=== PATIENT | male | born 1970 | race Caucasian/White ===

== ENCOUNTER 2018-06-18 00:49 | Outpatient (CLI) | payer BC, SELFPAY ==
--- NOTE | 2018-06-18 14:00 | DI.RAD_ITS ---
SYMPTOM/DIAGNOSIS: FOOT JOINT PAIN, M79.672 LEFT FOOT: Three views. No bone or joint abnormality is identified. The soft tissues are unremarkable. IMPRESSION: Negative left foot.
== END 2018-06-18 01:09 ==
PROVIDERS: PCP Physician Assistant Medical; Visit Provider Physician Assistant Medical
DX: M79.672 Pain in left foot (principal)
CPT/HCPCS: 73630

== ENCOUNTER 2018-07-21 22:31 | Emergency (ER) | payer BC, SELFPAY ==
[2018-07-21] VITALS (12 sets, daily range): BP systolic 133–152; BP diastolic 71–83; PULSE 68–85; RESP 13–32; TEMP 36.4; O2SAT 94–99
--- NOTE | 2018-07-21 22:58 | DI.RAD_ITS ---
SYMPTOMS/DIAGNOSIS: CENTRAL CHEST DISCOMFORT PA AND LATERAL CHEST: Comparison 07/26/17. The heart is normal in size. The lungs are clear. The mediastinal structures and pleura appear intact. CONCLUSION: Normal chest.
--- NOTE | 2018-07-21 22:58 | W.ED.GENAD ---
Discharge Plan Disposition Patient Disposition: HOME Condition: Stable Discharge Details Chief Complaint: Palpitatns Clinical Impression: Atypical chest pain Primary Care Provider: Guerline Franco ED Provider: Junior Trevino Home Meds and New Rx's Prescriptions: New ranitidine HCl 150 mg capsule 150 mg PO DAILY Qty: 14 RF: 0 Continue albuterol sulfate [ProAir HFA] 8.5 GM HFA aerosol inhaler 1 - 2 puff Inhalation Q4H PRN RF: 0 beclomethasone dipropionate [Qvar] 8.7 GM aerosol 1 puff Inhalation BID RF: 0 Discharge Instructions Instructions: Chest Pain (ED) Additional Instructions: Your chest x-ray and laboratory tests were reassuring and without evidence of abnormality today. Please trial Zantac daily for 2 weeks time. Avoid fatty, fried, spicy, tomato sauce-based foods. Return to the emergency department if you have recurrent discomfort, develop a fever, shortness of breath, or any other acute concerns. Please call regular doctors office for a follow-up appointment in approximately next 7-10 days time Medical Decision Making 47-year-old male presents from home with abrupt onset of substernal discomfort while eating. It was associated with sensation of skipped beats. He has not had any recent illness and he arrives improved with out significant persistent complaints of than mild substernal burning discomfort. Differential diagnosis includes gastritis, esophagitis, acute coronary syndrome. Patient placed on a cardiac exercise specialist, given a GI cocktail, referred for laboratory testing, EKG, chest x-ray. Diagnostics reveal unremarkable CXR, normal chemistries including troponin and LFT's. CBC WNL. The patient was observed on cardiac exercise specialist over approximately 2 hrs time and repeat troponin obtained. It is negative as well. He is improved and better. Discussed with patient that we will trial a course of Zantac for gastritis. He does understand return precautions including recurrence of chest pain. He will follow up with PMD for recheck. Lab Data Lab results reviewed: Yes I reviewed the patient's lab results. Laboratory Results - last 24 hr 07/21/18 07/21/18 22:45 22:45 WBC 6.44 RBC 4.73 Hgb 14.5 Hct 42.2 MCV 89.2 MCH 30.7 MCHC 34.4 RDW 12.6 Plt Count 201 MPV 10.3 Immature Gran % 0.3 Neutrophils % 45.2 Lymphocytes % 34.8 Monocytes % 15.5 Eosinophils % 3.7 Basophils % 0.5 Absolute Neutrophils 2.91 Absolute Lymphocytes 2.24 Absolute Monocytes 1.00 H Absolute Eosinophils 0.24 Absolute Basophils 0.03 Sodium 142 Potassium 3.6 Chloride 105 Carbon Dioxide 27.7 Anion Gap 9.3 BUN 17 Creatinine 0.98 Estimated GFR/1.73 m2 >= 60.00 Glucose 111 H Calcium 8.8 Magnesium 2.2 Total Bilirubin 0.3 AST 15 ALT 38 Alkaline Phosphatase 86 Troponin I < 0.02 Total Protein 6.6 Albumin 3.6 ECG Data Attestation: I personally reviewed and interpreted this ECG (s) as follows: Interpretation: Normal sinus rhythm, the rate is 86, the QRS is narrow, no ST segment elevation HPI General Mode of arrival: ambulatory. Date/Time Provider Initiated Documentation: 07/21/18 22:50. Limitations to Documentation: no limitations. Information obtained by: patient. History of Present Illness 47 year old M presents to the emergency department with the chief complaint of Epigastric discomfort, described as mild, Quality is described as burning, and is localized to the chest. Patient abdomen. Patient started experiencing this hour(s) and it has been constant. No relieving factors improve symptom(s), No exacerbating factors reported . Patient notes no other symptoms.; denies cough, diaphoresis, fever/chills, headaches and nausea/vomiting. HPI Narrative: 47-year-old male presents from home stating that while eating dinner at a local restaurant he developed substernal burning discomfort that radiated up and down his abdomen and chest. It is graded 4 out of 10, constant, without modifying factors. He denies associated shortness of breath. Has had no lower extremity pain or swelling. He states it is not any recent illness or fever Related Data Home Medications Medication Instructions Recorded Confirmed albuterol sulfate [ProAir HFA] 1 - 2 puff INHALATION Q4H PRN 07/20/17 07/21/18 inhaler beclomethasone dipropionate [Qvar] 1 puff INHALATION BID inhaler 07/20/17 08/31/17 ranitidine HCl 150 mg PO DAILY #14 cap 07/22/18 Previous Rx's Medication Instructions Recorded ranitidine HCl 150 mg PO DAILY #14 cap 07/22/18 Allergies Allergy/AdvReac Type Severity Reaction Status Date / Time No Known Allergies Allergy Unverified 07/21/18 22:43 General Stated Complaint: Palpitatns SHAYNA: 2 Review of Systems Review of Systems 8 systems reviewed and otherwise negative [facility] Medical History Abnormal chest xray Cough Lymphoma Pneumonia Rectal bleeding Sinusitis Testicular disorder Social History Smoking/Tobacco Use Status: Never Exam Narrative Exam Narrative: GEN: awake, alert, oriented 3. Pleasant, well groomed, interactive. HEAD: Normocephalic, atraumatic ENT: Mucous membranes moist, oropharynx unremarkable, External ear exam unremarkable EYES: PERRL, EOMI NECK: Full ROM, no ANA LAURA, no menigismus CHEST/RESP: Nontender, clear to auscultation bilateral, no wheeze/rhonchi/rales CARDIOVASCULAR: RRR, no murmur, rub caitlin. 2+ Rad pulse bilateral ABDOMEN: Soft, nontender, no mass. +Bowel sounds EXT: Full ROM, no edema, no rash Neuro: Grossly normal neurologic exam, conversant, interactive. Psych: Speech fluent, thoughts congruent, affect normal Course Vital Signs Temperature 36.4 C L 07/21/18 22:37 Pulse 77 07/21/18 22:37 Respiratory Rate 26 H 07/21/18 22:37 Blood Pressure 143/83 H 07/21/18 22:37 Pulse Oximetry 98 07/21/18 22:37 Temperature 36.4 C L 07/21/18 22:37 Temperature Source Tympanic 07/21/18 22:37 Pulse 77 07/21/18 22:37 Respiratory Rate 26 H 07/21/18 22:37 Respiratory Effort Non-Labored 07/21/18 22:40 Blood Pressure 143/83 H 07/21/18 22:37 Blood Pressure Position Sitting 07/21/18 22:37 Pulse Oximetry 98 07/21/18 22:37 Oxygen Delivery Method Room Air 07/21/18 22:37 Oxygen Flow Rate 0 07/21/18 22:37 Pain Level 0 07/21/18 22:37
--- NOTE | 2018-07-21 23:02 | ED.GENADUL_ITS ---
Discharge Plan Disposition Patient Disposition: HOME Condition: Stable Discharge Details Chief Complaint: Palpitatns Clinical Impression: Atypical chest pain Primary Care Provider: Guerline Franco ED Provider: Junior Trevino Home Meds and New Rx's Prescriptions: New ranitidine HCl 150 mg capsule 150 mg PO DAILY Qty: 14 RF: 0 Continue albuterol sulfate [ProAir HFA] 8.5 GM HFA aerosol inhaler 1 - 2 puff Inhalation Q4H PRN RF: 0 beclomethasone dipropionate [Qvar] 8.7 GM aerosol 1 puff Inhalation BID RF: 0 Discharge Instructions Instructions: Chest Pain (ED) Additional Instructions: Your chest x-ray and laboratory tests were reassuring and without evidence of abnormality today. Please trial Zantac daily for 2 weeks time. Avoid fatty, fried, spicy, tomato sauce-based foods. Return to the emergency department if you have recurrent discomfort, develop a fever, shortness of breath, or any other acute concerns. Please call regular doctors office for a follow-up appointment in approximately next 7-10 days time Medical Decision Making 47-year-old male presents from home with abrupt onset of substernal discomfort while eating. It was associated with sensation of skipped beats. He has not had any recent illness and he arrives improved with out significant persistent complaints of than mild substernal burning discomfort. Differential diagnosis includes gastritis, esophagitis, acute coronary syndrome. Patient placed on a cellar worker, given a GI cocktail, referred for laboratory testing, EKG, chest x-ray. Diagnostics reveal unremarkable CXR, normal chemistries including troponin and LFT's. CBC WNL. The patient was observed on cellar worker over approximately 2 hrs time and repeat troponin obtained. It is negative as well. He is improved and better . Discussed with patient that we will trial a course of Zantac for gastritis. He does understand return precautions including recurrence of chest pain. He will follow up with PMD for recheck. Lab Data Lab results reviewed: Yes I reviewed the patient's lab results. Laboratory Results - last 24 hr 07/21/18 07/21/18 22:45 22:45 WBC 6.44 RBC 4.73 Hgb 14.5 Hct 42.2 MCV 89.2 MCH 30.7 MCHC 34.4 RDW 12.6 Plt Count 201 MPV 10.3 Immature Gran % 0.3 Neutrophils % 45.2 Lymphocytes % 34.8 Monocytes % 15.5 Eosinophils % 3.7 Basophils % 0.5 Absolute Neutrophils 2.91 Absolute Lymphocytes 2.24 Absolute Monocytes 1.00 H Absolute Eosinophils 0.24 Absolute Basophils 0.03 Sodium 142 Potassium 3.6 Chloride 105 Carbon Dioxide 27.7 Anion Gap 9.3 BUN 17 Creatinine 0.98 Estimated GFR/1.73 m2 >= 60.00 Glucose 111 H Calcium 8.8 Magnesium 2.2 Total Bilirubin 0.3 AST 15 ALT 38 Alkaline Phosphatase 86 Troponin I < 0.02 Total Protein 6.6 Albumin 3.6 ECG Data Attestation: I personally reviewed and interpreted this ECG (s) as follows: Interpretation: Normal sinus rhythm, the rate is 86, the QRS is narrow, no ST segment elevation HPI General Mode of arrival: ambulatory . Date/Time Provider Initiated Documentation: 07/21/18 22:50 . Limitations to Documentation: no limitations . Information obtained by: patient . History of Present Illness 47 year old M presents to the emergency department with the chief complaint of Epigastric discomfort, described as mild, Quality is described as burning, and is localized to the chest. Patient abdomen. Patient started experiencing this hour(s) and it has been constant. No relieving factors improve symptom(s), No exacerbating factors reported . Patient notes no other symptoms.; denies cough, diaphoresis, fever/chills, headaches and nausea/ vomiting. HPI Narrative: 47-year-old male presents from home stating that while eating dinner at a local restaurant he developed substernal burning discomfort that radiated up and down his abdomen and chest. It is graded 4 out of 10, constant , without modifying factors. He denies associated shortness of breath. Has had no lower extremity pain or swelling. He states it is not any recent illness or fever Related Data Home Medications Medication Instructions Recorded Confirmed albuterol sulfate [ProAir HFA] 1 - 2 puff INHALATION Q4H PRN 07/20/17 07/21/18 inhaler beclomethasone dipropionate [Qvar] 1 puff INHALATION BID inhaler 07/20/1708/31 ranitidine HCl 150 mg PO DAILY #14 cap 07/22/18 Previous Rx's Medication Instructions Recorded ranitidine HCl 150 mg PO DAILY #14 cap 07/22/18 Allergies Allergy/AdvReac Type Severity Reaction Status Date / Time No Known Allergies Allergy Unverified 07/21/18 22:43 General Stated Complaint: Palpitatns SHAYNA: 2 Review of Systems Review of Systems 8 systems reviewed and otherwise negative [facility] Medical History Abnormal chest xray Cough Lymphoma Pneumonia Rectal bleeding Sinusitis Testicular disorder Social History Smoking/Tobacco Use Status: Never Exam Narrative Exam Narrative: GEN: awake, alert, oriented 3. Pleasant, well groomed, interactive. HEAD: Normocephalic, atraumatic ENT: Mucous membranes moist, oropharynx unremarkable, External ear exam unremarkable EYES: PERRL, EOMI NECK: Full ROM, no ANA LAURA, no menigismus CHEST/RESP: Nontender, clear to auscultation bilateral, no wheeze/rhonchi/rales CARDIOVASCULAR: RRR, no murmur, rub caitlin. 2+ Rad pulse bilateral ABDOMEN: Soft, nontender, no mass. +Bowel sounds EXT: Full ROM, no edema, no rash Neuro: Grossly normal neurologic exam, conversant, interactive. Psych: Speech fluent, thoughts congruent, affect normal Course Vital Signs Temperature 36.4 C L 07/21/18 22:37 Pulse 77 07/21/18 22:37 Respiratory Rate 26 H 07/21/18 22:37 Blood Pressure 143/83 H 07/21/18 22:37 Pulse Oximetry 98 07/21/18 22:37 Temperature 36.4 C L 07/21/18 22:37 Temperature Source Tympanic 07/21/18 22:37 Pulse 77 07/21/18 22:37 Respiratory Rate 26 H 07/21/18 22:37 Respiratory Effort Non-Labored 07/21/18 22:40 Blood Pressure 143/83 H 07/21/18 22:37 Blood Pressure Position Sitting 07/21/18 22:37 Pulse Oximetry 98 07/21/18 22:37 Oxygen Delivery Method Room Air 07/21/18 22:37 Oxygen Flow Rate 0 07/21/18 22:37 Pain Level 0 07/21/18 22:37
[2018-07-21 23:04] LABS: Abs Immature Grans 0.02 k/cumm (0.0-0.09); Absolute Basophil Count 0.03 k/cumm (0.0-0.2); Absolute Eosinophil Count 0.24 k/cumm (0.0-0.7); Absolute Lymphocyte Count 2.24 k/cumm (1.2-3.4); Absolute Neutrophil Count 2.91 k/cumm (1.2-6.7); Basophils % 0.5; Eosinophils % 3.7; HCT 42.2 % (40.0-50.0); HGB 14.5 g/dL (13.5-17.5); Immature Grans % 0.3; Lymphocytes % 34.8; Mean Corp. HGB Concentration 34.4 g/dL (32.0-36.0); Mean Corpuscular Hemoglobin 30.7 pg (27.0-33.0); Mean Corpuscular Volume 89.2 fL (80-95); Mean Platelet Volume 10.3 fL (8.0-11.0); Monocytes % 15.5; Neutrophils % 45.2; Platelet Count 201 x1000/uL (130-400); RBC 4.73 m/cumm (4.50-6.00); RBC Distribution Width 12.6 % (11.8-14.1); White Blood Cell Count 6.44 k/cumm (4.4-10.8)
[2018-07-21 23:19] LABS: ALT 38 U/L (12-78); AST 15 U/L (15-37); Albumin 3.6 g/dL (3.4-5.0); Alkaline Phosphatase 86 U/L (46-116); Anion Gap 9.3 mmol/L (3-11); BUN 17 mg/dL (7-18); Bilirubin, Total 0.3 mg/dL (0.2-1.0); CO2 27.7 mmol/L (21.0-32.0); CREATININE 0.98 mg/dL (0.70-1.30); Calcium 8.8 mg/dL (8.5-10.1); Chloride 105 mmol/L (98-107); Glucose 111 mg/dL (70-100); Magnesium 2.2 mg/dL (1.8-2.4); Potassium 3.6 mmol/L (3.5-5.1); Sodium 142 mmol/L (136-145); Total Protein 6.6 g/dL (6.4-8.2); Troponin I < 0.02 ng/mL (0.00-0.06)
--- NOTE | 2018-07-21 23:41 | DI.VRAD_ITS ---
EXAM: XR Chest, 2 Views EXAM DATE/TIME: 07/21/2018 10:59 PM CLINICAL HISTORY: 47 years old, male; Pain; Other: Central chest discomfort TECHNIQUE: XR of the chest, 2 views. COMPARISON: CR CHEST 2 VIEWS PA,LAT 07/26/2017 7:50 AM FINDINGS: Lungs: Unremarkable. No consolidation. Pleural space: Unremarkable. No pleural effusion. No pneumothorax. Heart/Mediastinum: Unremarkable. No cardiomegaly. Bones/joints: Chronic osseous changes. IMPRESSION: No acute cardiopulmonary findings. Dictated and Authenticated by: Minesh Briseno MD. Ordering:ROSS LOCO MD
[2018-07-22] VITALS: PULSE 72; RESP 34; O2SAT 95
[2018-07-22 00:01] VITALS: BP 133/84; PULSE 74; PULSE 80; O2SAT 95
[2018-07-22 00:02] VITALS: PULSE 73; RESP 15; O2SAT 96
[2018-07-22 00:10] VITALS: PULSE 63; O2SAT 96
[2018-07-22 00:20] LABS: Troponin I < 0.02 ng/mL (0.00-0.06)
[2018-07-22 00:28] VITALS: BP 132/80; PULSE 74; RESP 15; TEMP 36.4; O2SAT 96
== END 2018-07-22 00:37 | disposition home or self-care (01) ==
LOC: ER 07-22 00:41
PROVIDERS: Emergency Provider Emergency Medicine; PCP Physician Assistant Medical
DX: R07.89 Other chest pain (principal)
CPT/HCPCS: 36415; 80053; 93005; 99285; 71046; 83735; 84484; 85025; 93010; 99284

== ENCOUNTER 2018-10-10 07:23 | Outpatient (CLI) | payer BC, SELFPAY ==
[2018-10-10 07:54] LABS: Abs Immature Grans 0.02 k/cumm (0.0-0.09); Absolute Basophil Count 0.03 k/cumm (0.0-0.2); Absolute Eosinophil Count 0.23 k/cumm (0.0-0.7); Absolute Lymphocyte Count 1.77 k/cumm (1.2-3.4); Absolute Monocyte Count 0.56 k/cumm (0.11-0.7); Absolute Neutrophil Count 3.74 k/cumm (1.2-6.7); Basophils % 0.5; Eosinophils % 3.6; HCT 45.1 % (40.0-50.0); HGB 15.5 g/dL (13.5-17.5); Immature Grans % 0.3; Lymphocytes % 27.9; Mean Corp. HGB Concentration 34.4 g/dL (32.0-36.0); Mean Corpuscular Hemoglobin 30.3 pg (27.0-33.0); Mean Corpuscular Volume 88.1 fL (80-95); Mean Platelet Volume 10.5 fL (8.0-11.0); Monocytes % 8.8; Neutrophils % 58.9; Platelet Count 225 x1000/uL (130-400); RBC 5.12 m/cumm (4.50-6.00); RBC Distribution Width 12.4 % (11.8-14.1); White Blood Cell Count 6.35 k/cumm (4.4-10.8)
[2018-10-10 08:06] LABS: ALT 34 U/L (12-78); AST 13 U/L (15-37); Albumin 3.9 g/dL (3.4-5.0); Alkaline Phosphatase 82 U/L (46-116); Anion Gap 10.3 mmol/L (3-11); BUN 16 mg/dL (7-18); Bilirubin, Total 0.4 mg/dL (0.2-1.0); CO2 25.7 mmol/L (21.0-32.0); CREATININE 0.94 mg/dL (0.70-1.30); Chloride 105 mmol/L (98-107); Glucose 92 mg/dL (70-100); LDH 145 U/L (85-227); Potassium 4.3 mmol/L (3.5-5.1); Sodium 141 mmol/L (136-145); Total Protein 7.1 g/dL (6.4-8.2)
== END 2018-10-10 07:43 ==
PROVIDERS: PCP Physician Assistant Medical; Referring Provider Nurse Practitioner Family; Visit Provider Internal Medicine Hematology & Oncology
DX: C82.90 Follicular lymphoma, unspecified, unspecified site (principal)
CPT/HCPCS: 36415; 80053; 83615; 85025

== ENCOUNTER 2018-12-30 09:07 | Emergency (ER) | payer BC, SELFPAY ==
[2018-12-30 09:28] VITALS: BP 128/82; PULSE 71; RESP 16; TEMP 36.5; O2SAT 97
--- NOTE | 2018-12-30 11:17 | W.ED.GENAD ---
Discharge Plan Disposition Patient Disposition: HOME Condition: Improving Discharge Details Chief Complaint: EyeProblem Clinical Impression: Acute conjunctivitis of left eye Primary Care Provider: Rafal Art ED Provider: Junior Trevino Home Meds and New Rx's Prescriptions: Continued albuterol sulfate [ProAir HFA] 8.5 GM HFA aerosol inhaler 1 - 2 puff Inhalation Q4H PRN RF: 0 Qvar 8.7 GM aerosol 1 puff Inhalation BID RF: 0 ranitidine HCl 150 mg capsule 150 mg PO DAILY Qty: 14 RF: 0 Discharge Instructions Instructions: Conjunctivitis (ED) Additional Instructions: Our care management team will work to get you an appointment at [facility] for follow-up and recheck. Use antibiotic ointment as instructed for 5 days time. Return if you develop a severe headache, fever or any other acute concerns Medical Decision Making 48-year-old male presents with 1 day of left eye conjunctival irritation and watering. His visual acuity is 20/70 on the affected eye, 20/50 contralateral. Exam including fluorescein exam is unremarkable for corneal defect. Consistent with conjunctivitis, cannot exclude iritis. Will place on erythromycin ointment and have the patient follow-up with [facility] for recheck. HPI General Mode of arrival: ambulatory. Date/Time Provider Initiated Documentation: 12/30/18 10:58. Limitations to Documentation: no limitations. Information obtained by: patient. History of Present Illness 48 year old M presents to the emergency department with the chief complaint of Left eye injection and tearing, no pain, described as mild, Quality is described as dull, and is localized to the eyes and left. Patient reports no radiation. Patient started experiencing this day(s) and it has been constant. No relieving factors improve symptom(s), No exacerbating factors reported . Patient notes no other symptoms.; denies fever/chills, headaches and rash. Patient did receive the following treatments prior to arrival, none Related Data Home Medications Medication Instructions Recorded Confirmed Qvar 1 puff INHALATION BID inhaler 07/20/17 12/30/18 albuterol sulfate [ProAir HFA] 1 - 2 puff INHALATION Q4H PRN 07/20/17 12/30/18 inhaler ranitidine HCl 150 mg PO DAILY #14 cap 07/22/18 12/30/18 Previous Rx's Medication Instructions Recorded ranitidine HCl 150 mg PO DAILY #14 cap 07/22/18 Allergies Allergy/AdvReac Type Severity Reaction Status Date / Time No Known Allergies Allergy Unverified 12/30/18 09:30 General Stated Complaint: EyeProblem SHAYNA: 4 Review of Systems Review of Systems No change to vision. No pain. No fall or foreign object. 6 systems reviewed and otherwise - REPLACED BY [facility] Social History Smoking/Tobacco Use Status: Never Drug use: Never Do you feel safe in your relationship?: Yes Exam Narrative Exam Narrative: GEN: awake, alert, oriented 3. Pleasant, well groomed, interactive. HEAD: Normocephalic, atraumatic ENT: Mucous membranes moist, oropharynx unremarkable, External ear exam unremarkable EYES: PERRL, EOMI. left eye is injected. Fluorescein exam is unremarkable and negative Nandini sign. no foreign body seen NECK: Full ROM, no ANA LAURA, no menigismus CHEST/RESP: Nontender, clear to auscultation bilateral, no wheeze/rhonchi/rales CARDIOVASCULAR: RRR, no murmur, rub caitlin. 2+ Rad pulse bilateral Neuro: Grossly normal neurologic exam, conversant, interactive. Psych: Speech fluent, thoughts congruent, affect normal Course Vital Signs Temperature 36.5 C 12/30/18 09:28 Pulse 71 12/30/18 09:28 Respiratory Rate 16 12/30/18 09:28 Blood Pressure 128/82 12/30/18 09:28 Pulse Oximetry 97 12/30/18 09:28 Temperature 36.5 C 12/30/18 09:28 Temperature Source Skin 12/30/18 09:28 Pulse 71 12/30/18 09:28 Respiratory Rate 16 12/30/18 09:28 Respiratory Effort Non-Labored 12/30/18 09:28 Blood Pressure 128/82 12/30/18 09:28 Blood Pressure Position Sitting 12/30/18 09:28 Pulse Oximetry 97 12/30/18 09:28 Oxygen Delivery Method Room Air 12/30/18 09:28 Oxygen Flow Rate 0 12/30/18 09:28 Pain Level 1 12/30/18 09:28
--- NOTE | 2018-12-30 11:20 | ED.GENADUL_ITS ---
Discharge Plan Disposition Patient Disposition: HOME Condition: Improving Discharge Details Chief Complaint: EyeProblem Clinical Impression: Acute conjunctivitis of left eye Primary Care Provider: Rafal Art ED Provider: Junior Trevino Home Meds and New Rx's Prescriptions: Continued albuterol sulfate [ProAir HFA] 8.5 GM HFA aerosol inhaler 1 - 2 puff Inhalation Q4H PRN RF: 0 Qvar 8.7 GM aerosol 1 puff Inhalation BID RF: 0 ranitidine HCl 150 mg capsule 150 mg PO DAILY Qty: 14 RF: 0 Discharge Instructions Instructions: Conjunctivitis (ED) Additional Instructions: Our care management team will work to get you an appointment at [facility] for follow-up and recheck. Use antibiotic ointment as instructed for 5 days time. Return if you develop a severe headache, fever or any other acute concerns Medical Decision Making 48-year-old male presents with 1 day of left eye conjunctival irritation and watering. His visual acuity is 20/70 on the affected eye, 20/50 contralateral. Exam including fluorescein exam is unremarkable for corneal defect. Consistent with conjunctivitis, cannot exclude iritis. Will place on erythromycin ointment and have the patient follow-up with [facility] for recheck. HPI General Mode of arrival: ambulatory . Date/Time Provider Initiated Documentation: 12/30/18 10:58 . Limitations to Documentation: no limitations . Information obtained by: patient . History of Present Illness 48 year old M presents to the emergency department with the chief complaint of Left eye injection and tearing, no pain, described as mild, Quality is described as dull, and is localized to the eyes and left. Patient reports no radiation. Patient started experiencing this day(s) and it has been constant. No relieving factors improve symptom(s), No exacerbating factors reported . Patient notes no other symptoms.; denies fever/chills, headaches and rash. Patient did receive the following treatments prior to arrival, none Related Data Home Medications Medication Instructions Recorded Confirmed Qvar 1 puff INHALATION BID inhaler 07/20/17 12/30/18 albuterol sulfate [ProAir HFA] 1 - 2 puff INHALATION Q4H PRN 07/20/17 12/30/18 inhaler ranitidine HCl 150 mg PO DAILY #14 cap 07/22/18 12/30/18 Previous Rx's Medication Instructions Recorded ranitidine HCl 150 mg PO DAILY #14 cap 07/22/18 Allergies Allergy/AdvReac Type Severity Reaction Status Date / Time No Known Allergies Allergy Unverified 12/30/18 09:30 General Stated Complaint: EyeProblem SHAYNA: 4 Review of Systems Review of Systems No change to vision. No pain. No fall or foreign object. 6 systems reviewed and otherwise - [facility] Social History Smoking/Tobacco Use Status: Never Drug use: Never Do you feel safe in your relationship?: Yes Exam Narrative Exam Narrative: GEN: awake, alert, oriented 3. Pleasant, well groomed, interactive. HEAD: Normocephalic, atraumatic ENT: Mucous membranes moist, oropharynx unremarkable, External ear exam unremarkable EYES: PERRL, EOMI. left eye is injected. Fluorescein exam is unremarkable and negative Nandini sign. no foreign body seen NECK: Full ROM, no ANA LAURA, no menigismus CHEST/RESP: Nontender, clear to auscultation bilateral, no wheeze/rhonchi/rales CARDIOVASCULAR: RRR, no murmur, rub caitlin. 2+ Rad pulse bilateral Neuro: Grossly normal neurologic exam, conversant, interactive. Psych: Speech fluent, thoughts congruent, affect normal Course Vital Signs Temperature 36.5 C 12/30/18 09:28 Pulse 71 12/30/18 09:28 Respiratory Rate 16 12/30/18 09:28 Blood Pressure 128/82 12/30/18 09:28 Pulse Oximetry 97 12/30/18 09:28 Temperature 36.5 C 12/30/18 09:28 Temperature Source Skin 12/30/18 09:28 Pulse 71 12/30/18 09:28 Respiratory Rate 16 12/30/18 09:28 Respiratory Effort Non-Labored 12/30/18 09:28 Blood Pressure 128/82 12/30/18 09:28 Blood Pressure Position Sitting 12/30/18 09:28 Pulse Oximetry 97 12/30/18 09:28 Oxygen Delivery Method Room Air 12/30/18 09:28 Oxygen Flow Rate 0 12/30/18 09:28 Pain Level 1 12/30/18 09:28
[2018-12-30] MEDS: Erythromycin Ophth Oint 3.5 GM TUBE OP (11:22)
[2018-12-30] MEDS: Balanced Salt Solution 15 ML BTL OP (11:23)
[2018-12-30] MEDS: Fluorescein STRIPS 100/BOX 1 MG (11:24)
--- NOTE | 2018-12-31 10:08 | PDOC.ERCMPRO ---
Care Management Progress Note 12/31-Dr. Trevino requested assistance with a [facility] f/u Mon// for conjunctivitis or iritis. Referral, face sheet, and provider note faxed to [facility] this am.
--- NOTE | 2018-12-31 10:18 | CMPROGNOTE_ITS ---
Care Management Progress Note 12/31-Dr. Trevino requested assistance with a [facility] f/u Mon// for conjunctivitis or iritis. Referral, face sheet, and provider note faxed to [facility]riet[facility] this am.
== END 2018-12-30 11:26 | disposition home or self-care (01) ==
PROVIDERS: Emergency Provider Emergency Medicine; PCP Specialist/Technologist Athletic Trainer
DX: H10.32 Unspecified acute conjunctivitis, left eye (principal)
CPT/HCPCS: 99283

== ENCOUNTER 2019-04-24 07:12 | Outpatient (CLI) | payer BC, SELFPAY ==
[2019-04-24 07:48] LABS: Abs Immature Grans 0.02 k/cumm (0.0-0.09); Absolute Basophil Count 0.03 k/cumm (0.0-0.2); Absolute Eosinophil Count 0.19 k/cumm (0.0-0.7); Absolute Lymphocyte Count 1.86 k/cumm (1.2-3.4); Absolute Monocyte Count 0.49 k/cumm (0.11-0.7); Absolute Neutrophil Count 3.44 k/cumm (1.2-6.7); Basophils % 0.5; Eosinophils % 3.2; HCT 41.9 % (40.0-50.0); HGB 14.6 g/dL (13.5-17.5); Immature Grans % 0.3; Lymphocytes % 30.8; Mean Corp. HGB Concentration 34.8 g/dL (32.0-36.0); Mean Corpuscular Hemoglobin 30.7 pg (27.0-33.0); Mean Corpuscular Volume 88.2 fL (80-95); Mean Platelet Volume 10.5 fL (8.0-11.0); Monocytes % 8.1; Neutrophils % 57.1; Platelet Count 201 x1000/uL (130-400); RBC 4.75 m/cumm (4.50-6.00); RBC Distribution Width 12.3 % (11.8-14.1); White Blood Cell Count 6.03 k/cumm (4.4-10.8)
[2019-04-24 08:13] LABS: ALT 38 U/L (12-78); AST 10 U/L (15-37); Albumin 3.8 g/dL (3.4-5.0); Alkaline Phosphatase 73 U/L (46-116); BUN 13 mg/dL (7-18); Bilirubin, Total 0.3 mg/dL (0.2-1.0); Calcium 8.6 mg/dL (8.5-10.1); Chloride 109 mmol/L (98-107); Glucose 100 mg/dL (70-100); LDH 160 U/L (85-227); Potassium 4.1 mmol/L (3.5-5.1); Sodium 142 mmol/L (136-145); Total Protein 6.7 g/dL (6.4-8.2)
== END 2019-04-24 07:32 ==
PROVIDERS: PCP Specialist/Technologist Athletic Trainer; Visit Provider Internal Medicine Hematology & Oncology
DX: C85.90 Non-Hodgkin lymphoma, unspecified, unspecified site (principal)
CPT/HCPCS: 36415; 80053; 83615; 85025

== ENCOUNTER 2019-11-15 08:15 | Day surgery (SDC) | payer OTHER, SELFPAY ==
[2019-11-15 08:27] VITALS: BP 120/81; PULSE 81; RESP 18; TEMP 36.6; O2SAT 97
[2019-11-15] MEDS: Lactated Ringers 1,000 ML 80 ML IV ×2 (09:01→10:52)
--- NOTE | 2019-11-15 09:29 | W.PM.DSUDISC ---
Discharge Plan Disposition Patient Disposition: HOME Condition: Good Discharge Details Reason For Visit: Colonoscopy Attending Provider: Concepcion Hernandez Primary Care Provider: Rafal Art Discharge Instructions Additional Instructions: Findings: Your colonoscopy was normal. Biopsies were done to evaluate for a possible cause of loose stool. My office will contact you with results. Follow up: Plan for routine colon screening in 10 years or sooner if symptoms arise. Please call if you develop: fevers >101.5 Nausea or Vomiting Abdominal pain that is not transient DAY SURGERY UNIT POST COLONOSCOPY INSTRUCTIONS 1. Because there will be medication in your system for the next 24 hours, you may feel a little sleepy. Your coordination will be affected. Therefore: a. Do not drive or operate dangerous equipment for 24 hours. b. Do not drink alcohol beverages for 24 hours (not even beer). c. Plan to go home and rest for the day. 2. Generally there are no restrictions on your activity after a day or so has gone by, but you may feel a bit fatigued for a few days. 3 After you arrive home you may have a light meal and return to a normal diet as you can tolerate it without feeling sick to your stomach. 4. After surgery, you may feel pain or discomfort. This should be only transient, but if it persists please contact your doctor. 5. If there are any questions regarding the findings of your procedure, please feel free to contact your doctor. 6. If you are unable to contact your doctor with a problem, contact the hospital at [phone]. 7. Continue all your regular medications unless directed otherwise. I understand the above instructions and have no questions. Signature of Patient or Responsible Adult Escort Date/Time Name of Responsible Adult Escort Signature of Nurse Date/Time Activity:: Activity as Tolerated Diet:: As Tolerated Discharge Orders Discharge Orders: Discharge Order (Routine); Ordered 11/15/19 Ordered By: Concepcion Hernandez DS: Diagnosis Discharge Diagnosis (1) Normal colonoscopy: Status: Acute
--- NOTE | 2019-11-15 10:48 | BOWEL_PTH ---
PATIENT: Agapito Ramirez JR LOC: [facility] U#:[id number] AGE/SX: 49/M ROOM: RE11/15/[address]: Concepcion Hernandez MD : [id number] BED: DIS: 11/15/2019 SPEC #: [id number] RECD: 11/15/19 12:59 STATUS: LEE REQ #: [id number] LENARD: 11/15/19 10:[address]: Concepcion Hernandez DEPT: Surgical Specimen RECD BY: Tran Quesada ENTERED: 11/15/19 13:00 SP TYPE: Bowel OTHR DR: Rafal Art Tissues: 1 - BIOPSY BOWEL Procedures: GROSS AND MICRO LEVEL 4 Comments: [id number]
--- NOTE | 2019-11-15 11:31 | COLE_ITS ---
DATE OF PROCEDURE November 15, 2019 PREOPERATIVE DIAGNOSIS Colon screening. POSTOPERATIVE DIAGNOSIS Normal colon. PROCEDURE Colonoscopy with random biopsies. SURGEON Concepcion Hernandez M.D. ANESTHESIA General. INDICATIONS This is a 49-year-old man, who presents for his first screening colonoscopy. He does note that his st ools have become somewhat looser. Often after he eats, he reports that the food goes right through hi m. He has about two stools per day. No family history of colon cancer. PROCEDURE He was placed in the left Alas position. Propofol was titrated to sedation. Digital rectal examinatio n revealed no abnormalities. The scope was advanced to the cecum without difficulty. The ileocecal va lve and appendiceal orifice were clearly identified. His prep was excellent. Random biopsies were per formed throughout the colon to evaluate for microscopic colitis as the cause of his loose stool. No a bnormalities were visualized throughout the ascending, transverse, descending, sigmoid colon or rectu m, including on retroflexed view. He tolerated the procedure well and was stable to Recovery. He will need a screening colonoscopy again in 10 years or sooner as symptoms indicate.
[2019-11-15 11:49] VITALS: BP 124/81; PULSE 71; RESP 17; TEMP 36.1; O2SAT 97
== END 2019-11-15 12:12 | disposition home or self-care (01) ==
PROVIDERS: PCP Specialist/Technologist Athletic Trainer; Visit Provider Surgery
PROC: 0DJD8ZZ Inspection of Lower Intestinal Tract, Via Natural or Artificial Opening Endoscopic (ICD-10-PCS; CPT 45378; principal; 2019-11-15 09:45)
DX: Z12.11 Encounter for screening for malignant neoplasm of colon (principal); R19.4 Change in bowel habit; Z85.72 Personal history of non-Hodgkin lymphomas; D12.6 Benign neoplasm of colon, unspecified
CPT/HCPCS: 45380; 88305; J2001; J2704

== ENCOUNTER 2020-06-16 13:22 | Outpatient (CLI) | payer OTHER, SELFPAY ==
[2020-06-16 14:38] LABS: Abs Immature Grans 0.02 10^3/uL (0.0-0.06); Absolute Basophil Count 0.05 10^3/uL (0.0-0.2); Absolute Eosinophil Count 0.22 10^3/uL (0.0-0.7); Absolute Lymphocyte Count 2.23 10^3/uL (1.2-3.4); Absolute Monocyte Count 0.64 10^3/uL (0.1-0.8); Absolute Neutrophil Count 4.11 10^3/uL (1.2-6.7); Basophils % 0.7; HCT 42.5 % (40.0-50.0); HGB 14.1 g/dL (13.5-17.5); Immature Grans % 0.3; Lymphocytes % 30.7; MCH 29.9 pg (27.0-33.0); MCHC 33.2 % (32.0-36.0); MCV 90.2 fL (80-95); MPV 10.2 fL (8.0-11.0); Monocytes % 8.8; Neutrophils % 56.5; Nucleated RBC 0 %; Platelet Count 207 10^3/uL (130-400); RBC 4.71 10^6/uL (4.36-5.78); RDW-SD 39.7 fL; WBC 7.27 10^3/uL (4.4-10.8)
[2020-06-16 14:53] LABS: ALT 44 U/L (16-63); AST 17 U/L (15-37); Albumin 3.7 g/dL (3.4-5.0); Alkaline Phosphatase 76 U/L (46-116); Anion Gap 6.8 mmol/L (3-11); BUN 17 mg/dL (7-18); Bilirubin, Total 0.3 mg/dL (0.2-1.0); CO2 25.2 mmol/L (21.0-32.0); CREATININE 0.93 mg/dL (0.70-1.30); Calcium 8.5 mg/dL (8.5-10.1); Chloride 108 mmol/L (98-107); Glucose 78 mg/dL (74-106); LDH 153 U/L (85-227); Potassium 4.2 mmol/L (3.5-5.1); Sodium 140 mmol/L (136-145); Total Protein 6.6 g/dL (6.4-8.2)
== END 2020-06-16 13:42 ==
PROVIDERS: PCP Specialist/Technologist Athletic Trainer; Visit Provider Internal Medicine Hematology & Oncology
DX: C82.90 Follicular lymphoma, unspecified, unspecified site (principal); C83.31 Diffuse large B-cell lymphoma, lymph nodes of head, face, and neck; C85.90 Non-Hodgkin lymphoma, unspecified, unspecified site
CPT/HCPCS: 36415; 80053; 83615; 85025

== ENCOUNTER 2020-06-29 18:06 | Outpatient (REF) | payer OTHER, SELFPAY ==
[2020-06-29 10:16] LABS: Calculated LDL 135 mg/dL (<100); Cholesterol 192 mg/dL (<200); HDL Cholesterol 35 mg/dL (40-60); TSH (W/Ref FT4) 0.66 uIU/mL (0.36-3.74); Triglyceride 112 mg/dL (<150)
[2020-06-29 18:02] LABS: PSA, Screening 0.2 ng/mL (0.0-3.5)
[2020-07-01 17:30] LABS: Testosterone, Total 352 ng/dL (240-950)
== END 2020-06-29 18:26 ==
LOC: LBN 18:06
PROVIDERS: PCP Specialist/Technologist Athletic Trainer; Visit Provider Nurse Practitioner Gerontology
DX: N52.9 Male erectile dysfunction, unspecified (principal); Z12.5 Encounter for screening for malignant neoplasm of prostate; E78.5 Hyperlipidemia, unspecified; I10 Essential (primary) hypertension
CPT/HCPCS: 80061; 84153; 84403; 84443

== ENCOUNTER 2020-07-09 01:42 | Outpatient (CLI) | payer OTHER, SELFPAY ==
--- NOTE | 2020-07-09 07:32 | DI.US_ITS ---
APPROVED REPORT EXAM: Comprehensive 2D, Doppler, and color-flow Echocardiogram Patient Location: Out-Patient Crowning Inspector: Eden Berrios RDCS (AE) Indications: Lymphoma Other Information Study Quality: Good Conclusion Left Ventricle : The left ventricle is normal size. The left ventricular systolic function is normal. The left ventricular ejection fraction is within the normal range. There is normal left ventricular wall thickness. There is normal LV segmental wall motion. The left ventricular diastolic function is normal. LVEF is 58%. Right Ventricle : The right ventricle is normal size. The right ventricular systolic function is norm al. The RVSP is 28.9 mmHg. Atria : The left atrium size is normal. The right atrium size is normal. Aortic Valve : The aortic valve is normal in structure. Aortic valve is trileaflet. There is no aorti c valvular stenosis. Trivial aortic regurgitation. Mitral Valve : The mitral valve is normal in structure. Trace to mild mitral regurgitation. No eviden ce of mitral valve stenosis. Great Vessels : The aortic root is normal in size. The ascending aorta is normal in size. Aortic arch is not well visualized. IVC is normal in size and collapses >50% with inspiration. Please see remainder of study for further details. Wall motion Left Ventricle The left ventricle is normal size. The left ventricular systolic function is normal. The left ventric ular ejection fraction is within the normal range. There is normal left ventricular wall thickness. T here is normal LV segmental wall motion. The left ventricular diastolic function is normal. There is no ventricular septal defect visualized. LVEF is 58%. Right Ventricle The right ventricle is normal size. The right ventricular systolic function is normal. The RVSP is 28 .9 mmHg. Atria The left atrium size is normal. The right atrium size is normal. The interatrial septum is intact wit h no evidence for an atrial septal defect. Aortic Valve The aortic valve is normal in structure. Aortic valve is trileaflet. There is no aortic valvular sten osis. Trivial aortic regurgitation. Mitral Valve The mitral valve is normal in structure. No evidence of mitral valve stenosis. Trace to mild mitral r egurgitation. Tricuspid Valve The tricuspid valve is normal in structure. There is no tricuspid valve stenosis. Trace to mild tricu spid regurgitation. Pulmonic Valve The pulmonary valve is normal in structure. There is no pulmonic valvular stenosis. There is no pulmo eliud valvular regurgitation. Great Vessels The aortic root is normal in size. The ascending aorta is normal in size. Aortic arch is not well vis ualized. IVC is normal in size and collapses >50% with inspiration. Pericardium There is no pericardial effusion. 2D Dimensions IVSD d PLAX 1.01 cm M: 0.6-1.2 LV Vol A2C d MOD 136.3 mL LVPW d PLAX 1.05 cm M: 0.6 - 1.2 LV Vol A4C d MOD 109.5 mL LVID d PLAX 4.99 cm M: 4.2 - 5.8 LA vol/ BSA A2C s A-L 26.6 mL/m2 LVDs 3.35 cm M: 2.5 - 4.0 LA vol/ BSA A4C s A-L 16.1 mL/m2 Ao Root d 2.64 cm M: 3.1 - 3.7 LA Vol/ BSA Biplane s A-L 21.0 mL/m2 RA Area A4C 15.08 cm2 LA Area A4C s MOD 15.33 cm2 RA Vol/ BSA A4C s A-L 18.9 mL/m2 LA Area A2C s MOD 20.04 cm2 Ao Asc Diam d 3.20 cm M: 2.6 - 3.4 LV EF A4C MOD 58.9 % LV EF Teichholz 60.8 % LV EF A2C MOD 57.6 % LVEF ([place]ig[place]'s) 57.43 % M: 52 - 72 LV EF Biplane MOD 57.4 % LV Volume 90.12 mL M: 62 - 150 SV 72.55 mL LV Volume Index 38.51 mL/m2 M: 34 - 74 SV Index 30.97 mL/m2 LV Vol Biplane MOD 126.3 mL FS 32.60 % M-Mode TAPSE 1.98 cm (M/F) >1.7 LV Diastology MV E' medial 0.060 (>0.07 m/s) E/A Ratio 1.5 LV E/e MED 9.55 (<14) MV E Vmax 0.58 (0.4-1.3 m/s) MV E' lateral 0.098 (>0.1 m/s) MV A Vmax 0.40 (0.4-1.3 m/s) LV E/e LAT 5.90 (<14) MV E/A Ratio 1.31 MV E/E' medial 9.57 MV E/E' lateral 5.90 Aortic Valve LVOT Vmax 1.04 m/s LVOT Mean Karl. 0.65 m/s LVOT Peak Grad 4.4 mmHg LVOT Mean Grad 2.0 mmHg LVOT VTI 0.241 m AoV Vmax 1.46 m/s Velocity Ratio 0.71 AoV Mean Karl. 1.01 m/s AoV Peak Grad 8.5 mmHg AoV Mean Grad 4.5 mmHg AoV VTI 0.298 m Mitral Valve MV DT 221 (160-240 msec) MV PHT 64 msec MV Area PHT 3.43 cm2 Pulmonary Valve PV Vmax 1.15 (0.5-1.5 m/s) RVOT Peak Gr. 1.82 mmHg PV Peak Grad 5.3 mmHg RVOT Mean Gr. 0.95 mmHg PV Mean Grad 2.3 mmHg RVOT VTI 0.162 m PV VTI 0.241 m RVOT Vmax 0.68 m/s Tricuspid Valve TR Peak Grad 25.8 mmHg TR Vmax 2.54 m/s RA Pressure 3.00 mmHg RVSP (TR) 28.9 mmHg
== END 2020-07-09 02:02 ==
PROVIDERS: PCP Specialist/Technologist Athletic Trainer; Visit Provider Nurse Practitioner Family
DX: I34.0 Nonrheumatic mitral (valve) insufficiency (principal)
CPT/HCPCS: 93306

== ENCOUNTER 2021-12-02 17:48 | Outpatient (REF) | payer BC, SELFPAY ==
[2021-12-03 11:23] LABS: HSV 1 DNA Result Positive (Negative); HSV 2 DNA Result Negative (Negative)
== END 2021-12-02 17:49 | disposition home or self-care (01) ==
LOC: LBN 17:48
PROVIDERS: PCP Specialist/Technologist Athletic Trainer; Visit Provider Nurse Practitioner Family
DX: B00.1 Herpesviral vesicular dermatitis (principal)
CPT/HCPCS: 87529

== ENCOUNTER 2021-12-29 08:40 | Outpatient (REF) | payer BC, SELFPAY ==
[2021-12-29 14:04] LABS: HCT 42.7 % (40.0-50.0); HGB 14.2 g/dL (13.5-17.5); MCH 29.5 pg (27.0-33.0); MCHC 33.3 % (32.0-36.0); MCV 88.6 fL (80-95); MPV 10.9 fL (8.0-11.0); Platelet Count 198 10^3/uL (130-400); RBC 4.82 10^6/uL (4.36-5.78); RDW 12.1 % (11.8-14.1); RDW-SD 39.6 fL; WBC 5.76 10^3/uL (4.4-10.8)
[2021-12-29 14:23] LABS: Anion Gap 10.6 mmol/L (3-11); BUN 17 mg/dL (7-18); CO2 23.4 mmol/L (21.0-32.0); CREATININE 0.8 mg/dL (0.70-1.30); Calcium 8.5 mg/dL (8.5-10.1); Calculated LDL 140 mg/dL (<100); Chloride 108 mmol/L (98-107); Cholesterol 198 mg/dL (<200); Glucose 95 mg/dL (74-106); HDL Cholesterol 35 mg/dL (40-60); Potassium 4.4 mmol/L (3.5-5.1); Sodium 142 mmol/L (136-145); TSH 0.84 uIU/mL (0.36-3.74); Triglyceride 117 mg/dL (<150)
== END 2021-12-29 08:41 | disposition home or self-care (01) ==
LOC: NCHCN 08:40
PROVIDERS: PCP Specialist/Technologist Athletic Trainer; Visit Provider Nurse Practitioner Family
DX: Z00.00 Encounter for general adult medical examination without abnormal findings (principal); C85.90 Non-Hodgkin lymphoma, unspecified, unspecified site; Z13.220 Encounter for screening for lipoid disorders; Z13.29 Encounter for screening for other suspected endocrine disorder
CPT/HCPCS: 80048; 80061; 85027; 84443

== ENCOUNTER → 2021-12-31 00:59 | Outpatient (CLI) | payer BC, SELFPAY ==
--- NOTE | 2021-12-31 14:15 | DI.RAD_ITS ---
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 TECHNIQUE: 2D digital imaging was performed. COMPARISON: CR XR CHEST 2V PA LATERAL from 07/21/2018 FINDINGS: 2 views: Heart size is normal. The mediastinum is not widened. Right lung is clear. There is platelike atelectasis in left lung base. No pleural effusions. No pneumothorax. IMPRESSION: There is platelike atelectasis versus early infiltrate in the lingular segment of the left lung base. This was not evident on prior chest x-ray performed June 2018. DATA REPOSITORY: RADIATION DOSE DELIVERED:
== END ==
PROVIDERS: PCP Specialist/Technologist Athletic Trainer; Visit Provider Nurse Practitioner Family
DX: R22.2 Localized swelling, mass and lump, trunk (principal); C83.30 Diffuse large B-cell lymphoma, unspecified site; J98.11 Atelectasis
CPT/HCPCS: 71046

== ENCOUNTER 2022-01-25 01:09 | Outpatient (CLI) | payer BC, SELFPAY ==
[2022-01-25] MEDS: Gastrografin 120 ML BTL 13 ML PO (14:05)
[2022-01-25] MEDS: Breeza Beverage 473 ML BTL PO (14:06)
--- NOTE | 2022-01-25 14:30 | DI.CT_ITS ---
Exam(s) CT CHEST/ABD W EXAM: CT CHEST/ABD W CLINICAL HISTORY: H/O LYMPHOMA, Z85.79; ABNL CXR, R91.8; CHEST LUMP, R22.2, 1 CM FIRM NONTEND TECHNIQUE: 100 mL Omnipaque 350 IV contrast Oral contrast was administered for bowel opacification. COMPARISON: CT NECK AND CHEST WITH CONTRAST from 04/14/2016 CT CHEST FOR PULMONARY EMBOLUS from 05/06/2017 CR XR CHEST 2V PA LATERAL from 12/31/2021 FINDINGS: CT CHEST WITH IV CONTRAST: Lungs: There are no confluent pulmonary infiltrates nor pleural effusions nor ominous pulmonary nodul es. Mild platelike atelectasis noted on the right side. Mediastinum: There is no hilar nor mediastinal adenopathy. Visualized thyroid unremarkable. There i s no supraclavicular adenopathy nor axillary adenopathy. Cardiac: Heart size is normal. There is no pericardial effusion. Caliber thoracic aorta is within n ormal limits. No evidence of dissection. Osseous: There are no lytic nor blastic osseous lesions evident. No compression fractures. CT ABDOMEN WITH IV CONTRAST: Pelvis was not scanned. There is no ascites and there are no mesenteric masses in the abdomen. Liver: Normal size. No lesions. No dilatation of intrahepatic ducts. Gallbladder: No acute gallbladder pathology. CBD is not dilated. Pancreas: Unremarkable. No evidence of pancreatic mass nor dilatation pancreatic duct. Spleen: Normal size. Homogeneous enhancement with no splenic lesions evident. The splenic and rosi l veins are patent. Adrenal glands: No masses:. Kidneys: Unremarkable. Both kidneys exhibit normal size. No cysts nor masses evident in either kidn ey. No calculi. No hydronephrosis. No hydroureter. Abdominal aorta: Not enlarged. No [id number] adenopathy. Also no adenopathy around the aortic bifurcation which is seen in the lower most aspect of the field of view. Mesentery: No mesenteric masses nor abnormal mesenteric streaking. GI: There is small hiatal hernia noted. No evidence of bowel obstruction. The appendix is included in the field of view and appears unremarkable. There is a metallic density in the region of the cecu m, consistent with a swallowed foreign body. This is in the dependent aspect of the cecum. This is metallic density. Similar findings are not seen elsewhere in the ascending colon, visualize transver se colon, splenic flexure of the colon and included descending-left colon. This study does not exten d below the iliac crests. Anterior abdominal wall. Possible prior hernia repair. No active hernia is at this time. No abnorm al fluid collections. Osseous: No lytic nor blastic osseous lesions evident. No fractures. IMPRESSION: 1. There is a metallic foreign body in the cecum. No other metallic foreign body seen in the field o f view of this study, realizing that the pelvis was not scanned on this study and therefore the sigmo id and lower small bowel loops are not included in the field of view. Recommend further imaging of t he pelvis to determine if there are additional intraluminal metallic foreign bodies. There is no roverto dence of bowel obstruction. 2. No evidence of ascites, splenomegaly, nor lymphadenopathy, given the history here. 3. No significant intrathoracic findings. 4. No significant osseous lesions.
[2022-01-25] MEDS: Normal Saline Flush 10 ML SYR IVP (15:27)
[2022-01-25] MEDS: Omnipaque 350 MG/ML 100 ML BTL IJ (15:28)
== END 2022-01-25 01:29 ==
PROVIDERS: PCP Nurse Practitioner Family; Visit Provider Nurse Practitioner Family
DX: R91.8 Other nonspecific abnormal finding of lung field (principal); R22.2 Localized swelling, mass and lump, trunk; Z85.79 Personal history of other malignant neoplasms of lymphoid, hematopoietic and related tissues; J98.11 Atelectasis; K44.9 Diaphragmatic hernia without obstruction or gangrene; T18.4XXA Foreign body in colon, initial encounter
CPT/HCPCS: 71260; 74160; J3490

== ENCOUNTER → 2022-02-09 01:32 | Outpatient (CLI) | payer BC, SELFPAY ==
--- NOTE | 2022-02-09 14:06 | DI.RAD_ITS ---
Exam(s) XR PELVIS AP EXAM: XR PELVIS AP CLINICAL HISTORY: ABNL ABDOMINAL IMAGING, R93.5, METALLIC FB IN CECUM ON CT, ? ADDITIONAL FB. TECHNIQUE: 2D digital imaging was performed. COMPARISON: No exams were available for comparison FINDINGS: Single view There is no evidence of pelvic nor hip fracture. No hip joint space narrowing. Sacroiliac joints ap pear unremarkable. Bone density is normal. There are no osseous lesions. IMPRESSION: No significant radiographic findings. DATA REPOSITORY: RADIATION DOSE DELIVERED:
== END ==
PROVIDERS: PCP Nurse Practitioner Family; Visit Provider Nurse Practitioner Family
DX: R93.5 Abnormal findings on diagnostic imaging of other abdominal regions, including retroperitoneum (principal); T18.4XXD Foreign body in colon, subsequent encounter
CPT/HCPCS: 72170

== ENCOUNTER 2022-06-21 08:21 | Outpatient (REF) | payer BC, SELFPAY ==
[2022-06-21 16:47] LABS: Calculated LDL 126 mg/dL (<100); Cholesterol 185 mg/dL (<200); HDL Cholesterol 38 mg/dL (40-60); Triglyceride 106 mg/dL (<150)
== END 2022-06-21 08:22 | disposition home or self-care (01) ==
LOC: NCHCN 08:21
PROVIDERS: PCP Nurse Practitioner Family; Visit Provider Nurse Practitioner Family
DX: E78.89 Other lipoprotein metabolism disorders (principal)
CPT/HCPCS: 80061

== ENCOUNTER 2023-06-19 12:24 | Outpatient (REF) | payer BC, SELFPAY ==
[2023-06-19 17:45] LABS: Calculated LDL 120 mg/dL (<100); Cholesterol 182 mg/dL (<200); Glucose 103 mg/dL (74-106); HDL Cholesterol 38 mg/dL (40-60); Triglyceride 122 mg/dL (<150)
== END 2023-06-19 12:25 | disposition home or self-care (01) ==
LOC: NCHCN 12:24
PROVIDERS: PCP Nurse Practitioner Family; Visit Provider Nurse Practitioner Family
DX: Z00.00 Encounter for general adult medical examination without abnormal findings (principal); Z13.220 Encounter for screening for lipoid disorders; Z13.1 Encounter for screening for diabetes mellitus
CPT/HCPCS: 80061; 82947

== ENCOUNTER 2024-09-30 11:15 | Outpatient (CLI) | payer BC, SELFPAY ==
[2024-09-30 11:18] LABS: Abs Immature Grans 0.05 10^3/uL (0.0-0.06); Absolute Basophil Count 0.08 10^3/uL (0.0-0.2); Absolute Eosinophil Count 0.36 10^3/uL (0.0-0.7); Absolute Lymphocyte Count 1.75 10^3/uL (1.2-3.4); Absolute Monocyte Count 0.64 10^3/uL (0.1-0.8); Absolute Neutrophil Count 3.77 10^3/uL (1.2-6.7); Basophils % 1.2 %; Eosinophils % 5.4 %; HCT 49.1 % (40.0-50.0); HGB 16.1 g/dL (13.5-17.5); Immature Grans % 0.8 %; Lymphocytes % 26.3 %; MCH 29.4 pg (27.0-33.0); MCHC 32.8 % (32.0-36.0); MCV 90 fL (80-95); Monocytes % 9.6 %; Neutrophils % 56.7 %; Platelet Count 213 10^3/uL (130-400); RBC 5.47 10^6/uL (4.36-5.78); RDW-SD 39.5 fL; WBC 6.65 10^3/uL (4.4-10.8)
[2024-09-30 11:36] LABS: Anion Gap 6.8 mmol/L (3-11); BUN 16 mg/dL (7-18); CO2 30.2 mmol/L (21.0-32.0); CREATININE 1.1 mg/dL (0.70-1.30); Calcium 9.4 mg/dL (8.5-10.1); Chloride 106 mmol/L (98-107); Estimated GFR 79.28 (mL/min/1.73m2); Glucose 98 mg/dL (74-106); Potassium 3.9 mmol/L (3.5-5.1); Sodium 143 mmol/L (136-145)
[2024-09-30 11:47] LABS: D-Dimer 223 ng/mlFEU (<500)
== END 2024-09-30 11:16 | disposition home or self-care (01) ==
LOC: LBO 11:16
PROVIDERS: PCP Nurse Practitioner Family; Visit Provider Nurse Practitioner Family
DX: R06.00 Dyspnea, unspecified (principal)
CPT/HCPCS: 36415; 80048; 85025; 85379

== ENCOUNTER 2024-09-30 19:25 | Observation (INO) | payer BC, SELFPAY ==
[2024-09-30] VITALS (99 sets, daily range): BP systolic 120–173; BP diastolic 60–92; PULSE 91–107; RESP 5–27; TEMP 36.6–36.7; O2SAT 87–99
--- NOTE | 2024-09-30 19:15 | RT.EKG_ITS ---
APPROVED REPORT Exam: Resting ECG Reason for Exam: sob Patient Location: E HR:100 bpm ECG Measurements Heart Rate 100 AXIS RI 144 P 50 QRSd 104 QRS -73 QT 371 T 73 QTc 479 Conclusion Sinus tachycardia, rate 100 No interval abnormalities No STEMI No priors available for comparison
--- NOTE | 2024-09-30 19:30 | ED.GENADUL_ITS ---
Discharge Plan Discharge Details Chief Complaint: RespSymp Primary Care Provider: Unknown,Unknown ED Provider: Krissy Payne Home Meds and New Rx's Prescriptions: No Action azithromycin 250 mg tablet 250 mg PO DAILY amoxicillin-pot clavulanate 875-125 mg tablet 1 tab PO BID omeprazole 20 mg capsule,delayed release(DR/EC) 20 mg PO DAILY HPI General Date/Time Provider Initiated Documentation: 09/30/24 19:28 . HPI Narrative: Agapito is a 54 year old male who presents to the emergency department today for evaluation of shortness of breath with wheeze and cough. He reports he has been sick for the last 3 weeks with viral symptoms, has been evaluated by his PCP on 09/23/2024 and today. He has been treated with prednisone 40 mg daily x 5 days as well as benzonatate p.o. initially the prednisone, has continued to have shortness of breath, using inhaler up to 12 times a day. He was seen by his PCP and had blood work done, including D-dimer. He felt like his inhalers were not helping tonight, so he came to the emergency department tonight, was concerned he was not going to be able to make it because his breathing was so bad. Denies recent fever/chills, congestion, sore throat, chest pain, nausea/vomiting, abdominal pain, change in bowel or bladder function, calf redness/swelling/tenderness, pedal edema. He denies history of hormone use, recent malignancy, recent immobility/surgery, history of blood clots. Past medical history is significant for asthma, B-cell lymphoma in remission since 2014, HLD. Physical exam remarkable for anxious patient who appears pale and dyspneic. Increased work of breathing, to 3 word dyspnea. Inspiratory and expiratory wheezes in all andrews. Tachycardia noted, heart rate around 100. Abdomen is soft, nondistended, nontender palpation. No calf tenderness/swelling or pedal edema. No obvious JVD. D/dx includes but is not limited to: Asthma exacerbation, pneumonia, CHF, ACS. Low suspicion for PE as patient has a negative D-dimer performed earlier today.. I independently interpreted the following tests: EKG significant for sinus tachycardia, rate 100. No changes consistent with acute ischemia. No significant changes from previous. RSV positive. CBC, CMP, serial troponins. Reassuring. VBG reassuring, mild hypocarbia c/w hyperventilation. COVID/flu negative. Chest x-ray unremarkable, no obvious infiltrate noted. While in the emergency department, Agapito received a DuoNeb, mag sulfate IV, and methylprednisolone IV for treatment of severe asthma exacerbation with hyperventilation. He did experience significant nausea during nebulizer treatments which was alleviated with Zofran. After receiving neb treatment do he reported he felt significantly better, does have some end expiratory wheezes with forced exhalation. However, after a few minutes post neb due to began to feel unwell again, O2 sat dropped into the high 80s on room air and he began to feel like he was wheezing again. Lorazepam given for tachycardia/antiemetic effect; 2 additional DuoNebs given in ED. As patient continues to desaturate on room air and has required multiple nebs, feeling weak and wheezy with chest tightness after neb has worn off, he has not stable to discharge home. Discussed case with Dr. Pinon, overnight hospitalist. Patient to be admitted for obs and mgmt of asthma exacerbation due to RSV overnight. Related Data Home Medications ?Medication ?Instructions ?Recorded ?Confirmed amoxicillin 875 mg-potassium 1 tab PO BID 09/30/24 09/30/24 clavulanate 125 mg tablet azithromycin 250 mg tablet 250 mg PO DAILY 09/30/24 09/30/24 omeprazole 20 mg capsule,delayed 20 mg PO DAILY 09/30/24 09/30/24 release Allergies Allergy/AdvReac Type Severity Reaction Status Date / Time No Known Allergies Allergy Unverified 09/30/24 19:31 General SHAYNA: 4 Review of Systems Narrative: see HPI Exam Const General: cooperative and well developed Orientation: alert and oriented x3 Resp Effort & Inspection: labored and tachypneic Auscultation: wheezes expiratory wheezes, inspiratory wheezes and scattered wheezes Cardio Jugular venous pressure: no JVD Rate: tachycardic GI Inspection: normal to inspection Palpation: soft, not firm, not rigid and nontender Neuro General: patient alert, patient oriented x3, tone normal and moves all extremities Cognition: normal cognition Speech: speech normal Medical Decision Making Quality:SDOH Health Related Social Needs: No Data to Display PFSH All Active Problems (Updated 09/30/24 @ 21:32 by Robb Pinon) GERD (gastroesophageal reflux disease) (Chronic) Asthma exacerbation (Acute) RSV (acute bronchiolitis due to respiratory syncytial virus) (Acute) Impacted cerumen, right ear (Acute) Mixed hearing loss of right ear (Acute) Mixed hearing loss, bilateral (Acute) Erectile dysfunction (Acute) 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 Social History Smoking/Tobacco Use Status: Never Smoking risk assessment performed?: Yes Alcohol Intake: never Drug use: Never Substance use type: does not use Do you feel safe at home: Yes Do you feel safe in your relationship?: Yes
[2024-09-30] MEDS: methylPREDNISolone SUCC 125 MG VIAL IVP (19:53)
[2024-09-30] MEDS: MAGNESIUM SULFATE 2 GM/50 ML BAG IV_INF (19:54)
[2024-09-30] MEDS: Albuterol/Ipratropium 3 ML UPD VIAL UPD ×3 (19:54→21:20)
[2024-09-30 19:57] LABS: Abs Immature Grans 0.04 10^3/uL (0.0-0.06); Absolute Basophil Count 0.09 10^3/uL (0.0-0.2); Absolute Eosinophil Count 0.54 10^3/uL (0.0-0.7); Absolute Lymphocyte Count 2.13 10^3/uL (1.2-3.4); Absolute Monocyte Count 0.85 10^3/uL (0.1-0.8); Absolute Neutrophil Count 4.96 10^3/uL (1.2-6.7); Eosinophils % 6.3 %; HCT 44.8 % (40.0-50.0); HGB 15.5 g/dL (13.5-17.5); Immature Grans % 0.5 %; Lymphocytes % 24.7 %; MCH 30.6 pg (27.0-33.0); MCHC 34.6 % (32.0-36.0); MCV 89 fL (80-95); MPV 10.1 fL (8.0-11.0); Monocytes % 9.9 %; Neutrophils % 57.6 %; Platelet Count 221 10^3/uL (130-400); RBC 5.06 10^6/uL (4.36-5.78); RDW 12.2 % (11.8-14.1); RDW-SD 39.5 fL; WBC 8.61 10^3/uL (4.4-10.8)
--- NOTE | 2024-09-30 20:00 | DI.RAD_ITS ---
Exam(s) XR CHEST 2V PA LATERAL EXAM: XR CHEST 2V PA LATERAL CLINICAL HISTORY: wheeze, cough TECHNIQUE: 2D digital imaging was performed of the chest. Two images were obtained. PA and lateral views were obtained. COMPARISON: CR XR CHEST 2V PA LATERAL from 12/31/2021 FINDINGS: MEDIASTINUM: Normal. HEART: Normal. PULMONARY VASCULATURE: Normal. LUNGS: Clear. PLEURAL SPACE: No pleural effusion or pneumothorax. BONE:Within normal limits for the patient's age. OTHER FINDINGS:Normal. IMPRESSION: No acute pulmonary findings. DATA REPOSITORY: RADIATION DOSE DELIVERED:
[2024-09-30] MEDS: Ondansetron 4 MG/2 ML VIAL IVP (20:03)
[2024-09-30 20:13] LABS: BE (Venous) -1 mmol/L (-2-3); HCO3 (Venous) 23 mmol/L (23-28); O2 Sat (Venous) 93 %; TCO2 (Venous) 20 mmol/L (24-29); pCO2 (Venous) 36 mmHg (41-51); pH (Venous) 7.42 (7.31-7.41); pO2 (Venous) 69 mmHg
[2024-09-30 20:20] LABS: ALT 39 U/L (16-63); AST 14 U/L (15-37); Albumin 3.8 g/dL (3.4-5.0); Alkaline Phosphatase 94 U/L (46-116); Anion Gap 7.8 mmol/L (3-11); BUN 16 mg/dL (7-18); Bilirubin, Total 0.31 mg/dL (0.2-1.0); CO2 26.2 mmol/L (21.0-32.0); CREATININE 1.2 mg/dL (0.70-1.30); Calcium 9.1 mg/dL (8.5-10.1); Chloride 106 mmol/L (98-107); Estimated GFR 71.42 (mL/min/1.73m2); Glucose 109 mg/dL (74-106); NT-proBNP 35 pg/mL (<300); Potassium 3.5 mmol/L (3.5-5.1); Sodium 140 mmol/L (136-145); Total Protein 6.8 g/dL (6.4-8.2); Troponin I 8 ng/L (<or=76)
[2024-09-30] MEDS: LORazepam 2 MG/ML VIAL 0.5 MG IVP (20:27)
[2024-09-30] MEDS: Normal Saline 1,000 ML 1000 ML IV (20:49)
[2024-09-30 20:51] LABS: COVID-19 PCR Negative (Negative); Influenza A PCR Negative (Negative); Influenza B PCR Negative (Negative)
[2024-09-30 20:53] LABS: RSV PCR Positive (Negative)
[2024-09-30 20:54] LABS: Source NASOPHARYNX
--- OUTSIDE RECORDS SUMMARY | 2024-09-30 21:00 | XMS_ITS ---
Author Organization [facility] [place] [address] Care Team Providers Care [employer] Car Loader Name Role Phone Janice Christine MD Primary Care Provider Active Problems Problem Noted Date Diagnosed Date H/O stapedectomy 10/29/2021 Plantar fasciitis of left foot 10/28/2021 Mixed conductive and sensorineural hearing loss, bilateral 12/04/2020 Overview (12/04/2020): Added automatically from request for surgery [id number] Tinnitus of both ears 12/04/2020 Overview (12/04/2020): Added automatically from request for surgery [id number] Otosclerosis involving oval window, nonobliterative, bilateral 12/04/2020 Overview (09/14/2021): Added automatically from request for surgery [id number] STAPEDECTOMY Patient's Name: Agapito Ramirez Surgery Date: 10/29/2021 Interval Follow Up: Year 1 Post-Op 4 Weeks 11/28/21 STEPHY - X STEPHY-AP AUD 45 AFTER appt X Lymphoma 03/26/2015 Overview (09/20/2017): DLBCL. L tonsil and L cervical LN. Stage IIA. Normal LDH. IPI = 0. Myc negative. Extra copies of bcl-2. EF = 72%. BMBx deferred. Plans for RCHOP X 3, repeat PET and then XRT C#1 RCHOP 03/06/15 C#2 RCHOP 03/26/15 C#3 RCHOP 04/15/15 PET scan negative RT information: Dose and targets:?? 36 Gy in 1.8Gy fractions to the involved site of the left upper neck, through the bottom of level III Field orientation:?? VMAT Date of Radiotherapy Completion / Interval since Completed: 06/12/15 (3 weeks) Date Last Seen / Interval since last seen: 06/16/15 (2 weeks) 10/12/15 Negative PET scan 12/2015 CT Chest negative 03/2017 CT neck and chest negative. Current Oncology Plans No current plan information found. Past Plans ADULT TREATMENT Plan Name Start Date Discontinue Date Treatment Medications Discontinue Reason Plan Provider Cycles DH BCN AMB HEM LYMPHOMA (NHL) - R-CHOP (21 DAY) 03/06/20 15 06/18/2015 cycloPHOSphamide (Cytoxan) in sodium chloride 0.9% 250 mL infusionDOXOrubicin (ADRIAMYCIN)riTUXimab (Rituxan) (2 mg/mL) in sodium chloride 0.9% infusionvinCRIStine (ONCOVIN) Therapy Complete Jacquie Plascencia MD 3 of 4 cycles started Radiation Treatments * No radiation treatments are documented for this patient in [facility]. Treatments may have been administered in another system. Lifetime Dose Tracking * Chemical Lifetime Dose Automatic Entry Manual Entr y doxorubicin 150.222 mg/m2 (337 mg) 150.222 mg/m2 (337 mg) 0 mg/m2 (0 mg) Treatment Summaries Lymphoma* Cancer Treatment Summary Provided by Britney Swanson on 06/17/20 General Information Patient name Agapito Ramirez Jr. 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 3 cycles from 03/06/15-04/15/15 Consolidation with 36 Gy in 1.8 fractions to the involved site of left upper neck -completed 06/16/15 PET scan negative at completion of treatment Lifetime Dose Tracking doxorubicin: 150.222 mg/m2 (337 mg) = 37.56 % of the maximum lifetime dose of 400 mg/m2 Advance Directive: Designated DPOA Not done - choice is - jacque persons Living will done: Not Done - encouraged and paperwork provided Possible late or senior care effects of treatment: Cardiac ECHO to be repeated 05/2020 As part of your cancer treatments you were given medication or radiationtherapy that potentially can have effects on your heart. It is recommended that you have a thoroughclinical screening for your heart after completion of anthracycline therapy. This workup could include an ECHO. If abnormal or symptomatic a referral to cardiology should be made. Cognitive changes Growing evidence supports the validity that there may be memory changes with cancer treatment. Cancer associated cognitive change (chemo- brain) is not a progressive neurological disorder like progressive dementia. There are resources for testing. Use of memory aides like notebooks, and planners, keeping items in the same place, using reminder notes can be helpful. Avoid multi-tasking and minimize distractions especially at work. Limit the use of alcohol and other substances that can affect cognition. Exercise, adequate sleep and relaxation and stress management can be helpful. Please discuss your concerns with your cancer team. Fatigue Cancer related fatigue is a distressing persistent, subjective sense of physical, emotional, and/or cognitive tiredness or exhaustion related to cancer or cancer treatment that is not proportional to recent activity and interferes with usual functioning. This is a common issue for individuals undergoing cancer treatment and for cancer survivors sometimes for months and years following diag nosis and treatment. The time course of fatigue is unique to each person. In most cases mild to moderate fatigue will resolve within a year. If it persists longer than this time or if fatigue worsensdiscuss this issue with your cancer team for further evaluation. For most cancer survivors, there are no specific oral health considerations or expected late complications. However, cancer survivors prescribed bone-modifying agents, survivors of head and neck cancer, childhood cancer survivors, andpatients treated on protocols involving high-dose chemotherapy and stem cell transplantation (HCT-SCT) constitute high-risk groups for oral health complications. Alteration in Sexual Funtioning Referal to Urology Cancer diagnosis and treatment are common and you are encouraged to discuss thiswith your cancer care team. There are no restrictions in being sexually active. Some men experience erectile dysfunction as a result of cancer treatment. Discuss your concerns with your cancer team to look at treatment options. Lifestyle modifications that include smoking cessation, maintaining an ideal body weight, engaging in regular exercise, and avoiding excess in alcohol c onsumption can limit the risk of ED. Ongoing discussion of sexual issues with your partner is e encouraged. Skin If you notice skin changes (including changing moles, sores that do not heal or that bleed, skin changes that are changing in size or color-please discuss this with your physician for evaluationby a gravity manager Sleep To follow with new PCP If you are having difficulty with sleep please speak to a member of your cancer care team or your primary care provider for further evaluation and treatment. Pain/Post Radiation Pain Discuss any problems with persistent pain with your cancer team. Post radiation pain may appear months after radiation treatments because of scarring, adhesions, orfibrosis. Let your cancer team know so that this can be assessed fully and a plan put in place to help you Symptoms of possible recurrence: Any symptom lasting more than 2 weeks and not improving, including cough, lumps or bumps, drenchingsweats, uncontrolled weight loss, itching, fatigue, unresolved infections. Please call if you experience any of these. Lifestyle and wellness recommendations: Nutrition Limit consumption of processed meat and red meat; eat at least 2.5 cups of vegetables andfruits daily; choose whole grains instead of refined grain products. Exercise Engage in at least 20-30 minutes of moderate intensity activity on most days of the week. Include strength training exercises at least two days a week. Smoking Smoking increases your risk for many types of cancer. There are counselors who can help youwith smoking cessation. You must quit smoking. Alcohol Minimize alcohol intake to one drink per day for women and two drinks per day for men. (1.5oz. hard alcohol, 5 oz. wine, 12 oz. beer). Sun exposure Use sunscreen with SPF/UVA and UVB whenever you are out in the sun for more than 15 minutes. Use protective clothing such as hats, and long sleeves. Dental Oral complications include an increased risk for microdontia, dental caries, and premature loss of teeth. Ensure 2-4 times a year dental visits for check ups and cleaning Vision/eyes You are at increased risk of cataracts as a result of your cancer treatment. Yearly eyeexams are recommended Psychosocial resources/referrals Survivors of cancer treatment are at high risk for anxiety and depression due to multiple stressors, feeling vulnerable and the many challenges that you have faced and continue to face. Fear of recurrence is normal. Let your providers know if you have any of these symptoms--frequent feelings of being nervous, restless or worried or fearful, trouble sleeping, difficulty concentrating, less interest or enjoyment of usual activities, feeling sad or depressed, difficulty performing your usual activities Hematology support group - second Monday of the month Primary Care Provider Recommendations: Age appropriate screening As a cancer survivor you need to continue to see your primary care provider for the following: Screening for new/other cancers, immunizations, age appropriate health maintenance screening annual blood pressure annual serum glucose annual lipid screening Annual TSH (radiation to the neck) Vaccines Flu vaccine: Immunization of inactivated vaccines is recommended for cancer survivors. This includes flu vaccines yearly except those receiving anti-B-cell antibodies such as rituximab or alemtuzumab. CDC guidelines for pneumococcal vaccines Adults aged 19 through 64 years with immunocompromising conditions or anatomical or functional asplenia who Have not received PCV13 or PPSV23: Administer PCV13 followed by PPSV23 at least 8 weeks after PCV13; administer a second dose of PPSV23 at least 5 years after the first dose of PPSV23. Have not received PCV13 but have received 1 dose of PPSV23: Administer PCV13 at least 1 year after the PPSV23; administer a second dose of PPSV23 at least 8 weeks after PCV13 and at least 5 years after the first dose of PPSV23. Have not received PCV13 but have received 2 doses of PPSV23: Administer PCV13 at least 1 year afterthe most recent dose of PPSV23. Have received PCV13 but not PPSV23: Administer PPSV23 at least 8 weeks after PCV13; administer a second dose of PPSV23 at least 5 years after the first dose of PPSV23. Have received PCV13 and 1 dose of PPSV23: Administer a second dose of PPSV23 at least 5 years afterthe first dose of PPSV23. . Hepatitis B--A cancer survivor needs to wait at least 6 months after chemotherapy before being given Hepatitis B. Measles/mumps/rubella vaccine--Although measles, mumps, and rubella vaccine has been given safely three months after completion of chemotherapy, data on the safety, immunogenicity, and efficacy of varicella or zoster vaccine after completion of chemotherapy are not available. Resources : Helpful websites www.cancer.gov National Cancer Flora www.nccn.org National Comprehensive Cancer Network www.canceradvocacy.org National Coalition for Cancer Survivorship www.livestrong.org Livestrong Survivorship Care www.acscsn.org Cancer Survivors Network The recommendations in this document can help prevent and identify problems after therapy. Your primary care provider may have other recommendations that fit your specific health care needs. Resolved Problems Problem Noted Date Diagnosed Date Resolved Date Lymphoma 02/26/2015 03/23/2015 Overview (03/23/2015): DLBCL. L tonsil and L cervical LN. Stage IIA. Normal LDH. IPI = 0. EF = 72%. BMBx deferred. Plans for RCHOP X 3, repeat PET and then XRT. Cycle #1 03/06/15 Lymphoma 02/26/2015 02/26/2015
--- OUTSIDE RECORDS SUMMARY | 2024-09-30 21:00 | XMS_ITS | Encounter Summary ---
Author Organization [facility] Address [facility] [place] [address] Care Team Providers Care Grades 1 Thru 5 Teacher Name Role Phone Janice Christine MD Primary Care Provider [phone] Reason for Visit * Physical Therapy (Routine) - Closed Specialty Diagnoses / Procedures Referred By Sean burgos Referred To Contact Physical Therapy Diagnoses Plantar fasciitis of left foot Garry Lester DPM [facility] [place] [address] Payal Szymanski, PT [facility] [place] [address] Referral ID Status Reason Start Date Expiration Date V isits Requested Visits Authorized [id number] Closed Evaluate and Treat 10/12/2021 10/12/2022 30 30 Encounter Details Date Type Department Care Team (Late st Contact Info) Description 12/30/2021 1:15 PM EDT Office Visit Physical Therapy at [facility] [address] [place] [address] Payal Szymanski, PT [facility]YS[facility] [place] [facility] [place] [address] Plantar fasciitis of left foot Social History Tobacco Use Types Packs/Day Years Used Date Smoking Tobacco: Never Smokeless Tobacco: Never Alcohol Use Standard Drinks/Week Comments No 0 (1 standard drink = 0.6 oz pur e alcohol) Sex and Gender Information Value Date Recorded Sex Assigned at Not on file Gender Identity Not on file Sexual Orientation Not on file documented as of this encounter Miscellaneous Notes * Treatment - Therapy - Payal Szymanski PT - 12/30/2021 1:15 PM EDT ORTHOSES FITTING AND TRAINING Total treatment time: 15 minutes Total timed code treatment: 15 minutes Date of Exam/First Treatment: 10/28/2021 Date of onset: 2014 Referring Provider: Garry Lester DPM Primary Insurance: Payor: [employer] [place] / Plan[place] / Product Type: *No Producttype* / Diagnosis and Pertinent Co-morbidities affecting Plan of Care: ICD-10-CM 1. Plantar fasciitis of left foot M72.2 Subjective: Patient reports good tolerance to initial fit. Objective: Patient fitted with custom pair of orthoses, type golf, with correction of: 0 degrees varus R rearfoot, 0 degrees varus R forefoot 0 degrees varus L rearfoot, 0 degrees varus L forefoot 2-5 bar post Heel cushion b/l spenco b/l Met pads b/l Suede bottom cover b/l Observed patient standing on the orthoses on flat surface and made no necessary adjustments to the length of orthoses. Patient walked for ~5 minutes using the orthoses to determine fit. Further instructions: Patient educated on appropriate wearing schedule and issued written instructions outlining the wearing schedule and what response to expect from the orthoses. Assessment: Consistent with evaluation diagnosis from the biomechanical examination. Expect with the corrected alignment from use of the orthotic device that the patient will find improvement in terms of symptom relief and functional gain. Plan: Patient will follow-up in 4 weeks for LTG assessment and to address any further questions or concerns regarding the orthoses or diagnosis. documented in this encounter Plan of Treatment Not on file documented as of this encounter Visit Diagnoses Diagnosis Plantar fasciitis of left foot Plantar fascial fibromatosis documented in this encounter Care Teams Grades 1 Thru 5 Teacher Relationship Specialty Start Date End Date Janice Christine MD [address] [place] [address] PCP - General 02/23/18 documented as of this encounter
--- OUTSIDE RECORDS SUMMARY | 2024-09-30 21:00 | XMS_ITS | Clinical Summary ---
Author Organization [facility] [place] [address] Care Team Providers Care Chief Load Dispatcher Name Role Phone Janice Christien MD Primary Care Provider [phone] Allergies No known active allergies Medications Medication Sig Dispensed Refills Start Date End Date Status sildenafiL (VIAGRA) 25 mg Tablet Take by mouth. 07/02/2020 Active diclofenac EC (Voltaren) 75 mg Tablet, Delayed Release (E.C.) Take 1 tablet by mouth 2 times daily. 28 tablet 1 07/20/2021 Active Additional Information Patient not taking.Reported on 04/04/2022 ofloxacin (Floxin) 0.3 % Drops Place 4 drops into the left ear 2 times daily. 5 mL 3 10/29/2021 Active Additional Information Patient not taking.Reported on 04/04/2022 ondansetron ODT (Zofran-ODT) 4 mg Tablet, Rapid Dissolve Take 1 tablet by mouth every 8 hours as needed for Nausea for up to 14 doses. 14 tablet 11/01/2021 Active Additional Information Patient not taking.Reported on 04/04/2022 predniSONE (Deltasone) 20 mg Tablet Take 3 tabs by mouth daily for 7 days 21 tablet 11/12/2021 Active Additional Information Patient not taking.Reported on 04/04/2022 esomeprazole (NexIUM) 20 mg Capsule, Delayed Release(E.C.) Take 20 mg by mouth every morning. 02/03/2022 Active Active Problems Problem Noted Date Diagnosed Date H/O stapedectomy 10/29/2021 Plantar fasciitis of left foot 10/28/2021 Mixed conductive and sensorineural hearing loss, bilateral 12/04/2020 Overview (12/04/2020): Added automatically from request for surgery [id number] Tinnitus of both ears 12/04/2020 Overview (12/04/2020): Added automatically from request for surgery [id number] Otosclerosis involving oval window, nonobliterative, bilateral 12/04/2020 Overview (09/14/2021): Added automatically from request for surgery [id number] STAPEDECTOMY Patient's Name: Agapito Ramirez Surgery Date: 10/29/2021 Interval Follow Up: Year 1 Post-Op 4 Weeks 11/28/21 STEPHY - MD X STEPHY-AP AUD 45 AFTER appt X [...] negative 03/2017 CT neck and chest negative. Resolved Problems Problem Noted Date Diagnosed Date Resolved Date Lymphoma 02/26/2015 03/23/2015 Overview (03/23/2015): DLBCL. L tonsil and L cervical LN. Stage IIA. Normal LDH. IPI = 0. EF = 72%. BMBx deferred. Plans for RCHOP X 3, repeat PET and then XRT. Cycle #1 03/06/15 Lymphoma 02/26/2015 02/26/2015 Family History Medical History Relation Comments Thyroid Cancer Sister Relation Status Comments Sister Social History Tobacco Use Types Packs/Day Years Used Date Smoking Tobacco: Never Smokeless Tobacco: Never Alcohol Use Standard Drinks/Week Comments No 0 (1 standard drink = 0.6 oz pur e alcohol) Sex and Gender Information Value Date Recorded Sex Assigned at Not on file Gender Identity Not on file Sexual Orientation Not on file Last Filed Vital Signs Vital Sign Reading Time Taken Comments Blood Pressure 125/80 11/01/2021 2:54 PM EST Pulse 57 10/31/2021 7:29 PM EST Temperature 36.8 ??C (98.2 ??F) 11/01/2021 7:50 AM ES T Respiratory Rate 16 11/01/2021 2:54 PM EST Oxygen Saturation 92% 11/01/2021 2:54 PM EST Inhaled Oxygen Concentration - - Weight 115.7 kg (255 lb) 04/04/2022 3:01 PM EDT Height 182.9 cm (6') 04/04/2022 3:01 PM EDT Body Mass Index 34.58 04/04/2022 3:01 PM EDT Plan of Treatment Health Maintenance Due Date Last Done Comments CT Colonography 1970 Colonoscopy 1970 Colorectal Cancer Screening 1970 FIT DNA 1970 FIT 1970 Sigmoidoscopy (10 year) with FIT yearly 1970 Sigmoidoscopy 1970 Lipid Screening 1987 Hepatitis B vaccine (0-59 yrs) (1) 1988 Tetanus/Diphtheria/Pertussis Vaccines (1 - Tdap) 1988 Zoster vaccine (1 of 2) 2019 Covid-19 Vaccine (1 - 2023-2 5 season) 2024 Influenza (Flu) vaccine (1 o f 1 - Influenza standard series) 05/26/2024 Advance Directive 2024 Diabetes Screening (HgbA1C o r Glucose) 11/01/2024 11/01/2021, 10/12/2015, 04/27/2015, Additional history exists HIV screen Completed 02/26/2015 Hepatitis C Screening Completed 02/26/2015 Medical Devices Implanted Type Area Instructor Of Spanish Device Identifier Shelf Expiration Date Model / Serial / Lot Prosthesis Ossicular Piston 0.5x4.5mm Stapes Encircling Nit ([id number]) ([employer]) - [id number] Implanted:Qty: 1 on 10/29/2021 by Alvarado Cuellar MD at [facility] IMPLANTS Left: Ear [employer] 06/18/2030 [id number] / [id number] / Procedures Procedure Name Priority Date/Time Associated Diagnosis Comments BASIC METABOLIC PANEL Routine 11/01/2021 8:13 AM EST HIV SCREEN, 4TH GENERATION ([facility]/CGP/APD/NLH) STAT 02/26/2015 11:42 AM EDT Lymphoma HEPATITIS C ANTIBODY STAT 02/26/2015 11:42 AM EDT Lymphoma from Last 3 Months or Most Recently Relevant to Health Maintenance Results * (ABNORMAL) Basic Metabolic Panel (non-fasting) (11/01/2021 8:13 AM EST) Glucose 90 65 - 199 mg/dL [facility] Comment:Diabetes: >=200 mg/d L plus symptoms Blood Urea Nitrogen 22(H) 10 - 20 mg/dL [facility] Creatinine 0.92 0.80 - 1.50 mg/dL [facility] Sodium 140 135 - 145 mmol/L [facility] Potassium 4.1 3.5 - 5.0 mmol/L [facility] Comment: Please note: ??Patients with WBC >100,000 may have falsely elevated Potassium levels. ??For accurate Potassium quantification in these patients send serum separator tube (gold top) for subsequent determinations. ??Contact the Clinical Chemistry Laboratory if there are any questions. Chloride 108(H) 98 - 107 mmol/L [facility] Carbon Dioxide 22 22 - 31 mmol/L [facility] Anion Gap 10 5 - 15 mmol/L [facility] Calcium 8.6 8.5 - 10.5 mg/dL [facility] Est Glomerular Filtration Rate 95 >=60 mL/min/1. 73 m?? [facility] Comment: This patient? s estimated glomerular filtration rate (eGFR) is between 95 mL/min/1.73 m2 (patients with less muscle mass per kg body weight) and 110 mL/min/1.73 m2 (patients with more muscle mass per kg body weight) as determined by the CKD-EPI equation. Assessment of eGFR is not appropriate when creatinine concentrations are rapidly changing. For clinical decisions where creatinine clearance will affect therapy, a 24-hour urine creatinine clearance may be advised. Assignment of CKD stage 1 - 5 for patients with an eGFR near the transition point between stages may be based on clinical assessment of muscle mass and symptoms in addition to eGFR. Blood 11/01/2021 8:13 AM EST 11/01/2021 8:28 AM EST Narrative Resulting Agency Comment Spec In Lab Alvarado Cuellar MD CHEMISTRY ORDERABLES Performing Organization Address City/[facility]/ZIP Co de Phone Number [facility] [place] [address] * Hepatitis C Antibody (02/26/2015 11:42 AM EDT) Hepatitis C Antibody Negative Negative [facility] Blood specimen (specimen) 02/26/2015 11:42 AM EDT 02/26/2015 11:42 AM EDT Narrative Resulting Agency Comment Spec In Lab Jacquie Plascencia MD CHEMISTRY ORDERA BLES Performing Organization Address [facility]/ZIP Co de Phone Number [facility] * HIV Screen, 4th Generation (02/26/2015 11:42 AM EDT) HIV Ab/Ag Screen Negative Negative [facility] Comment: This 4th Generation HIV test screens for the presence of the HIV-1 p24 antigen as well as antibodies reactive against HIV-1 and HIV-2. A negative screen does not rule out an acute HIV infection. If acute HIV infection is suspected, testing should be repeated in 2 - 3 weeks or HIV nucleic acid testing performed. Blood specimen (specimen) 02/26/2015 11:42 AM EDT 02/26/2015 11:42 AM EDT Narrative Resulting Agency Comment Spec In Lab Jacquie Plascencia MD CHEMISTRY [facility] from Last 3 Months or Most Recently Relevant to Health Maintenance Advance Directives * Attempt Cardiopulmonary Resuscitation - Inpatient (Latest Code Status on File) Date Activated Date Inactivated Comments 10/30/2021 12:06 AM 11/01/2021 6:44 PM Question Answer Comments Code Status decision made by: Patient Care Teams Chief Load Dispatcher Relationship Specialty Start Date End Date Janice Christine MD [address] [place], [place] [address] PCP - General 02/23/18
--- OUTSIDE RECORDS SUMMARY | 2024-09-30 21:00 | XMS_ITS | Encounter Summary ---
[place] [address] Care Team Providers Care Car Sealer Name Role Phone Janice Christine MD Primary Care Provider [phone] Encounter Details Date Type Department Care Team (Late st Contact Info) Description 03/31/2022 Telephone Audiology at [address] [phone] Yasmin Chicas Social History Tobacco Use Types Packs/Day Years Used Date Smoking Tobacco: Never Smokeless Tobacco: Never Alcohol Use Standard Drinks/Week Comments No 0 (1 standard drink = 0.6 oz pur e alcohol) Sex and Gender Information Value Date Recorded Sex Assigned at Not on file Gender Identity Not on file Sexual Orientation Not on file documented as of this encounter Miscellaneous Notes * Telephone Encounter - Yasmin Chicas - 03/31/2022 2:41 PM EDT I called today to let him know due to a change in scheduling we have moved changed the time of his hearing test to 1 pm I left a vm to call back and confirm the new time. Future Appointments Date Time Provider Department Center 04/04/2022 1:00 PM Madina Bustos AUD [facility] [place] [facility] 04/04/2022 3:00 PM Alvarado Cuellar MD [facility] [place] [facility] thank you Yasmin Chicas Senior Clinical [facility] [place] [address] fax: [phone] [facility] documented in this encounter Plan of Treatment Not on file documented as of this encounter Visit Diagnoses Not on filedocumented in this encounter Care Teams Car Sealer Relationship Specialty Start Date End Date Janice Christine MD [address] [place] [address] PCP - General 02/23/18 documented as of this encounter
--- OUTSIDE RECORDS SUMMARY | 2024-09-30 21:00 | XMS_ITS | Encounter Summary ---
Author Organization [facility] [place] [address] Care Team Providers Care Tank Farm Operator Name Role Phone Janice Christine MD Primary Care Provider [phone] Reason for Visit * Reason Comments Follow-up No changes. Encounter Details Date Type Department Care Team (Latest Contact Info) Description 04/04/2022 3:00 PM EDT Office [place] [address] Alvarado Cuellar MD [facility] [place] [address] Otosclerosis involving oval window, nonobliterative, bilateral; Mixed conductive and sensorineural hearing loss of both ears; History of stapedectomy Social History Tobacco Use Types Packs/Day Years Used Date Smoking Tobacco: Never Smokeless Tobacco: Never Alcohol Use Standard Drinks/Week Comments No 0 (1 standard drink = 0.6 oz pur e alcohol) Sex and Gender Information Value Date Recorded Sex Assigned at Not on file Gender Identity Not on file Sexual Orientation Not on file documented as of this encounter Last Filed Vital Signs Vital Sign Reading Time Taken Comments Blood Pressure - - Pulse - - Temperature - - Respiratory Rate - - Oxygen Saturation - - Inhaled Oxygen Concentration - - Weight 115.7 kg (255 lb) 04/04/2022 3:01 PM EDT Height 182.9 cm (6') 04/04/2022 3:01 PM EDT Body Mass Index 34.58 04/04/2022 3:01 PM EDT documented in this encounter Progress Notes * Alvarado Cuellar MD - 04/04/2022 3:00 PM EDT 04/06/22 1:41 AM [place], [place] [address] Office Patient Name: Agapito Ramirez Jr. Date of : 1970 PCP: Janice Christine MD Interval History: 04/04/2022: H/o bilateral otosclerosis s/p left stapes surgery 10/29/2021 c/b sterile labyrinthitis. Since last f/u, hearing has improved better than improvements initially seen. No fluctuating hearing. Stable HL right. He reports that he is very pleased with the postop hearing results. Tinnitus left ear largelyresolved, but non-pulsatile subjective tinnitus on right persists. Denies any residual dizziness orimbalance concerns. No limiting dysgeusia. No facial symptoms. No new concerns. Repeat audiogram 04/04/2022 reviewed. Normal sloping to moderate severe mixed hearing loss left ear, predominantly sensorineural. Near complete closure of the air-bone gap. Moderate to severe mixed hearing loss right ear, with maximal conductive hearing loss component. SRTs DNT. Excellent bilateral discrimination. Tymps DNT. Hearing improved on the left as compared to previous. 11/29/2021: F/u left stapes surgery 10/29/2021. Doing much better. Dizziness appears resolved. No significant dizziness since approximately 11/13, with only one brief dysequilibrium event in the week prior to that.Did not restart steroids following that event. No longer concerned about balance function. Hearing r emains subjectively improved on left. Stable right. Denies otalgia, otorrhea. No dysgeusia. No new complaints. Saw PT earlier today. Results of Sensory Organization Test (SOT) portion of Computerized Dynamic Posturography do suggest a slight vestibular hypofunction. Anticipate that this will resolve after patient returns to full activities in his daily life which will promote further recovery to baseline level of function. It was felt that patient did not require continued PT. Audiogram 11/29/2021: Mild sloping to profound mixed HL left. Moderate severe sloping to profound mixed hearing loss right. SRTs DNT. Excellent bilateral discrimination. As compared to prior audiogram 11/08/2021, findings stable, although hearing significantly improved left as compared to outside audiogram 10/15/2021. Bone conduction thresholds appear symmetric. 11/08/2021: F/u s/p left laser stapedotomy 10/29/2021. SMART 4.5x05 mm. Surgery 10/29/2021. Following unremarkablepiston prosthesis placement, stapedotomy site sealed with blood patch and small minced fat/fascia pieces. No obvious intraoperative complications. Patient dizzy and vertiginous when waking, primarilywith movement. No nystagmus evident, and hearing immediately subjectively improved. Was admitted with IV steroids and continued observation. During hospital course, he had no dizziness/vertigo at rest. Had dysequilibrium vs vertigo lasting seconds to minutes with sitting up and attempted ambulation. Hearing remained subjectively much improved post-op. No fluctuating hearing or tinnitus. Pain wellcontrolled. Exam continued to reveal to evident no spontaneous or gaze evoked nystagmus. DH positioning testing unremarkable bilaterally. No obvious dizziness / vertigo with cough or strain. Dizziness improved to the point that patient felt safe for discharge after a couple of days. Repeat audiogram with preserved bone conduction thresholds, and improvement in AC thresholds on left. Repeat CT considered but was deferred as it was felt it would not likely currency exchange specialist. Suspected probable sterile labyrinthitis with associated pneumolabyrinth, or hemolabyrinth. Anticipated gradual improvements in dizziness with time, and patient was discharged home with plans for short-interval follow-up. Today he reports that immediately following discharge on Monday, he remained very unsteady with ambulation and was dependent on a walker. Very rough. Not needing walker by Monday. By Monday, henoted gradual improvements in overall sense of balance when upright and with ambulation. Continues to slowly improve. Now driving again, and has returned to work. Continues to adhere to strict precautions against lifting or straining. Was up and about all day yesterday. I'm now way better, and continue to get better every day. Reports some residual dysequilibrium. No falls. No vertigo. Hearing subjectively much improved, though noting some hyperacusis. Subjective tinnitus at baseline. Reports today was increased in immediate post-op period. Hearing on right stable. Patient is very pleasedwith hearing outcome following surgery to date. Continues with gtts and dep's. Repeat audiogram 11/08/2021 personally reviewed. Right ear overall stable from previous with moderate severe sloping to severe profound mixed hearing loss. On the left, he exhibits a slight sloping to severe mixed loss, with 0-10dB ABG. Thresholds improved from previous audiogram on left. BC thresholds overall preserved from previous, possible modest low decline on left as compared to initial audiogram. Well preserved bilateral discrimination. Tympanometry not tested. 07/14/2021: F/u mixed hearing loss and presumptive otosclerosis. Currently scheduled for middle ear explorationwith probable stapedectomy, left ear. Telephone FUV requested by patient due to additional questions surrounding the perioperative process, surgical risks, and needs and expectations following surgery. Hearing subjectively stable. No dizziness. No new otologic concerns. 11/26/2020: History of slowly progressive subjective hearing decline over at least the past 10 years. Wearing hearing aids successfully bilaterally for several years. Recently somewhat less effective for him, but also reports they are a nuisance for him and he would like to consider potential surgical options.No otalgia, otorrhea, h/o recurrent ear infections or prior ear surgery. Constant bilateral subjective tinnitus not particularly limiting. No dizziness or vertigo. No known FH early onset hearing loss. No significant head trauma history. H/o lymphoma with h/o XRT right H&N region. Talks on phone on the right. Hearing remains subjectively stable. No new interval complaints. Audiogram 10/15/2020 with severe mixed HL with max CHL component bilaterally. Bone conduction thresholds largely symmetric. Excellent bilateral discrimination. Acoustic reflexes not tested. Normal bilateral tympanometry. No recent relevant imaging. CT temporal bone 11/26/2020 personally reviewed. Findings congruent with bilateral fenestral otosclerosis. HPI: Agapito Ramirez Jr. is a 51 y.o. year old male with a history of bilateral progressive hearing lossfor at least a decade. His hearing aids are not working well for him at this point so he is lookingfor a surgical option. No significant head trauma, no ear infections or ear surgery. No FH of hearing loss. Hx of B cell lymphoma in 2014 that he has now recovered from. PROBLEM LIST Patient Active Problem List Diagnosis Date Noted ??? H/O stapedectomy 10/29/2021 ??? Plantar fasciitis of left foot 10/28/2021 ??? Mixed conductive and sensorineural hearing loss, bilateral 12/04/2020 ??? Tinnitus of both ears 12/04/2020 ??? Otosclerosis involving oval window, nonobliterative, bilateral 12/04/2020 ??? Lymphoma 03/26/2015 Resolved Hospital Problems No resolved problems to display. PAST HISTORY Past Medical History: Diagnosis Date ??? Lymphoma Past Surgical History: Procedure Laterality Date ??? PRG SOMATOSENSORY TEST, ANY/ALL PER. NERVES, TRUNK OR HEAD N/A 10/29/2021 FACIAL NERVE MONITORING, SETUP PERIPHERAL (WRVU 0.54) performed by Alvarado Cuellar MD at [facility] MAIN OR ??? PRO STAPEDECTOMY Left 10/29/2021 STAPEDECTOMY -OTOMY, ESTABLISH OSSICULAR CONTINUITY (WRVU 12.03) performed by Alvarado Cuellar MD at [facility] MAIN OR ??? THROAT SURGERY tonsil biopsy 02/2015 FAMILY HISTORY Family History Problem Relation Age of Onset ??? Thyroid Cancer Sister SOCIAL HISTORY Social History Tobacco Use ??? Smoking status: Never Smoker ??? Smokeless tobacco: Never Used Substance Use Topics ??? Alcohol use: No Alcohol/week: 0.0 standard drinks ALLERGIES No Known Allergies MEDICATIONS Current Outpatient Medications Medication Sig Dispense Refill ??? esomeprazole (NexIUM) 20 mg Capsule, Delayed Release(E.C.) Take 20 mg by mouth every morning. ??? predniSONE (Deltasone) 20 mg Tablet Take 3 tabs by mouth daily for 7 days (Patient not taking: No sig reported) 21 tablet 0 ??? ondansetron ODT (Zofran-ODT) 4 mg Tablet, Rapid Dissolve Take 1 tablet by mouth every 8 hours as needed for Nausea for up to 14 doses. (Patient not taking: No sig reported) 14 tablet 0 ??? ofloxacin (Floxin) 0.3 % Drops Place 4 drops into the left ear 2 times daily. (Patient not taking: No sig reported) 5 mL 3 ??? diclofenac EC (Voltaren) 75 mg Tablet, Delayed Release (E.C.) Take 1 tablet by mouth 2 times daily. (Patient not taking: No sig reported) 28 tablet 1 ??? sildenafiL (VIAGRA) 25 mg Tablet Take by mouth. No current facility-administered medications for this visit. ROS: Pertinent positive findings discussed above. No other findings on review of constitutional visual, cardiovascular, respiratory, gastrointestinal, genitourinary, musculoskeletal, dermatologic, neurological, psychiatric, endocrine, hematologic or immunologic systems. Physical Examination Vitals: Height 182.9 cm (6'), weight 115.7 kg (255 lb). General: Alert and oriented. No acute distress. Head and Face: Head is normocephalic, atraumatic. Facial resting tone symmetric. Eyes: Conjugate gaze, ocular motility intact bilaterally. No spontaneous or gaze evoked nystagmus. Neurologic: Cranial Nerves II-XII grossly intact and symmetric. Ears: External ears without deformity. See documentation of otomicroscopy below. Tuning forks: Newman lateralizes right; AC>BC left, and BC>AC right. Psych: Normal mood and affect. Procedure: Ears examined and cleaned with aid of binocular microscopy. Right Ear: Auricle normal. External auditory canal clear. Drum is intact with normal mobility via pneumatic otoscopy. Middle ear is well aerated. Negative fistula test. Left Ear: Auricle normal. External auditory canal clear. Drum is intact. Postsurgical myringosclerosis. No retraction. Prosthesis not well visualized. Middle ear appears well aerated. Normal TM mobility. Negative fistula test. REVIEW OF IMAGING STUDIES CT TEMPORAL BONE WO CONTRAST ?? CLINICAL HISTORY: otosclerosis, rule out other causes of bilateral conductive hearing loss ? TECHNIQUE: CT temporal bones performed without intravenous contrast administration. ?? COMPARISON: None ?? FINDINGS: Right: The external auditory canal is normal. The tympanic membrane is normal. The ossicles are normal in appearance. There are a few opacified mastoid air cells. Aeration of the middle ear and mastoid is otherwise normal. Internal auditory canals normal. The course of 7th nerve is normal. There is relative demineralization at the fissula antefenestrum consistent with otosclerosis. Cochlea, vestibule, and semicircular canals are normal. ?? Left: The external auditory canal is normal. The tympanic membrane is normal. The ossicles appear normal. Middle ear and mastoid air cells are normally aerated. There is demineralization in the fissula antefenestrum consistent with atherosclerosis. Internal auditory canals normal. Course of 7th nerve is normal. Cochlea, vestibule, semicircular canals normal. ?? IMPRESSION Bilateral fenestral otosclerosis. ?? ASSESSMENT / PLAN: 50yo who presented with bilateral fenestral otosclerosis confirmed by CT with severe mixed HL with max CHL component bilaterally. Patient s/p left stapedectomy 10/29/2021. Post-op course complicated by suspected sterile labyrinthitis requiring 2 day hospital admission with IV steroid treatment. No residual dizziness or imbalance.Very successful post-surgical hearing outcome and patient is very pleased. He is somewhat interested in proceeding with stapedectomy for the right ear, but understandably remains somewhat reluctant given the post-op dizziness issues he endured with the first surgery. He continues to consider his options, but will continue with hearing aid use for the right ear for now. Not currently using hearing aid for the left, as he feels he no longer needs it. No restrictions at this juncture. Recommended plan for f/u approximately 1 year with repeat AE, sooner as needed. Early return precautions were discussed. Patient verbally expressed understanding and was in agreement with the plan as outlined above. Total time spent counseling and coordinating patient care 30 minutes. 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
--- OUTSIDE RECORDS SUMMARY | 2024-09-30 21:00 | XMS_ITS | Encounter Summary ---
Author Organization [facility] [place] [address] Care Team Providers Care Janitor Cleaner Name Role Phone Janice Christine MD Primary Care Provider [phone] Encounter Details Date Type Department Care Team (Latest Contact Info) Description 04/04/2022 1:00 PM EDT Office Visit Audiology at [address] [phone] Madina Bustos AUD [facility] [place] [address] Mixed conductive and sensorineural hearing loss, bilateral Social History Tobacco Use Types Packs/Day Years Used Date Smoking Tobacco: Never Smokeless Tobacco: Never Alcohol Use Standard Drinks/Week Comments No 0 (1 standard drink = 0.6 oz pur e alcohol) Sex and Gender Information Value Date Recorded Sex Assigned at Not on file Gender Identity Not on file Sexual Orientation Not on file documented as of this encounter Progress Notes * Madina Bustos AUD - 04/04/2022 1:00 PM ED[place] [address] Waterfordshruthi Ramirez Jr. was seen on 04/04/2022 for an audiologic evaluation in conjunction with Alvarado Cuellar MD in Otolaryngology. Please refer to the scanned audiogram listed under Procedures for findings, impressions and recommendations. Varun Alba Clinical Behavioral [place] [address] documented in this encounter Plan of Treatment Not on file documented as of this encounter Procedures Procedure Name Priority Date/Time Associated Diagnosis Comments COMPREHENSIVE HEARING TEST Routine 04/04/2022 12:54 PM EDT documented in this encounter Results * Comprehensive hearing test (04/04/2022 12:54 PM EDT) 04/04/2022 12:5 4 PM EDT Narrative [facility] - 04/04/2022 12:54 PM EDT RECOMMENDATIONS: -Follow-up with Alvarado Cuellar MD in Otolaryngology -Audiologic re-evaluation as per Dr. Cuellar or alex if concerns arise -Follow-up with managing hearing care provider for management of the right hearing aid Procedure Note Unknown - 04/04/2022 RECOMMENDATIONS: -Follow-up with Alvarado Cuellar MD in Otolaryngology -Audiologic re-evaluation as per Dr. Cuellar or alex if concerns arise -Follow-up with managing hearing care provider for management of the righthearing aid Madina NAIR AUDIOLOGY [facility] documented in this encounter Visit Diagnoses Diagnosis Mixed conductive and sensorineural hearing loss, bilateral Mixed hearing loss, bilateral documented in this encounter Care Teams Janitor Cleaner Relationship Specialty Start Date End Date Janice Christine MD [address] [place] [address] PCP - General 02/23/18 documented as of this encounter
--- OUTSIDE RECORDS SUMMARY | 2024-09-30 21:01 | XMS_ITS | Encounter Summary ---
Author Organization Formerly [facility] Address [facility] [place] [address] Care Team Providers Care Foundry Molder Name Role Phone Janice Christine MD Primary Care Provider [phone] Encounter Details Date Type Department Care Team (Late st Contact Info) Description 10/10/2018 3:30 PM EST Office Visit Hematology/Oncology at [address] [phone] Jacquie Plascencia MD [facility] [place] [address] Lymphoma, unspecified body region, unspecified lymphoma type Social History Tobacco Use Types Packs/Day Years [...] Sign Reading Time Taken Comments Blood Pressure 133/82 10/10/2018 3:20 PM EST Pulse 78 10/10/2018 3:20 PM EST Temperature 36.5 ??C (97.7 ??F) 10/10/2018 3:20 PM ES T Respiratory Rate 16 10/10/2018 3:20 PM EST Oxygen Saturation 99% 10/10/2018 3:20 PM EST Inhaled Oxygen Concentration - - Weight 114.8 kg (253 lb) 10/10/2018 3:20 PM EST Height 182.9 cm (6' 0.01) 10/10/2018 3:20 PM ES T Body Mass Index 34.31 10/10/2018 3:20 PM EST documented in this encounter Progress Notes * Jacquie Plascencia MD - 10/10/2018 3:30 PM EST [facility] [place] [address] FOLLOW-UP PATIENT EVALUATION PROBLEM LIST: Patient Active Problem List Diagnosis ??? Lymphoma DLBCL. L tonsil and L cervical LN. [...] negative 03/2017 CT neck and chest negative. INTERIM HISTORY OF PRESENT ILLNESS: It was my pleasure to see Agapito Ramirez back in clinic today. Aagpito Ramirez is a 48 y.o. year old male being seen for follow-up evaluation of DLBCL He completed 3 cycles of R CHOP chemotherapy followed by radiation therapy for his early stage diffuse large B-cell lymphoma. He completed radiation therapy in May 2015. He's here for his regular check. 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 Feeling well. Full energy has returned. No dysphagia. No unusual pains adenopathy or B symptoms. He continues to do quite well. Feeling well, fighting plantar fasciitis. Cannot walk barefoot. No B symptoms. He has no complaints today. ROS Energy level: good Pain: None Appetite:fair Fevers/chills/sweats:No Bruising/bleeding/melena:No Recent infections:No HEENT: negative Nausea/vomiting/diarrhea/constipation: see above SOB/FISHMAN/chest pain:No Change in adenopathy or other masses:No Unexpected weight loss or gain: Skin rashes or petechiae:No Musculoskeletal complaints:No Extremities: Negative upper and lower bilaterally Neurologic symptoms:None Mood: Normal Sleep: no Difficulty sleeping MEDS: No outpatient medications have been marked as taking for the 10/10/18 encounter (Office Visit) with Jacquie Plascencia MD. Allergies: No Known Allergies INTERIM SOCIAL HISTORY Changes in job, home situation, tobacco or alcohol use: see HPI PHYSICAL EXAM BP 133/82 (Patient Position: Sitting) Pulse 78 Temp 36.5 ??C (97.7 ??F) (Oral) Resp 16 Ht 182.9 cm (6' 0.01) Wt 114.8 kg (253 lb) SpO2 99% BMI 34.31 kg/m?? Body surface area is 2.42 meters squared. GENERAL: Agapito Ramirez Jr. appears well and is in no acute distress. ENT: Oral pharynx clear. No evidence of lymphoma. EYES: MELVIN NECK: Supple without adenopathy. No palpable adenopathy AXILLARY: no adenopathy OTHER LYMPH: no adenopathy CARDIAC: Regular rate and rhythm without S3,S4 or murmurs. LUNGS: Clear to auscultation./percussion ABDOMEN: Soft and non-tender without hepatosplenomegaly or masses. EXTREMITIES: No cyanosis, clubbing, edema or calf tenderness. SKIN: No bruises or petechiae. NEUROLOGICAL: Alert and oriented to person, place and time. MUSCULOSKELETAL: No spinal or chest wall tenderness. LABORATORY STUDIES No results found for this or any previous visit (from the past 72 hour(s)). WBC 6.35 H/H 15.5/45 Plts 225 CMP within normal limits; Creat 0.94 LDH 145 RADIOLOGY STUDIES REVIEWED: Ct scan Of Neck and Chest done in March 2017 which was negative. ASSESSMENT/PLAN: DLBCL - Left Tonsil and cervical LN - he is s/p C#3 RCHOP with negative PET scan and then consolidative XRT. He completed his radiation therapy in May 2015. He was PET negative in September 2015.He returns today for his regular follow-up. He had a CT scan last week of neck and chest at [facility] which showed no adenopathy. Mr James is seen in f/u s/p completion of his chemotherapy, and his radiation therapy. He looks great. His IPI score was 0. He has a very low risk for recurrence. We can now advance his f/u to every 6 months with labs and appts up until his 5 year nik which is May 2020. We will order scans onlyif clinically indicated. Copy BRIANA Aldana documented in this encounter Plan of Treatment Not on file documented as of this encounter Visit Diagnoses Diagnosis Lymphoma, unspecified body region, unspecified lymphoma type documented in this encounter Care Teams Foundry Molder Relationship Specialty Start Date End Date Janice Christine MD [address] [place] [address] PCP - General 02/23/18 documented as of this encounter
--- OUTSIDE RECORDS SUMMARY | 2024-09-30 21:01 | XMS_ITS | Encounter Summary ---
Author Organization [facility] Address [facility] [place] [address] Care Team Providers Care Non Linear Editor Name Role Phone Janice Christine MD Primary Care Provider [phone] Reason for Visit * Reason Comments Plantar Fasciitis Encounter Details Date Type Department Care Team (Late st Contact Info) Description 02/02/2021 3:30 PM EDT [place] [phone] Garry Lester, [place] [address] Plantar fasciitis of left foot Social History [...] as of this encounter Progress Notes * Garry Lester DPM - 02/02/2021 3:30 PM EDT Podiatry Follow-Up Note Name: Agapito Ramirez Jr. Date of Service: 02/02/2021 SUBJECTIVE Chief complaint: Agapito Ramirez Jr. is a 50 y.o. male, who returns to podiatry for for follow-up on left heel pain. The patient reports no improvement, in fact the heel feels worse. It can hurt him even when he is off of it. There were no vitals taken for this visit. Objective Dorsalis Pedis pulses are palpable bilaterally. Posterior Tibial pulses are palpable bilaterally. The patient has continued tenderness with palpation around the medial tubercle of the left calcaneus. No erythema or edema. No pain with compression of the calcaneus. Radiographs taken today consisting of 2 views of the left calcaneus reveal a small plantar calcaneal spur.. Assessment Plantar fasciitis left foot. Plan Rx diclofenac 75 mg p.o. twice daily PC x2 weeks. Patient to purchase [employer] [place] prefabricated orthotics. Reviewed break-in instructions. Follow-up in 3 to 4 weeks. Garry Lester DPM Lead Military Analyst, [facility] documented in this encounter Plan of Treatment Not on file documented as of this encounter Results * XR OS Calcis Left (GENERIC) (02/02/2021 4:09 PM EDT) Anatomical Region Laterality Modality Foot Left Digital Radiogra phy Impressions 02/02/2021 4:33 PM EDT Small plantar calcaneal spur. Thank you for letting us participate in the care of this patient. ??If you are a health care provider and have any questions regarding this report, please contact the number below. ??For patients who have questions please contact the health long term care pharmacist that requested your imaging first. ? Electronically signed by: Shane Ly MD, [facility] ([phone]), at 02/02/2021 4:33 PM Narrative 02/02/2021 4:33 PM EDT EXAMINATION: XR OS CALCIS LEFT (GENERIC) CLINICAL HISTORY: Recalcitrant left heel pain TECHNIQUE: 2 views of the calcaneus COMPARISON: None FINDINGS: No fracture. Normal alignment. Normal joint spaces. Small plantar calcaneal spur. Procedure Note Shane Ly MD - 02/02/2021 EXAMINATION: XR OS CALCIS LEFT (GENERIC) CLINICAL HISTORY: Recalcitrant left heel pain TECHNIQUE: 2 views of the calcaneus COMPARISON: None FINDINGS: No fracture. Normal alignment. Normal joint spaces. Small plantarcalcaneal spur. IMPRESSION Small plantar calcaneal spur. Thank you for letting us participate in the care of this patient. If youare a health care provider and have any questions regarding this report,please contact the number below. For patients who have questions please contactthe health long term care pharmacist that requested your imaging first. Electronically signed by: Shane Ly MD, [facility]([phone]), at 02/02/2021 4:33 PM Garry Lester DPM IMG DX ORDERABLES documented in this encounter Visit Diagnoses Diagnosis Plantar fasciitis of left foot Plantar fascial fibromatosis Plantar fasciitis of left foot Plantar fascial fibromatosis documented in this encounter Care Teams Non Linear Editor Relationship Specialty Start Date End Date Janice Christine MD [address] [place] [id number] PCP - General 02/23/18 documented as of this encounter
--- OUTSIDE RECORDS SUMMARY | 2024-09-30 21:01 | XMS_ITS | Encounter Summary ---
Author Organization [facility] Address [facility] [place] [address] Care Team Providers Care Molecular Biologist Name Role Phone Janice Christine MD Primary Care Provider [phone] Reason for Visit * Consultation (Routine) - Specialty Diagnoses / Procedures Referred By Contgiuliana t Referred To Contact Hematology and Oncology Diagnoses Non-Hodgkin lymphoma, unspecified, unspecified site Janice Christine MD [address] [place] [address] [facility] [address] [place] [phone] Referral ID Status Reason Start Date Expiration Date V isits Requested Visits Authorized [id number] Consult, Test & Treat PCP Updated and/or Approved 04/24/2019 10/25/2019 6 6 Encounter Details Date Type Department Care Team (Late st Contact Info) Description 04/24/2019 3:30 PM EDT Office Visit Hematology/Oncology at [address] [phone] Jacquie Plascencia MD [facility] [place] [address] Lymphoma, unspecified body region, unspecified lymphoma type [...] Sign Reading Time Taken Comments Blood Pressure 138/89 04/24/2019 3:38 PM EDT Pulse 76 04/24/2019 3:38 PM EDT Temperature 36.9 ??C (98.4 ??F) 04/24/2019 3:38 PM ED T Respiratory Rate 16 04/24/2019 3:38 PM EDT Oxygen Saturation 98% 04/24/2019 3:38 PM EDT Inhaled Oxygen Concentration - - Weight 112 kg (247 lb) 04/24/2019 3:38 PM EDT Height 182.9 cm (6' 0.01) 04/24/2019 3:38 PM ED T Body Mass Index 33.49 04/24/2019 3:38 PM EDT documented in this encounter Progress Notes * Jacquie Plascencia MD - 04/24/2019 3:30 PM EDT Hematology Clinic [place] [phone] FOLLOW-UP PATIENT EVALUATION PROBLEM LIST: Patient Active [...] was my pleasure to see Agapito Ramirez Jr. back in clinic today. Agapito Ramirez Jr. is a 48 y.o. year old male being seen for follow-up evaluation of DLBCL He completed 3 cycles of R CHOP chemotherapy followed by radiation therapy for his early stage diffuse large B-cell lymphoma. He completed radiation therapy in May 2015. He's here for his regular check. 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 Feeling well. Full energy has returned. No dysphagia. No unusual pains adenopathy or B symptoms. He continues to do quite well. Feeling well, fighting plantar fasciitis. Cannot walk barefoot. Insurance will not pay for PT. Cortisone shot was not helpful. No B symptoms. No problems with orapharynx. He has no complaints today. ROS Energy level: good Pain: foot Appetite:fair Fevers/chills/sweats:No Bruising/bleeding/melena:No Recent infections:No HEENT: negative Nausea/vomiting/diarrhea/constipation: see above SOB/FISHMAN/chest pain:No Change in adenopathy or other masses:No Unexpected weight loss or gain: Skin rashes or petechiae:No Musculoskeletal complaints:No Extremities: Negative upper and lower bilaterally Neurologic symptoms:None Mood: Normal Sleep: no Difficulty sleeping MEDS: No outpatient medications have been marked as taking for the 04/24/19 encounter (Office Visit) with Jacquie Plascencia MD. Allergies: No Known Allergies INTERIM SOCIAL HISTORY Changes in job, home situation, tobacco or alcohol use: see HPI PHYSICAL EXAM BP 138/89 (Patient Position: Sitting) Pulse 76 Temp 36.9 ??C (98.4 ??F) (Oral) Resp 16 Ht 182.9 cm (6' 0.01) Wt 112 kg (247 lb) SpO2 98% BMI 33.49 kg/m?? Body surface area is 2.39 meters squared. GENERAL: Agapito Ramirez Jr. appears [...] visit (from the past 72 hour(s)). WBC 6.0 H/H 14.6/41.9 Plts 225 CMP within normal limits; Creat 0.9 LDH 160 RADIOLOGY STUDIES REVIEWED: Ct scan Of Neck and Chest done in March 2017 which was negative. ASSESSMENT/PLAN: DLBCL - Left Tonsil and cervical LN - he is s/p C#3 RCHOP with negative PET scan and then consolidative XRT. He completed his radiation therapy in May 2015. He was PET negative in September 2015.Last CT 2017 negative. He returns today for his regular follow-up. Mr Ramirez is seen in f/u s/p completion of his chemotherapy, and his radiation therapy. He looks great. His IPI score was 0. He has a very low risk for recurrence. We will see him in One year with labs and appts for his final 5 year appt which is May 2020. We will order scans only if clinically indicated. Given that Mr Ramirez had early stage disease and is 4 years out from therapy, I will plan his nextappt at a one year interval, which will be his final appointment. RTC in one year for survivorship appt with Britney Swanson. This will be his final appt. CBC, CMP, LDH. Copy BRIANA Aldana documented in this encounter Plan of Treatment Not on file documented as of this encounter Visit Diagnoses Diagnosis Lymphoma, unspecified body region, unspecified lymphoma type documented in this encounter Care Teams Molecular Biologist Relationship Specialty Start Date End Date Janice Christine MD [address] [place] [address] PCP - General 02/23/18 documented as of this encounter
--- OUTSIDE RECORDS SUMMARY | 2024-09-30 21:01 | XMS_ITS | Encounter Summary ---
Author Organization [facility] [place] [address] Care Team Providers Care Arcade Game Technician Name Role Phone Janice Christine MD Primary Care Provider [phone] Reason for Visit * Physical Therapy (Routine) - Closed Specialty Diagnoses / Procedures Referred By Sean burgos Referred To Contact Physical Therapy Diagnoses H/O stapedectomy Alvarado Cuellar MD [facility] [place] [address] [facility] [place] [address] Referral ID Status Reason Start Date Expiration Date V isits Requested Visits Authorized [id number] Closed Evaluate and Treat 11/01/2021 11/01/2022 30 30 Encounter Details Date Type Department Care Team (Latest Contact Info) Description 11/29/2021 8:00 AM EST Office [place] [address] Rebeca Galvez, PT Disequilibrium; Mixed conductive and sensorineural hearing loss, bilateral; H/O stapedectomy Social History Tobacco Use Types Packs/Day Years Used Date Smoking Tobacco: Never Smokeless Tobacco: Never Alcohol Use Standard Drinks/Week Comments No 0 (1 standard drink = 0.6 oz pur e alcohol) Sex and Gender Information Value Date Recorded Sex Assigned at Not on file Gender Identity Not on file Sexual Orientation Not on file documented as of this encounter Miscellaneous Notes * Initial Evaluation - Rebeca Galvez, PT - 11/29/2021 8:00 AM EST Images from the original note were not included. Physical Therapy Initial Evaluation Note: Outpatient Date of Exam/First treatment: 11/29/21 Date of Referral: 11/01/21 Referring Provider: Alvarado Cuellar MD Primary Insurance: Payor: [employer] [place] / Plan[place] / Product Type: *No Producttype* / Diagnosis and Pertinent Co-morbidities affecting Plan of Care: ICD-10-CM 1. Disequilibrium R42 2. Mixed conductive and sensorineural hearing loss, bilateral H90.6 3. H/O stapedectomy Z90.09 Medical/Surgical History: refer also to medical record; Medications: refer to medical record HISTORY Agapito Giuliana Ramirez is a 51 y.o. male referred to physical therapy for vestibular evaluation s/p stapedectomy and initial disequilibrium post-op. Patient reports his symptoms have straightened out. Initial symptoms very lightheaded, all the time Patient feels that he is at ~90-95% of his baseline functional mobility, currently limited only by post-op restrictions. Denies any specific activities that trigger symptoms At this point he is unconcerned about his balance History of vestibular sensitivity: no history of motion sickness Vision Prescription eyewear / last eye exam: Uses prescribed reading glasses only Use of medications for dizzy symptoms: none. Was taking meclizine 3 weeks ago but hasn't needed anyin the last 3 weeks Functional Limitations: Patient reports difficulty with the following: ?? No limitations but has lifting restrictions per Dr. 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 [facility] - has been very cautious at work so far but has been doing some tasks thus far and it's gone well Has a small herd of [employer] (around 15), large property to manage Transportation: driving - has been going fine CLINICAL FINDINGS: EXAMINATION Coordination: Toe Tapping, simultaneous: well-coordinated at slow and fast speeds Toe Tapping, alternating: well-coordinated at slow and fast speeds Pronation / supination: intact, no dysdiadochokinesia noted Cervical Evaluation WNL active range of motion in all planes, pain free, did not elicit dizziness Oculomotor Exam Tilt in resting head posture absent Ptosis absent Ocular alignment normal Cover/Uncover test of skew deviation normal Resting or gaze evoked nystagmus absent Smooth pursuit Eye movements are conjugate and full without nystagmus Saccades normal fast and not dysmetric Vestibulo-Ocular Reflex Exam Head impulse test Right Negative Head impulse test Left Negative Positional Testing for BPPV: Not indicated. Patient's subjective report does not suggest BPPV Computerized Dynamic Posturography see media tab in eD-H for detailed report Tested with subject standing in socks Functional Gait Assessment (higher score = better dynamic balance) score 0-3 Gait Level Surface (20') 3 WNL gait Change in Gait Speed 3 marked change in gait speed, no decline in balance Gait with Horizontal Head Turns 3 fast speed gait, no imbalance noted Gait with Vertical Head Turns 3 fast speed gait, no imbalance noted Gait and Pivot Turn 3 fast speed turns to the right and left, well balanced Step Over Obstacle 3 able to step over 2 boxes without imbalance or decreased gait speed Gait with Narrow Base of Support 3 able to complete 10 consecutive tandem steps with arms crossed Gait with Eyes Closed 3 straight path, good speed, baseline gait mechanics Ambulating Backwards 3 step through pattern, quick speed, no hesitation Steps 3 up and down stairs reciprocal gait pattern, no railing Functional Gait Assessment Total (0-30) 30 CLINICAL EVALUATION: Agapito Ramirez Jr. is a 51 y.o. male who presents to physical therapy for vestibular evaluation due to history of disequilibrium s/p stapedectomy on 10/29/21. Patient reports that his symptoms have since resolved and he only feels limited in his mobility dueto the post-op lifting restrictions. Patient has no concerns about his balance and mobility at thistime. Results of oculomotor testing were within normal limits. Negative bilateral head impulse test indicates appropriate vestibulo-ocular reflex function Patient's score on the Functional Gait Assessment was 30/30 indicating good dynamic balance. Results of Sensory Organization Test (SOT) portion of Computerized Dynamic Posturography do indicate a slight vestibular hypofunction. Anticipate that this will resolve after post-op mobility restrictions are lifted and patient returns to full activities in his daily life which will promote furtherrecovery to baseline level of function. Patient does not require skilled PT at this time. Clinical decision making of low complexity using standardized patient assessment instrument and measurable assessment of functional outcome. Interventions completed today: Initial evaluation PLAN: Patient to follow-up with ENT / audiology as already scheduled today. No PT follow-up needed at this time. Patient encouraged to contact ENT / physical therapy if he noticed a decline in his balance or return of symptoms of disequilibrium. Informed Consent: The patient consented to the physical therapy evaluation. The patient agrees to and understands thephysical therapy treatment plan and goals. Total Timed Coded Treatment: Evaluation LOW Complexity (85695) Total treatment time: 60 minutes Rebeca Galvez, DANILO, DPT [facility] documented in this encounter Plan of Treatment Scheduled Referrals Name Type Priority Associated Diagnoses Orde r Schedule Referral to Physical Therapy Outpatient Referral Routine H/O stapedectomy Ordered: 11/01/2021 documented as of this encounter Visit Diagnoses Diagnosis Disequilibrium Dizziness and giddiness Mixed conductive and sensorineural hearing loss, bilateral Mixed hearing loss, bilateral H/O stapedectomy documented in this encounter Care Teams Arcade Game Technician Relationship Specialty Start Date End Date Janice Christine MD [address] [place] [address] PCP - General 02/23/18 documented as of this encounter
--- OUTSIDE RECORDS SUMMARY | 2024-09-30 21:01 | XMS_ITS | Encounter Summary ---
Author Organization [facility] Address [facility] [place] [address] Care Team Providers Care Rn Case Management Name Role Phone Guerline Franco Primary Care Provider + Encounter Details Date Type Department Care Team (Late st Contact Info) Description 09/20/2017 3:30 PM EST Office Visit Hematology/Oncology at [address] [phone] Jacquie Plascencia MD [facility] DR HEMATOLOGY [place] [address] Lymphoma, unspecified body region, unspecified lymphoma type [...] Sign Reading Time Taken Comments Blood Pressure 135/70 09/20/2017 3:29 PM EST Pulse 78 09/20/2017 3:29 PM EST Temperature 36.4 ??C (97.5 ??F) 09/20/2017 3:29 PM ES T Respiratory Rate 16 09/20/2017 3:29 PM EST Oxygen Saturation 99% 09/20/2017 3:29 PM EST Inhaled Oxygen Concentration - - Weight 108.9 kg (240 lb) 09/20/2017 3:29 PM EST Height 182.9 cm (6' 0.01) 09/20/2017 3:29 PM ES T Body Mass Index 32.54 09/20/2017 3:29 PM EST documented in this encounter Progress Notes * Jacquie Plascencia MD - 09/20/2017 3:30 PM EST [facility] [address] FOLLOW-UP PATIENT EVALUATION PROBLEM LIST: Patient Active [...] clinic today. Agapito Ramirez Jr. is a 47 y.o. year old male being seen for follow-up evaluation of DLBCL He completed 3 cycles of R CHOP chemotherapy followed by radiation therapy for his early stage diffuse large B-cell lymphoma. He completed radiation therapy in May 2015. He's here for his regular check. 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 Feeling well. Full energy has returned. No dysphagia. No unusual pains adenopathy or B symptoms. He continues to do quite well. Recently saw Dr Rucker [facility] for spermatocele - s/p resection 08/31/17. No B symptoms. He does not like [place]. But had a good one. ROS Energy level: good Pain: None Appetite:fair Fevers/chills/sweats:No Bruising/bleeding/melena:No Recent infections:No HEENT: negative Nausea/vomiting/diarrhea/constipation: see above SOB/FISHMAN/chest pain:No Change in adenopathy or other masses:No Unexpected weight loss or gain: Skin rashes or petechiae:No Musculoskeletal complaints:No Extremities: Negative upper and lower bilaterally Neurologic symptoms:None Mood: Normal Sleep: no Difficulty sleeping MEDS: No outpatient prescriptions have been marked as taking for the 09/20/17 encounter (Office Visit) with Jacquie Plascencia MD. Allergies: No Known Allergies INTERIM SOCIAL HISTORY Changes in job, home situation, tobacco or alcohol use: see HPI PHYSICAL EXAM BP 135/70 (Patient Position: Sitting) Pulse 78 Temp 36.4 ??C (97.5 ??F) (Oral) Resp 16 Ht 182.9 cm (6' 0.01) Wt 108.9 kg (240 lb) SpO2 99% BMI 32.54 kg/m2 Body surface area is 2.35 meters squared. GENERAL: Agapito Ramirez Jr. appears [...] spinal or chest wall tenderness. LABORATORY STUDIES WBC 6.33 H/H 14.6/43.7 Plts 250 CMP within normal limits LDH 136 RADIOLOGY STUDIES REVIEWED: Ct scan Of Neck and Chest done in March 2017 which was negative. ASSESSMENT/PLAN: DLBCL - Left Tonsil and cervical LN - he is now s/p C#3 HOP with negative PET scan and then consolidative XRT. He completed his radiation therapy in May 2015. He was PET negative in September 2015. He returns today for his regular follow-up. He had a CT scan last week of neck and chest at [facility] which showed no adenopathy. Mr Ramirez is now over 2 years s/p completion of his chemotherapy, and his radiation therapy. He looks great. His IPI score was 0. He has a very low risk for recurrence. We can now advance his f/u toevery 6 months with labs and appts up until his 5 year nik which is May 2020. We will order scansonly if clinically indicated. Copy BRIANA Aldana documented in this encounter Plan of Treatment Not on file documented as of this encounter Visit Diagnoses Diagnosis Lymphoma, unspecified body region, unspecified lymphoma type documented in this encounter Care Teams Rn Case Management Relationship Specialty Start Date End Date Guerline Franco PA PCP - General Orthopaedic Surgery 09/20/17 02/22/18 documented as of this encounter
--- OUTSIDE RECORDS SUMMARY | 2024-09-30 21:01 | XMS_ITS | Encounter Summary ---
Author Organization [facility] [place] [address] Care Team Providers Care Freight Elevator Operator Name Role Phone Janice Christine MD Primary Care Provider [phone] Encounter Details Date Type Department Care Team (Latest Contact Info) Description 11/08/2021 9:30 AM EST Office Visit Audiology at [address] [address] Areli Moran [facility] [place] [address] Mixed conductive and sensorineural hearing loss, bilateral [...] as of this encounter Progress Notes * Areli Moran MEd - 11/08/2021 9:30 AM EST Patient was seen for an audiologic evaluation as medically indicated in conjunction with an appointment with Dr. Alvarado Cuellar in Otolaryngology. Please refer to the audiogram under Procedures for findings, impressions, and recommendations. documented in this encounter Plan of Treatment Not on file documented as of this encounter Procedures Procedure Name Priority Date/Time Associated Diagnosis Comments COMPREHENSIVE HEARING TEST Routine 11/08/2021 9:20 AM EST documented in this encounter Results * Comprehensive hearing test (11/08/2021 9:20 AM EST) 11/08/2021 9:20 AM EST Narrative AUDBASE COMP - 11/08/2021 9:20 AM EST 51 yo male seen in conjunction with Dr. Alvarado Cuellar in Otolaryngology. S/p left stapedectomy; known small amount of gel foam in left ear not felt a barrier to testing per Otolaryngology; see medical record for additional information. Improved hearing noticed left per patient. Continues with tinnitus. Binaural hearing aid user; amplification from an outside center; left aid medically contraindicated post operatively. Today with stable moderate to profound mixed hearing loss right, and mild to severe largely sensorineural appearing hearing loss left, improved from the last week's audiogram. Very good word recognition for each ear. Tympanometry not assessed today. Patient advised when medically cleared to resume hearing aid use left, he should return to his managing feedmobile driver for adjustment of the left hearing aid given the improvement in hearing thresholds. Procedure Note Unknown - 11/08/2021 51 yo male seen in conjunction with Dr. Alvarado Cuellar in Otolaryngology. S/pleft stapedectomy; known small amount of gel foam in left ear not felt a barrier to testingper Otolaryngology; see medical record for additional information. Improved hearing noticedleft per patient. Continues with tinnitus. [facility]inaural hearing aid user[facility]; left aid medically contraindicated post operatively. Today with stable moderate to profound mixed hearing loss right, and mildto severe largely sensorineural appearing hearing loss left, improved from the last week'saudiogram. Very good word recognition for each ear. Tympanometry not assessed today. Patientadvised when medically cleared to resume hearing aid use left, he should return to his managingaudiologist for adjustment of the left hearing aid given the improvement in hearingthresholds. Areli Maldonado [facility] AUDIOLOGY SERVICES ORDERABLES AUDBASE COMP documented in this encounter Visit Diagnoses Diagnosis Mixed conductive and sensorineural hearing loss, bilateral Mixed hearing loss, bilateral documented in this encounter Care Teams Freight Elevator Operator Relationship Specialty Start Date End Date Janice Christine MD [address] [place] [address] PCP - General 02/23/18 documented as of this encounter
--- OUTSIDE RECORDS SUMMARY | 2024-09-30 21:01 | XMS_ITS | Encounter Summary ---
Author Organization [facility] [place] [address] Care Team Providers Care Section Hand Name Role Phone Janice Christine MD Primary Care Provider Reason for Visit * Reason Comments Foot Pain * Consultation (Routine) - Closed Specialty Diagnoses / Procedures Referred By Sean burgos Referred To Contact Podiatry Diagnoses referral received from onbase - heel pain Ghulam Millan DC [address] [place] [address] [facility] [place] [address] Referral ID Status Reason Start Date Expiration Date Visits Re quested Visits Authorized [id number] Closed 10/26/2020 10/26/2021 1 1 Encounter Details Date Type Department Care Team (Late st Contact Info) Description 12/01/2020 2:00 PM EST Office [place] [address] [place] [address] Plantar fasciitis of left foot Social History [...] Progress Notes * Garry Lester DPM - 12/01/2020 2:00 PM EST Podiatry Consultation Note Garry Lester DPM Patient's Name: Agapito Ramirez Jr. Age: 50 y.o. PCP: Janice Christine MD SUBJECTIVE Chief complaint: Agapito Ramirez Jr. presents with a chief complaint of left heel pain. This has been a problem for about 3 years. Reports pain is most severe following periods of rest. Has been icing the heel. Saw logistics program manager in the past. Received 1 cortisone injection that helped for a short period of time. Discomfort interfering with day-to-day activities. 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 He is on his feet a lot. Past Medical History: Diagnosis Date ??? Lymphoma No current outpatient medications on file prior to visit. No current facility-administered medications on file prior to visit. No Known Allergies Social History Socioeconomic History ??? Marital status: Spouse name: Not on file ??? Number of children: Not on file ??? Years of education: Not on file ??? Highest education level: Not on file Occupational History ??? 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 Smoking status: Never Smoker ??? Smokeless tobacco: Never Used Substance and Sexual Activity ??? Alcohol use: No Alcohol/week: 0.0 standard drinks ??? Drug use: No ??? Sexual activity: Not on file Other Topics Concern ??? Not on file Social History Narrative ??? Not on file Social Determinants of Health Financial Resource Strain: ??? Difficulty of Paying Living Expenses: Not on file Food Insecurity: ??? Worried About Running Out of Food in the Last Year: Not on file ??? Ran Out of Food in the Last Year: Not on file Transportation Needs: ??? Lack of Transportation (Medical): Not on file ??? Lack of Transportation (Non-Medical): Not on file Physical Activity: ??? Days of Exercise per Week: Not on file ??? Minutes of Exercise per Session: Not on file Review of Systems: General - The patient reports feeling well today. Denies fever or chills. Neurologic- Denies numbness, tingling or burning in the feet. Musculoskeletal - Left heel pain. OBJECTIVE There were no vitals taken for this visit. The Patient is alert and oriented x 3. Affect is appropriate. Dorsalis Pedis pulses are palpable bilaterally. Posterior Tibial pulses are palpable bilaterally. Light touch is grossly intact bilaterally. Muscle strength is +5/5 in all 3 lower leg muscle groups bilaterally. The patient is tender with palpation around the medial tubercle of the left calcaneus. No erythema or edema. Mild pain with palpation of the central band of the plantar fascia left. No pain with compression of the calcaneus. Radiographs deferred. ASSESSMENT Chronic plantar fasciitis left foot. PLAN Reviewed etiology of this problem. Reviewed treatment options. Injected 1/2 cc of triamcinolone 40 [facility] #[id number] 1-0 1 and 2% lidocaine plain around the medial tubercle of the left calcaneus. Appliedremovable foot strap. Discussed appropriate shoes. Patient is in stocking feet at home. Instructed to wear shoes consistently throughout the day. Follow-up in 4 weeks. Garry Lester DPM Reinforcing Steel Erector, [facility] documented in this encounter Plan of Treatment Not on file documented as of this encounter Visit Diagnoses Diagnosis Plantar fasciitis of left foot Plantar fascial fibromatosis documented in this encounter Care Teams Section Hand Relationship Specialty Start Date End Date Janice Christine MD [address] [place] [address] PCP - General 02/23/18 documented as of this encounter
--- OUTSIDE RECORDS SUMMARY | 2024-09-30 21:01 | XMS_ITS | Encounter Summary ---
Author Organization [facility] [place] [address] Care Team Providers Care Regulatory Compliance Director Name Role Phone Janice Christine MD Primary Care Provider [phone] Encounter Details Date Type Department Care Team (Latest Contact Info) Description 11/29/2021 10:15 AM EST Office Visit Audiology at [address] [address] Madina Bustos AUD [facility] [place] [address] Mixed conductive and sensorineural hearing loss, bilateral [...] Progress Notes * Madina Bustos AUD - 11/29/2021 10:15 AM [place] [address] Agapito Ramirez Jr. was seen on 11/29/2021 for an audiologic evaluation in conjunction with Alvarado Cuellar MD in Otolaryngology. Please refer to the scanned audiogram listed under Procedures for findings, impressions and recommendations. Agapito Giuliana Ramirez Jr. was seen for an audiologic evaluation by Misty Melendrez, Audiology Doctoral Student, under the full supervision of Varun Alba, Clinical Fly Setter. Varun [place] [address] documented in this encounter Plan of Treatment Not on file documented as of this encounter Procedures Procedure Name Priority Date/Time Associated Diagnosis Comments COMPREHENSIVE HEARING TEST Routine 11/29/2021 10:15 AM EST documented in this encounter Results * Comprehensive hearing test (11/29/2021 10:15 AM EST) 11/29/2021 10:1 5 AM EST Narrative AUDBASE COMP - 11/29/2021 10:15 AM EST Follow up per Dr. Cuellar and per managing office machine installer. Procedure Note Unknown - 11/29/[address] Cuellar and per managing office machine installer. Madina NAIR AUDIOLOGY [facility] JOHN ORDERABLES AUDBASE COMP documented in this encounter Visit Diagnoses Diagnosis Mixed conductive and sensorineural hearing loss, bilateral Mixed hearing loss, bilateral documented in this encounter Care Teams Regulatory Compliance Director Relationship Specialty Start Date End Date Janice Christine MD [address] [place] [address] PCP - General 02/23/18 documented as of this encounter
--- OUTSIDE RECORDS SUMMARY | 2024-09-30 21:01 | XMS_ITS | Encounter Summary ---
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 Social History Tobacco Use Types Packs/Day Years Used Date Smoking Tobacco: Never Smokeless Tobacco: Never Alcohol Use Standard Drinks/Week Comments No 0 (1 standard drink = 0.6 oz pur e alcohol) Sex and Gender Information Value Date Recorded Sex Assigned at Not on file Gender Identity Not on file Sexual Orientation Not on file documented as of this encounter Plan of Treatment Not on file documented as of this encounter Visit Diagnoses Diagnosis Lymphoma, unspecified body region, unspecified lymphoma type Follicular lymphoma, unspecified follicular lymphoma type, unspecified body region 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
--- OUTSIDE RECORDS SUMMARY | 2024-09-30 21:01 | XMS_ITS | Encounter Summary ---
Author Organization [facility] Address [facility] [place] [address] Care Team Providers Care Compounding Assistant Name Role Phone Janice Christine MD Primary Care Provider [phone] Reason for Visit * Reason Comments Plantar Fasciitis Encounter Details Date Type Department Care Team (Late st Contact Info) Description 07/20/2021 4:30 PM EDT Office [place] [address] Garry Lester, [place] [address] Plantar fasciitis of left foot Social History [...] Progress Notes * Garry Lester DPM - 07/20/2021 4:30 PM EDT Podiatry Follow-Up Note Name: Agapito Ramirez Jr. Date of Service: 07/20/2021 SUBJECTIVE Chief complaint: Agapito Ramirez Jr. is a 50 y.o. male, who returns to podiatry for follow-up on a painful left heel. The patient reports little to no pain as long as he takes diclofenac 75 mg once aday, wears his prefabricated orthotics and shoes. If he does not take the diclofenac he can get some discomfort. There were no vitals taken for this visit. Objective Dorsalis Pedis pulses are palpable. Posterior Tibial pulses are palpable. No pain with palpation of the medial tubercle of the left calcaneus. The patient has no erythema or edema at the site. His shoes are nonsupportive. Wearing his Powersteinserts.. Assessment Plantar fasciitis left foot. Plan Patient to try Aleve, 1 tablet a day in the morning. We discussed characteristics of supportive shoes. Continue in prefabricated orthotic with built up longitudinal arch. Follow-up in 12 weeks. Garry Lester DPM Entrepreneurial Finance Professor, [facility] documented in this encounter Plan of Treatment Not on file documented as of this encounter Visit Diagnoses Diagnosis Plantar fasciitis of left foot Plantar fascial fibromatosis documented in this encounter Care Teams Compounding Assistant Relationship Specialty Start Date End Date Janice Christine MD [address] [place] [address] PCP - General 02/23/18 documented as of this encounter
--- OUTSIDE RECORDS SUMMARY | 2024-09-30 21:01 | XMS_ITS | Encounter Summary ---
Author Organization [facility] Address [facility] [place] [address] Care Team Providers Care Scrap Shear Operator Name Role Phone Janice Christine MD Primary Care Provider [phone] Reason for Referral * Consultation (Routine) - Specialty Diagnoses / Procedures Referred By Contac t Referred To Contact Diagnoses Sexual dysfunction Britney Swanson APRN [facility] [address] [place] [address] Referral ID Status Reason Start Date Expiration Date V isits Requested Visits Authorized [id number] Consult, Test & Treat 06/17/2020 12/14/2020 1 1 Encounter Details Date Type Department Care Team (Late st Contact Info) Description 06/17/2020 11:00 AM EDT Clinical Support Hematology/Oncology at [address] [phone] Jacquie Plascencia MD [facility] [address] [place] [address] Britney Swanson APRN 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 is a 49 y.o. malehere for f/u of NHL Patient Active Problem List Diagnosis ??? Lymphoma [...] negative 03/2017 CT neck and chest negative. . SHAUNNA Altman is here today for his final hematology follow-up and survivorship care plan visit. He has no concerns at the onset of the visit. He has been well with no new symptoms, no lumps or bumps, no recent infections. 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 NOnight sweats. Please see SCP under Problem list Review of Systems Constitutional: Negative. Poor sleep - tosses and turns a lot - 2-6 hours a night. This has been going on for years. HENT: Negative. Eyes: Negative. Respiratory: Negative. Negative for cough and shortness of breath. Cardiovascular: Negative. Negative for chest pain, palpitations and leg swelling. Gastrointestinal: Negative. Negative for constipation, diarrhea, nausea and vomiting. Genitourinary: Negative. When questioned about sexual functioning Agapito reports significant changes with getting an erection, keeping an erectiona nd sexual desire/Libido. He is interested in seeing specialist for this. Musculoskeletal: Negative. Skin: Negative. Neurological: Negative. Negative for weakness and numbness. Hematological: Negative. Psychiatric/Behavioral: Negative. Objective: Physical Exam Constitutional: Appearance: Normal appearance. HENT: Head: Atraumatic. Pulmonary: Effort: Pulmonary effort is normal. Skin: General: Skin is warm and dry. Neurological: Mental Status: He is alert and oriented to person, place, and time. Psychiatric: Mood and Affect: Mood normal. Behavior: Behavior normal. Recent Results (from the past 72 hour(s)) CBC (with Diff) Result Value Ref Range WBC 7.27 Hemoglobin 14.1 Hematocrit 42.5 Platelets 207 Neutr Abs (ANC) 4.11 Comprehensive metabolic panel (non-fasting) Result Value Ref Range BUN 17 Creatinine 0.93 LDH 153 BP 156/87 (Patient Position: Sitting) Pulse 73 Temp 36.8 ??C (98.2 ??F) (Oral) Resp 16 RnH136% Assessment and Plan: 1. Guanakito is a 49 year old man who is now over 5 years s/p completion of curative intent combined modality therapy for his low stage DLBCL. His risk of relapse at this time is extremely low. Today we spent all of this visit reviewing his SCP. Please see SCP for details. PLAN: 1. Repeat ECHO s/p anthracycline- he will get this done locally at [facility] - I will call him with results. 2. Referral to Urology for sexual dysfunction 3. He does not currently have PCP but he is now aware of importance - he will get this scheduled. Judith send him 2 copies of his SCP - one for him and one to bring with him to his PCP office. Ongoing recommendations for screening with PCP office included in SCP. All age appropriate screening plus annual cholesterol, glucose and TSH as he did have XRT to the neck. I did encourage him to work with new PCP regarding his longstanding sleep issues. We wish Georgewy the best of luck . We remain available should he develop any new hematologic concerns. documented in this encounter Plan of Treatment Scheduled Referrals Name Type Priority Associated Diagnoses Orde r Schedule Referral to Urology Outpatient Referral Routine Sexual dysfunction Ordered: 06/17/2020 documented as of this encounter Procedures Procedure Name Priority Date/Time Associated Diagnosis Comments CBC (WITH DIFF) Routine 06/16/2020 COMPREHENSIVE METABOLIC PANEL Routine 06/16/2020 documented in this encounter Results * Comprehensive metabolic panel (non-fasting) (06/16/2020) Blood Urea Nitrogen 17 Creatinine 0.93 Lactate Dehydrogenase 153 Blood specimen (specimen) 06/16/2020 Britney Swanson APRN CHEMISTRY ORDERABLES * CBC (with Diff) (06/16/2020) White Blood Cell 7.27 Hemoglobin 14.1 Hematocrit 42.5 Platelet 207 Neutrophil Absolute (ANC) - Automated 4.11 Blood specimen (specimen) 06/16/2020 Britney Swanson APRN HEMATOLOGY ORDERABLE S documented in this encounter Visit Diagnoses Diagnosis 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
--- OUTSIDE RECORDS SUMMARY | 2024-09-30 21:01 | XMS_ITS | Encounter Summary ---
[place] [address] Care Team Providers Care Decorating Consultant Name Role Phone Janice Christine MD Primary Care Provider [phone] Encounter Details Date Type Department Care Team (Late st Contact Info) Description 01/03/2017 Telephone Hematology/Oncology at [address] [phone] Jarod Mckay Social History Tobacco Use Types Packs/Day Years [...] encounter Miscellaneous Notes * Telephone Encounter - Jarod Mckay - 01/03/2017 3:39 PM EDT Left Message - Called pt to inform him that his CT scan would be Fri the @ 1:00 and he would need bloodwork Wed or Th before scan. Asked to call with questions. documented in this encounter Plan of Treatment Not on file documented as of this encounter Visit Diagnoses Not on filedocumented in this encounter Care Teams Decorating Consultant Relationship Specialty Start Date End Date Janice Christine MD [address] [place], [place] [address] PCP - General 02/27/15 09/19/17 documented as of this encounter
--- OUTSIDE RECORDS SUMMARY | 2024-09-30 21:01 | XMS_ITS | Encounter Summary ---
[place] [address] Care Team Providers Care Wine Maker Name Role Phone Janice Christine MD Primary Care Provider [phone] Encounter Details Date Type Department Care Team (Late st Contact Info) Description 10/28/2020 [place] [phone] Betsy Crespo Social History Tobacco Use Types Packs/Day Years [...] encounter Miscellaneous Notes * Telephone Encounter - Mara Han - 10/29/2020 10:26 AM EST Patient called back and has been scheduled for CT & FUV documented in this encounter Plan of Treatment Not on file documented as of this encounter Visit Diagnoses Not on filedocumented in this encounter Care Teams Wine Maker Relationship Specialty Start Date End Date Janice Christine MD [address] [place] [address] PCP - General 02/23/18 documented as of this encounter
--- OUTSIDE RECORDS SUMMARY | 2024-09-30 21:01 | XMS_ITS | Encounter Summary ---
Author Organization [facility] Address [facility] [place] [address] Care Team Providers Care Food Service Worker Hospital Name Role Phone Janice Christine MD Primary Care Provider [phone] Encounter Details Date Type Department Care Team (Late st Contact Info) Description 04/20/2016 3:00 PM EDT Office Visit Hematology/Oncology at [address] [phone] Jacquie Plascencia MD [facility] [address] [place] [address] Lymphoma, unspecified body region, unspecified lymphoma type [...] Sign Reading Time Taken Comments Blood Pressure 125/68 04/20/2016 3:12 PM EDT Pulse 74 04/20/2016 3:12 PM EDT Temperature 36.9 ??C (98.4 ??F) 04/20/2016 3:12 PM ED T Respiratory Rate 16 04/20/2016 3:12 PM EDT Oxygen Saturation 99% 04/20/2016 3:12 PM EDT Inhaled Oxygen Concentration - - Weight 102.5 kg (226 lb) 04/20/2016 3:12 PM EDT Height 182.9 cm (6' 0.01) 04/20/2016 3:12 PM ED T Body Mass Index 30.64 04/20/2016 3:12 PM EDT documented in this encounter Progress Notes * Jacquie Plascencia MD - 04/20/2016 3:00 PM EDT Hematology Clinic [facility] [place] [address] FOLLOW-UP PATIENT EVALUATION PROBLEM LIST: Patient Active [...] 06/16/15 (2 weeks) 10/12/15 Negative PET scan INTERIM HISTORY OF PRESENT ILLNESS: It was my pleasure to see Agapito Ramirez JrJailyn back in clinic today. Agapito Ramirez JrJailyn is a 45 y.o. year old male being seen for follow-up evaluation of DLBCL he has now completed 3 cycles of R CHOPchemotherapy followed by radiation therapy for his early stage diffuse large B-cell lymphoma. He completed radiation therapy in May 2015. He's here for his regular check. 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 Feeling well. Full energy has returned. No dysphagia. No unusual pains adenopathy or B symptoms. ROS Energy level: low , but back to work now. Pain: None Appetite:fair Fevers/chills/sweats:No Bruising/bleeding/melena:No Recent infections:No HEENT: negative Nausea/vomiting/diarrhea/constipation: see above SOB/FISHMAN/chest pain:No Change in adenopathy or other masses:No Unexpected weight loss or gain: Skin rashes or petechiae:No Musculoskeletal complaints:No Extremities: Negative upper and lower bilaterally Neurologic symptoms:None Mood: Normal Sleep: no Difficulty sleeping MEDS: No outpatient prescriptions have been marked as taking for the 04/20/16 encounter (Office Visit) with Jacquie Plascencia MD. Allergies: No Known Allergies INTERIM SOCIAL HISTORY Changes in job, home situation, tobacco or alcohol use: see HPI PHYSICAL EXAM BP 125/68 (Patient Position: Sitting) Pulse 74 Temp 36.9 ??C (98.4 ??F) (Oral) Resp 16 Ht 182.9 cm (6' 0.01) Wt (!) 102.5 kg (226 lb) SpO2 99% BMI 30.64 kg/m2 Body surface area is 2.28 meters squared. GENERAL: Agapito Ramirez Jr. appears [...] MUSCULOSKELETAL: No spinal or chest wall tenderness. R testicle wih soft mildly tender fluid filled sack consistent with known hydrocele. LABORATORY STUDIES WBC 7.8 H/H 13.0/39.1 Plts 187 CMP within normal limits LDH 207 RADIOLOGY STUDIES REVIEWED: none ASSESSMENT/PLAN: DLBCL - he is now s/p C#3 HOP with negative PET scan and then consolidative XRT. He completed hisradiation therapy in May 2015. He was PET negative in September 2015. He returns today for his regular follow-up. He had a CT scan last week of neck and chest at [facility] which showed no adenopathy. Mr Ramirez is now 1 year out from completion of his chemotherapy, and 10 months from completion of his radiation therapy. Follow-up CT scans are LEVI. He looks great. His IPI score was 0. He has a very low risk for recurrence. In light of this second year of surveillance had like to see him every 4 months. Following that we can see him just every 6 months. I would not anticipate any further imaging unless there is clinical suspicion for relapse. Copy JANICE CHRISTINE MD documented in this encounter Plan of Treatment Not on file documented as of this encounter Visit Diagnoses Diagnosis Lymphoma, unspecified body region, unspecified lymphoma type documented in this encounter Care Teams Food Service Worker Hospital Relationship Specialty Start Date End Date Janice Christine MD [address] [place] [address] PCP - General 02/27/15 09/19/17 documented as of this encounter
--- OUTSIDE RECORDS SUMMARY | 2024-09-30 21:01 | XMS_ITS | Encounter Summary ---
Author Organization Replaced By [facility] Address [facility] [place] [address] Care Team Providers Care Internet Marketing Assistant Name Role Phone Janice Christine MD Primary Care Provider [phone] Reason for Visit * Auth/Cert Specialty Diagnoses / Procedures Referred By Sean t Referred To Contact Diagnoses Conductive hearing loss in left ear conductive hearing loss, left ear Procedures PRO STAPEDECTOMY PRG SOMATOSENSORY TEST, ANY/ALL PER. NERVES, TRUNK OR HEAD STAPEDECTOMY -OTOMY, ESTABLISH OSSICULAR CONTINUITY (WRVU 12.03) MODIFIER IRIDEX LASER FACIAL NERVE MONITORING, SETUP PERIPHERAL (WRVU 0.54) MODIFIER,ENT MODERATE Referral ID Status Reason Start Date Expiration Date Visits Re quested Visits Authorized [id number] 1 1 Encounter Details Date Type Department Care Team (Late st Contact Info) Description 10/29/2021 1:15 PM EST - 10/29/2021 6:00 PM EST Surgery [place] [address] Alvarado Cuellar MD [facility] [place] [address] STAPEDECTOMY -OTOMY, ESTABLISH OSSICULAR CONTINUITY (WRVU 12.03) Social History Tobacco Use Types Packs/Day Years [...] Sign Reading Time Taken Comments Blood Pressure 128/77 10/29/2021 6:00 PM EST Pulse 90 10/29/2021 6:00 PM EST Temperature 37 ??C (98.6 ??F) 10/29/2021 5:58 PM EST Respiratory Rate 23 10/29/2021 6:00 PM EST Oxygen Saturation 94% 10/29/2021 6:00 PM EST Inhaled Oxygen Concentration - - Weight 115.7 kg (255 lb) 10/29/2021 12:03 PM EST Height - - Body Mass Index 34.58 11/26/2020 3:04 PM EST documented in this encounter Discharge Summaries * Alvarado Cuellar MD - 11/01/2021 3:37 PM EST OTOLARYNGOLOGY - HEAD & NECK SURGERY DISCHARGE SUMMARY General Info Patient Name: Agapito Ramirez Jr. Patient Age: 51 y.o. Birthdate: 1970 Admit date: 10/29/2021 Discharge date: 11/01/21 Attending Physician: Alvarado Cuellar MD Admission Info Diagnoses: Left otosclerosis Operations/Major Procedures: Procedure(s) (LRB): STAPEDECTOMY -OTOMY, ESTABLISH OSSICULAR CONTINUITY (WRVU 12.03) (Left) MODIFIER IRIDEX LASER (N/A) FACIAL NERVE MONITORING, SETUP PERIPHERAL (WRVU 0.54) (N/A) MODIFIER,ENT MODERATE (N/A) History of Presentation: The below history was copied from office visit 11/26/20: Agapito Ramirez Jr. is a 50 y.o. year old male with a history of bilateral progressive hearing losswith max CHL component bilaterally. Bone conduction thresholds largely symmetric. Patient presentedto clinic with 10 year decline in hearing and requested surgical intervention. CT confirmed otosclerosis in the fissula antefenestrum. Plan was made for stapedectomy with prothesis with . Reason for Admission: Post-operative care Hospital Course: The patient tolerated the above procedure well and was admitted for observation and management of post-operative vertigo and nausea. Patient was treated with a pulse dose of steroids, meclizine and zofran. Nausea and vertigo steadily improved and on POD-3 the patient was deemed ready for discharge home. On POD 3 patient had an audiogram which demonstrated improvement in conductive hearing, and overall maintaining his bone conduction thresholds as compared to preop testing. Patient was seen by physical therapy who recommended use of front- wheeled walker at home. Additionally, patient was advised to participate in vestibular physical therapy in the outpatient setting. Prior to discharge his pain was controlled and he was tolerating a Regular diet. Physical Exam on Discharge: General: NAD, non-ill appearing Face: Symmetric without dysmorphic features Eyes: EOMI, conjunctiva healthy Ears: Auricles symmetric, no lesions, scant dried blood in EAC, postauricular incision c/d/i Nose: Patent nares, grossly normal appearance Oral Cavity/Pharynx: Mucosa is pink, oropharynx symmetric Neck: Soft, trachea midline Chest: Non-labored breathing, regular rate Abdomen: Soft, non-tender Neuro: Alert & oriented, moving extremities x 4 Lab Data: Recent Labs 11/01/21 0813 WBC 11.3* HGB 14.2 HCT 41.8 PLATELET 201 NA 140 K 4.1 CL 108* CO2 22 BUN 22* CREATININE 0.92 GLUCOSE 90 CALCIUM 8.6 MAGNESIUM 0.99 PHOS 2.8 Imaging and Other Studies: No results found. Discharge Info Discharge Condition: Stable Discharge to: Home Discharge Medications: Your Medications New Medications Dose Details cephALEXin 500 mg Cap Commonly known as: Keflex Take 1 capsule by mouth 3 times daily for 7 days. 500 mg Quantity: 21 capsule Refills: 0 docusate sodium 50 mg Cap Commonly known as: Colace Take 2 capsules by mouth 2 times daily for 14 days. 100 mg Quantity: 56 capsule Refills: 0 meclizine 25 mg Tab Commonly known as: Antivert Take 1 tablet by mouth 3 times daily as needed for Dizziness for up to 14 days. 25 mg Quantity: 42 tablet Refills: 0 ofloxacin 0.3 % Drop Commonly known as: Floxin Place 4 drops into the left ear 2 times daily. 4 drop Quantity: 5 mL Refills: 3 ondansetron ODT 4 mg Tbdl Commonly known as: Zofran-ODT Take 1 tablet by mouth every 8 hours as needed for Nausea for up to 14 doses. 4 mg Quantity: 14 tablet Refills: 0 Continued medications, unchanged Dose Details diclofenac EC 75 mg Tbec Commonly known as: Voltaren Take 1 tablet by mouth 2 times daily. 75 mg Quantity: 28 tablet Refills: 1 sildenafiL 25 mg Tab Commonly known as: VIAGRA Take by mouth. Refills: 0 Updated Allergies/ADRs: No Known Allergies Info for Patient Patient Instructions POSTOPERATIVE INSTRUCTIONS FOR PATIENTS UNDERGOING CHRONIC EAR, MIDDLE EAR OR STAPES SURGERY 1. DO NOT blow you nose for 3 weeks following surgery. If you sneeze or cough do so with your mouthopen. 2. Avoid any heavy lifting (over 10 lbs.), straining, or bending for three weeks following surgery. 3. Keep your head elevated as much as possible. Sleep and rest on two or three pillows if possible. 4. Do no get water in you ear. If showering or washing your hair place a piece of cotton coated in Vaseline in the ear canal to seal it. If there is a separate incision, keep this dry until your first postoperative visit. 5. If you wear glasses, either remove the arm on the operated side or make certain that it does notrest on the incision behind your ear for one week. 6. Beginning one day after surgery try to leave the cotton out of your ear as much as possible unless there is significant drainage. 7. Some of the drainage from your ear canal may occur after surgery. If there is a separate incision some drainage may occur from this area also. If the drainage is profuse or develops a foul odor, call the Department of Otolaryngology - Head and Neck Surgery. 8. Popping sounds, a plugged sensation, ringing or fluctuating hearing may be noticed in the ear during the healing. 9. Avoid travel by air for three weeks following surgery. 10. If you should notice any swelling, redness, or excessive pain, please call the Department of Otolaryngology - Head and Neck Surgery. 11. Some dizziness may occur after surgery. If it becomes severe or is associated with nausea or vomiting, call the Department of Otolaryngology - Head and Neck Surgery. 12. You should be seen for follow-up evaluation 7-10 days after surgery, unless otherwise stated byyour surgeon. Please call the Department of Otolaryngology - Head and Neck Surgery for an appointment if one has not been scheduled for you in advance. 13. Should any problems or questions arise, please call the Department of Otolaryngology - Head andCack Surgery (ENT Department). Contact: -You can reach the ENT clinic at [phone] for appointment questions. -The ENT triage nurse is available at [phone] -For urgent issues during evenings and weekends the ENT resident corporate communications manager can be reached through [facility] ladle operator at [phone] Follow Up: You will need to follow up with ENT in 7-10 days. This appointment has been requested. You will be notified once it is scheduled. The appointment listed below will be rescheduled. If you do not hear from us in a timely manner, please call to receive your date and time. A referral has been placed for you to participate in Vestibular Therapy in the outpatient setting. They will contact you to arrange your follow-up appointment. Currently Scheduled Appointments: Future Appointments and Orders Future Appointments and Orders Future Appointments Provider Department Dept Phone 11/29/2021 9:40 AM Alvarado Cuellar MD Otolaryngology at [facility] Arrive at: Review Coordinator Area [phone] 11/29/2021 10:15 AM Madina Bustos AUD; AUDIOLOGY, [place] THREE Audiology at [facility] Arrive at: Review Coordinator Area [phone] 01/11/2022 4:15 PM Delisa Diez DPM Podiatry at [facility] Arrive at: Review Coordinator Area General Instructions None __ Your Medications New Medications Dose Details cephALEXin 500 mg Cap Commonly known as: Keflex Take 1 capsule by mouth 3 times daily for 7 days. 500 mg Quantity: 21 capsule Refills: 0 docusate sodium 50 mg Cap Commonly known as: Colace Take 2 capsules by mouth 2 times daily for 14 days. 100 mg Quantity: 56 capsule Refills: 0 meclizine 25 mg Tab Commonly known as: Antivert Take 1 tablet by mouth 3 times daily as needed for Dizziness for up to 14 days. 25 mg Quantity: 42 tablet Refills: 0 ofloxacin 0.3 % Drop Commonly known as: Floxin Place 4 drops into the left ear 2 times daily. 4 drop Quantity: 5 mL Refills: 3 ondansetron ODT 4 mg Tbdl Commonly known as: Zofran-ODT Take 1 tablet by mouth every 8 hours as needed for Nausea for up to 14 doses. 4 mg Quantity: 14 tablet Refills: 0 Continued medications, unchanged Dose Details diclofenac EC 75 mg Tbec Commonly known as: Voltaren Take 1 tablet by mouth 2 times daily. 75 mg Quantity: 28 tablet Refills: 1 sildenafiL 25 mg Tab Commonly known as: VIAGRA Take by mouth. Refills: 0 Scheduled Appointments: Future Appointments Date Time Provider Department Center 11/29/2021 9:40 AM Alvarado Cuellar MD [facility] STEPHY [facility] 11/29/2021 10:15 AM Madina Bustos AUD [facility] AUDIO [facility] 01/11/2022 4:15 PM Delisa Diez DPM Pod [facility] Outpatient Services/Studies: Referral to Physical Therapy Referral Priority: Routine Referral Type: Physical Therapy Referral Reason: Evaluate and Treat Number of Visits Requested: 12 Primary Care Doctor: Janice Christine MD [phone] Signed: Bronwyn Trevino MD 11/01/2021 Alvarado Cuellar MD Otology and Neurotology Otolaryngology - Head & Neck Surgery Pgr: [phone] documented in this encounter Discharge Instructions * Patient Instructions* Bronwyn Trevino MD - 10/29/2021 6:07 PM EST POSTOPERATIVE INSTRUCTIONS FOR PATIENTS UNDERGOING CHRONIC EAR, MIDDLE EAR OR STAPES SURGERY DO NOT blow you nose for 3 weeks following surgery. If you sneeze or cough do so with your mouth open. Avoid any heavy lifting (over 10 lbs.), straining, or bending for three weeks following surgery. Keep your head elevated as much as possible. Sleep and rest on two or three pillows if possible. Do no get water in you ear. If showering or washing your hair place a piece of cotton coated in Vaseline in the ear canal to seal it. If there is a separate incision, keep this dry until your first postoperative visit. If you wear glasses, either remove the arm on the operated side or make certain that it does not rest on the incision behind your ear for one week. Beginning one day after surgery try to leave the cotton out of your ear as much as possible unless there is significant drainage. Some of the drainage from your ear canal may occur after surgery. If there is a separate incision some drainage may occur from this area also. If the drainage is profuse or develops a foul odor, callthe Department of Otolaryngology - Head and Neck Surgery. Popping sounds, a plugged sensation, ringing or fluctuating hearing may be noticed in the ear during the healing. Avoid travel by air for three weeks following surgery. If you should notice any swelling, redness, or excessive pain, please call the Department of Otolaryngology - Head and Neck Surgery. Some dizziness may occur after surgery. If it becomes severe or is associated with nausea or vomiting, call the Department of Otolaryngology - Head and Neck Surgery. You should be seen for follow-up evaluation 7-10 days after surgery, unless otherwise stated by your surgeon. Please call the Department of Otolaryngology - Head and Neck Surgery for an appointment if one has not been scheduled for you in advance. Should any problems or questions arise, please call the Department of Otolaryngology - Head and Neck Surgery (ENT Department). Contact: -You can reach the ENT clinic at [phone] for appointment questions. -The ENT triage nurse is available at [phone] -For urgent issues during evenings and weekends the ENT resident corporate communications manager can be reached through [facility] ladle operator at [phone] Follow Up: You will need to follow up with ENT in 7-10 days. This appointment has been requested. You will be notified once it is scheduled. The appointment listed below will be rescheduled. If you do not hear from us in a timely manner, please call to receive your date and time. A referral has been placed for you to participate in Vestibular Therapy in the outpatient setting. They will contact you to arrange your follow-up appointment. Currently Scheduled Appointments: Future Appointments and Orders Future Appointments and Orders Future Appointments Provider Department Dept Phone 11/29/2021 9:40 AM Alvarado Cuellar MD Otolaryngology at [facility] Arrive at: Review Coordinator Area [phone] 11/29/2021 10:15 AM Madina Bustos, KOREY; AUDIOLOGY, [place] THREE Audiology at [facility] Arrive at: Review Coordinator Area [phone] 01/11/2022 4:15 PM Delisa Diez DPM Podiatry at [facility] Arrive at: Review Coordinator Area documented in this encounter Medications at Time of Discharge Medication Sig Dispensed Refills Start Date End Date ondansetron ODT (Zofran-ODT) 4 mg Tablet, Rapid Dissolve Take 1 tablet by mouth every 8 hours as needed for Nausea for up to 14 doses. 14 tablet 11/01/2021 ofloxacin (Floxin) 0.3 % Drops Place 4 drops into the left ear 2 times daily. 5 mL 3 10/29/2021 diclofenac EC (Voltaren) 75 mg Tablet, Delayed Release (E.C.) Take 1 tablet by mouth 2 times daily. 28 tablet 1 07/20/2021 sildenafiL (VIAGRA) 25 mg Tablet Take by mouth. 07/02/2020 meclizine (Antivert) 25 mg Tablet Take 1 tablet by mouth 3 times daily as needed for Dizziness for up to 14 days. 42 tablet 11/01/2021 11/15/2021 docusate sodium (Colace) 50 mg Capsule Take 2 capsules by mouth 2 times daily for 14 days. 56 capsule 11/01/2021 11/15/2021 cephALEXin (Keflex) 500 mg Capsule Take 1 capsule by mouth 3 times daily for 7 days. 21 capsule 10/29/2021 11/05/2021 documented as of this encounter Progress Notes * Ana Cooley, RN - 11/01/2021 4:35 PM EST Agapito Ramirez Jr. discharged home by private car with . All belongings sent with patient. IVAremoved, surgical site C/D/I, skin free from pressure ulcers. Discharge instructions, medications, and follow-up appointments reviewed, education provided on restrictions, meds, s/s infection, all questions answered. Patient instructed to call with concerns. * Meliza Miladys M, PT - 11/01/2021 11:18 AM EST Physical Therapy Evaluation Patient profile: Agapito Ramirez Jr. 51 y/o male admitted on 10/29/[address] Alvarado Cuellra MD for surgery: stapedectomy L ear for conductive hearing loss. Post-op dizziness with trying to sit up or stand c/w vertigo vs dysequilibrium/nausea & inability to safely ambulate led to admission post-op. Patient with the following active problems: Past Medical History: Diagnosis Date ??? Lymphoma Past Surgical History: Procedure Laterality Date ??? PRG SOMATOSENSORY TEST, ANY/ALL PER. NERVES, TRUNK OR HEAD N/A 10/29/2021 FACIAL NERVE MONITORING, SETUP PERIPHERAL (WRVU 0.54) performed by Alvarado Cuellar MD at [facility] MAIN OR ??? PRO STAPEDECTOMY Left 10/29/2021 STAPEDECTOMY -OTOMY, ESTABLISH OSSICULAR CONTINUITY (WRVU 12.03) performed by Alvarado Cuellar MD at [facility] MAIN OR ??? THROAT SURGERY tonsil biopsy 02/2015 Active Non-Hospital Problems Diagnosis ??? Plantar fasciitis of left foot ??? Lymphoma Social History: Lives in [place], [place] with in a one level home with one step to enter. 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 Mobility and Positioning Recommendations: ?? Pt. should utilize FWW keeping his head still in neutral for ambulation and transfers with nursing. ?? Please encourage up to chair for meal times as able. ?? Pt encouraged to ambulate frequently, getting into the bathroom and walking out in the block , staff supervision post-op Subjective: ???what every med's I took earlier is helping me because I tried all this past 2 days and I was so dizzy that I couldn't stand to walk.?? This is better today. Believe me, I want to get home. Objective: Pt seen for evaluation today. Pain: no c/o's except feeling dizzy when I tip my head down Cardiopulmonary: HR: 65 bpm SpO2: 96 % RA BP: 140/80 mmHg Mental Status: alert, oriented to person, place, and time Skin: intact, dry blood in L ear canal. Musculoskeletal: ROM/Strength: WNL Sensation: WNL Bed Mobility: Supine > Sit: able to perform sit-up, long-sitting able to swing legs over to side and had to wait about minute between activity to stop dizzy /Lightheaded feeling. Transfers: Sit >< Stand: able to use LE's to rise and lower, again encouraged to keep trunk and head still and flex/extend LE's. Gait: Distance: 60' out of room, sat in chair as he was alittle dizzy, 60' back to Device used: FWW Level of assist: Stand-by, bringing a chair in case Gait mechanics: slow selma, cautious, keeping head in neutral, taking his time to avoid dizzy/lightheaded feelings. Only has 1 step from garage to enter home and LE's are strong, no concerns. Balance: Sitting: WNL Standing Dynamic / Gait: Good with use of FWW Education: patient has been educated on Role of therapy, Discharge planning and to f/u woith out-patient with therapist specialized in vestibular or balance therapy. Pt was left in recliner with call trevino within reach. Patient status, treatment, and mobility recommendations have been discussed with nursing. Assessment: Pt was seen today for physical therapy evaluation. Post-op unable to move as he'd have lightheaded/syncope/dizziness/vomiting which prevented him from being able to move OOB. Now few dayslater and with medication to help symptoms, is able to progress activity as long as he keeps his head in neutral. When he tips his head down (flexion), then he gets dizziness. When he extends head healso gets dizziness but able to turn his head side to side without symptoms and able to move just his eyes without symptoms. He has the strength and ability to move as long as he's not feeling dizzy.He feels safer with a rolling walker and able to amb in block today. 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 works in day but their home is one level and he feels he can manage using a walker. He may benefit from out-corporate receptionist therapy services with staff specialized in vestibular/balance/inner ear therapy to maximize his functional abilities to return to work. Plan: Therapy Frequency (PT): evaluation only . Recommend out-patient vestibular rehab. Discharge Recommendations: Anticipated Discharge Disposition (PT): home with outpatient therapy services when medically ready for hospital discharge. Consult Recommendations: No other consults recommended at this time. Equipment needs: Anticipated Equipment Needs at Discharge (PT): None (Pt will check w/ : he thinks FWW is @ home) Goals achieved today: 1. Pt. to perform bed mobility independently. 2. Pt. to perform transfers with modified independence using a front wheeled walker. 3. Pt. to ambulate 60 feet x 2 with modified independence using a a front wheeled walker. 4. Pt tolerating sitting upright in recliner chair after walk in block. Thank you for this consult. MILADYS CHUN, PT Pager: [phone] Physical Therapy Inpatient Rehabilitation Department Time IN / OUT: 10:28-11:13 Total Minutes, Physical Therapy: 45 (EV) 2017 PT Evaluation Code Rationale: ?? Diagnosis & Pertinent Co-Morbidities, personal factors, and present illness affecting Plan of Care: (see above); Additional personal factors or co- morbidities that impact plan: ?? Total # of Factors: 0 1-2 3+ x ?? Examination of body system impairments, functional limitations and behaviors, and/or participation restrictions. Addressing 1-2 elements Addressing 3 + elements x Addressing 4 + elements ?? Clinical presentation: See assessment above. Stable/Uncomplicated Evolving/Fluctuating Symptoms Unstable/Unpredictable x ?? Clinical decision making of moderate complexity based on pt's functional performance as outlinedin this evaluation. * Bronwyn Trevino MD - 11/01/2021 6:49 AM EST OTOLARYNGOLOGY - HEAD & NECK SURGERY DAILY PROGRESS NOTE Name: Agapito Ramirez Jr. Age/Sex: 51 y.o. male Attending: Alvarado Cuellar MD Hospital Day: 4 3 Days Post-Op Patient ID/Reason for Admission 51 yo man s/p stapedotomy in the left ear for otosclerosis with persistent dizziness and nausea whowas admitted for supportive measures. Interval History Continues to have significant sensitivity to ambulation, only able to take 2-3 steps. Per patient report, tolerating full meals, however, this has not been documented. Vitals Last value 24hr Range Temperature: 36.4 ??C (97.5 ??F) Temp: [36.4 ??C (97.5 ??F)-36.7 ??C (98.1 ??F)] Heart Rate: 57 Heart Rate: [55-59] Blood Pressure: 119/67 BP: (115-120)/(67-68) Respiratory Rate: 16 Resp: [16-20] SpO2: 96 % SpO2: [94 %-96 %] Intake & Output Intake/Output Summary (Last 24 hours) at 11/01/2021 0649 Last data filed at 11/01/2021 0022 Gross per 24 hour Intake 300 ml Output 850 ml Net -550 ml Physical Exam General: NAD, hesitant to move quickly Face: Symmetric without dysmorphic features Eyes: EOMI, conjunctiva healthy, no nystagmus Ears: Auricles symmetric, no lesions Nose: Patent nares, grossly normal appearance Oral Cavity/Pharynx: Mucosa is pink, oropharynx symmetric Neck: Soft, trachea midline Chest: Unlabored respirations Neuro: Alert & oriented, moving extremities x 4 Labs No results for input(s): WBC, HGB, HCT, PLATELET, PT, INR, PTT, NA, K, CL, CO2, BUN, CREATININE, GLUCOSE, CALCIUM, MAGNESIUM, PHOS in the last 72 hours. Imaging No new imaging *Personally reviewed and evaluated ASSESSMENT & PLAN [place] Giuliana Ramirez Jr. is a 51 y.o. male s/p left stapedotomy with significant postoperative dizzinessand nausea. His denies any hearing deficits. 3 Days Post- Op. We will continue supportive measures as he continues to slowly improve. mIVF Dc steroids 2/6 PRN pain management Encourage Anti-emetics and vestibular suppressants today Topical ear drops __ Bronwyn Trevino MD, PGY-1 11/01/21 6:49 AM ENT Team Pager: [phone] Associated attestation - Alvarado Cuellar MD - 11/02/2021 8:24 AM EST Otolaryngology Attending Physician Addendum I have seen and examined the patient and reviewed the resident's history and I agree with the details as written. The assessment and plan were formulated in discussion with me and I agree with them as documented. No dizziness with sitting up through course of day yesterday, but did not ambulate. Some recurrent dizziness with sitting up this AM, but not as severe. No dizziness/vertigo at rest. Hearing remains subjectively much improved post- op. No fluctuating hearing or tinnitus. Pain well controlled. No otorrhea. Newman lat's right, and AC>BC left. No spontaneous or gaze evoked nystagmus. Plan attempted ambulation today with PT, with repeat audiogram in Audiology. Consider yield to tapering course of oral steroids. Consideration to repeat CT deferred as would not likely change management facilitator. 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 Anticipate gradual improvements in dizziness with time. Continue close serial observation. Alvarado Cuellar MD Otology / Neurotology Otolaryngology - Head & Neck Surgery [facility] * Arielle Burks RN - 10/31/2021 12:03 PM EST Assumed care of pt at 1100. VSS. A/Ox4. Pills whole. Denies pain. Denies dizziness while lying in bed-increases upon standing. Due for BM- requested to take miralax w night meds. Commode at bedside. Bed alarm on, call trevino within reach, at bedside. * Alvarado Cuellar MD - 10/31/2021 11:21 AM EST OTOLARYNGOLOGY - HEAD & NECK SURGERY DAILY PROGRESS NOTE Name: Agapito Ramirez Jr. Age/Sex: 51 y.o. male Attending: Alvarado Cuellar MD Hospital Day: 3 2 Days Post-Op Patient ID/Reason for Admission 51 yo man s/p stapedotomy in the left ear for otosclerosis with persistent dizziness and nausea whowas admitted for supportive measures. Interval History Nausea is much improved from yesterday, but he continues to struggle with dizziness with rising to sitting or standing. No dizziness at rest. Feels dizziness improved from yesterday, as was able to sit and stand and walk a few steps without dizziness this AM, only to experience some recurrent dizziness again after sitting. Hearing remains subjectively much improved on the left since surgery. Vitals Last value 24hr Range Temperature: 36.7 ??C (98.1 ??F) Temp: [36.7 ??C (98.1 ??F)-37 ??C (98.6 ??F)] Heart Rate: 55 Heart Rate: [55] Blood Pressure: 115/68 BP: (115-134)/(67-72) Respiratory Rate: 20 Resp: [16-20] SpO2: 94 % SpO2: [93 %-98 %] Intake & Output Intake/Output Summary (Last 24 hours) at 10/31/2021 1121 Last data filed at 10/31/2021 0638 Gross per 24 hour Intake 1470 ml Output 2077 ml Net -607 ml Physical Exam General: NAD, hesitant to move quickly Face: Symmetric without dysmorphic features Eyes: EOMI, conjunctiva healthy, no nystagmus Ears: Auricles symmetric, no lesions Nose: Patent nares, grossly normal appearance Oral Cavity/Pharynx: Mucosa is pink, oropharynx symmetric Neck: Soft, trachea midline Chest: Unlabored respirations Neuro: Alert & oriented, moving extremities x 4 Labs No results for input(s): WBC, HGB, HCT, PLATELET, PT, INR, PTT, NA, K, CL, CO2, BUN, CREATININE, GLUCOSE, CALCIUM, MAGNESIUM, PHOS in the last 72 hours. Imaging No new imaging *Personally reviewed and evaluated ASSESSMENT & PLAN Agapito Ramirez Jr. is a 51 y.o. male s/p left stapedotomy with significant postoperative dizzinessand nausea. His hearing is subjectively improved from his preoperative state. 2 Days Post-Op. As hecontinues to be slow to improve we will continue supportive measures. Will stop steroids today and assess mobility PRN pain management Anti-emetics and will consider vestibular suppressants Topical ear drops Will discuss discharge pending results of mobility __ Walker Sousa MD, PGY-4 10/31/21 11:21 AM ENT Team Pager: [phone] Otolaryngology Attending Physician Addendum I have seen and examined the patient and reviewed the resident's history and I agree with the details as written. The assessment and plan were formulated in discussion with me and I agree with them as documented. Alvarado Cuellar MD Otology / Neurotology Otolaryngology - Head & Neck Surgery [facility] * Robb Caldera RN - 10/31/2021 4:50 AM EST Pt's HR has remained in the mid-low 50s in his sleep. No issues noted. On-call MD notified. * Lois Bennett RN - 10/30/2021 3:12 PM EST Patient arrived to unit via bed from [facility]. Patient denies any pain. Patient denies any nausea while in bed. Surgical ear remains intact without any drainage noted. Patient has belongings at bedside. Oriented to room and call light. paged to obtain Covid test. LOIS BENNETT RN * Luke Dunham RN - 10/30/2021 2:40 PM EST [facility] Short Stay Unit Shift Note The patient is progressing as expected except Nausea / Vomiting. Details: Pt dizzy on movement. Was able to sit up, but unable to rise OOB. Attempted several times during shift. Pt able to void, voided 500, drinking fluids. D/C IV fluids. Patient Vitals for the past 24 hrs: Temp Heart Rate From SP02 Pulse Resp BP SpO2 O2 Flow Rate (L/min) O2 Device 10/29/21 1758 37 ??C (98.6 ??F) -- 90 -- 137/74 -- -- -- 10/29/21 1800 -- 90 bpm 90 23 128/77 94 % 6 L/min Simple mask 10/29/21 1815 -- 80 bpm 80 17 138/86 96 % 6 L/min Simple mask 10/29/21 1830 -- 82 bpm 82 13 130/80 91 % -- RA 10/29/21 1859 -- 75 bpm -- -- -- 91 % 2 L/min NC 10/29/21 1900 -- 74 bpm -- -- -- 95 % 2 L/min NC 10/29/21 1915 -- 74 bpm -- -- -- 95 % 1 L/min NC 10/29/21 1930 -- 70 bpm -- -- -- 95 % -- RA 10/29/21 194 -- 77 bpm -- -- -- 94 % -- RA 10/29/212029 -- 64 bpm -- -- -- 94 % -- RA 10/29/212044 -- 70 bpm -- -- -- (!) 89 % -- RA 10/29/212099 -- 74 bpm -- -- -- 94 % -- RA 10/29/212114 -- 64 bpm -- -- -- 91 % -- RA 02/04/22 2145 36.8 ??C (98.2 ??F) 84 bpm -- 16 128/81 96 % -- RA 10/30/21 0000 36.8 ??C (98.2 ??F) 63 bpm -- 16 101/70 96 % -- RA 10/30/21 0630 36.6 ??C (97.9 ??F) 58 bpm -- 16 127/68 94 % -- RA 10/30/21 0826 36.8 ??C (98.2 ??F) 63 bpm -- 16 140/76 96 % -- RA 10/30/21 1405 36.7 ??C (98.1 ??F) 71 bpm -- 16 127/72 98 % -- Intake/Output Summary (Last 24 hours) at 10/30/2021 1440 Last data filed at 10/30/2021 1400 Gross per 24 hour Intake 2050 ml Output 3155 ml Net -1105 ml Will continue to progress the patient as tolerated to meet their relevant discharge milestones. * Walker Sousa MD - 10/30/2021 9:35 AM EST OTOLARYNGOLOGY - HEAD & NECK SURGERY DAILY PROGRESS NOTE Name: Agapito Giordano James Funes Age/Sex: 51 y.o. male Attending: Alvarado Cuellar MD Hospital Day: 2 1 Day Post-Op Patient ID/Reason for Admission 51 yo man s/p stapedotomy in the left ear for otosclerosis with persistent dizziness and nausea whowas admitted for supportive measures. Interval History Continues to have significant sensitivity to changes in head position. Only tolerating small amounts of PO intake. Vitals Last value 24hr Range Temperature: 36.8 ??C (98.2 ??F) Temp: [36.4 ??C (97.5 ??F)-37 ??C (98.6 ??F)] Heart Rate: 82 Heart Rate: [69-90] Blood Pressure: 140/76 BP: (101-141)/(68-86) Respiratory Rate: 16 Resp: [13-23] SpO2: 96 % SpO2: [89 %-98 %] Intake & Output Intake/Output Summary (Last 24 hours) at 10/30/2021 0935 Last data filed at 10/30/2021 0828 Gross per 24 hour Intake 2050 ml Output 2655 ml Net -605 ml Physical Exam General: NAD, hesitant to move quickly Face: Symmetric without dysmorphic features Eyes: EOMI, conjunctiva healthy, no nystagmus Ears: Auricles symmetric, no lesions Nose: Patent nares, grossly normal appearance Oral Cavity/Pharynx: Mucosa is pink, oropharynx symmetric Neck: Soft, trachea midline Chest: Unlabored respirations Neuro: Alert & oriented, moving extremities x 4 Labs No results for input(s): WBC, HGB, HCT, PLATELET, PT, INR, PTT, NA, K, CL, CO2, BUN, CREATININE, GLUCOSE, CALCIUM, MAGNESIUM, PHOS in the last 72 hours. Imaging No new imaging *Personally reviewed and evaluated ASSESSMENT & PLAN Agapito Giordano James Funes is a 51 y.o. male s/p left stapedotomy with significant postoperative dizzinessand nausea. His hearing is subjectively improved from his preoperative state. 1 Day Post-Op. As he continues to be slow to improve we will continue supportive measures. mIVF Continues steroids PRN pain management Anti-emetics and will consider vestibular suppressants Topical ear drops __ Walker Sousa MD, PGY-4 10/30/21 9:35 AM ENT Team Pager: [phone] Associated attestation - Alvarado Cuellar MD - 10/31/2021 11:00 AM EST Otolaryngology Attending Physician Addendum I have seen and examined the patient and reviewed the resident's history and I agree with the details as written. The assessment and plan were formulated in discussion with me and I agree with them as documented. Pertinent History: POD #1 s/p stapedectomy left ear. Dizziness with trying to sit up or stand c/w vertigo vs dysequilibrium. Inability to safely ambulate led to decision to admit patient postoperatively. Associated with nausea. No recent emesis. Denies dizziness at rest. Hearing subjectively much improved since surgery. Pertinent Examination Findings: General: Alert and oriented. No acute distress. Head and Face: Facial resting tone symmetric. Eyes: Conjugate gaze, ocular motility intact bilaterally. No spontaneous or gaze evoked nystagmus. Neurologic: Cranial Nerves II-XII grossly intact and symmetric. Ears: External ears without deformity. Cotton removed from left ear. See documentation of otomicroscopy below. Tuning forks: AC>BC left ear; BC>AC right Psych: Normal mood and affect. Vestibular: [place]-Hallpike: Negative left. No nystagmus or provoked dizziness. No spontaneous or gaze evoked nystagmus, even with provoked positioning. Impression: Dizziness s/p stapedectomy, left ear. Concern for labyrinthitis with possible vestibular insult. Consider symptomatic perilymph fistula. No dizziness at rest. Hearing much improved s/p surgery, with no fluctuating hearing or fluctuating tinnitus concerns. Plan: Recommended continued decadron 8 mg iv q6 x 3 doses. Continue close observation with supportive care, with antiemetics prn and stool precautions. Floxin gtts and Keflex as had been planned post-op. Cautiously anticipating gradual improvements in symptoms. Do not feel there is strong indication for return to the OR at this juncture. Alvarado Cuellar MD Otology / Neurotology Otolaryngology - Head & Neck Surgery [facility] * Jeremi Hermosillo RN - 10/30/2021 7:24 AM EST [facility] Short Stay Unit Shift Note The patient is progressing as expected except Other dizziness. Details: Initially c/o some dizziness when head of bed elevated which improves over the course of the night. Patient Vitals for the past 24 hrs: Temp Heart Rate From SP02 Pulse Resp BP SpO2 O2 Flow Rate (L/min) O2 Device 10/29/21 1203 36.4 ??C (97.5 ??F) -- 69 16 141/76 98 % -- RA 10/29/21 1758 37 ??C (98.6 ??F) -- 90 -- 137/74 -- -- -- 10/29/21 1800 -- 90 bpm 90 23 128/77 94 % 6 L/min Simple mask 10/29/21 1815 -- 80 bpm 80 17 138/86 96 % 6 L/min Simple mask 10/29/21 1830 -- 82 bpm 82 13 130/80 91 % -- RA 10/29/21 1859 -- 75 bpm -- -- -- 91 % 2 L/min NC 10/29/21 1900 -- 74 bpm -- -- -- 95 % 2 L/min NC 10/29/21 1915 -- 74 bpm -- -- -- 95 % 1 L/min NC 10/29/21 1930 -- 70 bpm -- -- -- 95 % -- RA 10/29/211944 -- 77 bpm -- -- -- 94 % -- RA 10/29/212029 -- 64 bpm -- -- -- 94 % -- RA 10/29/212044 -- 70 bpm -- -- -- (!) 89 % -- RA 10/29/212099 -- 74 bpm -- -- -- 94 % -- RA 10/29/212114 -- 64 bpm -- -- -- 91 % -- RA 10/29/212144 36.8 ??C (98.2 ??F) 84 bpm -- 16 128/81 96 % -- RA 10/30/21 0000 36.8 ??C (98.2 ??F) 63 bpm -- 16 101/70 96 % -- RA 10/30/21 0630 36.6 ??C (97.9 ??F) 58 bpm -- 16 127/68 94 % -- RA Intake/Output Summary (Last 24 hours) at 10/30/2021 0724 Last data filed at 10/30/2021 0030 Gross per 24 hour Intake 2050 ml Output 2005 ml Net 45 ml Will continue to progress the patient as tolerated to meet their relevant discharge milestones. * Rayshawn Garcia RN - 10/29/2021 8:15 PM EST Patient unable to sit at side of stretcher without severe dizziness. Denies nausea or left ear discomfort, just severe dizziness with movement. Dr Cuellar notified. * Rayshawn Garcia RN - 10/29/2021 7:03 PM EST Patient feeling increasing nausea. Medicated with Compazine and placed back on O2 at 2L by nasal cannula. documented in this encounter H&P Notes * Alvarado Cuellar MD - 10/29/2021 2:45 PM EST 24-Hour Pre-Operative H&P Update Patient was seen in the Pre-Operative Area today. I have reviewed, and agree with, the clinical history, physical examination findings, impression, and plan, as detailed in the original H&P Note. The patient was cleared for surgery. Middle ear exploration with probable stapedectomy, left ear Interval History: The patient's history and physical exam have been reviewed and completed. There has been no interval change from that of the pre-operative history and physical exam done within the last 30 days. Medications: Outpatient Medications Marked as Taking for the 10/29/21 encounter (Hospital Encounter) Medication Sig Dispense Refill ??? diclofenac EC (Voltaren) 75 mg Tablet, Delayed Release (E.C.) Take 1 tablet by mouth 2 times daily. 28 tablet 1 Allergies: Patient has no known allergies. Impression: Agapito is a 51 y.o. male with a history of conductive hearing loss with history and objective findings consistent with otosclerosis. Plan: -ready to proceed with the planned surgical procedure, middle ear exploration with stapedectomy, left ear. Alvarado Cuellar MD Otology and Neurotology Otolaryngology - Head & Neck Surgery Pgr: [phone] documented in this encounter Miscellaneous Notes * Plan of Care - Robb Caldera RN - 10/31/2021 5:50 AM EST Problem: Activity Intolerance Goal: Enhanced Capacity and Energy Outcome: Ongoing (Interventions Implemented as Appropriate) Problem: Pain Acute Goal: Acceptable Pain Control and Functional Ability Outcome: Ongoing (Interventions Implemented as Appropriate) Problem: Fall Injury Risk Goal: Absence of Fall and Fall-Related Injury Outcome: Ongoing (Interventions Implemented as Appropriate) Reason for admission: 51 yo man s/p stapedotomy in the left ear for otosclerosis with persistent dizziness and nausea who was admitted for supportive measures. Relevant PMH: [place] bilateral hearing aids Significant 24 hour events: 10/30 Night: admitted to unit for vertigo and inability to ambulate post-op ENT surg. No significant events overnight. Neuro: WDL Neuro exam: Drains: CV: WDL Resp: WDL GI: WDL Diet Order: Regular diet Feeding: : WDL Mobility: Heme/ID: Skin: WDL Social: present at bedside * Initial Assessments - Paula Trejo RN - 10/30/2021 5:38 PM EST Office of Care Management Initial Assessment Paula Trejo RN reviewed record and discussed patient with Care Team. Source of Information: Team, bedside nurse, medical record, and Spouse (patient requested that wifespeak with CM) Introduced self/reviewed role; services accepted. Reason for Hospitalization: Covid Vaccination Status: 1st, 2nd & booster Last COVID test: Past medical History: Past Medical History: Diagnosis Date ??? Lymphoma Hospitalizations Within the Past 30 Days: no previous admission in last 30 days Current Decision-Making Capacity: Self Advance Care Planning: Attempt Cardiopulmonary Resuscitation - Inpatient <no information> -Advanced Directive: Other If AD's have not been completed Cecy would be surrogate decision maker per [place] surrogate decision making law. (Only good for 180 days) Any patient receiving care at [facility] must abide by [place] law. The hierarchy for surrogate decision making is: (a) Patient???s spouse, or civil union partner or common law spouse unless there is a divorce proceeding, separation agreement, or restraining order limiting that person???s relationship with the patient. (b) Any adult son or daughter of the patient. (c) Either parent of the patient. (d) Any adult brother or sister of the patient. (e) Any adult grandchild of the patient. (f) Any grandparent of the patient. (g) Any adult aunt, uncle, niece, or nephew of the patient. (h) A close friend of the patient. (i) The agent with financial power of ip technology transactions attorney or a conservator appointed in accordance with RSA 464-A. (j) The guardian of the patient???s estate. Current Coping/Education/Information Needs: Denies Current Functional Ability: Independent Functional Status Prior to Admission: unable to assess (Pt currently unable to tolerate OOB or position changes r/t post surgical dizziness) Home Environment: Others in the home: spouse. Current Living Arrangements: home/apartment/condo. Accessibility Concerns:1 story house, 1 [address]. No DME in home; pt did not use prior.. Current DME: none Home Address confirmed as: [address] [place] [address] [facility] [address] Social & Family Supports: All names listed below confirmed with patient as current and correct Extended Emergency Contact Information Primary Emergency Contact: Cecy Ramirez Address: [address] [facility] [address] [place] Relation: Spouse Current Care Provided by: self Provides Primary Care For: no one Caregiver if needed: spouse ( Cecy can provide ADL and IADL support if necessary) Quality of Family relationships: supportive Community Resources being provided currently: none Behavioral Health History: denies Substance Use/Abuse listed: Social History Tobacco Use Smoking Status Never Smoker Smokeless Tobacco Never Used 0 No problems reported 1-2 Low level 3-5 Moderate level 6-8 Substantial level 9- 10 Severe level 0 to 7 points: Low risk 8 to 15 points: Medium risk 16 to 19 points: High risk 20 to 40 points: Addiction likely Other Pertinent/Service Specific Information: Pt is currently unable to tolerate position changes, but expects to return to prior level of functioning once dizziness resolves. Pt and do not feelthat pt would have a need for VNA, but would be open to accepting services if it were indicated. Health/Prescription Coverage: Primary Insurance: [employer] [place] Payor: [employer] [place] / Plan: [place] VHP / Product Type: *No Product type* / Secondary Insurance: N/A Prescription Coverage: Yes Preferred Pharmacy: [id number] - [facility], [place] - [address] AT [address] [facility] [address] [facility] [id number] [place] Status: Patient is a : No Primary Care Provider: Janice Christine MD [phone] Patient/Caregiver Goals of Treatment: home with spouse Potential Needs for Transition of Care: none Agency Referrals: N/A Transportation: no concerns Transportation Anticipated: family or friend will provide Concerns to be Addressed: denies needs/concerns at this time Assessment: Patient is admitted to ENT service for Stapedectomy Plan: Pending hospital course. Patient, and team anticipate resolution of acute symptoms and pt to discharge home with . A member of the Care Management team will continue to monitor progress, follow for continuity of care and assist with transition of care planning. SARTHAK Baca, continuous improvement coordinator Office of Care Management * Op Note - Alvarado Cuellar MD - 10/29/2021 3:32 PM EST [facility] Operative Note Patient Name: Agapito Ramirez Jr. : [id number] MR#: [id number] Case Date: 10/29/2021 Surgeon: Surgeon(s) and Role: * Alvarado Cuellar MD - Primary Preoperative diagnosis: conductive hearing loss, left ear Postoperative diagnosis: conductive hearing loss, left ear Procedure(s) (LRB): STAPEDECTOMY -OTOMY, ESTABLISH OSSICULAR CONTINUITY (WRVU 12.03) (Left) MODIFIER IRIDEX LASER (N/A) FACIAL NERVE MONITORING, SETUP PERIPHERAL (WRVU 0.54) (N/A) MODIFIER,ENT MODERATE (N/A) Anesthesia: Anesthesia type not filed in the log. Estimated Blood Loss: * No values recorded between 10/29/2021 3:32 PM and 10/29/2021 5:41 PM * Specimens removed during surgery: None Drains: * No LDAs found * Surgical Closure: Primary Closure - skin incision is completely closed without any wires, angélica, drains or other devices Disposition: awakened from anesthesia, extubated and taken to the recovery room in a stable condition, having suffered no apparent untoward event. Condition: doing well without problems (Please see the Surgical Encounter Summary for any Implant and Specimen details pertinent to this patient.) HPI/Surgical Indications: Agapito is a 51 y.o. male with a history of conductive hearing loss with history and objective findings consistent with otosclerosis bilaterally. Patient elected to proceed with stapedectomy for the left ear. Procedure Description: Preoperative Diagnosis: Stapes fixation Postoperative Diagnosis: Stapes Fixation Procedure: Stapedotomy with Iridex laser. Operated Ear: left Anesthesia: General. Complications: None. Disposition and Condition: Good to Recovery Room. Prosthesis: SMART 4.5 x 0.5 mm Findings: Stapes fixed with surrounding thin fibrous adhesions. Malleus and incus mobile. Partial scutum removal required for exposure. Chorda tympani nerve identified and preserved. Facial nerve identified in its tympanic segment and not dehiscent. Estimated Blood Loss: Less than 15 mL. Procedure: The patient was taken to the Operating Room and placed on the operating table in a supine position. After adequate general anesthesia and oral endotracheal intubation, the patient's ear was prepped and draped in the usual sterile fashion. The external auditory canal was infiltrated with 2% lidocaine with 1:50,000 epinephrine. A tympanomeatal flap was created with incisions at 12 o'clock and 6 o'clock and an adjoining incision along the external auditory canal wall. The tympanomeatal flap was elevated down to the level of the middle ear, which was entered. The chorda tympani was identified and preserved. Bone around the chorda tympani was curetted to allow full visualization of the stapes, facial nerve, and pyramidal eminence. The incudostapedial joint was divided. The stapes was immobile, and the lateral ossicular chain was mobile. The stapedial tendon was divided. The posterior crura was divided with the Iridex laser. The stapes was outfractured inferiorly and the remnant suprastructure was removed. A stapedotomy was performed with Iridex laser using 800 milliwatts of power and 100 milliseconds of pulse duration. The edges of the stapedotomy were then smoothed using an Ansbach drill at 10K RPM with 0.7 nestor berry. A measurement was taken between the midportion of the incus and the stapes footplate.The prosthesis was then placed into the stapedotomy fenestra and attached to the incus and crimped with the iridex laser. A 0.5 cm postauricular incision was made on the posterior aspect of the auricle using a #15 blade. The skin edges were undermined. A small graft of fat/fascia was obtained which was then minced on a back table. A small portion of this tissue was used to seal the stapedotomy site. Hemostasis of the postauricular wound was ensured using bipolar cautery. The wound was closed with simple interrupted skin sutures using 5-0 fast absorbing gut suture. Bacitracin was applied to the incision site. The tympanomeatal flap was folded back into position. Gelfoam was placed onto the inferior aspect of this in the middle ear just to reinforce the tympanomeatal flap. Two pieces of Gelfoam were placedalong the incision line. Cotton was applied at the meatus. The case was then terminated. All sponge and instrument counts were correct. The patient tolerated the procedure well and was taken from the Operating Room to the Recovery Room in good condition. In recovery, the patient was noted to have normal and symmetric facial nerve function. Surgical Infection Prevention Bundle Used? No Attestation: Case Date: 10/29/2021 I performed this procedure without the involvement of a resident. Alvarado Cuellar MD 10/29/2021 documented in this encounter Plan of Treatment Scheduled Referrals Name Type Priority Associated Diagnoses Orde r Schedule Referral to Physical Therapy Outpatient Referral Routine H/O stapedectomy Ordered: 11/01/2021 documented as of this encounter Procedures Procedure Name Priority Date/Time Associated Diagnosis Comments HEMOGRAM Routine 11/01/2021 8:13 AM EST DIFFERENTIAL, AUTOMATED Routine 11/01/2021 8:13 AM EST HC CBC,PLT & AUTO DIFF Routine 11/01/2021 8:13 AM EST HC PHOSPHORUS, SERUM Routine 11/01/2021 8:13 AM EST HC MAGNESIUM, SERUM Routine 11/01/2021 8 :13 AM EST BASIC METABOLIC PANEL Routine 11/01/2021 8:13 AM EST RAPID COVID-19 PCR ([facility]) Routine 10/30/2021 4:04 PM EST MODIFIER,ENT MODERATE 10/29/2021 2:49 PM EST Mixed conductive and sensorineural hearing loss of both ears Tinnitus of both ears Otosclerosis involving oval window, nonobliterative, bilateral Somatosensory Test, Any/All Per. Nerves, Trunk Or Head ([id number]) 10/29/2021 2:49 PM EST Mixed conductive and sensorineural hearing loss of both ears Tinnitus of both ears Otosclerosis involving oval window, nonobliterative, bilateral MODIFIER IRIDEX LASER 10/29/2021 2:49 PM EST Mixed conductive and sensorineural hearing loss of both ears Tinnitus of both ears Otosclerosis involving oval window, nonobliterative, bilateral STAPEDECTOMY -OTOMY, ESTABLISH OSSICULAR CONTINUITY (WRVU 12.03) 10/29/2021 2:49 PM EST Mixed conductive and sensorineural hearing loss of both ears Tinnitus of both ears Otosclerosis involving oval window, nonobliterative, bilateral FACIAL NERVE MONITORING, SETUP Routine 10/29/2021 11:57 AM EST Mixed conductive and sensorineural hearing loss of both ears Tinnitus of both ears Otosclerosis involving oval window, nonobliterative, bilateral STAPEDECTOMY -OTOMY, ESTABLISH OSSICULAR CONTINUITY Routine 10/29/2021 11:57 AM EST Mixed conductive and sensorineural hearing loss of both ears Tinnitus of both ears Otosclerosis involving oval window, nonobliterative, bilateral documented in this encounter Results * (ABNORMAL) Differential, Automated (11/01/2021 8:13 AM EST) Neutrophil % 65.5 % [facility] Neutrophil Absolute 7.39(H) 1.70 - 6.10 x10(3)/[facility] Lymph % 26.1 % [facility] Lymphocytes Abs 2.9 0.9 - 3.2 x10(3)/[facility] Monocyte % 7.6 % [facility] Monocyte Abs 0.9 0.3 - 0.9 x10(3)/[facility] Eos % 0.2 % [facility] Eosinophils Abs 0.0 0.0 - 0.4 x10(3)/[facility] Basophil % 0.1 % [facility] Baso Absolute 0.0 0.0 - 0.1 x10(3)/[facility] Immature Gran % 0.50 % [facility] Comment: Immature granulocytes(IG's)percentage and absolute count will include metamyelocytes, myelocytes, and promyelocytes. Blood smears from CBCs yielding IG's will be scanned manually for concordance. If this scan disagrees with the automated IG or if promyelocytes are noted, a manual differential will be performed. Immature Gran Absolute 0.06(H) 0.00 - 0.04 x10(3)/[facility] Blood 11/01/2021 8:13 AM EST 11/01/2021 8:28 AM EST Narrative Resulting Agency Comment Spec In Lab Bronwyn Trevino MD HEMATOLOGY ORDERABLE S [facility] [place] [place] [address] * (ABNORMAL) Hemogram (11/01/2021 8:13 AM EST) White Blood Cell 11.3(H) 4.0 - 9.5 x10(3)/[facility] Red Blood Cell 4.62 4.58 - 5.54 x10(6)/[facility] Hemoglobin 14.2 13.7 - 16.5 g/dL [facility] Hematocrit 41.8 40.5 - 48.5 % [facility] Mean Cell Volume 90.5 82.9 - 93.1 fL [facility] Mean Cell Hemoglobin 30.7 27.5 - 32.1 pg [facility] Mean Cell Hemoglobin Concentration 34.0 32.0 - 35.7 g/dL [facility] Platelet 201 145 - 357 x10(3)/mc L [facility] RDW Standard Deviation 40.3 36.0 - 45.0 [facility] RDW coefficient of variation 12.2 11.4 - 13.8 % [facility] Mean Platelet Volume 10.4 7.6 - 12.9 [facility] NRBC% auto 0.0 % [facility] NRBC Absolute 0.000 0.000 - 0.000 x10(3)/mc L [facility] Blood 11/01/2021 8:13 AM EST 11/01/2021 8:28 AM EST Narrative Resulting Agency Comment Spec In Lab Bronwyn Trevino MD HEMATOLOGY ORDERABLE S Performing Organization Address City/[facility]/[place] Co de Phone Number [facility] [place] [phone] * Phosphorus (11/01/2021 8:13 AM EST) Phosphorus 2.8 2.5 - 4.5 mg/dL [facility] Blood 11/01/2021 8:13 AM EST 11/01/2021 8:28 AM EST Narrative Resulting Agency Comment Spec In Lab Alvarado Cuellar MD CHEMISTRY ORDERABLES Performing Organization Address City/[facility]/ZIP Co de Phone Number [facility] [place] [place] [address] * Magnesium (11/01/2021 8:13 AM EST) Magnesium 0.99 0.69 - 1.07 mmol/L [facility] Blood 11/01/2021 8:13 AM EST 11/01/2021 8:28 AM EST Narrative Resulting Agency Comment Spec In Lab Alvarado Cuellar MD CHEMISTRY ORDERABLES [facility] [place] [place] [address] * (ABNORMAL) Basic Metabolic Panel (non-fasting) (11/01/2021 8:13 AM EST) Glucose 90 65 - 199 mg/dL [facility] Comment:Diabetes: >=200 mg/d L plus symptoms Blood Urea Nitrogen 22(H) 10 - 20 mg/dL [facility] Creatinine 0.92 0.80 - 1.50 mg/dL [facility] Sodium 140 135 - 145 mmol/L [facility] Potassium 4.1 3.5 - 5.0 mmol/L [facility] Comment: Please note: ??Patients with WBC >100,000 may have falsely elevated Potassium levels. ??For accurate Potassium quantification in these patients send serum separator tube (gold top) for subsequent determinations. ??Contact the Clinical Chemistry Laboratory if there are any questions. Chloride 108(H) 98 - 107 mmol/L [facility] Carbon Dioxide 22 22 - 31 mmol/L [facility] Anion Gap 10 5 - 15 mmol/L [facility] Calcium 8.6 8.5 - 10.5 mg/dL [facility] Est Glomerular Filtration Rate 95 >=60 mL/min/1. 73 m?? [facility] Comment: This patient? s estimated glomerular [...] In Lab Alvarado Cuellar MD CHEMISTRY ORDERABLES [facility] [place] [place] [address] * COVID-19 PCR (10/30/2021 4:04 PM EST) SARS-CoV-2 RNA (Rapid) Not Detected Not Detected [facility] Comment: This result should be interpreted in combination with the clinical observations, patient history and epidemiological information. For testing of asymptomatic individuals, assay performance characteristics and clinical utility have not been evaluated. Testing for SARS-CoV-2 (Severe acute respiratory syndrome coronavirus 2, formerly known as 2019 novel coronavirus or 2019-nCoV) to aid in the diagnosis of COVID-19 is performed using the Simplexa COVID-19 Direct Assay by [employer] as authorized by the FDA issued Emergency Use Authorization (EUA). This assay is intended for In-vitro Diagnostic (IVD) use with nasopharyngeal swabs collected from individuals meeting the CDC criteria for testing. The assay is performed based on the instructions for use and additional guidance provided by the FDA. Testing is performed in the Microbiology Laboratory within the Department of Pathology and Laboratory Medicine at [facility], certified under the Clinical Laboratory Improvement Amendments of 1988 (CLIA), 42 U.S.C. section 263a, to perform high complexity tests. Assay performance has been verified according to clinical laboratory regulatory requirements. Test results are provided above. A result of Not Detected indicates that the viral RNA target is not present but does not preclude SARS-CoV-2 infection. False negative results may occur if a specimen is improperly collected, transported or handled; if amplification inhibitors are present; or if inadequate numbers of viral particles are present in the specimen. A result of Detected suggests a current or recent infection and the patient is presumed to be infected. Positive and negative predictive values for this test are highly dependent on disease prevalence. A result of Invalid indicates the inability to conclusively determine the presence or absence of SARS-CoV-2 RNA in the sample which can be due to a variety of factors. Recollection is recommended in the case of an invalid result. CDC COVID-19 criteria for testing on human specimens and clinical management guidance information are available at the CDC Coronavirus Disease 2019 (COVID-19) webpage under Information for Healthcare Professionals (https://www.cdc.gov/coronavirus/2019-ncov/hcp/index.html). Additional information about this and other EUA tests can be found in provider and patient fact sheets at the following FDA website: https://www.fda.gov/medical-devices/bvfmnogcbii-khpqnoe-5993-evmsz-83-uazreiwsq- use-a hlsuxmghsnfwh-jnxnexn-vstuehx/lwglr-imsttwnexge-toxo SARS-CoV-2 Source EDUCATION TECHNICIAN Swab [facility] Nasopharyngeal Swab 10/30/19 4:04 PM EST 10/30/2021 4:56 PM EST Comment:Symptoms->Surveillan ce Narrative Resulting Agency Comment Spec In Lab Alvarado Cuellar MD MICROBIOLOGY - GENER AL ORDERABLES Performing Organization Address City/State/[place] Co de Phone Number [facility] [place] [place] [address] documented in this encounter Visit Diagnoses Diagnosis Mixed conductive and sensorineural hearing loss of both ears Mixed hearing loss, bilateral Tinnitus of both ears Unspecified tinnitus Otosclerosis involving oval window, nonobliterative, bilateral H/O 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 Mixed hearing loss, bilateral Tinnitus of both ears Unspecified tinnitus Mixed conductive and sensorineural hearing loss of both ears Mixed hearing loss, bilateral Tinnitus of both ears Unspecified tinnitus Otosclerosis involving oval window, nonobliterative, bilateral documented in this encounter Admitting Diagnoses Diagnosis Mixed conductive and sensorineural hearing loss of both ears Mixed hearing loss, bilateral Tinnitus of both ears Unspecified tinnitus Otosclerosis involving oval window, nonobliterative, bilateral H/O stapedectomy documented in this encounter Administered Medications Inactive Administered Medications - up to 3 most recent administrations Medication Order MAR Action Action Date Dose Rate Site acetaminophen (Tylenol) tablet 1,000 mg 1,000 mg, Oral, EVERY 6 HOURS SCHEDULED, First dose on 10/30/21 at 0000, Until Discontinued, Maximum dose of acetaminophen is 4000 mg from all sources in 24 hours. When ordered for pain, acetaminophen should be given even when other ordered pain medications are indicated. We do not order the liquid tylenol or ibuprofen because it has sorbitol and can contribute to diarrhea., Routine Given 11/01/2021 11:56 AM EST 1,000 mg Given 11/01/2021 6:06 AM EST 1,000 mg Given 11/01/2021 12:20 AM EST 1,000 mg bacitracin ointment ONCE PRN, Starting on Mon10/29/21 at 1821, Until Mon11/01/21 at 1844, Intra-Operative (Intra-Procedure) Given 10/29/2021 6:21 PM EST 0.25 Tubes 19- Surgical Site cephALEXin (Keflex) capsule 500 mg 500 mg, Oral, 3 TIMES DAILY, First dose on 10/30/21 at 1700, Until Discontinued, Routine, Indication for (Active or Suspected): Prophylaxis Given 11/01/2021 3:00 PM EST 500 mg Given 11/01/2021 8:55 AM EST 500 mg Given 10/31/2021 9:00 PM EST 500 mg ciprofloxacin-dexamethasone (Ciprodex) 0.3-0.1 % otic suspension ONCE PRN, Starting on Mon10/29/21 at 1710, Until Mon11/01/21 at 1844, Intra-Operative (Intra-Procedure), Routine Given 10/29/2021 5:10 PM EST 3 drops 19- Surgical Site dexamethasone (Decadron) injection 8 mg 8 mg, Intravenous, EVERY 6 HOURS SCHEDULED, First dose on 10/30/21 at 0000, Until Discontinued Given 10/31/2021 6:09 AM EST 8 mg Given 10/31/2021 12:13 AM EST 8 mg Given 10/30/2021 5:53 PM EST 8 mg diclofenac EC (Voltaren) tablet 75 mg 75 mg, Oral, 2 TIMES DAILY, First dose on Mon10/29/21 at 2315, Until Discontinued, DO NOT CRUSH OR OPEN, Routine Given 11/01/2021 8:55 AM EST 75 mg Given 10/31/2021 9:14 PM EST 75 mg Given 10/31/2021 9:24 AM EST 75 mg enoxaparin (Lovenox) (40 mg/0.4 mL) subcutaneous injection 40 mg 40 mg, Subcutaneous, NIGHTLY, First dose on Mon10/31/21 at 2100, Until Discontinued, Routine Given 10/31/2021 9:14 PM EST 40 mg EPINEPHrine (Adrenalin) nasal solution ONCE PRN, Starting on Mon10/29/21 at 1600, Until Mon11/01/21 at 1844, Intra-Operative (Intra-Procedure), Routine Given 10/29/2021 4:00 PM EST 30 mLs 19- Surgical Site gelatin compressed (Gelfoam) sponge ONCE PRN, Starting on Mon10/29/21 at 1600, Until Mon11/01/21 at 1844, Intra-Operative (Intra-Procedure) Given 10/29/2021 4:00 PM EST 100 cm 19- Surgical Site HYDROmorphone (Dilaudid) (0.2 mg/1 mL) injection syringe 0.2 mg 0.2 mg, Intravenous, EVERY 10 MIN PRN, Starting on Mon10/29/21 at 1800, Until Mon10/29/21 at 2219, Pain, For Mild to Moderate Pain (1-5 out of 10), Hold for respiratory rate less than 10 per minute. Maximum dose 3 mg over one hour including administrations in the OR. If multiple pain medications are ordered, start with HYDROmorphone or morphine and use fentaNYL for breakthrough pain, PACU Recovery, Routine Given 10/29/2021 6:50 PM EST 0.2 mg ibuprofen (Motrin) tablet 400 mg 400 mg, Oral, EVERY 6 HOURS SCHEDULED, First dose on 10/30/21 at 0000, Until Discontinued, Administer orally with milk or food to minimize GI irritation. Maximum dose of 3,200 mg from all sources in 24 hours. We do not order the liquid tylenol or ibuprofen because it has sorbitol and can contribute to diarrhea., Routine Given 10/30/2021 6:55 AM EST 400 mg Given 10/30/2021 12:12 AM EST 400 mg lidocaine-EPINEPHrine (1% - 1:100,000) injection ONCE PRN, Starting on Mon10/29/21 at 1600, Until Mon11/01/21 at 1844, Intra-Operative (Intra-Procedure), Routine Given 10/29/2021 4:00 PM EST 1 mL 19- Surgical Site meclizine (Antivert) tablet 25 mg 25 mg, Oral, 3 TIMES DAILY PRN, Starting on 10/30/21 at 1152, Until 11/01/21 at 1844, Dizziness, Routine Given 11/01/2021 4:26 PM EST 25 mg Given 11/01/2021 8:55 AM EST 25 mg Given 10/30/2021 12:45 PM EST 25 mg ofloxacin (Ocuflox) 0.3% ophthalmic solution (FOR OTIC USE) 4 drop, Alternative Route- Specify in Admin Instructions, 2 TIMES DAILY, First dose on 10/30/21 at 2200, Until Discontinued, Alternative Route ordered. Please administer to Left EAR, Routine Given 11/01/2021 9:01 AM EST 4 drops Given 10/31/2021 9:13 PM EST 4 drops Given 10/31/2021 9:25 AM EST 4 drops ondansetron (pf) (Zofran) (2 mg/mL) injection 4 mg 4 mg, Intravenous, EVERY 8 HOURS PRN, Starting on Mon10/29/21 at 2219, Until 10/30/21 at 1154, Nausea, Vomiting Given 10/30/2021 8:30 AM EST 4 mg ondansetron ODT (Zofran-ODT) disintegrating tablet 4 mg 4 mg, Oral, EVERY 8 HOURS PRN, Starting on 10/30/21 at 1153, Until 11/01/21 at 1844, Nausea, Routine Given 11/01/2021 11:56 AM EST 4 mg polyethylene glycoL (Miralax) packet 17 g 17 g, Oral, DAILY, First dose on 10/31/21 at 1230, Until Discontinued, Routine Given 11/01/2021 8:55 AM EST 17 g Given 10/31/2021 9:14 PM EST 17 g prochlorperazine (Compazine) (5 mg/mL) injection 5 mg 5 mg, Intravenous, EVERY 30 MIN PRN, 2 doses, Starting on Mon10/29/21 at 1800, Until Mon10/29/21 at 2219, Nausea, Maximum total dose of 10 mg (including OR administration). If multiple antiemetics ordered, use ondansetron first and if ineffective use prochlorperazine second and if ineffective use promethazine, PACU Recovery, Routine Given 10/29/2021 7:02 PM EST 5 mg sodium chloride 0.9% infusion 100 mL/hr, Intravenous, CONTINUOUS, Starting on 10/29/21 at 2315, Until 10/31/21 at 1123 New Bag 10/30/2021 12:09 PM EST 100 mL/hr 100 mL/hr New Bag 10/30/2021 1:58 AM EST 100 mL/hr 100 mL/hr documented in this encounter Active and Recently Administered Medications Times are shown in EST. Scheduled Medication Order 10/30/2021 10/31/2021 11/01/2021 acetaminophen (Tylenol) tablet 1,000 mg 1,000 mg, Oral, EVERY 6 HOURS SCHEDULED, First dose on 10/30/21 at 0000, Until Discontinued, Maximum dose of acetaminophen is 4000 mg from all sources in 24 hours. When ordered for pain, acetaminophen should be given even when other ordered pain medications are indicated. We do not order the liquid tylenol or ibuprofen because it has sorbitol and can contribute to diarrhea., Routine 0012 (Given - Provider: Jeremi Hermosillo RN)0655 (Given - Provider: Jeremi Hermosillo RN)1245 (Given - Provider: Luke Dunham RN)1753 (Given - Provider: Lois Bennett RN) 0012 (Given - Provider: Robb Caldera RN)0609 (Given - Provider: Robb Caldera RN)1201 (Given - Provider: Arielle Burks RN)1719 (Given - Provider: Arielle Burks RN) 0020 (Given - Provider: Robb Caldera RN)0606 (Given - Provider: Robb Caldera, HEIDI)1156 (Given - Provider: Ana Cooley RN) cephALEXin (Keflex) capsule 500 mg 500 mg, Oral, 3 TIMES DAILY, First dose on 10/30/21 at 1700, Until Discontinued, Routine, Indication for (Active or Suspected): Prophylaxis 1700 (Given - Provider: Lois Bennett RN - Comment: unable to scan barcode)2121 (Given - Provider: Robb Caldera RN) 0924 (Given - Provider: Saqib Francis, HEIDI)1500 (Given - Provider: Arielle Burks RN)2100 (Given - Provider: Robb Caldera RN) 0855 (Given - Provider: Ana Cooley, HEIDI)1500 (Given - Provider: Ana Cooley, RN) dexamethasone (Decadron) injection 8 mg (CANCELED) 8 mg, Intravenous, EVERY 6 HOURS SCHEDULED, First dose on 10/30/21 at 0000, Until Discontinued 0013 (Given - Provider: Jeremi Hermosillo RN)0600 (Given - Provider: Jeremi Hermosillo, HEIDI)1246 (Given - Provider: Luke Dunham RN)1753 (Given - Provider: Lois Bennett RN) 001 (Given - Provider: Robb Caldera RN)0609 (Given - Provider: Robb Caldera RN) diclofenac EC (Voltaren) tablet 75 mg 75 mg, Oral, 2 TIMES DAILY, First dose on Mon10/29/21 at 2315, Until Discontinued, DO NOT CRUSH OR OPEN, Routine 901 (Given - Provider: Luke Dunham RN)2120 (Given - Provider: Robb Caldera RN) 923 (Given - Provider: Saqib Francis, HEIDI)2113 (Given - Provider: Robb Caldera, HEIDI) 0855 (Given - Provider: Ana Cooley, HEIDI) enoxaparin (Lovenox) (40 mg/0.4 mL) subcutaneous injection 40 mg 40 mg, Subcutaneous, NIGHTLY, First dose on Mon10/31/21 at 2100, Until Discontinued, Routine 2113 (Given - Provider: Robb Caldera, HEIDI) ibuprofen (Motrin) tablet 400 mg (CANCELED) 400 mg, Oral, EVERY 6 HOURS SCHEDULED, First dose on 10/30/21 at 0000, Until Discontinued, Administer orally with milk or food to minimize GI irritation. Maximum dose of 3,200 mg from all sources in 24 hours. We do not order the liquid tylenol or ibuprofen because it has sorbitol and can contribute to diarrhea., Routine 11 (Given - Provider: Jeremi Hermosillo RN)06 (Given - Provider: Jeremi Hermosillo RN) ofloxacin (Ocuflox) 0.3% ophthalmic solution (FOR OTIC USE) 4 drop, Alternative Route- Specify in Admin Instructions, 2 TIMES DAILY, First dose on 10/30/21 at 2200, Until Discontinued, Alternative Route ordered. Please administer to Left EAR, Routine 2120 (Given - Provider: Robb Caldera, RN) 924 (Given - Provider: Saqib Francis, HEIDI)2112 (Given - Provider: Robb Caldera RN) 09 (Given - Provider: Ana Cooley, RN) polyethylene glycoL (Miralax) packet 17 g 17 g, Oral, DAILY, First dose on 10/31/21 at 1230, Until Discontinued, Routine 2113 (Given - Provider: Robb Caldera RN) 0855 (Given - Provider: Ana Cooley, RN) Continuous Medication Order 10/30/2021 10/31/2021 11/01/2021 sodium chloride 0.9% infusion (CANCELED) 100 mL/hr, Intravenous, CONTINUOUS, Starting on Mon10/29/21 at 2315, Until 10/31/21 at 1123 0158 (New Bag - Provider: Jeremi Hermosillo, HEIDI)1209 (New Bag - Provider: Luke Dunham, HEIDI)1400 (Stopped - Provider: Luke Dunham, HEIDI) PRN Medication Order 10/30/2021 10/31/2021 11/01/2021 meclizine (Antivert) tablet 25 mg 25 mg, Oral, 3 TIMES DAILY PRN, Starting on 10/30/21 at 1152, Until 11/01/21 at 1844, Dizziness, Routine 1245 (Given - Provider: Luke Dunham, RN) 0855 (Given - Provider: Ana Cooley, RN)1626 (Given - Provider: Ana Cooley, HEIDI) ondansetron (pf) (Zofran) (2 mg/mL) injection 4 mg (CANCELED) 4 mg, Intravenous, EVERY 8 HOURS PRN, Starting on 10/29/21 at 2219, Until 10/30/21 at 1154, Nausea, Vomiting 0830 (Given - Provider: Luke Dunham, HEIDI) ondansetron ODT (Zofran-ODT) disintegrating tablet 4 mg 4 mg, Oral, EVERY 8 HOURS PRN, Starting on 10/30/21 at 1153, Until 11/01/21 at 1844, Nausea, Routine 1156 (Given - Provid er: Ana Cooley, RN) documented in this encounter Care Teams Internet Marketing Assistant Relationship Specialty Start Date End Date Janice Christine MD [address] [place] [address] PCP - General 02/23/18 documented as of this encounter
--- OUTSIDE RECORDS SUMMARY | 2024-09-30 21:01 | XMS_ITS | Encounter Summary ---
[place] [address] Care Team Providers Care Special Shopper Name Role Phone Janice Christine MD Primary Care Provider [phone] Encounter Details Date Type Department Care Team (Late st Contact Info) Description 08/17/2016 1:45 PM EST Office Visit Hematology/Oncology at [address] [phone] Marilee Plummer, DIRECTOR PATIENT DLBCL (diffuse large B cell lymphoma) Social History Tobacco Use Types Packs/Day Years [...] Sign Reading Time Taken Comments Blood Pressure 121/79 08/17/2016 1:53 PM EST Pulse 68 08/17/2016 1:53 PM EST Temperature 36.7 ??C (98.1 ??F) 08/17/2016 1:53 PM ES T Respiratory Rate 16 08/17/2016 1:53 PM EST Oxygen Saturation 100% 08/17/2016 1:53 PM EST Inhaled Oxygen Concentration - - Weight 105.6 kg (232 lb 12.8 oz) 08/17/2016 1:53 PM EST Height 182.9 cm (6' 0.01) 08/17/2016 1:53 PM ES T Body Mass Index 31.57 08/17/2016 1:53 PM EST documented in this encounter Patient Instructions * Patient Instructions* Marilee Plummer APRN - 08/17/2016 1:45 PM EST He will return in 4 months with labs prior. documented in this encounter Progress Notes * Marilee Plummer APRN - 08/17/2016 1:45 PM EST Hematology Clinic [facility] [place] [address] FOLLOW-UP PATIENT EVALUATION PROBLEM LIST: Patient Active [...] Jr. back in clinic today. Agapito Ramirez is a 46 y.o. year old male being seen for follow-up evaluation of DLBCL he has now completed 3 cycles of R CHOPchemotherapy followed by radiation therapy for his early stage diffuse large B-cell lymphoma. He completed radiation therapy in May 2015. He's here for his regular check. 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 Feeling well. Full energy has returned. No dysphagia. No unusual pains adenopathy or B symptoms. He continues to do quite well. ROS Energy level: low , but back [...] have been marked as taking for the 08/17/16 encounter (Office Visit) with Marilee Plummer APRN. Allergies: No Known Allergies INTERIM SOCIAL HISTORY Changes in job, home situation, tobacco or alcohol use: see HPI PHYSICAL EXAM BP 121/79 (Patient Position: Sitting) Pulse 68 Temp 36.7 ??C (98.1 ??F) (Oral) Resp 16 Ht 182.9 cm (6' 0.01) Wt (!) 105.6 kg (232 lb 12.8 oz) SpO2 100% BMI 31.57 kg/m2 Body surface area is 2.32 meters squared. GENERAL: Agapito Ramirez Jr. appears [...] or chest wall tenderness. LABORATORY STUDIES WBC 5.92 H/H 14.3/41.4 Plts 212 CMP within normal limits LDH 175 RADIOLOGY STUDIES REVIEWED: none ASSESSMENT/PLAN: DLBCL - he is now s/p C#3 RCHOP with negative PET scan and then consolidative XRT. He completed hisradiation therapy in May 2015. He was PET negative in September 2015. He returns today for his regular follow-up. He had a CT scan last week of neck and chest at [facility] which showed no adenopathy. Mr Ramirez is now 16 months out from completion of his chemotherapy, and 14 months from completion of his radiation therapy. He looks great. His IPI score was 0. He has a very low risk for recurrence. In light of this second year of surveillance had like to see him every 4 months. Following that wecan see him just every 6 months. I would not anticipate any further imaging unless there is clinical suspicion for relapse. Copy Janice Christine MD documented in this encounter Plan of Treatment Not on file documented as of this encounter Visit Diagnoses Diagnosis DLBCL (diffuse large B cell lymphoma) Other malignant lymphomas, unspecified site, extranodal and solid organ sites documented in this encounter Care Teams Special Shopper Relationship Specialty Start Date End Date Janice Christine MD [address] [place] [address] PCP - General 02/27/15 09/19/17 documented as of this encounter
--- OUTSIDE RECORDS SUMMARY | 2024-09-30 21:01 | XMS_ITS | Encounter Summary ---
[place] [address] Care Team Providers Care Personnel And Payroll Technician Name Role Phone Janice Christine MD Primary Care Provider [phone] Encounter Details Date Type Department Care Team (Late st Contact Info) Description 04/19/2017 10:15 AM EDT Office Visit Hematology/Oncology at [address] [phone] Marilee Plummer, [employer] DLBCL (diffuse large B cell lymphoma) Social [...] Sign Reading Time Taken Comments Blood Pressure 133/65 04/19/2017 10:19 AM EDT Pulse 68 04/19/2017 10:19 AM EDT Temperature 36.7 ??C (98.1 ??F) 04/19/2017 1 0:19 AM EDT Respiratory Rate 16 04/19/2017 10:1 9 AM EDT Oxygen Saturation 99% 04/19/2017 10: 19 AM EDT Inhaled Oxygen Concentration - - Weight 109.7 kg (241 lb 12.8 oz) 2016 10:19 AM EDT Height 182.9 cm (6' 0.01) 04/19/2017 1 0:19 AM EDT copied Body Mass Index 32.79 04/19/2017 10:19 AM EDT documented in this encounter Patient Instructions * Patient Instructions* Marilee Plummer APRN - 04/19/2017 10:15 AM EDT He will return in 5 months with labs prior. documented in this encounter Progress Notes * Marilee Plummer APRN - 04/19/2017 10:15 AM EDT Hematology Clinic [place] [phone] FOLLOW-UP PATIENT EVALUATION PROBLEM LIST: Patient Active [...] see Agapito Ramirez back in clinic today. Agapito Ramirez JrJailyn is a 46 y.o. year old male being seen for follow-up evaluation of DLBCL He completed 3 cycles of R CHOP chemotherapy followed by radiation therapy for his early stage diffuse large B-cell lymphoma. He completed radiation therapy in May 2015. He's here for his regular check. 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 Feeling well. Full energy has returned. No dysphagia. No unusual pains adenopathy or B symptoms. He continues to do quite well. e. ROS Energy level: good Pain: None Appetite:fair Fevers/chills/sweats:No Bruising/bleeding/melena:No Recent infections:No HEENT: negative Nausea/vomiting/diarrhea/constipation: see above SOB/FISHMAN/chest pain:No Change in adenopathy or other masses:No Unexpected weight loss or gain: Skin rashes or petechiae:No Musculoskeletal complaints:No Extremities: Negative upper and lower bilaterally Neurologic symptoms:None Mood: Normal Sleep: no Difficulty sleeping MEDS: No outpatient prescriptions have been marked as taking for the 04/19/17 encounter (Office Visit) with Marilee Plummer APRN. Allergies: No Known Allergies INTERIM SOCIAL HISTORY Changes in job, home situation, tobacco or alcohol use: see HPI PHYSICAL EXAM BP 133/65 (Patient Position: Sitting) Pulse 68 Temp 36.7 ??C (98.1 ??F) (Oral) Resp 16 Ht 182.9 cm (6' 0.01) Comment: copied Wt (!) 109.7 kg (241 lb 12.8 oz) SpO2 99% BMI 32.79 kg/m2 Body surface area is 2.36 meters squared. GENERAL: Agapito Ramirez Jr. appears [...] or chest wall tenderness. LABORATORY STUDIES WBC 6.56 H/H 14.6/42.1 Plts 200 CMP within normal limits [facility] pending RADIOLOGY STUDIES REVIEWED: Ct scan done in December which was negative. ASSESSMENT/PLAN: DLBCL - he is now s/p C#3 RCHOP with negative PET scan and then consolidative XRT. He completed hisradiation therapy in May 2015. He was PET negative in September 2015. He returns today for his regular follow-up. He had a CT scan last week of neck and chest at [facility] which showed no adenopathy. Mr Persons is now 24 months out from completion of his chemotherapy, and 22 months from completion of his radiation therapy. He looks great. His IPI score was 0. He has a very low risk for recurrence. His CT scan of his chest was negative. Otherwise he will return in 5 months with labs prior. Copy Janice Christine MD documented in this encounter Plan of Treatment Not on file documented as of this encounter Visit Diagnoses Diagnosis DLBCL (diffuse large B cell lymphoma) Other malignant lymphomas, unspecified site, extranodal and solid organ sites documented in this encounter Care Teams Personnel And Payroll Technician Relationship Specialty Start Date End Date Janice Christine MD [address] [place] [address] PCP - General 02/27/15 09/19/17 documented as of this encounter
--- OUTSIDE RECORDS SUMMARY | 2024-09-30 21:01 | XMS_ITS | Encounter Summary ---
Author Organization Formerly [facility] [place] [address] Care Team Providers Care Solar Energy Systems Designer Name Role Phone Janice Christine MD Primary Care Provider [phone] Reason for Referral * Physical Therapy (Routine) - Closed Specialty Diagnoses / Procedures Referred By Sean burgos Referred To Contact Physical Therapy Diagnoses H/O stapedectomy Alvarado Cuellar MD [facility] [place] [address] [facility] [place] [address] Referral ID Status Reason Start Date Expiration Date V isits Requested Visits Authorized [id number] Closed Evaluate and Treat 11/01/2021 11/01/2022 30 30 Reason for Visit * Auth/Cert Specialty Diagnoses / Procedures Referred By Sean burgos Referred To Contact Diagnoses Conductive hearing loss in left ear conductive hearing loss, left ear Procedures PRO STAPEDECTOMY PRG SOMATOSENSORY TEST, ANY/ALL PER. NERVES, TRUNK OR HEAD STAPEDECTOMY -OTOMY, ESTABLISH OSSICULAR CONTINUITY (WRVU 12.03) MODIFIER IRIDEX LASER FACIAL NERVE MONITORING, SETUP PERIPHERAL (WRVU 0.54) MODIFIER,ENT MODERATE Referral ID Status Reason Start Date Expiration Date Visits Re quested Visits Authorized [id number] 1 1 Encounter Details Date Type Department Care Team (Latest Contact Info) Description 10/29/2021 11:51 AM EST - 11/01/2021 4:43 PM EST Hospital Encounter [address] [place] [address] Alvarado Cuellar MD [facility] [place] [address] Mixed conductive and sensorineural hearing loss of both ears; Tinnitus of both ears; Otosclerosis involving oval window, nonobliterative, bilateral; Mixed conductive and sensorineural hearing loss of both ears; Tinnitus of both ears; Otosclerosis involving oval window, nonobliterative, bilateral; H/O stapedectomy Discharge Disposition: Home Social History Tobacco Use Types Packs/Day Years [...] call the Department of Otolaryngology - Head andNeck Surgery (ENT Department). Contact: -You can reach the ENT clinic at [phone] for appointment questions. -The ENT triage nurse is available at [phone] -For urgent issues during evenings and weekends the ENT resident solutions delivery consultant can be reached through [facility] tanning wheel operator at [phone] Follow Up: You will need to follow [...] 9:40 AM Alvarado Cuellar MD Otolaryngology at [facility] Arrive at: [place] [phone] 11/29/2021 10:15 AM Madina Bustos AUD; AUDIOLOGY, [facility] Audiology at [facility] Arrive at: [place] [phone] 01/11/2022 4:15 PM Delisa Diez DPM Podiatry at [facility] Arrive at: [place] General Instructions None __ Your Medications [...] Center 11/29/2021 9:40 AM Alvarado Cuellar MD [facility] STEPHY [facility] 11/29/2021 10:15 AM Madina Bustos AUD [facility] AUDIO [facility] 01/11/2022 4:15 PM Delisa Diez DPM Pod [facility] Outpatient Services/Studies: Referral to Physical Therapy Referral Priority: Routine Referral Type: Physical Therapy Referral Reason: Evaluate and Treat Number of Visits Requested: 12 Primary Care Doctor: Janice Christine MD [phone] Signed: Bronwyn Trevino MD 11/01/2021 Alvarado Cuellar [...] -You can reach the ENT clinic at [phone] for appointment questions. -The ENT triage nurse is available at [phone] -For urgent issues during evenings and weekends the ENT resident solutions delivery consultant can be reached through [facility] tanning wheel operator at [phone] Follow Up: You will need to follow [...] 9:40 AM Alvarado Cuellar MD Otolaryngology at [facility] Arrive at: [place] [phone] 11/29/2021 10:15 AM Madina Bustos AUD; AUDIOLOGY, [facility] Audiology at [facility] Arrive at: [place] [phone] 01/11/2022 4:15 PM Delisa Diez DPM Podiatry at [facility] Arrive at: [place] documented in this encounter Medications at [...] of this encounter Progress Notes * Ana Cooley RN - 11/01/2021 4:35 PM EST Agapito Ramirez Jr. discharged home by private car with . All belongings sent with patient. IVAremoved, surgical site C/D/I, skin free from pressure ulcers. Discharge instructions, medications, and follow-up appointments reviewed, education provided on restrictions, meds, s/s infection, all questions answered. Patient instructed to call with concerns. * Miladys Chun PT - 11/01/2021 11:18 AM EST Physical Therapy Evaluation Patient profile: Agapito Ramirez Jr. 51 y/o male admitted on 10/29/[address] Alvarado Cuellar MD for surgery: stapedectomy L ear for [...] 0.54) performed by Alvarado Cuellar MD at [facility] MAIN OR ??? PRO STAPEDECTOMY Left 10/29/2021 STAPEDECTOMY -OTOMY, ESTABLISH OSSICULAR CONTINUITY (WRVU 12.03) performed by Alvarado Cuellar MD at [facility] MAIN OR ??? THROAT SURGERY tonsil biopsy 02/2015 Active Non-Hospital Problems Diagnosis ??? Plantar fasciitis of left foot ??? Lymphoma Social History: Lives in [place], [place] with in a one level home [...] he was alittle dizzy, 60' back to rm Device used: FWW Level of assist: Stand-by, [...] using a walker. He may benefit from out-senior receptionist therapy services with staff specialized in [...] for this consult. MILADYS CHUN, PT Pager: [phone] Physical Therapy Inpatient Rehabilitation Department Time IN [...] PGY-1 11/01/21 6:49 AM ENT Team Pager: [phone] Associated attestation - Alvarado Cuellar MD - [...] repeat CT deferred as would not likely bladder changer. 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 Anticipate gradual improvements in dizziness with time. Continue close serial observation. Alvarado Cuellar MD Otology / Neurotology Otolaryngology - Head & Neck Surgery [facility] * Arielle Burks RN - 10/31/2021 12:03 [...] evaluated ASSESSMENT & PLAN Agapito Giordano James . is a 51 y.o. male s/p left [...] PGY-4 10/31/21 11:21 AM ENT Team Pager: [phone] Otolaryngology Attending Physician Addendum I have seen and examined the patient and reviewed the resident's history and I agree with the details as written. The assessment and plan were formulated in discussion with me and I agree with them as documented. Alvarado Cuellar MD Otology / Neurotology Otolaryngology - Head & Neck Surgery [facility] * Robb Caldera RN - 10/31/2021 4:50 [...] bedside. Oriented to room and call light. MD paged to obtain Covid test. LOIS BENNETT RN * Luke Dunham RN - 10/30/2021 2:40 PM EST [facility] Short Stay Unit Shift Note The patient [...] -- 95 % 2 L/min NC 10/29/21 191 -- 74 bpm -- -- -- 95 % 1 L/min NC 10/29/21 193 -- 70 bpm -- -- -- 95 [...] -- -- -- 91 % -- RA 10/29/21 2145 36.8 ??C (98.2 ??F) 84 bpm [...] bpm -- 16 127/72 98 % -- RA Intake/Output Summary (Last 24 [...] vestibular suppressants Topical ear drops __ Walker T MD Merry, PGY-4 10/30/21 9:35 AM ENT Team Pager: [phone] Associated attestation - Alvarado Cuellar MD - [...] right Psych: Normal mood and affect. Vestibular: [place]: Negative left. No nystagmus or provoked dizziness. [...] Neurotology Otolaryngology - Head & Neck Surgery [facility] * Jeremi Hermosillo RN - 10/30/2021 7:24 AM EST [facility] Short Stay Unit Shift Note The patient [...] -- 95 % 2 L/min NC 10/29/21 191 -- 74 bpm -- -- -- 95 % 1 L/min NC 10/29/21 1930 -- 70 bpm -- -- -- 95 % -- RA 10/29/211944 -- 77 bpm -- -- -- 94 % -- RA 10/29/212029 -- 64 bpm -- -- -- 94 % -- RA 10/29/212044 -- 70 bpm -- -- -- (!) 89 % -- RA 10/29/21 2100 -- 74 bpm -- -- -- 94 % -- 10/29/215 -- 64 bpm -- -- -- 91 % -- RA 10/29/21 2145 36.8 ??C (98.2 ??F) 84 bpm -- 16 128/81 96 % -- RA 10/30/21 0000 36.8 ??C (98.2 ??F) 63 bpm -- 16 101/70 96 % -- 10/30/21 0630 36.6 ??C (97.9 ??F) 58 bpm -- 16 127/68 94 % -- Intake/Output Summary (Last 24 hours) [...] was admitted for supportive measures. Relevant PMH: ANDREAFSKI bilateral hearing aids Significant 24 hour events: 2/ Night: admitted to unit for vertigo and [...] Other If AD's have not been completed Elisabeth Sam would be surrogate decision maker per [place] surrogate decision making law. (Only good for 180 days) Any patient receiving care at [facility] must abide by [place] law. The hierarchy for surrogate decision making [...] (i) The agent with financial power of deputy prosecuting attorney or a conservator appointed in accordance [...] Current DME: none Home Address confirmed as: [address] [place] [address] [place] [address] Social & Family Supports: All names listed below confirmed with patient as current and correct Extended Emergency Contact Information Primary Emergency Contact: Cecy Ramirez Address: [address] [place] [address] [place] Relation: Spouse [...] it were indicated. Health/Prescription Coverage: Primary Insurance: [employer] [place] Payor: [employer] [place] / Plan: [facility] [place] VHP / Product Type: *No Product type* / Secondary Insurance: N/A Prescription Coverage: Yes Preferred Pharmacy: [id number] AT [facility] [address] [address] [place] Status: Patient is a : No Primary Care Provider: Janice Christine MD [phone] Patient/Caregiver Goals of Treatment: home with spouse [...] with transition of care planning. SARTHAK Baca, inpatient services director Office of Care Management * Op Note - Alvarado Cuellar MD - 10/29/2021 3:32 PM EST [facility] Operative Note Patient Name: Agapito Ramirez Jr. : [id number] MR#: [id number] Case Date: 10/29/2021 Surgeon: Surgeon(s) and Role: [...] 11/01/2021 8:13 AM EST RAPID COVID-19 PCR ([facility]D/[facility]) Routine 10/30/2021 4:04 PM EST MODIFIER,ENT MODERATE 10/29/2021 2:49 PM EST Mixed conductive and sensorineural hearing loss of both ears Tinnitus of both ears Otosclerosis involving oval window, nonobliterative, bilateral Somatosensory Test, Any/All Per. Nerves, Trunk Or Head ([id number]) 10/29/2021 2:49 PM EST Mixed conductive and [...] 8:13 AM EST) Neutrophil % 65.5 % [facility] Neutrophil Absolute 7.39(H) 1.70 - 6.10 x10(3)/mc L [facility] Lymph % 26.1 % [facility] Lymphocytes Abs 2.9 0.9 - 3.2 x10(3)/mc L [facility] Monocyte % 7.6 % [facility] Monocyte Abs 0.9 0.3 - 0.9 x10(3)/mc L [facility] Eos % 0.2 % [facility] Eosinophils Abs 0.0 0.0 - 0.4 x10(3)/mc L [facility] Basophil % 0.1 % [facility] Baso Absolute 0.0 0.0 - 0.1 x10(3)/mc L [facility] Immature Gran % 0.50 % [facility] Comment: Immature granulocytes(IG's)percentage and absolute count will include metamyelocytes, myelocytes, and promyelocytes. Blood smears from CBCs yielding IG's will be scanned manually for concordance. If this scan disagrees with the automated IG or if promyelocytes are noted, a manual differential will be performed. Immature Gran Absolute 0.06(H) 0.00 - 0.04 x10(3)/mc L [facility] Blood 11/01/2021 8:13 AM EST 11/01/2021 8:28 AM EST Narrative Resulting Agency Comment Spec In Lab Bronwyn Trevino MD HEMATOLOGY ORDERABLE S Performing Organization Address City/State/[facility] Co de Phone Number [facility] [place] [address] * (ABNORMAL) Hemogram (11/01/2021 8:13 AM EST) White Blood Cell 11.3(H) 4.0 - 9.5 x10(3)/mc L [facility] Red Blood Cell 4.62 4.58 - 5.54 x10(6)/mc [facility] Hemoglobin 14.2 13.7 - 16.5 g/dL [facility] Hematocrit 41.8 40.5 - 48.5 % [facility] Mean Cell Volume 90.5 82.9 - 93.1 [facility] Mean Cell Hemoglobin 30.7 27.5 - 32.1 pg [facility] Mean Cell Hemoglobin Concentration 34.0 32.0 - 35.7 g/dL [facility] Platelet 201 145 - 357 x10(3)/ L [facility] RDW Standard Deviation 40.3 36.0 - 45.0 [facility] RDW coefficient of variation 12.2 11.4 - 13.8 % [facility] Mean Platelet Volume 10.4 7.6 - 12.9 [facility] NRBC% auto 0.0 % [facility] NRBC Absolute 0.000 0.000 - 0.000 x10(3)/mc L [facility] Blood 11/01/2021 8:13 AM EST 11/01/2021 8:28 AM EST Narrative Resulting Agency Comment Spec In Lab Bronwyn Trevino MD HEMATOLOGY ORDERABLE S Performing Organization Address City/[facility]/ZIP Co de Phone Number [facility] [place] [address] * Phosphorus (11/01/2021 8:13 AM EST) Phosphorus 2.8 2.5 - 4.5 mg/dL [facility] Blood 11/01/2021 8:13 AM EST 11/01/2021 8:28 AM EST Narrative Resulting Agency Comment Spec In Lab Alvarado Cuellar MD CHEMISTRY ORDERABLES Performing Organization Address [facility] Co de Phone Number [facility] [place] [address] * Magnesium (11/01/2021 8:13 AM EST) Magnesium 0.99 0.69 - 1.07 mmol/L [facility] Blood 11/01/2021 8:13 AM EST 11/01/2021 8:28 AM EST Narrative Resulting Agency Comment Spec In Lab Alvarado Cuellar MD CHEMISTRY ORDERABLES Performing Organization Address [facility] Co de Phone Number [facility] [place] [address] * (ABNORMAL) Basic Metabolic Panel (non-fasting) (11/01/2021 8:13 AM EST) Glucose 90 65 - 199 mg/dL [facility] Comment:Diabetes: >=200 mg/d L plus symptoms Blood Urea Nitrogen 22(H) 10 - 20 mg/dL [facility] Creatinine 0.92 0.80 - 1.50 mg/dL [facility] Sodium 140 135 - 145 mmol/L [facility] Potassium 4.1 3.5 - 5.0 mmol/L [facility] Comment: Please note: ??Patients with WBC >100,000 may have falsely elevated Potassium levels. ??For accurate Potassium quantification in these patients send serum separator tube (gold top) for subsequent determinations. ??Contact the Clinical Chemistry Laboratory if there are any questions. Chloride 108(H) 98 - 107 mmol/L [facility] Carbon Dioxide 22 22 - 31 mmol/L [facility] Anion Gap 10 5 - 15 mmol/L [facility] Calcium 8.6 8.5 - 10.5 mg/dL [facility] Est Glomerular Filtration Rate 95 >=60 mL/min/1. 73 m?? [facility] Comment: This patient? s [...] In Lab Alvarado Cuellar MD CHEMISTRY ORDERABLES [facility] [place] [address] * COVID-19 PCR (10/30/2021 4:04 PM EST) SARS-CoV-2 RNA (Rapid) Not Detected Not Detected [facility] Comment: This result should be interpreted [...] using the Simplexa COVID-19 Direct Assay by [employer] as authorized by the FDA issued Emergency [...] Department of Pathology and Laboratory Medicine at [facility], certified under the Clinical Laboratory Improvement Amendments [...] fact sheets at the following FDA website: https://www.fda.gov/medical-devices/mktoqqnozyt-lwteqpg-0186-aicna-85-zfapycnho- use-a htrgcfxodyigx-vgptuyz-pedgmsa/lekht-sgkkpnsozim-pvfl SARS-CoV-2 Source ALTERATION WORKER Swab ADAIR ARBOLEDA [facility] Nasopharyngeal Swab 10/30/19 4:04 PM EST 10/30/2021 4:56 PM EST Comment:Symptoms->Surveillan ce Narrative Resulting Agency Comment Spec In Lab Alvarado Cuellar MD MICROBIOLOGY - GENER AL ORDERABLES [facility] [address] [facility] [address] [place] [address] documented in this encounter Visit Diagnoses Diagnosis Mixed conductive and sensorineural hearing loss of both ears Mixed hearing loss, bilateral Tinnitus of both ears Unspecified tinnitus Otosclerosis involving oval window, nonobliterative, bilateral H/O 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 Mixed hearing loss, bilateral Tinnitus of both ears Unspecified tinnitus H/O stapedectomy documented in this encounter Admitting Diagnoses Diagnosis [...] Given 11/01/2021 12:20 AM EST 1,000 mg cephALEXin (Keflex) capsule 500 mg 500 mg, Oral, 3 TIMES DAILY, First dose on 10/30/21 at 1700, Until Discontinued, Routine, Indication for (Active or Suspected): Prophylaxis Given 11/01/2021 3:00 PM EST 500 mg Given 11/01/2021 8:55 AM EST 500 mg Given 10/31/2021 9:00 PM EST 500 mg dexamethasone (Decadron) injection 8 mg 8 mg, [...] Given 10/31/2021 9:14 PM EST 40 mg HYDROmorphone (Dilaudid) (0.2 mg/1 mL) injection syringe [...] Given 10/30/2021 12:12 AM EST 400 mg meclizine (Antivert) tablet 25 mg 25 mg, Oral, 3 TIMES DAILY PRN, Starting on 10/30/21 at 1152, Until Mon11/01/21 at 1844, Dizziness, Routine Given 11/01/2021 4:26 [...] infusion 100 mL/hr, Intravenous, CONTINUOUS, Starting on Mon10/29/21 at 2315, Until 10/31/21 at 1123 New [...] Robb Caldera RN)0606 (Given - Provider: Robb Caldera RN)1156 (Given - Provider: Ana Cooley RN) cephALEXin (Keflex) capsule 500 mg 500 mg, Oral, 3 TIMES DAILY, First dose on 10/30/21 at 1700, Until Discontinued, Routine, Indication for (Active or Suspected): Prophylaxis 1700 (Given - Provider: Lois Bennett RN - Comment: unable to scan barcode)2121 (Given - Provider: Robb Caldera RN) 0924 (Given - Provider: Saqib Francis RN)1500 (Given - Provider: Arielle Burks, HEIDI)2100 (Given - Provider: Robb Caldera RN) 0855 (Given - Provider: Ana Cooley RN)1500 (Given - Provider: Ana Cooley, HEIDI) dexamethasone (Decadron) injection 8 mg (CANCELED) 8 mg, Intravenous, EVERY 6 HOURS SCHEDULED, First dose on 10/30/21 at 0000, Until Discontinued 0013 (Given - Provider: Jeremi Hermosillo RN)0600 (Given - Provider: Jeremi Hermosillo RN)1246 (Given - Provider: Luke Dunham, RN)1753 (Given - Provider: Lois Bennett RN) 001 (Given - Provider: Robb Caldera RN)06 (Given - Provider: Robb Caldera RN) diclofenac EC (Voltaren) tablet 75 mg 75 mg, Oral, 2 TIMES DAILY, First dose on Mon10/29/21 at 2315, Until Discontinued, DO NOT CRUSH OR OPEN, Routine 901 (Given - Provider: Luke Dunham RN)2120 (Given - Provider: Robb Caldera RN) 923 (Given - Provider: Saqib Francis, HEIDI)2113 (Given - Provider: Robb Caldera RN) 08 (Given - Provider: Ana Cooley, HEIDI) enoxaparin (Lovenox) (40 mg/0.4 mL) subcutaneous injection 40 mg 40 mg, Subcutaneous, NIGHTLY, First dose on Mon10/31/21 at 2100, Until Discontinued, Routine 2113 (Given - Provider: Robb Caldera RN) ibuprofen (Motrin) tablet 400 mg (CANCELED) 400 [...] Routine 11 (Given - Provider: Jeremi Hermosillo RN)654 (Given - Provider: Jeremi Hermosillo RN) ofloxacin (Ocuflox) 0.3% ophthalmic solution (FOR OTIC USE) 4 drop, Alternative Route- Specify in Admin Instructions, 2 TIMES DAILY, First dose on 10/30/21 at 2200, Until Discontinued, Alternative Route ordered. Please administer to Left EAR, Routine 2120 (Given - Provider: Robb Caldera RN) 924 (Given - Provider: Saqib Francis, HEIDI)2112 (Given - Provider: Robb Caldera RN) 09 (Given - Provider: Ana Cooley, HEIDI) polyethylene glycoL (Miralax) packet 17 g 17 g, Oral, DAILY, First dose on 10/31/21 at 1230, Until Discontinued, Routine 2114 (Given - Provider: Robb Caldera, RN) 0855 (Given - Provider: Ana Cooley, HEIDI) Continuous Medication Order 10/30/2021 10/31/2021 11/01/2021 sodium chloride 0.9% infusion (CANCELED) 100 mL/hr, Intravenous, CONTINUOUS, Starting on Mon10/29/21 at 2315, Until 10/31/21 at 1123 0158 (New Bag - Provider: Jeremi Hermosillo, HEIDI)1209 (New Bag - Provider: Luke Dunham, RN)1400 (Stopped - Provider: Luke Dunham RN) PRN Medication Order 10/30/2021 10/31/2021 11/01/2021 meclizine (Antivert) tablet 25 mg 25 mg, Oral, 3 TIMES DAILY PRN, Starting on 10/30/21 at 1152, Until 11/01/21 at 1844, Dizziness, Routine 1245 (Given - Provider: Luke Dunham RN) 0855 (Given - Provider: Ana Cooley, HEIDI)1626 (Given - Provider: Ana Cooley, HEIDI) ondansetron (pf) (Zofran) (2 mg/mL) injection 4 mg (CANCELED) 4 mg, Intravenous, EVERY 8 HOURS PRN, Starting on 10/29/21 at 2219, Until 10/30/21 at 1154, Nausea, Vomiting 0830 (Given - Provider: Luke Dunham RN) ondansetron ODT (Zofran-ODT) disintegrating tablet 4 mg 4 mg, Oral, EVERY 8 HOURS PRN, Starting on 10/30/21 at 1153, Until 11/01/21 at 1844, Nausea, Routine 1156 (Given - Provid er: Ana Cooley, HEIDI) documented in this encounter Care Teams Solar Energy Systems Designer Relationship Specialty Start Date End Date Janice Christine MD [address] [place] [address] PCP - General 02/23/18 documented as of this encounter
--- OUTSIDE RECORDS SUMMARY | 2024-09-30 21:01 | XMS_ITS | Encounter Summary ---
Author Organization [facility] [place] [address] Care Team Providers Care Care Team Assistant Name Role Phone Janice Christine MD Primary Care Provider [phone] Encounter Details Date Type Department Care Team (Late st Contact Info) Description 06/09/2021 Orders Only Podiatry at [facility] [place] [address] [facility] [facility] [place] [address] Social History Tobacco Use Types Packs/Day Years [...] on filedocumented in this encounter Care Teams Care Team Assistant Relationship Specialty Start Date End Date Janice Christine MD [address] [place] [address] PCP - General 02/23/18 documented as of this encounter
--- OUTSIDE RECORDS SUMMARY | 2024-09-30 21:01 | XMS_ITS | Encounter Summary ---
Author Organization [facility] Address [facility] [place] [address] Care Team Providers Care Biophysics Scientist Name Role Phone Janice Christine MD Primary Care Provider [phone] Reason for Visit * Reason Comments Plantar Fasciitis Encounter Details Date Type Department Care Team (Late st Contact Info) Description 03/09/2021 4:30 PM EDT Office [place] [address] Garry Letser, [place] [address] Plantar fasciitis of left foot Social History [...] Progress Notes * Garry Lester DPM - 03/09/2021 4:30 PM EDT Podiatry Follow-Up Note Name: Agapito Ramirez Jr. Date of Service: 03/09/2021 SUBJECTIVE Chief complaint: Agapito Ramirez Jr. is a 50 y.o. male, who returns to podiatry for follow-up on left heel pain. The patient reports some improvement with the use of diclofenac. He found the Powerstep inserts uncomfortable and stopped wearing them after the third day. Reports his shoes are very supportive. There were no vitals taken for this visit. Objective Dorsalis Pedis pulses are palpable bilaterally. Posterior Tibial pulses are palpable bilaterally. The patient has continued tenderness with palpation around the medial tubercle of the left calcaneus. No erythema or edema. Shoes he is wearing today are nonsupportive. Assessment Plantar fasciitis left foot. Plan Discussed with patient that the diclofenac tablets are helping with some of the discomfort but are not addressing the underlying cause of this problem. We need to consistently support the longitudinal arch of his foot. I fabricated new removable foot straps. Reviewed characteristics of a supportiveshoe. Patient is going to begin slowly reintroducing the Powerstep inserts. I renewed his diclofenac for 2 weeks with 1 refill. Follow-up 6 to 8 weeks. Garry Lester DPM Ammonium Nitrate Neutralizer, [facility] documented in this encounter Plan of Treatment Not on file documented as of this encounter Visit Diagnoses Diagnosis Plantar fasciitis of left foot Plantar fascial fibromatosis documented in this encounter Care Teams Biophysics Scientist Relationship Specialty Start Date End Date Janice Christine MD [address] [place] [address] PCP - General 02/23/18 documented as of this encounter
--- OUTSIDE RECORDS SUMMARY | 2024-09-30 21:01 | XMS_ITS | Encounter Summary ---
Author Organization [facility] [place] [address] Care Team Providers Care Electromechanical Assembly Technician Name Role Phone Janice Christine MD Primary Care Provider [phone] Reason for Referral * Diagnostic Test (Routine) - Closed Specialty Diagnoses / Procedures Referred By Contac t Referred To Contact Radiology Diagnoses Otosclerosis, unspecified laterality Procedures CT Temporal Bone wo Contrast (Generic) Rock Parkinson Jr., MD [facility] [place] [address] [facility] [place] [address] Referral ID Status Reason Start Date Expiration Date V isits Requested Visits Authorized [id number] Closed Specialty Service Requested 11/24/2020 05/22/2021 1 1 Reason for Visit * Diagnostic Test (Routine) - Closed Specialty Diagnoses / Procedures [facility] Referred To Contact Radiology Diagnoses Otosclerosis, unspecified laterality Procedures CT Temporal Bone wo Contrast (Generic) Rock Parkinson Jr., MD [facility] [place] [address] [facility] [place] [address] Referral ID Status Reason Start Date Expiration Date V isits Requested Visits Authorized [id number] Closed Specialty Service Requested 11/24/2020 05/22/2021 1 1 Encounter Details Date Type Department Care Team (Latest Contact Info) Description 11/26/2020 12:32 PM EST - 11/26/2020 11:59 PM EST Hospital [place] [id number] Alvarado Cuellar MD [facility] [place] [address] Otosclerosis, unspecified laterality Discharge Disposition: Home Social History Tobacco Use Types Packs/Day Years Used Date Smoking Tobacco: Never Smokeless Tobacco: Never Alcohol Use Standard Drinks/Week Comments No 0 (1 standard drink = 0.6 oz pur e alcohol) Sex and Gender Information Value Date Recorded Sex Assigned at Not on file Gender Identity Not on file Sexual Orientation Not on file documented as of this encounter Medications at Time of Discharge Medication Sig Dispensed Refills Start Date End Date sildenafiL (VIAGRA) 25 mg Tablet Take by mouth. 2019 documented as of this encounter Plan of Treatment Not on file documented as of this encounter Procedures Procedure Name Priority Date/Time Associated Diagnosis Comments CT TEMPORAL BONE WO CONTRAST Routine 11/26/2020 12:44 PM EST Otosclerosis, unspecified laterality documented in this encounter Results * CT Temporal Bone wo Contrast (Generic) (11/26/2020 12:44 PM EST) Anatomical Region Laterality Modality Head Computed Tomogra phy Impressions 11/26/2020 3:30 PM EST Bilateral fenestral otosclerosis. Thank you for letting us participate in the care of this patient. For questions regarding this report, please contact the number below. ? Narrative 11/26/2020 3:30 PM EST EXAMINATION: CT TEMPORAL BONE WO CONTRAST (GENERIC) CLINICAL HISTORY: otosclerosis, rule out other causes of bilateral conductive hearing loss TECHNIQUE: CT temporal bones performed without intravenous contrast administration. COMPARISON: None FINDINGS: Right: The external auditory canal is [...] Cochlea, vestibule, and semicircular canals are normal. Left: The external auditory canal is normal. The tympanic membrane is normal. The ossicles appear normal. Middle ear and mastoid air cells are normally aerated. There is demineralization in the fissula antefenestrum consistent with atherosclerosis. Internal auditory canals normal. Course of 7th nerve is normal. Cochlea, vestibule, semicircular canals normal. Procedure Note Sunny Garcia MD - 11/26/2020 EXAMINATION: CT TEMPORAL BONE WO CONTRAST (GENERIC) CLINICAL HISTORY: otosclerosis, rule out other causes of bilateralconductive hearing loss TECHNIQUE: CT temporal bones performed without intravenous contrast administration. COMPARISON: None FINDINGS: Right: The external auditory canal is normal. The tympanic membrane isnormal. The ossicles are normal in appearance. There are a few opacified mastoidair cells. Aeration of the middle ear and mastoid is otherwise normal.Internal auditory canals normal. The course of 7th nerve is normal. There isrelative demineralization at the fissula antefenestrum consistent withotosclerosis. Cochlea, vestibule, and semicircular canals are normal. Left: The external auditory canal is normal. The tympanic membrane isnormal. The ossicles appear normal. Middle ear and mastoid air cells arenormally aerated. There is demineralization in the fissula antefenestrum consistentwith atherosclerosis. Internal auditory canals normal. Course of 7th nerve isnormal. Cochlea, vestibule, semicircular canals normal. IMPRESSION Bilateral fenestral otosclerosis. Thank you for letting us participate in the care of this patient. Forquestions regarding this report, please contact the number below. Alvarado Cuellar MD IMG CT ORDERABLES documented in this encounter Visit Diagnoses Diagnosis Otosclerosis, unspecified laterality documented in this encounter Care Teams Electromechanical Assembly Technician Relationship Specialty Start Date End Date Janice Christine MD [address] [place] [address] PCP - General 02/23/18 documented as of this encounter
--- OUTSIDE RECORDS SUMMARY | 2024-09-30 21:01 | XMS_ITS | Encounter Summary ---
Author Organization [facility] Address [facility] [place] [address] Care Team Providers Care Lead Radiation Therapist Name Role Phone Janice Christine MD Primary Care Provider [phone] Encounter Details Date Type Department Care Team (Latest Contact Info) Description 02/02/2021 3:44 PM EDT - 02/02/2021 11:59 PM EDT Hospital Encounter XRay at [address] [place] [address] Garry Lester, DPGiuliana [facility] [place] [address] Plantar fasciitis of left foot Discharge Disposition: Home Social History Tobacco Use [...] 2 times daily. 5 mL 3 10/29/2021 sildenafiL (VIAGRA) 25 mg Tablet Take by [...] for 7 days. 21 capsule 10/29/2021 11/05/2021 diclofenac EC (Voltaren) 75 mg Tablet, Delayed Release (E.C.) Take 1 tablet by mouth 2 times daily. 28 tablet 1 02/02/2021 03/09/2021 documented as of this encounter Plan of Treatment Not on file documented as of this encounter Procedures Procedure Name Priority Date/Time Associated Diagnosis Comments XR OS CALCIS LEFT (GENERIC) Routine 02/02/2021 4:09 PM EDT Plantar fasciitis of left foot documented in this encounter Results * XR OS Calcis [...] who have questions please contact the health career resource specialist that requested your imaging first. ? Narrative 02/02/2021 4:33 PM EDT EXAMINATION: XR [...] patients who have questions please contactthe health career resource specialist that requested your imaging first. Electronically signed by: Shane Ly MD, [facility]([phone]), at 02/02/2021 4:33 PM Garry Lester DPM IMG DX ORDERABLES documented in this encounter Visit Diagnoses Diagnosis Plantar fasciitis of left foot Plantar fascial fibromatosis documented in this encounter Care Teams Lead Radiation Therapist Relationship Specialty Start Date End Date Janice Christine MD [address] [place] [address] PCP - General 02/23/18 documented as of this encounter
--- OUTSIDE RECORDS SUMMARY | 2024-09-30 21:01 | XMS_ITS | Encounter Summary ---
Author Organization [facility] [place] [address] Care Team Providers Care Door Closer Name Role Phone Janice Christine MD Primary Care Provider [phone] Reason for Referral * Diagnostic Test (Routine) - Closed Specialty Diagnoses / Procedures Referred By Sean burgos Referred To Contact Radiology Diagnoses Otosclerosis, unspecified laterality Procedures CT Temporal Bone wo Contrast (Generic) Rock Parkinson Jr., MD [facility] [place] [address] [facility] [place] [address] Referral ID Status Reason Start Date Expiration Date V isits Requested Visits Authorized [id number] Closed Specialty Service Requested 11/24/2020 05/22/2021 1 1 Reason for Visit * Reason Comments Hearing Loss Wears AU HAs x 10 ye ars. * Consultation (Routine) - Closed Specialty Diagnoses / Procedures Referred By Sean burgos Referred To Contact Otolaryngology Diagnoses Mixed conductive and sensorineural hearing loss, bilateral Impacted cerumen, bilateral Unspecified otosclerosis, bilateral CONSIDERATION OF POSSIBLE STAPEDECTOMY Shabbir Au MD [address] [place] [address] [place] [address] Alvarado Cuellar MD [facility] [place] [address] Referral ID Status Reason Start Date Expiration Date Visits Re quested Visits Authorized [id number] Closed 10/21/2020 10/21/2021 1 1 Encounter Details Date Type Department Care Team (Latest Contact Info) Description 10/26/2020 3:20 PM EST Office [place] [address] Alvarado Cuellar MD [facility] [place] [address] Mixed conductive and sensorineural hearing loss of both ears; Tinnitus of both ears; Otosclerosis, unspecified laterality; H/O lymphoma Social History Tobacco Use Types Packs/Day Years [...] Sign Reading Time Taken Comments Blood Pressure 140/93 10/26/2020 3:29 PM EST Pulse 70 10/26/2020 3:29 PM EST Temperature 36.3 ??C (97.4 ??F) 10/26/2020 3:29 PM ES T Respiratory Rate 14 10/26/2020 3:29 PM EST Oxygen Saturation 100% 10/26/2020 3:29 PM EST Inhaled Oxygen Concentration - - Weight 91.1 kg (200 lb 14.4 oz) 10/26/2020 3:29 PM EST Height 182.9 cm (6') 10/26/2020 3:29 PM EST Body Mass Index 27.25 10/26/2020 3:29 PM EST documented in this encounter Progress Notes * Rock Parkinson Jr., MD - 10/26/2020 3:20 PM EST 10/26/20 3:55 PM [place], [place] [address] Office Patient Name: Agapito Ramirez Jr. Date of : 1970 PCP: Janice Christine MD HPI: Agapito Ramirez Jr. is a 50 y.o. [...] Active Problem List Diagnosis Date Noted ??? Lymphoma 03/26/2015 PAST HISTORY Past Medical History: Diagnosis Date ??? Lymphoma Past Surgical History: Procedure Laterality Date ??? THROAT SURGERY tonsil biopsy 02/2015 FAMILY HISTORY Family History Problem Relation Age of Onset ??? Thyroid Cancer Sister SOCIAL HISTORY Social History Tobacco Use ??? Smoking status: Never Smoker ??? Smokeless tobacco: Never Used Substance Use Topics ??? Alcohol use: No Alcohol/week: 0.0 standard drinks ALLERGIES No Known Allergies MEDICATIONS No current outpatient medications on file. No current facility-administered medications for this visit. ROS: Pertinent positive findings discussed above. No other findings on review of constitutional visual, cardiovascular, respiratory, gastrointestinal, genitourinary, musculoskeletal, dermatologic, neurological, psychiatric, endocrine, hematologic or immunologic systems. Physical Examination Vitals: Blood pressure (!) 140/93, pulse 70, temperature 36.3 ??C (97.4 ??F), temperature source Temporal, resp. rate 14, height 182.9 cm (6'), weight 91.1 kg (200 lb 14.4 oz), SpO2 100 %. General: Well dressed and well nourished. Breathing comfortably without stridor. No acute distress. Face: Full and symmetric facial movement. No dysmorphic facial features. Eyes: Periocular structures and conjunctiva healthy without lesions. Pupils are equal, round, and reactive to light. Extraocular movement is full and intact. No evidence of nystagmus. Ears: Auricles symmetric without lesions. Right ear: external auditory canal normal; tympanic membrane normal. Left ear: external auditory canal normal; tympanic membrane normal. Nose: Patent anteriorly with adequate airflow, healthy pink mucosa. Septum is midline without significant deviation. Inferior turbinates normal Mouth: Lips and gingiva pink, moist, without lesions. Dentition healthy. Tongue and floor of mouth soft without lesions or masses. Hard palate without lesions. Pharynx: Soft palate without lesions. Uvula is midline. Oropharynx symmetric. Neck: Soft, supple, without significant lymphadenopathy. Thyroid gland without masses or asymmetry.Trachea midline without deviation. Lungs: Clear to auscultation bilaterally without wheezes. Heart: Regular rate and rhythm without murmur. Neuro: Cranial nerves II-XII intact and symmetric. Responds appropriately to questions Psych: Normal mood and affect. - Hearing Tests: 10/21/20: mild high frequency SNHL bilaterally with maximal conductive loss bilaterally. REVIEW OF IMAGING STUDIES None ASSESSMENT 50yo with likely otosclerosis bilaterally. RECOMMENDATIONS -Stapedectomy. Otosclerosis handout given. -We'll do a CT scan of the temporal bone to rule out other causes of conductive loss and see him back in clinic for review before proceeding with surgery. Rock Parkinson Jr, MD Otolaryngology Attending Physician Addendum I have seen and examined the patient and reviewed the resident's history and I agree with the details as written. The assessment and plan were formulated in discussion with me and I agree with them as documented. Pertinent History: History of slowly progressive subjective hearing decline over at least the past 10 years. Wearing hearing aids successfully bilaterally for several years. Recently somewhat less effective for him, but also reports they are a nuisance for him and he would like to consider potential surgical options. No otalgia, otorrhea, h/o recurrent ear infections or prior ear surgery. Constant bilateral subjective tinnitus not particularly limiting. No dizziness or vertigo. No known FH early onset hearing loss. No significant head trauma history. H/o lymphoma with h/o XRT right H&N region. Talks on phone on the right. Pertinent Examination Findings: Normal otomicroscopic exam bilaterally. Audiogram 10/15/2020 with severe mixed HL with maximal CHL component. Bone conduction thresholds largely symmetric. Excellent bilateral discrimination. Acoustic reflexes not tested. Normal bilateral tympanometry. No recent relevant imaging. Impression: History and objective findings most congruent with suspected otosclerosis. I reviewed with the patient and his spouse the anatomy of the ear and the interpretation of the audiogram indicating a maximal conductive hearing loss bilaterally. I indicated that the provided history and objective findings are most consistent with otosclerosis. Therapeutic options were discussed,to include continued observation, with or without hearing aids, or surgery involving a middle ear exploration and probable stapedectomy. The major advantage of a hearing aid is that it has no risk to the hearing and generally gives goodresults with this type of conductive loss. I emphasized that patients with conductive deafness secondary to otosclerosis can be successful hearing aid users, with which the patient is well aware. I also went through the details of the stapedectomy procedure. I explained the following: approximately 85% of the time, the hearing is improved to within a 10 dB air bone gap and then illustrated this on the audiogram. About 10-15% of the time, the hearing improves, but to a lesser degree, and I illustrated that. About 2% of the time, the hearing gets worse, with a 1% chance of a total and complete hearing loss in the operated ear. An educational handout reinforcing these concepts was also provided to the patient. Specific surgical risks of stapedectomy include, but are not limited to, hearing loss that may be partial or total, temporary or permanent; change in taste (usually temporary); dizziness (usually temporary, but occasionally permanent); failure to improve hearing; delayed failure of prosthesis; perforation (hole) in eardrum; infection & bleeding; and rare risk of facial weakness or paralysis. The postoperative restrictions including no heavy lifting or straining for one week, no nose blowing or forceful sneezing for one week, no airplane travel for two weeks and the need to keep the ear completely dry for up to 6 weeks was outlined. Following discussion, the patient has expressed an interest in proceeding with surgery as outlined above. We further discussed that he is a candidate for surgery for either ear. He was uncertain at this time as to which ear he was most interested in proceeding with. We discussed consideration to the the right ear, as this is the ear he uses to talk on the phone with. However, this side is also the side for which he previously received XRT, and we discussed theoretic potential for increased riskof complications on this side. I advised that I am recommending CT temporal bone prior to scheduling. Given his long duration of hearing loss, findings may facilitate further preoperative counseling as well as pre-surgical planning. Patient and spouse in agreement. Plan: Will f/u approximately 3-4 weeks in conjunction with planned CT. Patient verbally expressed understanding and was in agreement with the plan as outlined above. Our contact information was provided should any significant questions, concerns or problems arise prior to planned follow-up. Thank you for this interesting consultation and for allowing us to participate in this patient's care. Alvarado Cuellar MD Otology / Neurotology Otolaryngology - Head & Neck Surgery [facility] documented in this encounter Plan of Treatment Not on file documented as of this encounter Results * CT Temporal Bone [...] bilateral Tinnitus of both ears Unspecified tinnitus Otosclerosis, unspecified laterality H/O lymphoma Personal history of other lymphatic and hematopoietic neoplasm Otosclerosis, unspecified laterality documented in this encounter Care Teams Door Closer Relationship Specialty Start Date End Date Janice Christine MD [address] [place] [address] PCP - General 02/23/18 documented as of this encounter
--- OUTSIDE RECORDS SUMMARY | 2024-09-30 21:01 | XMS_ITS | Encounter Summary ---
Author Organization [facility] [place] [address] Care Team Providers Care Loom Changer Name Role Phone Janice Christine MD Primary Care Provider [phone] Reason for Visit * Auth/Cert Specialty Diagnoses [...] Expiration Date Visits Re quested Visits Authorized [id number] 1 1 Encounter Details Date Type Department Care Team (Late st Contact Info) Description 10/29/2021 2:49 PM EST Anesthesia Event Main [place] [id number] Brandon Raygoza MD [facility] [place] [address] Neha Gatica MD [facility] [place] [address] Anesthesia Record Procedure Summary Procedure Name Responsible Anesthesiologist Anesthesia Start Time Anesthesia Stop Time STAPEDECTOMY -OTOMY, ESTABLISH OSSICULAR CONTINUITY (WRVU 12.03) (Left: Ear) Brandon Raygoza MD 10/29/21 1449 10/29/21 1800 Events Date Time Event Comment 10/29/2021 1449 AN Verify 1449 Start 1449 An Start Data 1500 An Induction 1502 An Intubation 1505 Anesthesia Ready 1536 Break/Relief In I assumed ca re for Break Relief before which we: 1. Identified the patient 2. Identified the responsible provider(s) 3. Reviewed the pertinent medical history 4. Discussed the surgical plan and course 5. Reviewed intra-op anesthesia management and issues during anesthesia 6. Set expectations for the relief (and/or post-procedure) period 7. Allowed opportunity for questions and acknowledgement of understanding Josseline Hooker CRNA 1549 Break/Relief Out 1615 Handoff Intra-procedure anesthesia care was transferred after review of the patient's history, current anesthetic/surgical status and procedural plan, anticipated issues and expected post-operative course (including disposition.) Brandon Raygoza MD 1658 Handoff Intra-procedure anesthesia care was transferred after review of the patient's history, current anesthetic/surgical status and procedural plan, anticipated issues and expected post-operative course (including disposition.) Robb Curtis CRNA 1742 Procedure Stop 1746 Extubation/LMA Out Patient s pontaneously ventilating; adequate tidal volumes ( >450 mL); regular respiratory rate & rhythm; minute ventilation > 5L/min; neuromuscular function intact as evidence by sustained tetanus. Oropharynx suctioned. Extubated without issue to 6L/min O2 via face mask. VSS. 1750 an stop data 1759 Recovery or ICU Handoff Corina ent care was transferred to the destination unit staff after review of the patient's medical history, current anesthetic/surgical status and plan, according to the Provider Handoff Checklist. 1800 Stop Spontaneous nhan tilation without issue. VSS. Full report given to FIRE SPRINKLER APPARATUS INSPECTOR. 11/01/2021 0756 Meds Name Total fentaNYL 250 mcg Propofol 300 mg ePHEDrine 20 mg Ondansetron 4 mg Dexamethasone 8 mg ceFAZolin (Ancef) 2 g in dextrose 5% 100 mL infusion 2 g Succinylcholine 200 mg Propofol INF 1,003.7 mg PHENYLephrine INF 4,210 mcg Lidocaine 4% LTA 2 mL Lactated Ringers 1,000 mL * Agents Name O2 Air N2O Sevoflurane (et) O2 Auxiliary Flowmeter 2 * Blood No blood administrations on file. Lines, Drains, and Airways Type Details Placement Removal Incision 10/29/21; 1532; Left ; ear 10/29/21 1532 by Elizabeth Echevarria RN (RETIRED) Peripheral IV Line - Single Lumen 10/29/21; 1217; median cubital vein (antecubital fossa), left; [id number]-[id number] catheter system; Anatomical Landmarks; 20 gauge; Yadira GORDON; distraction, tolerated well, appears comfortable; 03/01/22 (LDA Cleanup utility RA#[id number]); 1027 (LDA Cleanup utility RA#[id number]) 10/29/21 1217 by Konrad Weathers RN 03/01/22 1027 by Jarod Newby ETT Mask Ventilation: Ea sy (1); ETT Type: Cuffed, Oral; ETT Size: 7.5 mm; Mac Blade: 4; Notes: Asleep, Pre-O2, Stylette; Attempts: 1; Laryngoscopy Grade: 1; Secured at Teeth: 22 cm; Removal Date: 10/29/21; Removal Time: 17410/29/21 1502 by Robb Curtis DIGITAL MEDIA STRATEGIST 10/29/21 1749 by Kelsey Bradshaw CRNA Urethral Catheter 10/29/21; 1515; Surg faith longer than 2 hours, Physician order; indwelling double lumen catheter; latex, hydrophilic coated; 14; inserted at this facility; 1; 5; 10; other (see comments) (general anesthesia); drainage bag to dependent drainage; urethral catheter removed; 10/29/21; 1750 10/29/21 1515 by Elizabeth Echevarria RN 10/29/21 1750 by Elizabeth Echevarria, RN documented in this encounter Social History Tobacco Use Types Packs/Day Years Used Date Smoking Tobacco: Never Smokeless Tobacco: Never Alcohol Use Standard Drinks/Week Comments No 0 (1 standard drink = 0.6 oz pur e alcohol) Sex and Gender Information Value Date Recorded Sex Assigned at Not on file Gender Identity Not on file Sexual Orientation Not on file documented as of this encounter OR Notes * Anesthesia Postprocedure Evaluation - Brandon Raygoza MD - 10/29/2021 10:23 PM EST Department of Anesthesiology Post-procedure Note Patient: Agapito Ramirez Jr. Procedure Summary Date: 10/29/21 [facility] / [facility] Anesthesia Start: 1449 Anesthesia Stop: 1800 Procedures: STAPEDECTOMY -OTOMY, ESTABLISH OSSICULAR CONTINUITY (WRVU 12.03) (Left Ear) MODIFIER IRIDEX LASER (N/A ) FACIAL NERVE MONITORING, SETUP PERIPHERAL (WRVU 0.54) (N/A Face) MODIFIER,ENT MODERATE (N/A ) Diagnosis: Mixed conductive and sensorineural hearing loss of both ears Tinnitus of both ears Otosclerosis involving oval window, nonobliterative, bilateral (conductive hearing loss, left ear) Surgeons: Alvarado Cuellar MD Responsible Provider: Brandon Raygoza MD Anesthesia Type: Not recorded ASA Status: Not recorded All Anesthesia Providers: Anesthesiologist: Neha Gatica MD; Brandon Raygoza MD DIGITAL MEDIA STRATEGIST: Kelsey Bradshaw CRNA; Robb Curtis CRNA Vitals Value Taken Time BP 157/76 10/29/212001 Temp 37 ??C (98.6 ??F) 10/29/21 1758 Pulse 79 10/29/21 1833 Resp 14 10/29/21 1833 SpO2 95 % 10/29/21 2130 Pain Level 2 10/29/212044 Vitals shown include unvalidated device data. Patient Location: PACU/[facility] Level of Consciousness: Awake and Alert Pain Management: Satisfactory Analgesia PONV: None Cardiovascular Status: At Baseline and Hemodynamically Stable Respiratory Status: At Baseline and Room Air Postoperative Fluid Status: Intravascular EUvolemia Possible Anesthetic Complications: NONE apparent at time of evaluation Final Primary Anesthesia Type: General (The anesthetic type performed was the same as planned.) Comments: Brandon Raygoza MD * Anesthesia Preprocedure Evaluation - Neha Gatica MD - 10/28/2021 1:53 PM EST Pre-Anesthesia Evaluation for: Agapito Ramirez Jr. a 51 y.o. male. Procedure(s): STAPEDECTOMY -OTOMY, ESTABLISH OSSICULAR CONTINUITY (WRVU 12.03) MODIFIER IRIDEX LASER FACIAL NERVE MONITORING, SETUP PERIPHERAL (WRVU 0.54) MODIFIER,ENT MODERATE Patient Active Problem List Diagnosis Date Noted ??? Plantar fasciitis of left foot 10/28/2021 ??? Mixed conductive and sensorineural hearing loss of both ears 12/04/2020 ??? Tinnitus of both ears 12/04/2020 ??? Otosclerosis involving oval window, nonobliterative, bilateral 12/04/2020 ??? Lymphoma 03/26/2015 Past Medical History: Diagnosis Date ??? Lymphoma Past Surgical History: Procedure Laterality Date ??? THROAT SURGERY tonsil biopsy 02/2015 Social History Tobacco Use ??? Smoking status: Never Smoker ??? Smokeless tobacco: Never Used Substance Use Topics ??? Alcohol use: No Alcohol/week: 0.0 standard drinks Social History Substance and Sexual Activity Drug Use No No Known Allergies Medications: MAR and/or home medications have been reviewed. Physical Exam: Preprocedure Vitals Current as of 10/28/21 1353 No BP, pulse, respiration, SpO2, or temperature recorded. Height: 182.9 cm (6') (11/26/20) Weight: 115.7 kg (255 lb) (11/26/20) BMI: 34.58 IBW: 77.6 kg (171 lb 1.9 oz) Airway Assessment: Mallampati: II TM distance: >3 FB Neck ROM: full Cardiovascular Assessment: Rhythm: regular Pulmonary Assessment: unlabored breathing Dental Assessment: Misc Assessment: IV access: Peripheral line Last Filed Perioperative Cognitive Screening None Anesthesia Plan: ASA 2 general, with a(n) intravenous induction 51 year old male with a PMH significant for lymphoma, obesity and hearing loss who presents for stapedectomy. No problems with anesthesia in the past. NPO Non smoker Plan: GA Study Date: 02/26/2015 Pt. Type: Outpatient Tape: ?? Referring: Jacquie Plascencia Referring: DAVID Radiation Protection Engineer: Yaneth Arizmendi ?? Diagnosis:CPT Code(s): Echo Full (32133), Spectral Doppler (96205), Color Doppler (25234), Indication(s): Chemotherapy-baseline Rhythm: HR BP 121/67 ?? SUMMARY: ?? 1. The left ventricular chamber size is normal. Mild concentric left ventricular hypertrophy is observed. There is normal global left ventricular systolic function. The quantitative left ventricular ejection fraction by biplane Lantigua's method is 71%. Global longitudinal systolic strain = -19%. There are no left ventricular segmental wall motion abnormalities. Doppler assessment is consistent with normal left sided filling pressure. 2. The right ventricle is normal in size. Right ventricular global systolic function is normal. Pulmonary artery hypertension could not be assessed due to inadequate tricuspid regurgitation jet. 3. There is no hemodynamically significant valve disease. 4. See remainder of report for additional findings. ?? Region - Other Informed Consent: Anesthetic plan and risks discussed with patient. Plan discussed with DIGITAL MEDIA STRATEGIST. Anesthesia Screening documented in this encounter Plan of Treatment Not on file documented as of this encounter Visit Diagnoses Not on filedocumented in this encounter Administered Medications Inactive Administered Medications - up to 3 most recent administrations Medication Order MAR Action Action Date Dose Rate Site ceFAZolin (Ancef) 2 g in dextrose 5% 100 mL infusion 2 g, Intravenous, ONCE, 1 dose, On Mon10/29/21 at 1515, Administer over 30 Minutes, Indication for (Active or Suspected): Prophylaxis Given 10/29/2021 3:05 PM EST 2 g dexamethasone (Decadron) injection Intravenous, PRN, Starting on Mon10/29/21 at 1516, Until Mon10/29/21 at 1801, Anesthesia Intra-op, Routine Given 10/29/2021 3:33 PM EST 4 mg Given 10/29/2021 3:16 PM EST 4 mg ePHEDrine sulfate (5 mg/mL) multi-dose injection Intravenous, PRN, Starting on Mon10/29/21 at 1521, Until Mon10/29/21 at 1801, Anesthesia Intra-op, Routine Given 10/29/2021 3:54 PM EST 10 mg Given 10/29/2021 3:45 PM EST 5 mg Given 10/29/2021 3:21 PM EST 5 mg fentaNYL (pf) (50 mcg/mL) multi-dose injection Intravenous, PRN, Starting on Mon10/29/21 at 1500, Until Mon10/29/21 at 1801, Anesthesia Intra-op, Routine Given 10/29/2021 4:39 PM EST 50 mcg Given 10/29/2021 3:42 PM EST 50 mcg Given 10/29/2021 3:00 PM EST 150 mcg lactated ringers infusion Intravenous, CONTINUOUS PRN, Starting on Mon10/29/21 at 1449, Until Mon10/29/21 at 1801, Anesthesia Intra-op New Bag 10/29/2021 5:32 PM EST New Bag 10/29/2021 2:49 PM EST lidocaine (XYLOCAINE) 4 % external solution Intratracheal, PRN, Starting on Mon10/29/21 at 1502, Until Mon10/29/21 at 1801, Anesthesia Intra-op Given 10/29/2021 3:02 PM EST 2 mLs ondansetron (pf) (Zofran) (2 mg/mL) injection Intravenous, PRN, Starting on Mon10/29/21 at 1716, Until Mon10/29/21 at 1801, Anesthesia Intra-op, Routine Given 10/29/2021 5:16 PM EST 4 mg PHENYLephrine (Angel Luis-Synephrine) (80 mcg/mL) in sodium chloride 0.9% 250 mL infusion Intravenous, CONTINUOUS PRN, Starting on Mon10/29/21 at 1551, Until Mon10/29/21 at 1801, Anesthesia Intra-op, Routine Rate/Dose Change 10/29/2021 5:11 PM EST 30 mcg/min 22.5 mL/hr Rate/Dose Change 10/29/2021 4:12 PM EST 50 mcg/min 37.5 mL /hr Rate/Dose Change 10/29/2021 4:06 PM EST 40 mcg/min 30 mL/h r propofoL (Diprivan) (10 mg/mL) infusion Intravenous, CONTINUOUS PRN, Starting on Mon10/29/21 at 1513, Until Mon10/29/21 at 1801, Anesthesia Intra-op, Routine Rate/Dose Change 10/29/2021 5:05 PM EST 50 mcg/kg/min 34.71 mL/hr Rate/Dose Change 10/29/2021 3:58 PM EST 75 mcg/kg/min 52.0 65 mL/hr New Bag 10/29/2021 3:13 PM EST 50 mcg/kg/min 34.71 mL/h r propofoL (Diprivan) 10 mg/mL bolus injection (Anesthesia) Intravenous, PRN, Starting on Mon10/29/21 at 1500, Until Mon10/29/21 at 1801, Anesthesia Intra-op Given 10/29/2021 3:56 PM EST 50 mg Given 10/29/2021 3:44 PM EST 50 mg Given 10/29/2021 3:00 PM EST 200 mg succinylcholine (Anectine;Quelicin) (20 mg/mL) injection Intravenous, PRN, Starting on Mon10/29/21 at 1500, Until Mon10/29/21 at 1801, Anesthesia Intra-op, Routine Given 10/29/2021 3:00 PM EST 200 mg documented in this encounter Care Teams Loom Changer Relationship Specialty Start Date End Date Janice Christine MD [address] [place] [address] PCP - General 02/23/18 documented as of this encounter
--- OUTSIDE RECORDS SUMMARY | 2024-09-30 21:01 | XMS_ITS | Encounter Summary ---
Author Organization [facility] Address [facility] [place] [address] Care Team Providers Care Five Piece Expansion Maker Hand Name Role Phone Janice Christine MD Primary Care Provider [phone] Encounter Details Date Type Department Care Team (Latest Contact Info) Description 11/08/2021 10:40 AM EST Office Visit [place] [address] Alvarado Cuellar MD [facility] [place] [address] Otosclerosis involving oval window, nonobliterative, bilateral; Mixed conductive and sensorineural hearing loss of both ears; Tinnitus of both ears; History of stapedectomy Social [...] - Inhaled Oxygen Concentration - - Weight 113.4 kg (250 lb) 11/08/2021 11:14 AM EST Height 182.9 cm (6') 11/08/2021 11:14 AM EST Body Mass Index 33.91 11/08/2021 11:14 AM EST documented in this encounter Progress Notes * Alvarado Cuellar MD - 11/08/2021 10:40 AM EST 11/10/21 5:02 PM [facility] [address] [place], [place] [address] Office Patient Name: Agapito Ramirez Jr. Date of : 1970 PCP: Janice Christine MD Interval History: 11/08/2021: F/u s/p left laser stapedotomy 10/29/2021. [...] it was felt it would not likely change management facilitator. Suspected probable sterile labyrinthitis with associated pneumolabyrinth, [...] 0.54) performed by Alvarado Cuellar MD at [facility] MAIN OR ??? PRO STAPEDECTOMY Left 10/29/2021 STAPEDECTOMY -OTOMY, ESTABLISH OSSICULAR CONTINUITY (WRVU 12.03) performed by Alvarado Cuellar MD at [facility] MAIN OR ??? THROAT SURGERY tonsil biopsy 02/2015 FAMILY HISTORY Family History Problem Relation Age of Onset ??? Thyroid Cancer Sister SOCIAL HISTORY Social History Tobacco Use ??? Smoking status: Never Smoker ??? Smokeless tobacco: Never Used Substance Use Topics ??? Alcohol use: No Alcohol/week: 0.0 standard drinks ALLERGIES No Known Allergies MEDICATIONS Current Outpatient Medications Medication Sig Dispense Refill ??? meclizine (Antivert) 25 mg Tablet Take 1 tablet by mouth 3 times daily as needed for Dizziness for up to 14 days. 42 tablet 0 ??? ondansetron ODT (Zofran-ODT) 4 mg Tablet, Rapid Dissolve Take 1 tablet by mouth every 8 hours as needed for Nausea for up to 14 doses. 14 tablet 0 ??? docusate sodium (Colace) 50 mg Capsule Take 2 capsules by mouth 2 times daily for 14 days. 56 capsule 0 ??? ofloxacin (Floxin) 0.3 % Drops Place 4 drops into the left ear 2 times daily. 5 mL 3 ??? diclofenac EC (Voltaren) 75 mg Tablet, Delayed Release (E.C.) Take 1 tablet by mouth 2 times daily. 28 tablet 1 ??? sildenafiL (VIAGRA) 25 mg Tablet Take by mouth. No current facility-administered medications for this visit. ROS: Pertinent positive findings discussed above. No other findings on review of constitutional visual, cardiovascular, respiratory, gastrointestinal, genitourinary, musculoskeletal, dermatologic, neurological, psychiatric, endocrine, hematologic or immunologic systems. Physical Examination Vitals: Height 182.9 cm (6'), weight 113.4 kg (250 lb). General: Alert and oriented. No acute [...] Left Ear: Auricle normal. External auditory canal with dried blood and packing over canal incision site. Drum is intact, remains edematous. Middle ear not optimally visualized but appears well aerated. Fistula test deferred today. REVIEW OF IMAGING STUDIES CT TEMPORAL BONE [...] fenestral otosclerosis. ?? ASSESSMENT / PLAN: 50yo with bilateral fenestral otosclerosis confirmed by CT with severe mixed HL with max CHL component bilaterally. Patient now approximately 10 days s/p left stapedectomy. Post-op course complicated by sterile labyrinthitis requiring 2 day hospital admission with IV steroid treatment. Residual dysequilibrium continues to improve since hospital discharge. Now driving and back at workagain. Successful hearing outcome to date. Patient very pleased with hearing results since surgery. Examination findings and audiogram results reviewed. Continue precautions regarding no heavy lifting or straining as discussed at least one more week. Also discussed no nose blowing or forceful sneezing for one additional week, and no airplane travel for two weeks. He will continue to keep the ear completely dry until next planned follow-up. May discontinue gtts, but will restart one week prior to next visit to aid in packing removal. Discussed that I anticipate his residual dysequilibrium will continue to slowly improve with time, but this may take several weeks, sometimes longer. Thankfully, he is already reporting marked improvements. Has vestibular PT c/s pending 11/29/2021 at time of next follow-up with us. Despite recent improvements in balance functioning, I recommended he keep this appointment. Has concomitant appointment with me with repeat audiogram same day, 11/29/2021. Early return precautions were discussed at length. Patient verbally expressed understanding and was in agreement with the plan as outlined above. Our contact information was provided should any significant questions, concerns or problems arise prior to planned follow-up. 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
--- OUTSIDE RECORDS SUMMARY | 2024-09-30 21:01 | XMS_ITS | Encounter Summary ---
Author Organization [facility] Address [facility] [place] [address] Care Team Providers Care Commercial Leasing Agent Name Role Phone Janice Christine MD Primary Care Provider [phone] Reason for Visit * Auth/Cert Specialty Diagnoses [...] Expiration Date Visits Re quested Visits Authorized [id number] 1 1 Encounter Details Date Type Department Care Team (Latest Contact Info) Description 11/01/2021 12:15 PM EST Office Visit Audiology at [address] [address] Madina Bustos AUD [facility] [place] [address] Mixed conductive and sensorineural hearing loss, bilateral; Dizziness Social History Tobacco Use Types Packs/Day Years [...] Progress Notes * Madina Bustos AUD - 11/01/2021 12:15 PM EST [place] [address] Agapito Ramirez Jr. was seen on 11/01/2021 for an audiologic evaluation at the request of Alvarado Cuellar MD in Otolaryngology. Please refer to the scanned audiogram listed under Procedures for findings, impressions and recommendations. Varun Alba Clinical Team Leader/Research Psychologist [facility] [address] documented in this encounter Plan of Treatment Not on file documented as of this encounter Procedures Procedure Name Priority Date/Time Associated Diagnosis Comments COMPREHENSIVE HEARING TEST Routine 11/01/2021 12:22 PM EST documented in this encounter Results * Comprehensive hearing test (11/01/2021 12:22 PM EST) 11/01/2021 12:2 2 PM EST Narrative [facility]UD[facility] - 11/01/2021 12:22 PM EST RECOMMENDATIONS: -Follow-up for medical management as per Dr. Cuellar -Audiologic re-evaluation as per Dr. Cuellar or sooner if concerns arise Procedure Note Unknown - 11/01/2021 RECOMMENDATIONS: -Follow-up for medical management as per Dr. Cuellar -Audiologic re-evaluation as per Dr. Cuellar or alex if concerns arise Madina NAIR AUDIOLOGY SERVI JOHN ORDERABLES [facility] documented in this encounter Visit Diagnoses Diagnosis Mixed conductive and sensorineural hearing loss, bilateral Mixed hearing loss, bilateral Dizziness Dizziness and giddiness documented in this encounter Care Teams Commercial Leasing Agent Relationship Specialty Start Date End Date Janice Christine MD [address] [place] [address] PCP - General 02/23/18 documented as of this encounter
--- OUTSIDE RECORDS SUMMARY | 2024-09-30 21:01 | XMS_ITS | Encounter Summary ---
[place] [address] Care Team Providers Care Mechanical Design Engineer Facilities Name Role Phone Janice Christine MD Primary Care Provider [phone] Encounter Details Date Type Department Care Team (Late st Contact Info) Description 08/29/2018 Orders Only Hematology/Oncology at [address] [phone] Britney Swanson APRN Follicular lymphoma, unspecified follicular lymphoma type, unspecified body region Social History Tobacco Use Types Packs/Day Years [...] as of this encounter Visit Diagnoses Diagnosis Follicular lymphoma, unspecified follicular lymphoma type, unspecified body region documented in this encounter Care Teams Mechanical Design Engineer Facilities Relationship Specialty Start Date End Date Janice Christine MD [address] [place] [address] PCP - General 02/23/18 documented as of this encounter
--- OUTSIDE RECORDS SUMMARY | 2024-09-30 21:01 | XMS_ITS | Encounter Summary ---
Author Organization [facility] Address [facility] [place] [address] Care Team Providers Care Welding Equipment Repairer Supervisor Name Role Phone Janice Christine MD Primary Care Provider [phone] Encounter Details Date Type Department Care Team (Latest Contact Info) Description 11/26/2020 3:00 PM EST Office [place] [address] Alvarado Cuellar MD [facility] [place] [address] Mixed conductive and sensorineural hearing loss of both ears (Primary Dx); Tinnitus of both ears; Otosclerosis involving oval window, nonobliterative, bilateral; H/O lymphoma Social History Tobacco Use Types [...] - - Weight 115.7 kg (255 lb) 11/26/2020 3:04 PM EST Height 182.9 cm (6') 11/26/2020 3:04 PM EST Body Mass Index 34.58 11/26/2020 3:04 PM EST documented in this encounter Progress Notes * Alvarado Cuellar MD - 11/26/2020 3:00 PM EST 11/30/20 7:37 AM [place], [place] [address] Office Patient Name: Agapito Ramirez Jr. Date of : 1970 PCP: Janice Christine MD Interval History: 11/26/2020: History of slowly progressive subjective hearing [...] otosclerosis. HPI: Agapito Ramirez Jr. is a 50 [...] List Diagnosis Date Noted ??? Lymphoma 03/26/2015 Resolved Hospital Problems No [...] (6'), weight 115.7 kg (255 lb). General: Well dressed and well nourished. Breathing [...] conductive loss bilaterally. REVIEW OF IMAGING STUDIES CT TEMPORAL BONE [...] ?? IMPRESSION Bilateral fenestral otosclerosis. ?? ASSESSMENT 50yo with bilateral fenestral otosclerosis confirmed by CT with severe mixed HL with max CHL component bilaterally. Bone conduction thresholds largely symmetric. Excellent bilateral discrimination. I reviewed again with the patient the anatomy of the ear and the interpretation of the audiogram indicating a maximal conductive hearing loss bilaterally. I indicated that the provided history and objective findings are most consistent with otosclerosis. Therapeutic options were discussed, to include continued observation, with or without hearing [...] An educational handout reinforcing these concepts was previously provided to the patient. Specific surgical risks [...] for up to 6 weeks was outlined. PLAN Following discussion, the patient has expressed an interest in proceeding with surgery as outlined above. We further discussed that he is a candidate for surgery for either ear. Following discussionstoday, he is electing to proceed with stapedectomy for the left ear. Patient verbally expressed understanding and was in agreement with the plan as outlined above. Our contact information was provided should any significant questions, concerns or problems arise prior to planned follow-up. Alvarado Cuellar MD Otology / Neurotology Otolaryngology - Head & Neck Surgery [facility] documented in this encounter Plan of Treatment Not on file documented as of this encounter Visit Diagnoses Diagnosis Mixed conductive and sensorineural hearing loss of both ears- Primary Mixed hearing loss, bilateral Tinnitus of both ears Unspecified tinnitus Otosclerosis involving oval window, nonobliterative, bilateral H/O lymphoma Personal history of other lymphatic and hematopoietic neoplasm documented in this encounter Care Teams Welding Equipment Repairer Supervisor Relationship Specialty Start Date End Date Janice Christine MD [address] [place] [address] PCP - General 02/23/18 documented as of this encounter
--- OUTSIDE RECORDS SUMMARY | 2024-09-30 21:01 | XMS_ITS | Encounter Summary ---
Author Organization [facility] Address [facility] [place] [address] Care Team Providers Care Customer Service Driver Name Role Phone Janice Christine MD Primary Care Provider [phone] Reason for Visit * Reason Comments Plantar Fasciitis Encounter Details Date Type Department Care Team (Late st Contact Info) Description 05/05/2021 3:15 PM EDT [place] [address] Garry Lester, [place] [address] Plantar fasciitis of left foot Social History [...] Progress Notes * Garry Lester DPM - 05/05/2021 3:15 PM EDT Podiatry Follow-Up Note Name: Agapito Ramirez Jr. Date of Service: 05/05/2021 SUBJECTIVE Chief complaint: Agapito Ramirez Jr. is a 50 y.o. male, who returns to podiatry for follow-up on left heel pain. The patient reports he is now consistently wearing the Powerstep inserts. The heel is feeling better. Has cut down to 1 diclofenac 75 mg tablet a day. There were no vitals taken for this visit. Objective Dorsalis Pedis pulses are palpable. Posterior Tibial pulses are palpable The patient has decreased tenderness with palpation around the medial tubercle of the left calcaneus. No erythema or edema.. Assessment Plantar fasciitis left foot, slowly improving. Plan Continue in prefabricated orthotics. I built up the longitudinal arch on the left orthotic. Follow-up in 6 weeks. Garry Lester DPM Cereal Popper, [facility] documented in this encounter Plan of Treatment Not on file documented as of this encounter Visit Diagnoses Diagnosis Plantar fasciitis of left foot Plantar fascial fibromatosis documented in this encounter Care Teams Customer Service Driver Relationship Specialty Start Date End Date Janice Christine MD [address] [place] [address] PCP - General 02/23/18 documented as of this encounter
--- OUTSIDE RECORDS SUMMARY | 2024-09-30 21:01 | XMS_ITS | Encounter Summary ---
[place] [address] Care Team Providers Care Odd Job Laborer Name Role Phone Janice Christine MD Primary Care Provider [phone] Encounter Details Date Type Department Care Team (Late st Contact Info) Description 06/21/2021 Telephone [place] [phone] Dari Delgado Social History Tobacco Use Types Packs/Day Years [...] encounter Miscellaneous Notes * Telephone Encounter - Ashley Cruz - 09/08/2021 10:09 AM EST New surgery date is 10/29 Thank you Ashley * Telephone Encounter - Dari Delgado - 06/21/2021 1:57 PM EDT NEW SURGERY DATE IS 10/11/21 PLEASE RESCHEDULED F/U APPOINTMENTS NEEDED. THANK YOU. NEW SURGERY DATE IS 08/10/21. PLEASE RESCHEDULE F/U APPOINTMENTS NEEDED. THANK YOU. Alcides, Patient is scheduled to have surgery on 07/30/2021 and the packet has been mailed to the verified address on file. Follow up appointment is as follows: 1 week with nurse, then 4-6 weeks Thank you! documented in this encounter Plan of Treatment Not on file documented as of this encounter Visit Diagnoses Not on filedocumented in this encounter Care Teams Odd Job Laborer Relationship Specialty Start Date End Date Janice Christine MD [address] [place] [address] PCP - General 02/23/18 documented as of this encounter
--- OUTSIDE RECORDS SUMMARY | 2024-09-30 21:01 | XMS_ITS | Encounter Summary ---
Author Organization [facility] Address [facility] [place] [address] Care Team Providers Care Senior Software Analyst Name Role Phone Janice Christine MD Primary Care Provider [phone] Encounter Details Date Type Department Care Team (Late st Contact Info) Description 02/28/2018 3:30 PM EDT Office Visit Hematology/Oncology at [address] [phone] Jacquie Plascencia MD [facility] [address] [place] [address] Diffuse large B-cell lymphoma of lymph nodes [...] Sign Reading Time Taken Comments Blood Pressure 130/78 02/28/2018 3:43 PM EDT Pulse 79 02/28/2018 3:43 PM EDT Temperature 36.9 ??C (98.4 ??F) 02/28/2018 3:43 PM ED T Respiratory Rate 16 02/28/2018 3:43 PM EDT Oxygen Saturation 98% 02/28/2018 3:43 PM EDT Inhaled Oxygen Concentration - - Weight 115.7 kg (255 lb) 02/28/2018 3:43 PM EDT Height 182.9 cm (6' 0.01) 02/28/2018 3:43 PM ED T Body Mass Index 34.58 02/28/2018 3:43 PM EDT documented in this encounter Progress Notes * Jacquie Plascencia MD - 02/28/2018 3:30 PM EDT Hematology Clinic [facility] [place] [address] FOLLOW-UP PATIENT EVALUATION PROBLEM LIST: Patient Active [...] He's here for his regular check. Working [employer]- 2 jobs. Feeling well. Full energy has returned. No dysphagia. No unusual pains adenopathy or B symptoms. He continues to do quite well. Recently saw Dr Rucker [facility] for spermatocele - s/p resection 08/31/17. No B symptoms. He has no complaints [...] have been marked as taking for the 02/28/18 encounter (Office Visit) Jacquie Fields MD. Allergies: No Known Allergies INTERIM SOCIAL HISTORY Changes in job, home situation, tobacco or alcohol use: see HPI PHYSICAL EXAM BP 130/78 (Patient Position: Sitting) Pulse 79 Temp 36.9 ??C (98.4 ??F) (Oral) Resp 16 Ht 182.9 cm (6' 0.01) Wt 115.7 kg (255 lb) SpO2 98% BMI 34.58 kg/m2 Body surface area is 2.42 meters squared. [...] or chest wall tenderness. LABORATORY STUDIES WBC 6.65 H/H 15.0/43 Plts 222 CMP within normal limits LDH Not performed. RADIOLOGY STUDIES REVIEWED: Ct scan Of Neck and Chest done in March 2017 which was negative. ASSESSMENT/PLAN: DLBCL - Left Tonsil and cervical LN - he is s/p C#3 [facility] with negative PET scan and then consolidative XRT. He completed his radiation therapy in May 2015. He was PET negative in September 2015.He returns today for his regular follow-up. He had a CT scan last week of neck and chest at [facility] which showed no adenopathy. Mr Ramirez is now almost 3 years s/p completion of his chemotherapy, and his radiation therapy. He looks great. His IPI score was 0. He has a very low risk for recurrence. We can now advance his f/u to every 6 months with labs and appts up until his 5 year nik which is May 2020. We will order scans only if clinically indicated. 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
--- OUTSIDE RECORDS SUMMARY | 2024-09-30 21:01 | XMS_ITS | Encounter Summary ---
Author Organization [facility] Address [facility] [place] [address] Care Team Providers Care Shirring Machine Operator Automatic Name Role Phone Janice Christine MD Primary Care Provider [phone] Reason for Visit * Reason Comments Plantar Fasciitis Encounter Details Date Type Department Care Team (Late st Contact Info) Description 01/05/2021 11:00 AM EDT [place] [address] Garry Lester, [place] [address] Plantar fasciitis of left foot Social History [...] Progress Notes * Garry Lester DPM - 01/05/2021 11:00 AM EDT Podiatry Follow-Up Note Name: Agapito Ramirez Jr. Date of Service: 01/05/2021 SUBJECTIVE Chief complaint: Agapito Ramirez Jr. is a 50 y.o. male, who returns to podiatry for follow-up on left heel pain the patient reports initially the heel felt quite good. It has slid back some. Finds a removable foot strap helpful.. There were no vitals taken for this visit. Objective Dorsalis Pedis pulses are palpable bilaterally. Posterior Tibial pulses are palpable bilaterally The patient has continued pain with palpation around the medial tubercle of the left calcaneus. No erythema or edema.. Assessment Plantar fasciitis left foot. Plan Second in a series of injections of 1/2 cc of triamcinolone 40 and 2% lidocaine plain around the medial tubercle of the left calcaneus. Continue in removable foot straps. Follow-up in 3 to 4 weeks. Garry Lester DPM Broadband Technician, [facility] documented in this encounter Plan of Treatment Not on file documented as of this encounter Visit Diagnoses Diagnosis Plantar fasciitis of left foot Plantar fascial fibromatosis documented in this encounter Care Teams Shirring Machine Operator Automatic Relationship Specialty Start Date End Date Janice Christine MD [address] [place] [address] PCP - General 02/23/18 documented as of this encounter
--- OUTSIDE RECORDS SUMMARY | 2024-09-30 21:01 | XMS_ITS | Encounter Summary ---
Author Organization [facility] Address [facility] [address] Care Team Providers Care Automotive Mechanical Engineer Name Role Phone Janice Christine MD Primary Care Provider [phone] Reason for Visit * Reason Comments Follow-up Denies otalgia. Hear ing and balance is pretty good lately. Encounter Details Date Type Department Care Team (Latest Contact Info) Description 11/29/2021 9:40 AM EST Office [place] [address] Alvarado Cuellar MD [facility] [place] [address] Otosclerosis involving oval window, nonobliterative, bilateral; Mixed [...] - - Weight 115.7 kg (255 lb) 11/29/2021 9:40 AM EST Height 182.9 cm (6') 11/29/2021 9:40 AM EST Body Mass Index 34.58 11/29/2021 9:40 AM EST documented in this encounter Progress Notes * Alvarado Cuellar MD - 11/29/2021 9:40 AM EST 11/29/21 10:43 AM [place] [id number] Office Patient Name: Agapito Ramirez Jr. Date of : 1970 PCP: Janice Christine MD Interval History: 11/29/2021: F/u left stapes surgery 10/29/2021. Doing [...] congruent with bilateral fenestral otosclerosis. HPI: Agapito Giordano James is a 51 y.o. year old male [...] 0.54) performed by Alvarado Cuellar MD at [facility] MAIN OR ??? PRO STAPEDECTOMY Left 10/29/2021 STAPEDECTOMY -OTOMY, ESTABLISH OSSICULAR CONTINUITY (WRVU 12.03) performed by Alvarado Cuellar MD at [facility] MAIN OR ??? THROAT SURGERY tonsil biopsy 02/2015 FAMILY HISTORY Family History Problem Relation Age of Onset ??? Thyroid Cancer Sister SOCIAL HISTORY Social History Tobacco Use ??? Smoking status: Never Smoker ??? Smokeless tobacco: Never Used Substance Use Topics ??? Alcohol use: No Alcohol/week: 0.0 standard drinks ALLERGIES No Known Allergies MEDICATIONS Current Outpatient Medications Medication Sig Dispense Refill ??? predniSONE (Deltasone) 20 mg Tablet Take 3 tabs by mouth daily for 7 days (Patient not taking: Reported on 11/29/2021) 21 tablet 0 ??? ondansetron ODT (Zofran-ODT) 4 mg Tablet, Rapid Dissolve Take 1 tablet by mouth every 8 hours as needed for Nausea for up to 14 doses. (Patient not taking: Reported on 11/29/2021) 14 tablet 0 ??? ofloxacin (Floxin) 0.3 % Drops Place 4 drops into the left ear 2 times daily. (Patient not taking: Reported on 11/29/2021) 5 mL 3 ??? diclofenac EC (Voltaren) 75 mg Tablet, Delayed Release (E.C.) Take 1 tablet by mouth 2 times daily. (Patient not taking: Reported on 11/29/2021) 28 tablet 1 ??? sildenafiL (VIAGRA) 25 [...] Left Ear: Auricle normal. External auditory canal cleared of remnant dry bloody crust and dried packing. Drum is intact. Middle ear appears well aerated. Normal TM [...] CHL component bilaterally. Patient s/p left stapedectomy 10/29/2021 Post-op course complicated by suspected sterile labyrinthitis requiring 2 day hospital admission with IV steroid treatment. Residual dysequilibrium appears resolved. Patient with no current balance concerns. Examination findings and audiogram results reviewed. Hearing significantly improved s/p surgery. Patient is happy with his hearing outcome. No restrictions at this juncture. Anticipate some continued modest improvements in hearing on left with time and continued healing. Plan f/u 3 months with repeat AE. Early return precautions were discussed. Patient verbally expressed understanding and was in agreement with the plan as outlined above. 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
--- OUTSIDE RECORDS SUMMARY | 2024-09-30 21:01 | XMS_ITS | Encounter Summary ---
Author Organization [facility] Address [facility] [place] [address] Care Team Providers Care Patternator Name Role Phone Janice Christine MD Primary Care Provider [phone] Reason for Referral * Physical Therapy (Routine) - Closed Specialty Diagnoses / Procedures Referred By Sean burgos Referred To Contact Physical Therapy Diagnoses Plantar fasciitis of left foot Garry Lester DPM [facility] [place] [address] Payal Szymanski, PT [facility] PHYSICAL MEDICINE & [place] [address] Referral ID Status Reason Start Date Expiration Date V isits Requested Visits Authorized [id number] Closed Evaluate and Treat 10/12/2021 10/12/2022 30 30 Reason for Visit * Reason Comments Plantar Fasciitis Encounter Details Date Type Department Care Team (Late st Contact Info) Description 10/12/2021 4:00 PM EST Office Visit Podiatry at [facility] [place] [address] Garry Lester DPM [facility] [place] [address] Plantar fasciitis of left foot Social History [...] Progress Notes * Garry Lester DPM - 10/12/2021 4:00 PM EST Podiatry Follow-Up Note Name: Agapito Ramirez Jr. Date of Service: 10/12/2021 SUBJECTIVE Chief complaint: Agapito Ramirez Jr. is a 51 y.o. male, who returns to podiatry for follow-up left heel pain. The patient reports it continues to bother him unless he takes 1 diclofenac tablet a day.He can skip a day if he knows he is not going to be active. Wears his prefabricated orthotics and supportive shoes most of the time. There were no vitals taken for this visit. Objective Dorsalis Pedis pulses are palpable. Posterior Tibial pulses are palpable. The patient has continued tenderness with palpation of the medial tubercle of the left calcaneus. No erythema or edema. No pain with compression of the calcaneus.. Assessment Recalcitrant Planter fasciitis left foot. Plan I again injected 1/2 cc of Kenalog 40 [facility] #[id number] 9-1 and 2% lidocaine plain around the medial tubercle of the left calcaneus. I put in a referral to Payal Szymanski for evaluation and fabrication of custom molded orthotics. Continue in supportive shoes and prefabricated orthotics for the moment. Garry Lester DPM Rubber Goods Supervisor, [facility] documented in this encounter Plan of Treatment Scheduled Referrals Name Type Priority Associated Diagnoses Orde r Schedule Referral to Physical Therapy Outpatient Referral Routine Plantar fasciitis of left foot Ordered: 10/12/2021 documented as of this encounter Visit Diagnoses Diagnosis Plantar fasciitis of left foot Plantar fascial fibromatosis documented in this encounter Care Teams Patternator Relationship Specialty Start Date End Date Janice Christine MD [address] [place] [address] PCP - General 02/23/18 documented as of this encounter
--- OUTSIDE RECORDS SUMMARY | 2024-09-30 21:01 | XMS_ITS | Encounter Summary ---
Author Organization [facility] Address [facility] [place] [address] Care Team Providers Care It Service Continuity Supervisor Name Role Phone Janice Christine MD Primary Care Provider [phone] Encounter Details Date Type Department Care Team (Latest Contact Info) Description 07/20/2021 8:30 AM EDT TH Visit (TeleHealth) [place] [address] Alvarado Cuellar MD [facility] [place] [address] Mixed conductive and sensorineural hearing loss of [...] as of this encounter Progress Notes * Alvarado Cuellar MD - 07/20/2021 8:30 AM EDT 07/20/21 8:38 AM [place], [place] [address] Office Patient Name: Agapito Ramirez Jr. Date of : 1970 PCP: Janice Christine MD Interval History: 07/14/2021: F/u mixed hearing loss and presumptive [...] loss. Hx of B cell lymphoma in 2015 that he has now recovered from. PROBLEM LIST Patient Active Problem List Diagnosis Date Noted ??? Mixed conductive and sensorineural hearing loss [...] Outpatient Medications Medication Sig Dispense Refill ??? diclofenac EC [...] hematologic or immunologic systems. Physical Examination Vitals: There were no vitals taken for this visit. General: Well dressed and well nourished. Breathing [...] the patient is well aware. I also again went through the details of the stapedectomy [...] up to 6 weeks was outlined. PLAN Patient desiring to proceed with surgery as outlined above. Scheduled for next month. We had discussed that he is a candidate for surgery for either ear. He is electing to proceed with stapedectomy for the left ear. Patient verbally expressed understanding and was in agreement with the plan as outlined above. Our contact information was provided should any significant questions, concerns or problems arise prior to planned follow-up. Alvarado Cuellar MD Otology / Neurotology Otolaryngology - Head & Neck Surgery [facility] documented in this encounter Plan of Treatment Not on file documented as of this encounter Visit Diagnoses Diagnosis Mixed conductive and sensorineural hearing loss of both ears Mixed hearing loss, bilateral Tinnitus of both ears Unspecified tinnitus Otosclerosis involving oval window, nonobliterative, bilateral H/O lymphoma Personal history of other lymphatic and hematopoietic neoplasm documented in this encounter Care Teams It Service Continuity Supervisor Relationship Specialty Start Date End Date Janice Christine MD [address] [place] [address] PCP - General 02/23/18 documented as of this encounter
--- OUTSIDE RECORDS SUMMARY | 2024-09-30 21:01 | XMS_ITS | Encounter Summary ---
Author Organization [facility] Address [facility] [place] [address] Care Team Providers Care Combination Building Inspector Name Role Phone Janice Christine MD Primary Care Provider [phone] Reason for Visit * Physical Therapy (Routine) - Closed Specialty Diagnoses / Procedures Referred By Sean burgos Referred To Contact Physical Therapy Diagnoses Plantar fasciitis of left foot Garry Lester DPM [facility] [place] [address] Payal Szymanski, PT [facility] PHYSICAL MEDICINE & [place] [address] Referral ID Status Reason Start Date Expiration Date V isits Requested Visits Authorized [id number] Closed Evaluate and Treat 10/12/2021 10/12/2022 30 30 Encounter Details Date Type Department Care Team (Late st Contact Info) Description 10/28/2021 12:30 PM EST Office Visit Physical Therapy at [facility] [address] [place] [address] Payal Szymanski, PT [facility] PHYSICAL [place] [facility] [place] [address] Plantar fasciitis of left foot Social History [...] encounter Miscellaneous Notes * Initial Evaluation - Nessa, Payal A, PT - 10/28/2021 12:30 PM EST Orthosis Initial Evaluation Note: Outpatient Date of Exam/First Treatment: 10/28/2021 Date of onset: 2014 Referring Provider: Garry Lester DPM Primary Insurance: Payor: [employer] [place] / Plan[place] / Product Type: *No Producttype* / Diagnosis and Pertinent Co-morbidities affecting Plan of Care: ICD-10-CM 1. Plantar fasciitis of left foot M72.2 CURRENT HISTORY / PATIENT INFORMATION: Agapito Ramirez Jr. is a 51 y.o. male referred to physical therapy for left foot pain. Per referring provider from recent November 2020 initial note: [Patient has a] chief complaint of left heel pain. This has been a problem for about 3 years. Reports pain is most severe following periods of rest. Has been icing the heel. Saw spice grinder in the past. Received 1 cortisone injection that helped for a short period of time. Discomfort interfering with day-to-day activities. 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 He is on his feet a lot. ?? 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 We discussed considering custom orthotics as an intervention and he is interested as his prefabricated arch supports do not seem sufficient. Medications/Active Problem List: refer to electronic medical record Prior Level of Function: standing and walking ADLs at work and home without difficulty Functional Limitations: as above [x] See Prior level of function for limitations Pain: at best:0/10; at worst: 6/10 (within the last 2 weeks) Participation in sports (types): Hiking/walking dog Type of Participation: casual/recreational Biometrics: Height: Ht Readings from Last 1 Encounters: 11/26/20 182.9 cm (6') Weight: Wt Readings from Last 1 Encounters: 10/29/21 115.7 kg (255 lb) Shoe type: slip-on Skechers Shoe size: 10 1/2 Men x Women Children Heel height: 1 X 2 3 BIOMECHANICAL EXAMINATION: Foot Morphology off-WB: R ARCH [x] High arch [] Medium arch [] Low arch L ARCH [x] High arch [] Medium arch [] Low arch Comments: Foot Morphology WB: R ARCH [] High arch [x] Medium arch [] Low arch L ARCH [] High arch [x] Medium arch [] Low arch Comments: Foot Motions: R FOOT [] Loose [] Tight / Rigid [x] Within Normal Limits L FOOT [] Loose [] Tight / Rigid [x] Within Normal Limits Comments: Rearfoot more rigid b/l Ankle Dorsiflexion: (PROM) R FOOT (deg) [x] 10 or More [] 7-8 [] 5-6 [] 3-4 or Less L FOOT (deg) [] 10 or More [] 7-8 [x] 5-6 [] 3-4 or Less Comments: Hallux Dorsiflexion: (PROM) R FOOT (deg) [] 65 [x] 45 [] 25 [] None or less L FOOT (deg) [] 65 [x] 45 [] 25 [] None or less Comments: First Metatarsal Segment: R 1st Ray [] Flexible [x] Semi-Rigid [] Rigid L 1st Ray (deg) [] Flexible [x] Semi-Rigid [] Rigid Comments: First Ray Position: R 1st Ray [] Normal [x] Plantarflexed [] Dorsiflexed L 1st Ray (deg) [] Normal [x] Plantarflexed [] Dorsiflexed Comments: Leg Length Discrepancy: Apparent: (Umb - Med Mal) Visually Equal Leg Length on both sides [x] Comments: Callus Location: Right severe pinch 5th MTH; mod great toe pinch and heel; mild across 1-4 MTH Left Severe pinch 5th MTH; mod 1st MTH button and heel No annotated images are attached to the encounter. Gait Pattern: Right [] In-Toe [x] Out-Toe [] Straight Left [] In-Toe [x] Out-Toe [] Straight Comments: MEASUREMENTS: Range of Motion (ROM) RIGHT ROM (deg) LEFT ROM (deg) Neutral Subtalar Joint: (varus) 0-4 0-4 Forefoot Deviation Varus Neutral Valgus 0-5 [x] [] [] 0-5 [x] [] [] Lower Tibia Varum Vertical Valgum 0-2 [x] [] [] 0-2 [x] [] [] Calcaneal Stance Position (full weight bearing) Varum Vertical Valgum 0-0 [] [x] [] 0-0 [] [x] [] Comments: TREATMENT / RECOMMENDATIONS: [x] Discussed various types of orthoses and recommend golf type with 2-5 bar post, met pads b/l, heel cushions b/l, spenco topcoat (thickness to be determined by cartography teacher) suede bottom extension. [x] Performed slipper type casting to bilateral feet in prone subtalar joint neutral. Also instructed in calf stretching exercises (see media for scan of these) ASSESSMENT: This patient's diagnosis is consistent with compensated RF varus deformity, plantarflexed first rayb/l, hallux limitus. Co-morbidities that may affect outcomes include: Chronic plantar fasciitis with physical work demands. Clinical Presentation: Stable Evolving Unstable [] [x] [] Notes: The patient's clinical presentation is evolving. Clinical decision making of moderate complexity using standardized patient assessment instrument and measurable assessment of functional outcome. GOALS: ANKLE / FOOT MET Long-Term Therapy Goals (4 weeks post-orthotic fitting) Improved biomechanics to allow increased functional mobility, including: standing/walking at work and home ADLs. Decreased pain to 0/10 best and 3/10 worst on VAS during ADLs. Improved global rating of change to at least quite a bit better. PLAN [x] Send off slipper casts to [facility] and call patient when the orthotics arrive. Informed Consent: [x] The patient consented to the physical therapy evaluation. [x] The patient agrees to and understands the physical therapy treatment plan and goals. [x] Patient agreed with this plan including understanding that payment will be made in full prior to ordering the orthosis. Interventions completed today: Evaluation including biomechanical assessment and orthotic casting Charges: [] Evaluation LOW Complexity (21280), [x] Evaluation MODERATE Complexity (19876) [] Evaluation HIGH Complexity (26948) [x] Orthotic Management & Training (94956) 30 min Total Treatment time: 90 minutes Total Timed Code Treatment: 30 minutes PAYAL SZYMANSKI PT documented in this encounter Plan of Treatment Scheduled Referrals Name Type Priority Associated Diagnoses Orde r Schedule Referral to Physical Therapy Outpatient Referral Routine Plantar fasciitis of left foot Ordered: 10/12/2021 documented as of this encounter Visit Diagnoses Diagnosis Plantar fasciitis of left foot Plantar fascial fibromatosis documented in this encounter Care Teams Combination Building Inspector Relationship Specialty Start Date End Date Janice Christine MD [address] [place] [address] PCP - General 02/23/18 documented as of this encounter
--- OUTSIDE RECORDS SUMMARY | 2024-09-30 21:01 | XMS_ITS | Encounter Summary ---
[place] [address] Care Team Providers Care Cap Sewer Name Role Phone Janice Christine MD Primary Care Provider [phone] Encounter Details Date Type Department Care Team (Late st Contact Info) Description 12/14/2016 10:15 AM EDT Office Visit Hematology/Oncology at [address] [phone] Marilee Plummer APRN DLBCL (diffuse large B cell lymphoma) Social [...] Sign Reading Time Taken Comments Blood Pressure 138/73 12/14/2016 10:23 AM EDT Pulse 82 12/14/2016 10:23 AM EDT Temperature 36.5 ??C (97.7 ??F) 12/14/2016 10:23 AM E DT Respiratory Rate 16 12/14/2016 10:23 AM EDT Oxygen Saturation 99% 12/14/2016 10:23 AM EDT Inhaled Oxygen Concentration - - Weight - - Height - - Body Mass Index - - documented in this encounter Patient Instructions * Patient Instructions* Marilee Plummer APRN - 12/14/2016 10:15 AM EDT He will return in 4 months with labs prior. He will need a ct scan of the chest in the next two weeks. documented in this encounter Progress Notes * Marilee Plummer APRN - 12/14/2016 10:15 AM EDT [facility] [place] [address] FOLLOW-UP PATIENT EVALUATION PROBLEM LIST: Patient Active [...] It was my pleasure to see Agapito Ramriez JrJailyn back in clinic today. Agapito Ramirez Jr. is a 46 y.o. year old male being seen for follow-up evaluation of DLBCL he has now completed 3 cycles of R CHOPchemotherapy followed by radiation therapy for his early stage diffuse large B-cell lymphoma. He completed radiation therapy in May 2015. He's here for his regular check. 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 Feeling well. Full energy has returned. No dysphagia. No unusual pains adenopathy or B symptoms. He continues to do quite well. He does have two lesions in his chest area that he is concerned about. One under the rib cage and one below the sternum. They are not painful to the touch but he feels the one under the rib cage is bigger than it was before. ROS Energy level: low , but back [...] have been marked as taking for the 12/14/16 encounter (Office Visit) with Marilee Plummer APRN. Allergies: No Known Allergies INTERIM SOCIAL HISTORY Changes in job, home situation, tobacco or alcohol use: see HPI PHYSICAL EXAM BP 138/73 (Patient Position: Sitting) Pulse 82 Temp 36.5 ??C (97.7 ??F) (Oral) Resp 16 EiC782% There is no height or weight on file to calculate BSA. GENERAL: Agapito Ramirez Jr. appears well and is in no acute distress. ENT: Oral pharynx clear. No evidence of lymphoma. EYES: MELVIN NECK: Supple without adenopathy. No palpable adenopathy AXILLARY: no adenopathy OTHER LYMPH: no adenopathy CARDIAC: Regular rate and rhythm without S3,S4 or murmurs. LUNGS: Clear to auscultation./percussion he does have a small mass below the sternum that is about 5mm and he also has one below the left rib cage that is more linear and about 1.5 cm in length. Neither are painful to touch. ABDOMEN: Soft and non-tender without hepatosplenomegaly or masses. EXTREMITIES: No cyanosis, clubbing, edema or calf tenderness. SKIN: No bruises or petechiae. NEUROLOGICAL: Alert and oriented to person, place and time. MUSCULOSKELETAL: No spinal or chest wall tenderness. LABORATORY STUDIES WBC 6.78 H/H 15.4/44.1 Plts 229 CMP within normal limits LDH 145 RADIOLOGY STUDIES REVIEWED: none ASSESSMENT/PLAN: DLBCL - he is now s/p C#3 RCHOP with negative PET scan and then consolidative XRT. He completed hisradiation therapy in May 2015. He was PET negative in September 2015. He returns today for his regular follow-up. He had a CT scan last week of neck and chest at [facility] which showed no adenopathy. Mr James is now 16 months out from completion of his chemotherapy, and 14 months from completion of his radiation therapy. He looks great. His IPI score was 0. He has a very low risk for recurrence. He does have two lesions on his chest that he is concerned about. we will do a ct scan of his chest to rule out any recurrence. He is comfortable with this plan. I will call him with the results. Otherwise he will return in 4 months with labs prior. Copy Janice Christine MD documented in this encounter Plan of Treatment Not on file documented as of this encounter Procedures Procedure Name Priority Date/Time Associated Diagnosis Comments CT SCAN (SCAN) 01/06/2017 12:00 AM EDT documented in this encounter Results * SCAN DOC: CT SCAN (01/06/2017 12:00 AM EDT) Anatomical Region Laterality Modality Other Narrative 01/06/2017 12:00 AM EDT Ordered by an unspecified provider. Scanning Provider MEDIA MGR SCAN EXT O RDR/RSLT documented in this encounter Visit Diagnoses Diagnosis DLBCL (diffuse large B cell lymphoma) Other malignant lymphomas, unspecified site, extranodal and solid organ sites documented in this encounter Care Teams Cap Sewer Relationship Specialty Start Date End Date Janice Christine MD [address] [place] [address] PCP - General 02/27/15 09/19/17 documented as of this encounter
--- OUTSIDE RECORDS SUMMARY | 2024-09-30 21:01 | XMS_ITS | Encounter Summary ---
Author Organization [facility] Address [facility] [place] [address] Care Team Providers Care Insole Rounder Name Role Phone Janice Christine MD Primary Care Provider [phone] Encounter Details Date Type Department Care Team (Late st Contact Info) Description 04/14/2016 - 04/14/2016 11:59 PM EDT Hospital Encounter Radiology Library at [facility] [place] [address] Jacquie Plascencia MD [facility] [place] [address] Pain Discharge Disposition: Home Social History Tobacco Use Types Packs/Day Years Used Date Smoking Tobacco: Never Alcohol Use Standard Drinks/Week Comments No 0 (1 standard drink = 0.6 oz pur e alcohol) Sex and Gender Information Value Date Recorded Sex Assigned at Not on file Gender Identity Not on file Sexual Orientation Not on file documented as of this encounter Medications at Time of Discharge Medication Sig Dispensed Refills Start Date End Date valACYclovir (VALTREX) 1 gram TabletIndications:Maribell l infection Take 1 tablet by mouth 2 times daily. 20 tablet 0 10/28/2015 04/20/2016 acetaminophen (TYLENOL) 500 mg Tablet Take 1,000 mg by mouth every 6 hours as needed for Pain. 04/20/2016 omeprazole (PRILOSEC) 20 mg Capsule, Delayed Release(E.C.) Take 20 mg by mouth daily. 04/20/2016 EMOLLIENT BASE (CREAM BASE TOP) Apply topically 2 times daily. Jeans cream to area of radiation, twice a day, no less than 2 hours prior to radiation treatment 04/20/2016 documented as of this encounter Plan of Treatment Not on file documented as of this encounter Procedures Procedure Name Priority Date/Time Associated Diagnosis Comments FILM LIBRARY STORAGE ONLY CT CHEST Routine 04/14/2016 12:00 AM EDT Pain documented in this encounter Results * Film Library- Storage Only CT Chest (04/14/2016 12:00 AM EDT) Narrative [facility] - 04/14/2016 4:06 PM EDT This exam is for storage only and is auto-finalizing. Jacquie Plascencia MD IMG FILM LIBRARY ORDERABLES [place], [place] documented in this encounter Visit Diagnoses Diagnosis Pain Generalized pain documented in this encounter Care Teams Insole Rounder Relationship Specialty Start Date End Date Janice Christine MD [address] [place] [address] PCP - General 02/27/15 09/19/17 documented as of this encounter
--- OUTSIDE RECORDS SUMMARY | 2024-09-30 21:01 | XMS_ITS | Encounter Summary ---
[place] [address] Care Team Providers Care Miniature Set Designer Name Role Phone Janice Christine MD Primary Care Provider [phone] Encounter Details Date Type Department Care Team (Late st Contact Info) Description 11/02/2021 Telephone [place] [phone] Nanette Dobbins Social History Tobacco Use Types Packs/Day Years [...] encounter Miscellaneous Notes * Telephone Encounter - Nanette Dobbins - 11/02/2021 8:43 AM EST Stated was calling from Rehabilitation Medicine Department & speaking on a recorded line. Patient confirmed identity with full name & date of . Inquired if wanting to schedule referral to PT for vestibular. Patient advocated to schedule referral and confirmed appointment date, time, location and therapist. Thank you, Nanette documented in this encounter Plan of Treatment Not on file documented as of this encounter Visit Diagnoses Not on filedocumented in this encounter Care Teams Miniature Set Designer Relationship Specialty Start Date End Date Janice Christine MD [address] [place] [address] PCP - General 02/23/18 documented as of this encounter
--- OUTSIDE RECORDS SUMMARY | 2024-09-30 21:01 | XMS_ITS | Encounter Summary ---
Author Organization [facility] Address [facility] [place] [address] Care Team Providers Care Ditching Machine Operator Name Role Phone Janice Christine MD Primary Care Provider [phone] Encounter Details Date Type Department Care Team (Late st Contact Info) Description 11/12/2021 Orders [place] [address] Alvarado Cuellar MD [facility] [place] [address] Social History Tobacco Use Types Packs/Day Years [...] Progress Notes * Alvarado Cuellar MD - 11/12/2021 12:20 PM EST S/p stapedectomy with post-op dizziness and suspected sterile labyrinthitis. Was doing markedly better through the week, feeling no significant residual dizziness early yesterday. Last night after leaving restaurant began to experience increased dysequilibrium with ambulation which has persisted through today. Ok at rest with no dizziness. Hearing subjectively even better than at last visit. No obvious fluctuating hearing by report. Discussed consideration to short course of prednisone. Rx placed to pharmacy. Patient to see how today and tomorrow goes as we head into the weekend as to whether he wants to proceed with the steroids. Risks of prednisone 60mg po daily was reviewed. Patient has my contact information and will plan to follow-up via phone by early next week to reassess. Urgent return precautions also reviewed. Patient verbalized understanding and comfortable with plan. Alvarado Cuellar MD Otology and Neurotology Otolaryngology - Head & Neck Surgery Pgr: [phone] documented in this encounter Plan of Treatment Not on file documented as of this encounter Visit Diagnoses Not on filedocumented in this encounter Care Teams Ditching Machine Operator Relationship Specialty Start Date End Date Janice Christine MD [address] [place] [address] PCP - General 02/23/18 documented as of this encounter
--- OUTSIDE RECORDS SUMMARY | 2024-09-30 21:01 | XMS_ITS | Encounter Summary ---
Author Organization [facility] [place] [address] Care Team Providers Care Director Of Cardiopulmonary Services Name Role Phone Janice Christine MD Primary Care Provider [phone] Encounter Details Date Type Department Care Team (Late st Contact Info) Description 06/09/2021 Orders Only Podiatry at [facility] [place] [address] [facility] [place] [address] Social History Tobacco Use Types Packs/Day Years [...] on filedocumented in this encounter Care Teams Director Of Cardiopulmonary Services Relationship Specialty Start Date End Date Janice Christine MD [address] [place] [address] PCP - General 02/23/18 documented as of this encounter
--- OUTSIDE RECORDS SUMMARY | 2024-09-30 21:02 | XMS_ITS | Encounter Summary ---
Author Organization [facility] Address [facility] [place] [address] Care Team Providers Care Cook Italian Style Food Name Role Phone Janice Christine MD Primary Care Provider [phone] Reason for Visit * Reason Comments Chemotherapy R-CHOP, Cycle 3, Day 1 Encounter Details Date Type Department Care Team (Late st Contact Info) Description 04/15/2015 9:00 AM EDT Infusion Hematology Oncology at [address] [phone] CLINIC, DR ADKINS HEM/ONC Jacquie Plascencia MD [facility] HEMATOLOGY [place] [address] Lymphoma Discharge Disposition: Home Social History Tobacco Use Types Packs/Day Years Used Date Smoking Tobacco: Never Sex and Gender Information Value Date Recorded Sex Assigned at Not on file Gender Identity Not on file Sexual Orientation Not on file documented as of this encounter Last Filed Vital Signs Vital Sign Reading Time Taken Comments Blood Pressure 115/71 04/15/2015 9:10 AM EDT Pulse 75 04/15/2015 9:10 AM EDT Temperature 36.7 ??C (98.1 ??F) 04/15/2015 9:10 AM ED T Respiratory Rate 16 04/15/2015 9:10 AM EDT Oxygen Saturation 98% 04/15/2015 9:10 AM EDT Inhaled Oxygen Concentration - - Weight 99.8 kg (220 lb) 04/15/2015 9:10 AM EDT Height 182.9 cm (6' 0.01) 04/15/2015 9:10 AM ED T Body Mass Index 29.83 04/15/2015 9:10 AM EDT documented in this encounter Progress Notes * Tran Antunez RN - 04/15/2015 10:13 AM EDT INFUSION THERAPY ADMINISTRATION NOTES DIAGNOSIS: Lymphoma CYCLE # 3, Day 1 REASON FOR VISIT: R-CHOP SUBJECTIVE Mr. Ramirez offers no complaints. OBJECTIVE LAB DATA: WBC 7.82, HGB 13.0, Plts 187, ANC 4.22, Creat1.0 IV ACCESS: 22 g angio cath in right hand with good blood return. Pre administration: Chemotherapy orders independently verified for drug name, route, and dosage per patient's height, weight and BSA by Tran Antunez RN and Maximiliano Jauregui RPh. REACTIONS (DESCRIPTION, TIME, INTERVENTION AND EFFECTIVENESS) : None. ASSESSMENT Mr. Ramirez was alert but dozing at intervals throughout his infusions. He tolerated the 2nd time Rituxan rate & other infusion well. PLAN Return to clinic per routine. documented in this encounter Plan of Treatment Not on file documented as of this encounter Visit Diagnoses Diagnosis Lymphoma Other malignant lymphomas, unspecified site, extranodal and solid organ sites documented in this encounter Administered Medications Inactive Administered Medications - up to 3 most recent administrations Medication Order MAR Action Action Date Dose Rate Site acetaminophen (TYLENOL) tablet 650 mg 650 mg, Oral, ONCE, 1 dose, On Mon04/15/15 at 0945, Administer prior to riTUXimab, Routine Given 04/15/2015 9:48 AM EDT 650 mg cyclophosphamide (CYTOXAN) 1,695 mg in dextrose 5% 334.75 mL chemo infusion 1,695 mg (750 mg/m2/dose ? 2.26 m2 Treatment Plan BSA from Recorded weight), Intravenous, ONCE, 1 dose, On Mon04/15/15 at 1045, Administer over 30 Minutes New Bag 04/15/2015 2:30 PM EDT 1,695 mg 669.5 mL/hr dexamethasone (DECADRON) injection 10 mg 10 mg, Intravenous, ONCE, 1 dose, On 7/22/15 at 1045, In addition to pred 100mg. Given 04/15/2015 10:21 AM EDT 10 mg diphenhydrAMINE (BENADRYL) injection 50 mg 50 mg, Intravenous, ONCE, 1 dose, On Mon04/15/15 at 0945, Administer prior to riTUXimab, Routine Given 04/15/2015 9:51 AM EDT 50 mg DOXOrubicin (ADRIAMYCIN) chemo injection 113 mg 113 mg (50 mg/m2/dose ? 2.26 m2 Treatment Plan BSA from Recorded weight), Intravenous, ONCE, 1 dose, On Mon04/15/15 at 1045, Administer each syringe over a minimum of 3 minutes. Each Syringe contains 56.5 mg in 28.25 mL. Given 04/15/2015 2:14 PM EDT 113 mg fosaprepitant (EMEND) 150 mg in sodium chloride 0.9% 155 mL infusion 150 mg, Intravenous, ONCE, 1 dose, On Mon04/15/15 at 0945, Administer over 30 Minutes, Prior to chemotherapy. New Bag 04/15/2015 10:27 AM EDT 150 mg 310 mL/hr palonosetron (ALOXI) injection 0.25 mg 0.25 mg, Intravenous, ONCE, 1 dose, On Mon04/15/15 at 0945, Prior to chemotherapy., Routine Given 04/15/2015 9:45 AM EDT 0.25 mg riTUXimab (RITUXAN) 800 mg in sodium chloride 0.9% 400 mL infusion 800 mg, Intravenous, ONCE, 1 dose, On Mon04/15/15 at 1045, Administer Per Protocol, Round medication dose to the nearest 100 mg: Dose has been rounded to the nearest 100 mg, Patient is a candidate for rapid infusion riTUXimab? No New Bag 04/15/2015 11:14 AM EDT 800 mg sodium chloride 0.9% infusion 100 mL/hr, Intravenous, CONTINUOUS, Starting on Mon04/15/15 at 0945, Until Mon04/15/15 at 1715 New Bag 04/15/2015 9:45 AM EDT 100 mL/hr 100 mL/hr vinCRIStine (ONCOVIN) chemo injection 2 mg 2 mg, Intravenous, ONCE, 1 dose, On Mon04/15/15 at 1045, Administer over 2 Minutes, Maximum dose 2 mg Given 04/15/2015 2:26 PM EDT 2 mg 60 mL/hr documented in this encounter Care Teams Cook Italian Style Food Relationship Specialty Start Date End Date Janice Christine MD [address] [place] [address] PCP - General 02/27/15 09/19/17 documented as of this encounter
--- OUTSIDE RECORDS SUMMARY | 2024-09-30 21:02 | XMS_ITS | Encounter Summary ---
[place] [address] Care Team Providers Care Restoration Technician Name Role Phone Janice Christine MD Primary Care Provider [phone] Encounter Details Date Type Department Care Team (Latest Contact Info) Description 10/12/2015 3:30 PM EST Clinical Support [place]emat[place] [phone] [facility] [place] [address] Dietary counseling and surveillance Social History Tobacco Use Types Packs/Day Years Used Date Smoking Tobacco: Never Alcohol Use Standard Drinks/Week Comments No 0 (1 standard drink = 0.6 oz pur e alcohol) Sex and Gender Information Value Date Recorded Sex Assigned at Not on file Gender Identity Not on file Sexual Orientation Not on file documented as of this encounter Progress Notes * Erica Nelson RD - 10/12/2015 9:[address] [facility] Dietitian Follow Up Assessment Seen By: Palmira Nelson MS, RD, CAN TECHNICIAN, LD Referred by: Dr. Sheldon Reason for visit: weight loss Patient and diagnosis: Agapito Ramirez Jr. is a 44 y.o. male diagnosed with Stage IIA germinal center DLBCL who completed adjuvant definitive radiotherapy to his left neck at the [facility] in [facility] on 06/12/15. Assessment: HPI: Patient Active Problem List Diagnosis Code ??? Lymphoma C85.90 Meds: reivewed Labs: reviewed Ht/Wt: 182.9 cm Stable Oncology Vitals 10/12/2015 Weight 96.344 kg Previous Wt: 2.2% decr in one week: Severe Oncology Vitals 06/11/2015 Weight 96.707 kg Previous wt: 98.79 kg on 06/04/15 Wt Hx: UBW: 217 when first dx'd. Gained some during chemo and now losing it. Was 270 lbs before dx. % UBW: IBW: 76 kg +/- 10% % IBW: BMI: ___ Edema ___ Ascites ___Muscle wasting Calorie needs: 2200 kcals Protein needs: 91 - 114 Fluid needs: 2.2 L Food Intake: Eats when hungry, but not sitting down to full meals. Eats BID Yesterday: went out for breakfast: eggs, ham, toast. Dinner: couple bites of ham and mashed pots. Tried salad w/ dressing, but dressing burnt tongue and threw it away. Fluids: Large ice coffee/d. Water ~ 16 oz/d. Supplements/Frequency: none ___ Ensure/Plus ___ Boost/Plus ___ CIB ___ Other: Teas, vitamins, or other nutritional supplements: none Food allergies or avoidances: nkfa Appetite: nothing like it used to be. Doesn't get hungry. Nausea: denies Vomiting: denies Chewing: Tongue and gum sensitivity, xerostomia Dentition: Unable to use regular tooth paste to brush. Mouth too sensitive. Uses water. Tried Biotene rinse and paste, was too strong. Swallowing: GERD, was taking something, but not now and doesn't recall what it was. Taste Changes: hypoguesia Bowels: Food availability/purchasing, meal planning and preparation: He does this. Depression: Social Support: Economic Issues: Physical Activity: [facility] man at [employer] [facility]. Stays very busy. Level of Motivation/Readiness to Change: Nutrition Diagnosis: Weight stable since completing RT in [facility] On 06/12/15. Continues to have xerostomia and mouth sensitivity. Recommended baking soda and salt rinses to help keep mouth clean, brush with, and keep moist. He is back to routine eating with two meals/d. Food is no longer enjoyable to him, some standard foods he enjoyed are very bland (mashed pots) some are too strong (zulema salad dressing and black pepper). Recommended increased non- caffeinated fluid intake to help with xerostomia. He doesn't feel this will happen. He continues to work 12 hrs a day at the [employer] in [place]. Nutrition Intervention: ? Increase caloric needs: discussed ? Modify diet consistency: soft, bland foods ? Increase frequency of meals and snacks: Q 2-3 hrs ? Need for supplements: one/d, minimum Nutrition Goals: weight stabilization and LBM preservation Educational Handouts provided: -- Protein needs and sources -- Taste and Smell changes -- Fluid Intake -- Oral Care Other Recommendations: ? Monitoring and Evaluation: Will follow up with jesús Noriega. He does have my contact information should he have questions in the interim. documented in this encounter Plan of Treatment Not on file documented as of this encounter Visit Diagnoses Diagnosis Dietary counseling and surveillance Dietary surveillance and counseling documented in this encounter Care Teams Restoration Technician Relationship Specialty Start Date End Date Janice Christine MD [address] [place] [address] PCP - General 02/27/15 09/19/17 documented as of this encounter
--- OUTSIDE RECORDS SUMMARY | 2024-09-30 21:02 | XMS_ITS | Encounter Summary ---
[place] [address] Care Team Providers Care Mastercam Programmer Name Role Phone Janice Christine MD Primary Care Provider [phone] Encounter Details Date Type Department Care Team (Late st Contact Info) Description 05/28/2015 3:15 PM EDT Office Visit Radiation Oncology at [address] [phone] Jean Sheldon MD [address] [place] [address] [place] [address] Lymphoma Discharge Disposition: Home Social History Tobacco [...] Sign Reading Time Taken Comments Blood Pressure 115/64 05/28/2015 3:00 PM EDT Pulse 79 05/28/2015 3:00 PM EDT Temperature 36.8 ??C (98.3 ??F) 05/28/2015 3:00 PM ED T Respiratory Rate 12 05/28/2015 3:00 PM EDT Oxygen Saturation 99% 05/28/2015 3:00 PM EDT Inhaled Oxygen Concentration - - Weight 101 kg (222 lb 9.6 oz) 05/28/2015 3:00 PM EDT Height - - Body Mass Index 30.18 04/27/2015 2:38 PM EDT documented in this encounter Patient Instructions * Patient Instructions* Jean Sheldon MD - 05/28/2015 3:30 PM EDT Dear Mr. Ramirez, I believe that overall you are doing well with your radiation treatments for lymphoma and at this point I do not believe any major changes need to be made to the overall plan for radiation therapy. However we did discuss the following: ?? Salt/Soda mouth rinse: Please do these 5-6x/day to keep your mouth clean and reduce the chance of radiation induced irritation of the lining of your mouth. ?? Pain: Tylenol is appropriate for your discomfort. Please do not take more than 4000 mg in a 24 hour period. Please also take a moment to review your medication list, and notify our clinic if there are medications you are taking that are not on the list, or if you have stopped taking any medications which are on the list. Finally, please remember that when it comes to your radiation appointment times, refer to the calendar provided to you by the radiation therapists. This will be more accurate than whatis seen on the schedule seen on the first page of this letter. We will plan to see you again next week to monitor your progress. In the meantime, if you have any questions or concerns please do not hesitate to ask for me or one of the nurses for assistance. If you are at home and experience any of the following you need to seek emergency care immediately by calling 911: 1. Sudden and unexpected breathing difficulty without any exertion 2. Sudden onset of chest pain 3. Sudden onset of severe pain or uncontrolled pain 4. Sudden onset of severe weakness and/or unable to ambulate 5. Sudden new onset of a seizure 6. Fall resulting in injury 7. Uncontrollable bleeding A Radiation Oncology doctor is risk reduction counselor after our normal hours and on weekends. To call for urgent medical issues from radiation treatments that can not wait until normal business hours, please call and have the cloth bleaching range operator chief page the Radiation Oncologist risk reduction counselor. Jean Correa. MD Pito documented in this encounter Progress Notes * Jean Sheldon MD - 05/28/2015 3:28 PM EDT [facility] On Treatment Visit Patient ID: Agapito Ramirez Jr. is a 44 y.o. male currently undergoing adjuvant radiotherapy to theleft neck for Stage IIA DLBCL, germinal center type. Concurrent Therapy: none Plan Details: Daily Dose: 1.8 Gy Current Dose: 18 Gy in 10 fractions Planned Dose: 36 Gy in 20 fractions Subjective / Interval History: General - Overall feels well. No changes since last seen HEENT - Slight discomfort with swallowing started 2 days ago. Skin - No skin changes. KPS: 100 Pain Assessment: Pain score today is 2/10. When swallows it increases to 6/10. Not taking any pain medications. Nutrition Assessment: The patients weight today is 222, and at the start of therapy it was 224 lbs.Currently, the patient reports a typical diet at home which is normal. Objective: BP 115/64 mmHg Pulse 79 Temp(Src) 36.8 ??C (98.3 ??F) Resp 12 Wt 100.971 kg (222 lb 9.6 oz) SpO2 99% General - appears well, no distress HEENT - erythema but no mucositis or sloughing. No thrush. Skin - no erythema Interval Investigations: None Portal Imaging Review: I have personally reviewed this patient's interval portal imaging to confirm accurate positioning and alignment which matches the patient's original approved treatment planning images. Assessment: Tolerating radiotherapy as expected. Plan: Continue radiotherapy as prescribed. Discussed salt/soda rinses. Tylenol prn for pain. documented in this encounter Plan of Treatment Not on file documented as of this encounter Visit Diagnoses Diagnosis Lymphoma Other malignant lymphomas, unspecified site, extranodal and solid organ sites documented in this encounter Care Teams Mastercam Programmer Relationship Specialty Start Date End Date Janice Christine MD [address] [place] [address] PCP - General 02/27/15 09/19/17 documented as of this encounter
--- OUTSIDE RECORDS SUMMARY | 2024-09-30 21:02 | XMS_ITS | Encounter Summary ---
Author Organization [facility] Address [facility] [place] [address] Care Team Providers Care Rug Clipper Name Role Phone Janice Christine MD Primary Care Provider [phone] Reason for Visit * Reason Comments Follow-up Encounter Details Date Type Department Care Team (Late st Contact Info) Description 04/08/2015 8:00 AM EDT Follow-Up Hematology/Oncology at [address] [phone] Jacquie Plascencia MD [facility] DR HEMATOLOGY [place] [address] Lymphoma Discharge Disposition: Home Social History Tobacco Use Types Packs/Day Years Used Date Smoking Tobacco: Never Sex and Gender Information Value Date Recorded Sex Assigned at Not on file Gender Identity Not on file Sexual Orientation Not on file documented as of this encounter Last Filed Vital Signs Vital Sign Reading Time Taken Comments Blood Pressure 121/71 04/08/2015 8:03 AM EDT Pulse 84 04/08/2015 8:03 AM EDT Temperature 36.7 ??C (98.1 ??F) 04/08/2015 8:03 AM ED T Respiratory Rate 18 04/08/2015 8:03 AM EDT Oxygen Saturation 99% 04/08/2015 8:03 AM EDT Inhaled Oxygen Concentration - - Weight 100.5 kg (221 lb 8 oz) 04/08/2015 8:03 AM EDT Height 182.9 cm (6' 0.01) 04/08/2015 8:03 AM ED T Body Mass Index 30.03 04/08/2015 8:03 AM EDT documented in this encounter Progress Notes * Jacquie Plascencia MD - 04/08/2015 8:16 AM EDT Hematology Clinic [facility] [place] [address] FOLLOW-UP PATIENT EVALUATION PROBLEM LIST: Patient Active Problem List Diagnosis ??? 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 Normal LDH. IPI = 0. Myc negative. Extra copies of bcl-2. EF = 72%. BMBx deferred. Plans for RCHOP X 3, repeat PET and then XRT C#1 RCHOP 03/06/15 C#2 RCHOP 03/26/15 INTERIM HISTORY OF PRESENT ILLNESS: It was my pleasure to see Agapito Ramirez JrJailyn back in clinic today. Agapito Ramirez Jr. is a 44 y.o. year old male being seen for follow-up evaluation of DLBCL A lot N/V/D with this cycle - no help with anti-emetics. Did not happen w/ C#1. Unable to get pred in until 1pm. Last for Mon-Mon. Sat was the worst. Also with chest pain more frequently. Has had it for 7-8 years. Has been worked up and told it is nothing. like a knife stuck in me on the R side. + stress test in the past. No difference from normal for him. No neuropathy. 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 + alopecia. Good appetite. ROS Energy level: low for 3-4 days after chemo Pain: No Appetite:good Fevers/chills/sweats:No Bruising/bleeding/melena:No Recent infections:No HEENT: negative Nausea/vomiting/diarrhea/constipation: see above SOB/FISHMAN/chest pain:No Change in adenopathy or other masses:No Unexpected weight loss or gain:No Skin rashes or petechiae:No Musculoskeletal complaints:No Extremities: Negative upper and lower bilaterally Neurologic symptoms:No Mood: Normal Sleep: Difficulty sleeping MEDS: No outpatient prescriptions have been marked as taking for the 04/08/15 encounter (Follow-Up) with Jacquie Plascencia MD. Allergies: No Known Allergies INTERIM SOCIAL HISTORY Changes in job, home situation, tobacco or alcohol use: see HPI PHYSICAL EXAM BP 121/71 Pulse 84 Temp(Src) 36.7 ??C (98.1 ??F) (Oral) Resp 18 Ht 182.9 cm (6' 0.01) Wt100.472 kg (221 lb 8 oz) BMI 30.03 kg/m2 SpO2 99% Body surface area is 2.26 meters squared. GENERAL: Agapito Ramirez Jr. appears well and is in no acute distress. ENT: Oral pharynx clear. No evidence of lymphoma EYES: MELVIN NECK: Supple without adenopathy. No [...] MUSCULOSKELETAL: No spinal or chest wall tenderness. LINE: nontender, no erythema LABORATORY STUDIES No results found for this or any previous visit (from the past 72 hour(s)). wbc 7.82 hgb 13 plt 187k anc 4.22 RADIOLOGY STUDIES REVIEWED: none ASSESSMENT/PLAN: DLBCL - day 15 C#2 HOP Plan C#3 next week. Will arrange for PET and XRT appt. N/V - will use aloxi and emend next time. Discussed no zofran until Monday after chemo. Compazine given - already has ativan. Instructions written down for him. Chest pain - has had it for years with work up in the past. GERD - prilosec helped , resolved. I discussed all of the above with the patient and all of his questions were answered. Support and counseling given as appropriate. total time: time in counselling: Copy JANICE CHRISTINE MD documented in this encounter Plan of Treatment Not on file documented as of this encounter Results * PET/CT Standard Plus Extremities and Head (04/27/2015 2:09 PM EDT) Anatomical Region Laterality Modality Other 04/27/2015 2:09 PM EDT Impressions 04/27/2015 5:08 PM EDT IMPRESSION: 1. ??Left tonsillar mass has resolved anatomically and nearly completely resolved metabolically with subtle mild asymmetric activity in the left pharyngeal wall which is of questionable significance. 2. ??No active kristina disease. 3. ??Mild diffuse increased marrow activity, likely reactive. Thank you for referring this patient [facility]. This report was reviewed by Burt Denis at 04/27/2015 5:02 PM Film and interpretation reviewed by the attending Narrative 04/27/2015 5:08 PM EDT EXAMINATION: PET/CT STANDARD PLUS LEGS CLINICAL HISTORY: restage lymphoma of neck and tonsil TECHNIQUE: Procedure: Following IV injection of 94-egyfjp-8-deoxyglucose (FDG) a standard uptake of approximately 60 minutes, a noncontrast CT scan followed by a PET scan were acquired from the top of head to the mid thighs. The noncontrast CT was used for anatomic localization and photon attenuation correction of the PET scan Blood glucose level: 81 (mg/dL) FDG dose: 16.5 mCi COMPARISON: 02/26/2015 FINDINGS: HEAD/NECK: Left tonsillar mass has resolved anatomically and nearly completely resolved metabolically with subtle mild asymmetric activity in the left pharyngeal wall of questionable significance. ??Interval complete metabolic and near complete anatomic resolution of scattered small left level II lymph nodes. Normal metabolic activity in all other soft tissue regions. CHEST: Normal activity in all soft tissue regions. ABDOMEN/PELVIS: Normal activity in all soft tissue regions. SKELETON/EXTREMITIES: Mild diffuse increased marrow activity in the axial and proximal appendicular skeleton, likely reactive. Procedure Note Burt Denis MD - 04/27/2015 EXAMINATION: PET/CT STANDARD PLUS LEGS CLINICAL HISTORY: restage lymphoma of neck and tonsil TECHNIQUE: Procedure: Following IV injection of 71-mutwae-2-deoxyglucose(FDG) a standard uptake of approximately 60 minutes, a noncontrast CT scanfollowed by a PET scan were acquired from the top of head to the mid thighs. Thenoncontrast CT was used for anatomic localization and photon attenuation correction ofthe PET scan Blood glucose level: 81 (mg/dL) FDG dose: 16.5 mCi COMPARISON: 02/26/2015 FINDINGS: HEAD/NECK: Left tonsillar mass has resolved anatomically and nearly completelyresolved metabolically with subtle mild asymmetric activity in the left pharyngealwall of questionable significance. Interval complete metabolic and nearcomplete anatomic resolution of scattered small left level II lymph nodes. Normal metabolic activity in all other soft tissue regions. CHEST: Normal activity in all soft tissue regions. ABDOMEN/PELVIS: Normal activity in all soft tissue regions. SKELETON/EXTREMITIES: Mild diffuse increased marrow activity in the axial and proximalappendicular skeleton, likely reactive. IMPRESSION IMPRESSION: 1. Left tonsillar mass has resolved anatomically and nearly completelyresolved metabolically with subtle mild asymmetric activity in the left pharyngealwall which is of questionable significance. 2. No active kristina disease. 3. Mild diffuse increased marrow activity, likely reactive. Thank you for referring this patient [facility]. This report was reviewed by Burt Denis at 04/27/2015 5:02 PM Film and interpretation reviewed by the attending Jacquie Plascencia MD IMG PET ORDERABL ES * (ABNORMAL) Lactate Dehydrogenase (04/27/2015 12:29 PM EDT) Lactate Dehydrogenase 227(H) 110 - 220 unit/L [facility]UM Blood specimen (specimen) 04/27/2015 12:29 PM EDT 04/27/2015 12:49 PM EDT Narrative Resulting Agency Comment Spec In Lab Jacquie Plascencia MD CHEMISTRY ORDERA BLES [facility] [employer] [facility] * Comprehensive metabolic panel (non-fasting) (04/27/2015 12:29 PM EDT) Glucose 86 65 - 199 mg/dL [facility] Comment:Diabetes: >=200 mg/d L plus symptoms Blood Urea Nitrogen 15 10 - 20 mg/dL [facility] Creatinine 0.84 0.80 - 1.50 mg/dL [facility] Comment: Please note that the pediatric reference intervals supplied above were not validated at [facility]. Results from pediatric patients should be interpreted in conjunction to the patient's age, height and muscle mass. Sodium 140 135 - 145 mmol/L [facility] MILLENNIUM Potassium 4.3 3.5 - 5.0 mmol/L [facility] MILLENNIUM Comment: Please note: ??Patients with WBC >100,000 may have falsely elevated Potassium levels. ??For accurate Potassium quantification in these patients send serum separator tube (gold top) for subsequent determinations. ??Contact the Clinical Chemistry Laboratory if there are any questions. Chloride 104 98 - 107 mmol/L [facility] MILLENNIUM Carbon Dioxide 24 22 - 31 mmol/L [facility] MILLENNIUM Anion Gap 12 5 - 15 mmol/L [facility] MILLENNIUM Calcium 9.2 8.5 - 10.5 mg/dL [facility] MILLENNIUM Protein, Total 6.4 6.1 - 8.0 gm/dL [facility] MILLENNIUM Albumin 4.4 3.2 - 5.2 gm/dL [facility] MILLENNIUM Aspartate Aminotransferase 11 0 - 39 unit/L [facility] MILLENNIUM Alanine Aminotransferase 18 0 - 55 unit/L [facility] MILLENNIUM Alkaline Phosphatase 91 40 - 120 unit/L [facility] MILLENNIUM Bilirubin, Total 0.2 0.2 - 1.3 mg/dL [facility] MILLENNIUM Bilirubin, Direct 0.1 0.0 - 0.3 mg/dL [facility] MILLENNIUM Est Glomerular Filtration Rate >60 >=60 [facility] MILLENNIUM Comment: This estimated GFR (eGFR) value was calculated using the MDRD equation which has been validated on patients between the ages of 18 and 70. The MDRD should not be used to assess kidney function in patients < 18 years of age or in patients with extremes of body mass, or in patients with acute kidney failure. This value should be multiplied by 1.2 for patients. For further information please copy and paste the following links into your internet browser. http://Eyefreight/DHnkdep [email or web address]/[email or web address] Blood specimen (specimen) 04/27/2015 12:29 PM EDT 04/27/2015 12:49 PM EDT Narrative Resulting Agency Comment Spec In Lab Jacquie Plascencia MD CHEMISTRY ORDERA BLES [facility]ANG LANG documented in this encounter Visit Diagnoses Diagnosis Lymphoma Other malignant lymphomas, unspecified site, extranodal and solid organ sites Lymphoma Other malignant lymphomas, unspecified site, extranodal and solid organ sites documented in this encounter Care Teams Rug Clipper Relationship Specialty Start Date End Date Janice Christine MD [address] [place] [address] PCP - General 02/27/15 09/19/17 documented as of this encounter
--- OUTSIDE RECORDS SUMMARY | 2024-09-30 21:02 | XMS_ITS | Encounter Summary ---
[place] [address] Care Team Providers Care Antique Automobiles Repairer Name Role Phone Janice Christine MD Primary Care Provider Encounter Details Date Type Department Care Team (Late st Contact Info) Description 05/13/2015 Telephone Hematology Oncology at [address] [phone] Bertha Holman, RN Social History Tobacco Use Types Packs/Day Years Used Date Smoking Tobacco: Never Alcohol Use Standard Drinks/Week Comments No 0 (1 standard drink = 0.6 oz pur e alcohol) Sex and Gender Information Value Date Recorded Sex Assigned at Not on file Gender Identity Not on file Sexual Orientation Not on file documented as of this encounter Miscellaneous Notes * Telephone Encounter - Bertha Holman RN - 05/13/2015 10:33 AM EDT Agapito called to inform us he is experiencing tenderness in a spot under his neck for 1 day. Denies redness in area of concern, does not hurt to swallow, area is not getting bigger, no fever. He finished chemotherapy three weeks ago will be starting XRT tomorrow. Informed RT nursing about Agapito's concern. They will see him tomorrow for is first XRT visit. Agapito knows to call the cancer clinic if hi s status changes. documented in this encounter Plan of Treatment Not on file documented as of this encounter Visit Diagnoses Not on filedocumented in this encounter Care Teams Ant[employer] Automobiles Repairer Relationship Specialty Start Date End Date Janice Christine MD [address] [place] [address] PCP - General 02/27/15 09/19/17 documented as of this encounter
--- OUTSIDE RECORDS SUMMARY | 2024-09-30 21:02 | XMS_ITS | Encounter Summary ---
[place] [address] Care Team Providers Care Optician Apprentice Name Role Phone Janice Christine MD Primary Care Provider [phone] Encounter Details Date Type Department Care Team (Late st Contact Info) Description 06/16/2015 11:00 AM EDT Follow-Up Radiation Oncology at [address] [phone] Jean Sheldon MD [address] [place] [address] [place] [address] Mucositis due to radiation therapy; Lymphoma; Thrush Discharge Disposition: Home Social History Tobacco Use [...] Sign Reading Time Taken Comments Blood Pressure 113/67 06/16/2015 11:00 AM EDT Pulse 77 06/16/2015 11:00 AM EDT Temperature 36.9 ??C (98.4 ??F) 06/16/2015 11:00 AM E DT Respiratory Rate 12 06/16/2015 11:00 AM EDT Oxygen Saturation 99% 06/16/2015 11:00 AM EDT Inhaled Oxygen Concentration - - Weight 94.9 kg (209 lb 3.2 oz) 06/16/2015 11:00 AM EDT Height - - Body Mass Index 28.37 04/27/2015 2:38 PM EDT documented in this encounter Patient Instructions * Patient Instructions* Jean Sheldon MD - 06/16/2015 11:51 AM EDT Dear Agapito, I am sorry to see that the radiation treatments have caused so much discomfort. The help ease your pain and allow you to eat, we discussed the following: ?? Oral hygeine: Continue taking the salt/soda rinses. Also, I have prescribed an 8-day course of diflucan liquid medication to help treat the thrush (fungal infection) in your mouth. ?? Oral pain relief: I have given you a prescription to give to your pharmacist which instructs them to mix a solution containing benadryl (antihistamine), maalox (for its coating / soothing properties) and viscous lidocaine (for its numbing properties). Take 1-2 teaspoons of this before each meal,gently swish and swallow. Be sure to eat slowly as this can impair the gag reflex. ?? General Pain relief: Start with trying liquid tylenol (adult concentration) and take this as directed on the package, not to exceed 3000 mg in a 24 hour period. If this is not providing adequate relief, then I you can fill the prescription for liquid morphine which I gave you. It is important toremember that this can cause sleepiness so you should not operate any heavy machinery (including cars or power tools) while under its influence (4 hours after taking the medication). It can also cause constipation, so be sure to take an over the counter laxative (such as miralax or metamucil) to prevent constipation. ?? Diet: If you are only taking liquid a diet, then at least 6 cans/day of Ensure/Boost is what your body needs to maintain function. I would like to see you back in our clinic towards the end of the week at which time we will continue monitoring your response to treatment. And as always, please do not hesitate to call me at [phone] with any other questions or concerns you have. A Radiation Oncology doctor is also tree surgeon helper after our normal hours and on weekends for urgent questions or concerns related to radiation treatments that can not wait until normal business hours. To reach the on-call doctor after-hours, just call and have the continuous dryout operator helper page the Radiation Oncologist tree surgeon helper. If you experience any life-threatening emergencies which any include the following, you need to seek emergency care immediately by calling 911: 1. Sudden and unexpected breathing difficulty without any exertion 2. Sudden onset of chest pain 3. Sudden onset of severe pain or uncontrolled pain 4. Sudden onset of severe weakness and/or unable to walk 5. Sudden new onset of a seizure 6. Fall resulting in injury 7. Uncontrollable bleeding Jean Correa MD Tractor Operatortransportation worker Radiation Oncology [facility] documented in this encounter Progress Notes * Jean Sheldon MD - 06/16/2015 12:05 PM EDT [facility] Patient ID: Agapito Ramirez Jr. is a 44 y.o. male who recently completed adjuvant radiotherapy to the left neck for Stage IIA DLBCL, germinal center type. Concurrent Therapy: none Plan Details: Planned Dose: 36 Gy in 20 fractions to involved site, left neck Subjective / Interval History: Since completing last week, he is feeling worse. More pain, fatigue. Unable to eat solids, barely maintaining enough liquid nutrition, primarily in the form of water and chocolate milk. Refusing boost / ensure due to taste as well as pain. 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 At last OTV, oral jeremi was noted. Nystatin rx'ed and he has been taking this without any notable improvement in symptoms or signs of infection. KPS: 80 Pain Assessment: Pain score today is 8/10. Not taking any pain medications. Nutrition Assessment: The patients weight today is 209, last week was 213 and at the start of therapy it was 224 lbs. Diet as above. Objective: BP 113/67 mmHg Pulse 77 Temp(Src) 36.9 ??C (98.4 ??F) Resp 12 Wt 94.892 kg (209 lb 3.2 oz) SpO2 99% General - appears well but fatigued, no distress HEENT - +Thrush, patchy desquamation. No bleeding. Skin - slight erythema Interval Investigations: None Assessment: Tolerating radiotherapy as expected. Radiation mucositis. Plan: ?? Oral hygeine: Continue salt/soda rinses. Prescribed an 8-day course of diflucan suspension. ?? Oral pain relief: BMX 1-2 teaspoons of this before each meal, gently swish and swallow. Instructions given to eat slowly after taking BMX as it can impair the gag reflex. ?? General Pain relief: Start with trying liquid tylenol (adult concentration) not to exceed 3000 mg in a 24 hour period. If this is not providing adequate relief, rx provided for liquid morphine 10-2mg prn q4h. Patient understands not to operate heavy machinery (including driving) and to take laxatives while on this medication. ?? Diet: At least 6 cans/day of ensure / day recommended. ?? Followup: Will call patient on to determine how he is doing. Plan for RV next week to assess progress. documented in this encounter Plan of Treatment Not on file documented as of this encounter Visit Diagnoses Diagnosis Mucositis due to radiation therapy Mucositis (ulcerative) due to antineoplastic therapy Lymphoma Other malignant lymphomas, unspecified site, extranodal and solid organ sites Thrush Candidiasis of mouth documented in this encounter Care Teams Optician Apprentice Relationship Specialty Start Date End Date Janice Christine MD [address] [place] [address] PCP - General 02/27/15 09/19/17 documented as of this encounter
--- OUTSIDE RECORDS SUMMARY | 2024-09-30 21:02 | XMS_ITS | Encounter Summary ---
Author [facility] [place] [address] Care Team Providers Care Assistant General Manager Name Role Phone Janice Christine MD Primary Care Provider [phone] Encounter Details Date Type Department Care Team (Late st Contact Info) Description 06/18/2015 Orders Only Hematology [place] [address] Jacquie Plascencia MD [facility] [address] [place] [address] Social History Tobacco Use Types Packs/Day Years [...] on filedocumented in this encounter Care Teams Assistant General Manager Relationship Specialty Start Date End Date Janice Christine MD [address] [place] [address] PCP - General 02/27/15 09/19/17 documented as of this encounter
--- OUTSIDE RECORDS SUMMARY | 2024-09-30 21:02 | XMS_ITS | Encounter Summary ---
Author Organization [facility] [place] [address] Care Team Providers Care Safety Officer Name Role Phone Janice Christine MD Primary Care Provider [phone] Encounter Details Date Type Department Care Team (Late st Contact Info) Description 03/02/2015 External [place] [phone] Provider, Scanning Social History Tobacco Use Types Packs/Day Years Used Date Smoking Tobacco: Never Sex and Gender Information Value Date Recorded Sex Assigned at Not on file Gender Identity Not on file Sexual Orientation Not on file documented as of this encounter Plan of Treatment Not on file documented as of this encounter Procedures Procedure Name Priority Date/Time Associated Diagnosis Comments SURGICAL PATHOLOGY SCAN Routine 03/02/2015 documented in this encounter Results * Scan Doc: Surgical Pathology (03/02/2015) Jacquie Plascencia MD MEDIA MGR SCAN E XT ORDR/RSLT documented in this encounter Visit Diagnoses Not on filedocumented in this encounter Care Teams Safety Officer Relationship Specialty Start Date End Date Janice Christine MD [address] [place] [address] PCP - General 02/27/15 09/19/17 documented as of this encounter
--- OUTSIDE RECORDS SUMMARY | 2024-09-30 21:02 | XMS_ITS | Encounter Summary ---
Author Organization [facility] Address [facility] [place] [address] Care Team Providers Care Locker Operator Name Role Phone Janice Christine MD Primary Care Provider [phone] Encounter Details Date Type Department Care Team (Late st Contact Info) Description 03/26/2015 Notes Only Hematology Oncology at [address] [phone] Holly Henriquez MSW OFFICE OF CARE MANAGEMENT Social History Tobacco Use Types Packs/Day Years Used Date Smoking Tobacco: Never Sex and Gender Information Value Date Recorded Sex Assigned at Not on file Gender Identity Not on file Sexual Orientation Not on file documented as of this encounter Progress Notes * Holly Henriquez MSW - 03/26/2015 10:05 AM EDT Reason for Referral: Brief assessment of social and emotional needs. Met with pt during infusion today. Social Supports: Pt is to Cecy. They have 2 children ages 19 and 17. Pt has 2 sisters and a brother who are also local. Pt is a longstanding member of the [facility] community. Living Situation/Daily Activities/Transportation: Pt reports he is able to manage his daily chores and activities. He does not expect any problems with transportation. 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 He is working through his treatments. He does not expect any issues with finances or insurance. Advance Directives: Pt has not completed his advance directives. Gave pt a [place] Advance Directive booklet to review and complete. Offered assistance if needed. Utilization of Community Resources: Pt agreeable to participate in the [place] [facility]. His PCP is Dr. Christine at the [facility]. TC made to the Chronic Teleprinter Installer there to notify her of pt's participation in the VOP and requested she make an outreach to him. Adjustment to Illness/Mental Health Issues: Pt indicated he is coping well. He indicated his is recuperation from an orthopedic procedure. He feels his children are doing well also. Identified Needs: Pt did not identify any specific needs at this time. Referrals: [place] [facility] Assessment: Good supports, working through treatment. Plan: Informed pt of my availability and will follow for support and resources. documented in this encounter Plan of Treatment Not on file documented as of this encounter Visit Diagnoses Not on filedocumented in this encounter Care Teams Locker Operator Relationship Specialty Start Date End Date Janice Christine MD [address] [place] [address] PCP - General 02/27/15 09/19/17 documented as of this encounter
--- OUTSIDE RECORDS SUMMARY | 2024-09-30 21:02 | XMS_ITS | Encounter Summary ---
[place] [address] Care Team Providers Care Wind Tunnel Mechanic Name Role Phone Janice Christine MD Primary Care Provider [phone] Encounter Details Date Type Department Care Team (Late st Contact Info) Description 05/06/2015 Orders Only Radiation Oncology at [address] [phone] Jean Sheldon MD [address] [place] [address] RADIATION ONCOLOGY [place], [place] [id number] Social History Tobacco Use Types Packs/Day Years [...] Associated Diagnosis Comments FILM LIBRARY STORAGE ONLY RADIATION ONCOLOGY STUDIES Routine 05/06/2015 11:55 AM EDT documented in this encounter Results * Film Library- Storage Only Radiation Oncology Studies (05/06/2015 11:55 AM EDT) Anatomical Region Laterality Modality Other 05/06/2015 11:5 5 AM EDT Narrative 05/06/2015 11:55 AM EDT This is a Non-reportable exam Procedure Note ANNALEE, UNSIGNED REPORT - 05/06/2015 This is a Non-reportable exam Jean Sheldon MD [facility] [place] LIBRARY ORD ERABLES documented in this encounter Visit Diagnoses Not on filedocumented in this encounter Care Teams Wind Tunnel Mechanic Relationship Specialty Start Date End Date Janice Christine MD [address] [place] [address] PCP - General 02/27/15 09/19/17 documented as of this encounter
--- OUTSIDE RECORDS SUMMARY | 2024-09-30 21:02 | XMS_ITS | Encounter Summary ---
Author Organization [place] [address] Care Team Providers Care Operations Processor Name Role Phone Janice Christine MD Primary Care Provider [phone] Reason for Visit * Reason Comments Chemotherapy Teaching Encounter Details Date Type Department Care Team (Late st Contact Info) Description 03/04/2015 2:30 PM EDT Office Visit Hematology [place] [address] Jacquie Santos APRN [facility] DR HEMAT[place]Y [place] [address] DLBCL (diffuse large B cell lymphoma) Social History Tobacco Use Types Packs/Day Years Used Date Smoking Tobacco: Never Sex and Gender Information Value Date Recorded Sex Assigned at Not on file Gender Identity Not on file Sexual Orientation Not on file documented as of this encounter Progress Notes * Jacquie Santos APRN - 03/03/2015 4:05 PM EDT CHEMOIMMUNOTHERAPY TEACHING Diagnosis: Diffuse large B cell lymphoma ?? February 2015 - lymphoma involving Left tonsil and Left cervical nodes Path - DLBCL Normal LDH. PET scan - Left tonsillar lymphoma with associated kristina involvement in the left neck. IPI = 0 EF = 72% Treatment planned: R-CHOP x 3 cycles, repeat PET scan, followed by radiation therapy(if PET scan isnegative) Assessment: Agapito Ramirez is a 44yo male newly diagnosed with Diffuse Large B-Cell Lymphoma. He presents today to undergo chemotherapy teaching prior to the initiation of systemic therapy as scheduled for February,. He will receive treatment in [facility]. We then reviewed RCHOP w/ intent to cure if possible. We reviewed the potential schedule of RCHOP IV every 3 weeks. [place] is aware that a cycle of therapy will consist of intravenous chemoimmunotherapy on day 1 [Rituxan, Cytoxan, Adriamycin and Oncovin] and oral Prednisone daily [days 1-5] of a 21-day cycle. - Would anticipate 3 cycles. - Would plan to restage after C#3 at [facility] w/ PET scan with consideration of radiation therapy. Side effects discussed include but are not limited to: Prednisone: increased energy, difficulty sleeping, increased appetite, weight gain, thrush, mood changes or irritability, hyperglycemia, hypertension, cash facies and body habitus changes, gastritis,increased risk of infection, cataracts and osteoporosis. Rituxan: infusion reactions, neutropenia, thrombopenia, lymphopenia, risk of reactivation of viral illnesses, anaphylaxis and fever the night after infusion Cyclophosphamide: fatigue, N/V, immunosuppression, increased risk for infection, hair thinning/loss, rare hemorrhagic cystitis, cardiac dysfunction and pulmonary fibrosis. Vincristine: constipation, peripheral neuropathy Adriamycin: fatigue, N/V, bone marrow suppression, risk for infection, alopecia, oral sores, rare terminal operations supervisor heart damage with frequency of about 2-5%, pink urine. Neulasta: bone pain -We reviewed neutropenic precautions and the need to call for fever over 100.4F or signs of infection. -All these meds except prednisone are given as IV infusion on day 1 of chemo. Prednisone is given as oral tablet form from day 1 through day 5 of chemo. (Yesterday, he completed a 5 day course of Prednisone 100mg/day, which was started early, given difficulty swallowing d/t mass) -He is advised to take Zofran Q 8 hr PRN for n/v and to add ativan 0.5mg Q 6 hr prn if that does not help. We advised him to take OTC senna or lactulose or miralax PRN for constipation with chemo. - Discussed the potential for altered nutrional status d/t n/v/mouth sores, altered taste and just not having an appetite. Discussed eating 4-5 small meals, which is better tolerated and the importance of Protein in the diet. Discussed drinking 1-2L fluids for 2-3 days after each cycle of chemo. - Discussed importance of regular gentle exercising, like walking 10-20 minutes/day, to help prevent infection, minimize or prevent deconditioning, and decrease the potential for n/v. Agapito was provided with patient education sheets on the various drugs in the R- CHOP regimen for review at home. In addition, he was given our chemotherapy patient teaching binder It's All About You. Agapito was given an opportunity to ask questions and verbalized an understanding of the chemotherapy side effects and treatment self-care strategies. Agapito consents to treatment. All questions were answered from pt. He will need a midcycle check with Marilee Plummer at [facility] the week following his firstdose of R CHOP chemotherapy. PLANS: 1. Cycle #1 R-CHOP (Monday, March 06) and subsequent cycles of therapy to be administered at [facility]. 2. Neulasta injection scheduled for Monday, March 09. 3. The week following his first cycle of chemo, he will need a mid-cycle evaluation with Marilee Plummer APRN, already scheduled for March 11. 4. Scripts for Zofran, Ativan and Prednisone provided. 5. Will need PET scheduled at the completion of Cycle #3 at [facility]. 6. Cycle #2 R-CHOP tentatively scheduled for March 27. Total Time of Visit: 60 minutes from 2:45-3:45pm Time Spent in Counselin minutes Jacquie Santos, MSN, CAFETERIA COUNTER ATTENDANT Nurse Practitioner Section of Hematology/Oncology [facility] Office phone: CC: Janice Christine MD documented in this encounter Plan of Treatment Not on file documented as of this encounter Visit Diagnoses Diagnosis DLBCL (diffuse large B cell lymphoma) Other malignant lymphomas, unspecified site, extranodal and solid organ sites documented in this encounter Care Teams Operations Processor Relationship Specialty Start Date End Date Janice Christine MD [address] [place] [address] PCP - General 02/27/15 09/19/17 documented as of this encounter
--- OUTSIDE RECORDS SUMMARY | 2024-09-30 21:02 | XMS_ITS | Encounter Summary ---
Author Organization [facility] Address [facility] [place] [address] Care Team Providers Care Bowling Ball Finisher Name Role Phone None Primary Care Provider Unavailabl e Encounter Details Date Type Department Care Team (Late st Contact Info) Description 02/26/2015 1:41 PM EDT - 02/26/2015 11:59 PM EDT Hospital Encounter Hematology [place] [address] CLINIC, Jacquie Solomon MD [facility] DR [place]AT[place] [address] Discharge Disposition: Home Social History Tobacco Use Types Packs/Day Years Used Date Smoking Tobacco: Never Sex and Gender Information Value Date Recorded Sex Assigned at Not on file Gender Identity Not on file Sexual Orientation Not on file documented as of this encounter Medications at Time of Discharge Medication Sig Dispensed Refills Start Date End Date predniSONE (DELTASONE) 20 mg Tablet Take 5 tablets by mouth daily for 5 days. 25 tablet 0 02/26/2015 03/03/2015 amoxicillin-clavulanate (AUGMENTIN) 875-125 mg TabletIndications:Lymph sonia Take 1 tablet by mouth 2 times daily. 03/18/2015 documented as of this encounter Plan of Treatment Not on file documented as of this encounter Visit Diagnoses Not on filedocumented in this encounter Care Teams Bowling Ball Finisher Relationship Specialty Start Date End Date None None PCP - General 02/26/15 02/26/15 documented as of this encounter
--- OUTSIDE RECORDS SUMMARY | 2024-09-30 21:02 | XMS_ITS | Encounter Summary ---
[place] [address] Care Team Providers Care Petroleum Refining Firer Name Role Phone Janice Christine MD Primary Care Provider [phone] Encounter Details Date Type Department Care Team (Late st Contact Info) Description 05/21/2015 3:30 PM EDT Office Visit Radiation Oncology at [address] [phone] Jean Sheldon MD [address] [place] [address] [place] [address] Lymphoma Discharge Disposition: Home Social [...] Sign Reading Time Taken Comments Blood Pressure 135/73 05/21/2015 3:00 PM EDT Pulse 77 05/21/2015 3:00 PM EDT Temperature 36.7 ??C (98 ??F) 05/21/2015 3:00 PM EDT Respiratory Rate 12 05/21/2015 3:00 PM EDT Oxygen Saturation 100% 05/21/2015 3:00 PM EDT Inhaled Oxygen Concentration - - Weight 101.3 kg (223 lb 6.4 oz) 05/21/2015 3:00 PM EDT Height - - Body Mass Index 30.29 04/27/2015 2:38 PM EDT documented in this encounter Patient Instructions * Patient Instructions* Jean Sheldon MD - 05/21/2015 3:23 PM EDT Dear Mr. Ramirez, I believe that overall you are doing well with your radiation treatments for lymphoma and at this point I do not believe any major changes need to be made to the overall plan for radiation therapy. Please also take a moment to review [...] Uncontrollable bleeding A Radiation Oncology doctor is professor of economics after our normal hours and on weekends. To call for urgent medical issues from radiation treatments that can not wait until normal business hours, please call and have the cocoa mill operator page the Radiation Oncologist professor of economics. Jean Correa MD documented in this encounter Progress Notes * Jean Sheldon MD - 05/21/2015 3:22 PM EDT [facility] On Treatment Visit Patient ID: Agapito Ramirez Jr. is a 44 y.o. male currently undergoing adjuvant radiotherapy to theleft neck for Stage IIA DLBCL, germinal center type. Concurrent Therapy: none Plan Details: Daily Dose: 1.8 Gy Current Dose: 10.8 Gy in 6 fractions Planned Dose: 36 Gy in 20 fractions Subjective / Interval History: No changes since last seen No dysphagia No skin changes KPS: 100 Pain Assessment: Pain score today is 0/10. Nutrition Assessment: The patients weight today at the start of therapy is 224 lbs Currently, the patient reports a typical diet at home which is normal. Objective: BP 135/73 mmHg Pulse 77 Temp(Src) 36.7 ??C (98 ??F) Resp 12 Wt 101.334 kg (223 lb 6.4 oz) SpO2 100% General - appears well, no distresss Interval Investigations: None Portal Imaging Review: I have personally reviewed this patient's interval portal imaging to confirm accurate positioning and alignment which matches the patient's original approved treatment planning images. Assessment: Tolerating radiotherapy as expected. Plan: Continue radiotherapy as prescribed. documented in this encounter Plan of Treatment Not on file documented as of this encounter Visit Diagnoses Diagnosis Lymphoma Other malignant lymphomas, unspecified site, extranodal and solid organ sites documented in this encounter Care Teams Petroleum Refining Firer Relationship Specialty Start Date End Date Janice Christine MD [address] [place] [id number] PCP - General 02/27/15 09/19/17 documented as of this encounter
--- OUTSIDE RECORDS SUMMARY | 2024-09-30 21:02 | XMS_ITS | Encounter Summary ---
[place] [address] Care Team Providers Care Lace Inspector Name Role Phone Janice Christine MD Primary Care Provider Encounter Details Date Type Department Care Team (Late st Contact Info) Description 03/06/2015 Orders Only Hematology [place] [address] Jacquie Plascencia MD [facility] DR [place] [address] Social History Tobacco Use Types Packs/Day Years Used Date Smoking Tobacco: Never Sex and Gender Information Value Date Recorded Sex Assigned at Not on file Gender Identity Not on file Sexual Orientation Not on file documented as of this encounter Plan of Treatment Not on file documented as of this encounter Visit Diagnoses Not on filedocumented in this encounter Care Teams Lace Inspector Relationship Specialty Start Date End Date Janice Christine MD [address] [place] [address] PCP - General 02/27/15 09/19/17 documented as of this encounter
--- OUTSIDE RECORDS SUMMARY | 2024-09-30 21:02 | XMS_ITS | Encounter Summary ---
[place] [address] Care Team Providers Care Mortgage Originator Name Role Phone Janice Christine MD Primary Care Provider [phone] Encounter Details Date Type Department Care Team (Late st Contact Info) Description 07/02/2015 3:30 PM EDT Office Visit Radiation Oncology at [address] [phone] Jean Sheldon MD [address] [place] [address] [place] [address] Mucositis due to radiation therapy; Lymphoma Social History Tobacco Use Types Packs/Day Years [...] Sign Reading Time Taken Comments Blood Pressure 118/73 07/02/2015 3:00 PM EDT Pulse 60 07/02/2015 3:00 PM EDT Temperature 37 ??C (98.6 ??F) 07/02/2015 3:0 0 PM EDT Respiratory Rate 16 07/02/2015 3:00 PM EDT Oxygen Saturation 100% 07/02/2015 3:0 0 PM EDT Inhaled Oxygen Concentration - - Weight 92.8 kg (204 lb 9.6 oz) 07/02/20 15 3:00 PM EDT with shoes Height - - Body Mass Index 27.74 04/27/2015 2:38 PM EDT documented in this encounter Patient Instructions * Patient Instructions* Jean Sheldon MD - 07/02/2015 3:42 PM EDT Dear Agapito, It was a pleasure seeing you again today at the [facility] in [facility]. The purpose of today's visits was to see how you were doing both in regards to the potential ongoing side effects of radiation therapy and your response to radiation treatments. From the standpoint of your lymphoma, I have no reason to suspect any return of disease. I believe from the standpoint ofradiation side effects, you are continuing to do quite well and I do not have any significant concerns. One of our nurse practitioners or I will plan to see you back in our clinic early next month at which time we will continue monitoring your response to treatment. Prior to your appointment with us, we will ask that you undergo PET scan as part of the monitoring of your lymphoma. If you do not hear from our clinic regarding your appointments by the end of June, please call us at [phone] tofind out the status of your appointment. And as always, please do not hesitate to call me at [phone] with any other questions or concerns you have. A Radiation Oncology doctor is also personalized living manager after our normal hours and on weekends for urgent questions or concerns related to radiation treatments that can not wait until normal business hours. To reach the on-call doctor after- hours, just call and have the water reclamation systems operator page the Radiation Oncologist personalized living manager. If you experience any life-threatening emergencies which [...] injury 7. Uncontrollable bleeding Jean Correa MD Prosthetistpaper sheeter Radiation Oncology [facility] documented in this encounter Progress Notes * Jean Sheldon MD - 07/02/2015 3:37 PM EDT [facility] Radiation Oncology Established Patient Followup IDENTIFICATION: Agapito Ramirez Jr. is a 44 y.o. male diagnosed with Stage IIA germinal center DLBCL who completed adjuvant definitive radiotherapy to his left neck at the [facility] in [facility] on 06/12/15. Details of his radiation treatment course are as below. RT information: Dose and targets: 36 Gy in 1.8Gy fractions to the involved site of the left upper neck, through thebottom of level III Field orientation: VMAT Date of Radiotherapy Completion / Interval since Completed: 06/12/15 (3 weeks) Date Last Seen / Interval since last seen: 06/16/15 (2 weeks) Interval History: Since last seen 2 weeks ago, he reports far less discomfort. He took tylenol for 5 days and then stopped. He reports essentially that he is back to normal. 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 Review of Systems: On further review, he reports continued decreased taste and dry mouth. Remainder of review is otherwise negative in 07/08 systems except as above, as documented on the comprehensive patient questionnaire, which is available for review under scanned documents. Physical Exam: Filed Vitals: 07/02/15 1500 BP: 118/73 Pulse: 60 Temp: 37 ??C (98.6 ??F) Resp: 16 General: alert, well appearing, and in no distress Head: Atraumatic, normocephalic Neck: Normal to inspection, No adenopathy and No neck mass Lymphatic: No palpable lymphadenopathy in the supraclavicular, infraclavicular, anterior/posterior cervical, axillary regions. KPS: 100 Interval Investigations: None Assessment: 44M s/p adjuvant involved site RT to the left neck for Stage II DLBCL, complicated by significant radiation mucositis now resolved. Plan: Followup in July Marilee Plummer with PET/CT This patient was seen within 90 days of treatment, so this encounter constitutes a no-charge globalvisit. documented in this encounter Plan of Treatment Not on file documented as of this encounter Visit Diagnoses Diagnosis Mucositis due to radiation therapy Mucositis (ulcerative) due to antineoplastic therapy Lymphoma Other malignant lymphomas, unspecified site, extranodal and solid organ sites documented in this encounter Care Teams Mortgage Originator Relationship Specialty Start Date End Date Janice Christine MD [address] [place] [address] PCP - General 02/27/15 09/19/17 documented as of this encounter
--- OUTSIDE RECORDS SUMMARY | 2024-09-30 21:02 | XMS_ITS | Encounter Summary ---
[place] [address] Care Team Providers Care [employer] Name Role Phone Janice Christine MD Primary Care Provider [phone] Reason for Visit * Reason Comments Simulation Encounter Details Date Type Department Care Team (Late st Contact Info) Description 05/06/2015 10:30 AM EDT Ancillary Appointment Radiation Oncology at [address] [phone] Jean Sheldon MD [address] [place] [address] [place] [address] Social History Tobacco Use Types Packs/Day Years [...] Sign Reading Time Taken Comments Blood Pressure 127/71 05/06/2015 9:00 AM EDT Pulse 74 05/06/2015 9:00 AM EDT Temperature 36.7 ??C (98 ??F) 05/06/2015 9:00 AM EDT Respiratory Rate 18 05/06/2015 9:00 AM EDT Oxygen Saturation 99% 05/06/2015 9:00 AM EDT Inhaled Oxygen Concentration - - Weight - - Height - - Body Mass Index - - documented in this encounter Patient Instructions * Patient Instructions* Radha Hart RN - 05/06/2015 11:52 AM EDT General instructions for Radiation therapy Radiation Oncology Team Radiation Oncologist -The doctor who will direct all aspects of your radiation treatments Nurse Practitioner - They assist your doctor in treating your side effects and with follow up appointments. Registered Nurse - They philomena you in learining about you radaiton treatments, , and things you can do to help manage the side effects. Supervisor Refining - They take the doctors radiation prescription and customize it into doses (or days of treatments) specific for you. Physicist - They make sure all the machines are operating correctly and double check calculations for your treatment. Radiation Technologists - They operate the machines which deliver your radiation. You see them daily and they schedule your treatments. Simulation CT/ Planning Session Your first step after deciding to start radiation treatments is done on a special CAT scanner in the radiation department. The images obtained are used to plan your treatments. This may be scheduled the same day you meet your doctor or in a separate visit. This usually takes between 30 minutes to one hour. You may need an IV for contrast. If so our nurse will let you know that day along with any other special instructions. During this visit we may nik Your skin with a tiny ???tattoos?? , take pictures or make special molds or masks to help us place you in the exact treatment position every day. After this session it takes up to two weeks for your plan to be developed and checked by your doctor, the dosimetrists and the physicist. Skin Care - Your nurse will provide you with the necessary creams and supplies as you need them during your treatments. Please make sure you keep the treatment area clean and dry. Be sure to notice if your clothing rubs or digs into the treatment area and try to wear clothes which are less abrasive, like cotton or loose fitting. Do not use harsh soaps, ointments, deodorants or tapes in the treatment area unless directed by your nurse or doctor. Keep the treatment area out of the sun during treatments. General precautions DO NOT USE heating pads, hot water bottles, hot poultices, heat lamps, heat in any form, or ice packs to the area of your body being treated. It is common to start feeling fatigue after a few weeks of being treated. You can help minimize this by getting regular exercise or walking and getting plenty of rest. In general a well balanced diet is recommended. The treating plant pumper and nurse will inform you of any special diet requirements. Avoid shaving the treatment area with a razor. If you must shave use an electric razor. Contact numbers Section of Radiation Oncology Our normal business hours are: Monday - Monday 8 AM to 5 PM [facility] [place] phone# [phone] If you have questions about your radiation appointments please ask to speak to one of our secretarystaff. If you have questions for a nurse/doctor about radiation treatments, radiation side effects or you are not feeling well it is best to call early in the day. This allows a nurse to return your call by5 PM the same day. If you call after 4 PM, a nurse will return your call by 5 PM the following day unless it is emergent. If you experience any of the following you need to seek emergency care immediately by calling 911 1. Sudden and unexpected breathing difficulty without any exertion 2. Sudden onset of chest pain 3. Sudden onset of severe pain or uncontrolled pain 4. Sudden onset of severe weakness and/or unable to ambulate 5. Sudden new onset of a seizure 6. Fall resulting in injury A Radiation Oncology doctor is partner integration planner after our normal hours and on weekends. To call for urgent medical issues from radiation treatments that can not wait until normal business hours, please call for either location and have the pile operator page the Radiation Oncologist in call. documented in this encounter Progress Notes * Radha Hart RN - 05/06/2015 3:33 PM EDT Initial Patient Education for Radiation Treatments Literature reviewed and given to patient and : #1 Radiation Therapy and You a Guide to Self-Help During Cancer Treatment U.S. Department of Health and Human Services National Institutes of Health Publication No. 07-7157 National Cancer [place] Revised January 2007, Printed January 2012 #2 [facility];Shared drive/info for RT Patients: a) Information for Patients Receiving Radiation Therapy b) Managing Cancer Treatment Related Fatigue Adapted from Cancersytoms.org Information for understanding cancer on c) Skin Care for Patients Receiving Radiation Therapy E)Recommended supply and to do list for head and neck cancer radiation therapy patients: power point presentation on shared drive:rad/onc nursing #3 Miscellaneous: Sarai cream supplied with the instructions to apply to site of radiation twice a day, but not less than 2 hours before radiation treatment. Contact information: If you have any questions or concerns regarding your cancer, please call: During business hours: [facility] [phone] Weekend/holidays/nights: [facility] [phone] and ask for the partner integration planner radiation oncologist For general medical questions not related to cancer; Please contact your primary physician. For medical emergencies needing immediate attention;contact local primary physician, go to local hospital emergency room,or call 911. Patient verbalized understanding . * Jean Sheldon MD - 05/06/2015 9:54 AM EDT Simulation Note for External Beam Radiation Treatment Planning [facility] Alfredo Ramirez Jr. is a 44 y.o. year old male with stage IIA DLBCL who was simulated for definitive radiotherapy to the head/neck today. No changes were made from the plan as documented in the original simulation order and instructions. Briefly, he was immobilized using an aquaplast mask and immediately prior to the scan IV contrast was administered. A 2.5mm slice thickness CT scan of the patient's head and neck was then obtained. This scan was performed to delineate both target volumes and organs/structures at risk. These images will be used to create a customized treatment plan employing multileaf collimators and beams-eye view to treat the target to prescription dose while maximally sparing organs at risk, with the overall goal of maximizing the likelihood of a favorable disease response while minimizing the likelihood ofany short term side effects or terminal clerk complications of therapy. I anticipate his prescription dose will be 36 Gy to the initially involved areas of disease (left tonsil and neck), delivered in daily 1.8 Gy fractions over the course of 4 weeks. Anticipate therapy to begin within the next 5 days. Furthermore, I anticipate this patient will require 3D conformal treatment planning as multiple conformal portals will be contructed to adequately cover the critical structures of interest (in this case, the tumor bed) with close margins that protect immediately adjacent sensitive structures (including his salivary glands and oral cavity). If adequate target coverage cannot be met without meeting normal tissue constraints, IMRT or VMAT may be considered. The patient tolerated this procedure well, and was provided instructions with regard to upcoming appointments. * Radha Hart RN - 05/06/2015 9:54 AM EDT Section of Radiation Oncology [facility] [place] Contrast Information Safety Questions And CT IV Contrast Simulation Nursing Note 1. Has the patient ever had an x-ray study before which involved injection of a contrast agent or x-ray dye? yes If yes, did the patient have any reaction to the injection? no If yes, please describe the reaction: 2. Is the patient allergic to any foods, medicines, or other substances? No Known Allergies 3. Has the patient received any contrast within the past 48 hours? no 4. Does the patient have any procedures scheduled in the next 48 hours? no 5. Does the patient have a history of kidney disease or kidney problems? no 6. Does the patient have a history of asthma? no 7. Does the patient have a history of multiple myeloma? no 8. Does the patient have diabetes? no 9. Is the patient currently taking or have they ever taken glucophage or metformin? no [ ] If yes, when was last dose taken? 10. Has the patient had a creatinine level drawn within the past 30 day? yes 11. Does the patient have a implanted venous access device? no If so, is it a documented Power Port that is CT scan compatable? If so, Reminder: power port must be accessed with a Power Port needle. Lab Results Value Date CREATININE 0.84 04/27/15 12. If patient is on glucophage or metformin, have they been instructed to stop it for the next [address] simulation and have repeat creatinine drawn prior to restarting? [x ] Na Vitals: Filed Vitals: 05/06/15 0900 BP: 127/71 Pulse: 74 Temp: 36.7 ??C (98 ??F) Resp: 18 SpO2: 99% See flow sheet or click on expand all in right upper corner of this progress note. Radiation Oncology CT IV Contrast Simulation Nursing Note [place] IV Access site: Right hand Performed by:Ro Hart Gauge:20 Blood Return:yes CT Simulation of: neck Pre-contrast qustionnaire completed prior to IV insertion :see above Simulation engineering team supervisor assessed IV line patency prior to IV contrast dye :yes Time contrast administered: 11:39 by Kristie Grimes RTT Clement Sheldon MD and Ro Hart RN present for contrast injection and 5 minutes after: Volume of Contrast injected by radiation therpaist: 100ml of Omnipaque 300mg/ml Volume of Contrast wasted: none Procedure done in [facility] Radiation Oncology Simulator Room. Reaction:[ ] Yes : explain reaction [ x ] none: No adverse reaction / Patient tolerated procedure well Signs and symptoms or infiltration/extravastion: None Time IV discontinued: 11:55 Patient teaching: Patient instructed to drink 2 liters of water over the next 48 hours post IV contrast simulation. Patient verbalized understanding of these instructions. documented in this encounter Plan of Treatment Not on file documented as of this encounter Visit Diagnoses Not on filedocumented in this encounter Care Teams [employer] Football Coach Relationship Specialty Start Date End Date Janice Christine MD [address] [place] [address] PCP - General 02/27/15 09/19/17 documented as of this encounter
--- OUTSIDE RECORDS SUMMARY | 2024-09-30 21:02 | XMS_ITS | Encounter Summary ---
Author Organization [facility] Address [facility] [place] [address] Care Team Providers Care Vp Strategic Planning Name Role Phone Janice Christine MD Primary Care Provider [phone] Encounter Details Date Type Department Care Team (Late st Contact Info) Description 10/12/2015 3:00 PM EST Office Visit Hematology [place] [address] Jacquie Plascencia MD [facility] [address] [place] [address] DLBCL (diffuse large B cell lymphoma) Social [...] Sign Reading Time Taken Comments Blood Pressure 125/78 10/12/2015 3:10 PM EST Pulse 75 10/12/2015 3:10 PM EST Temperature 37 ??C (98.6 ??F) 10/12/2015 3:10 PM EST Respiratory Rate 18 10/12/2015 3:10 PM EST Oxygen Saturation 100% 10/12/2015 3:10 PM EST Inhaled Oxygen Concentration - - Weight 96.3 kg (212 lb 6.4 oz) 10/12/2015 3:10 P M EST Height 182.9 cm (6' 0.01) 10/12/2015 3:10 PM ES T Body Mass Index 28.8 10/12/2015 3:10 PM EST documented in this encounter Progress Notes * Jacquie Plascencia MD - 10/12/2015 1:57 AM EST Hematology Clinic [facility] [place] [address] FOLLOW-UP PATIENT EVALUATION PROBLEM LIST: Patient Active [...] clinic today. Agapito Ramirez Jr. is a 45 y.o. year old male being seen for follow-up evaluation of DLBCL He had severe pharyngitis from the radition. Could not eat for 3 weeks. Got down to 195#. Now up to 212#. Dry mouth is A big problem. Wakesup with severe dry mouth and cracking skin. 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 Pain: None Appetite:good now Fevers/chills/sweats:No Bruising/bleeding/melena:No Recent infections:No HEENT: negative Nausea/vomiting/diarrhea/constipation: see above SOB/FISHMAN/chest pain:No Change in adenopathy or other masses:No Unexpected weight loss or gain: gained 5# since starting. Skin rashes or petechiae:No Musculoskeletal complaints:No Extremities: Negative upper and lower bilaterally Neurologic symptoms:None Mood: Normal Sleep: no Difficulty sleeping MEDS: No outpatient prescriptions have been marked as taking for the 10/12/15 encounter (Office Visit) with Jacquie Plascencia MD. Allergies: No Known Allergies INTERIM SOCIAL HISTORY Changes in job, home situation, tobacco or alcohol use: see HPI PHYSICAL EXAM BP 125/78 mmHg Pulse 75 Temp(Src) 37 ??C (98.6 ??F) (Temporal) Resp 18 Ht 182.9 cm (6' 0.01) Wt 96.344 kg (212 lb 6.4 oz) BMI 28.80 kg/m2 SpO2 100% Body surface area is 2.21 meters squared. GENERAL: Agapito Ramirez Jr. appears well and is in no acute distress. ENT: Oral pharynx clear. No evidence of lymphoma. Dry mouth EYES: MELVIN NECK: Supple without adenopathy. No palpable adenopathy AXILLARY: no adenopathy OTHER LYMPH: no adenopathy CARDIAC: Regular rate and rhythm without S3,S4 or murmurs. LUNGS: Clear to auscultation./percussion ABDOMEN: Soft and non-tender without hepatosplenomegaly or masses. EXTREMITIES: No cyanosis, clubbing, edema or calf tenderness. SKIN: No bruises or petechiae. 1cm SQ cyst on L ant chest around rib 11 - he will follow and call PCP if it grows. Feels Like intradermal cyst. NEUROLOGICAL: Alert and oriented to person, place and time. MUSCULOSKELETAL: No spinal or chest wall tenderness. R testicle wih soft mildly tender fluid filled sack consistent with known hydrocele. LABORATORY STUDIES Recent Results (from the past 72 hour(s)) POCT Glucose Result Value Ref Range POC Glucose 79 65 - 199 mg/dL Comprehensive metabolic panel (non-fasting) Result Value Ref Range Glucose Lvl 88 65 - 199 mg/dL BUN 13 10 - 20 mg/dL Creatinine 0.95 0.80 - 1.50 mg/dL Sodium 144 135 - 145 mmol/L Potassium 4.2 3.5 - 5.0 mmol/L Chloride 106 98 - 107 mmol/L CO2 26 22 - 31 mmol/L Anion Gap 12 5 - 15 mmol/L Calcium 9.4 8.5 - 10.5 mg/dL Total Protein 6.8 6.1 - 8.0 gm/dL Albumin 4.4 3.2 - 5.2 gm/dL AST 15 0 - 39 unit/L ALT 15 0 - 55 unit/L Alk Phos 57 40 - 120 unit/L Total Bilirubin 0.5 0.2 - 1.3 mg/dL Bili, Direct 0.1 0.0 - 0.3 mg/dL Estimated GFR >60 >=60 Lactate Dehydrogenase Result Value Ref Range LDH 147 110 - 220 unit/L Hemogram Result Value Ref Range WBC 7.0 4.0 - 10.0 x10(3)/mcL RBC 4.80 4.63 - 6.08 x10(6)/mcL Hemoglobin 14.5 13.7 - 17.5 gm/dL Hematocrit 41.9 40.0 - 51.0 % MCV 87.3 79.0 - 92.0 fL MCH 30.2 25.6 - 32.2 pg MCHC 34.6 32.0 - 36.5 gm/dL Platelets 230 145 - 370 x10(3)/mcL RDWSD 41.6 35.0 - 46.0 fL RDWCV 13.1 10.9 - 14.4 % MPV 10.1 9.0 - 12.0 fL Differential, Automated Result Value Ref Range Neutrophils % 67.2 % Neutr Abs (ANC) 4.74 1.50 - 6.30 x10(3)/mcL Lymphocytes % 18.9 % Lymphocytes Abs 1.3 1.0 - 3.6 x10(3)/mcL Monocytes % 7.2 % Monocyte Abs 0.5 0.2 - 1.0 x10(3)/mcL Eosinophils % 6.0 % Eosinophils Abs 0.4 0.0 - 0.5 x10(3)/mcL Basophils % 0.6 % Basophils Abs 0.0 0.0 - 0.2 x10(3)/mcL Immature Gran % 0.10 % Bina Gran Abs 0.01 0.00 - 0.05 x10(3)/mcL RADIOLOGY STUDIES REVIEWED: PET personally reviewed. The official reading is not back yet but to my read all I see is some G-CSF skeletal changes and no evidence of residual disease. EXAMINATION: PET/CT STANDARD PLUS LEGS CLINICAL HISTORY: restage lymphoma of neck and tonsil TECHNIQUE: Procedure: Following IV injection of 63-qrzcax-3-deoxyglucose (FDG) a standard uptake of approximately 60 [...] the left pharyngeal wall of questionable significance. Interval complete metabolic and near complete anatomic resolution of scattered small left level II lymph nodes. Normal metabolic activity in all other soft tissue regions. CHEST: Normal activity in all soft tissue regions. ABDOMEN/PELVIS: Normal activity in all soft tissue regions. SKELETON/EXTREMITIES: Mild diffuse increased marrow activity in the axial and proximal appendicular skeleton, likely reactive. IMPRESSION IMPRESSION: 1. Left tonsillar mass has resolved anatomically and nearly completely resolved metabolically with subtle mild asymmetric activity in the left pharyngeal wall which is of questionable significance. 2. No active kristina disease. 3. Mild diffuse increased marrow activity, likely reactive. PET scan today negative to my reading. Await official reading. He was shoveling and stripping sheetrock this AM which explains the R arm uptake. Alsor reviewed with Dr Denis. Negative scan outsideof the R arm mm uptake. Full report pending. ASSESSMENT/PLAN: DLBCL - he is now s/p C#3 RCHOP with negative PET scan and then consolidative XRT. His PET scan today is negative. He now has severe xerostoma and cracking of lips - I will see if rad onc can see mekhiin in [facility] to see if there is any symptom management ideas that might give him some relief. He will need f/u in 3mos with labs and exam. Next CT neck/chest in [facility] in 6 mos. Xerostomia - he is still uncomfortable. 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 I [facility] and to help him understand what to expect andhow to manage it. He would like to be seen in [facility]. N/V - slightly improved with aloxi and emend but was still a big problem. See above HPI Chest pain - has had it for years with work up in the past. No CP with this last cycle. GERD - prilosec helped , resolved. Testicular hydrocele - US In the past negative. No abnormal uptake to my read today. Will refer to Rad onc for symptom management of xerostomia. RTC in [facility] with EMB or Marilee. Then again in 6 mos with EMB with cbc, cmp, ldh and CT neck and chest at [facility]. I discussed all of the above with [...] sites documented in this encounter Care Teams Vp Strategic Planning Relationship Specialty Start Date End Date Janice Christine MD [address] [place] [address] PCP - General 02/27/15 09/19/17 documented as of this encounter
--- OUTSIDE RECORDS SUMMARY | 2024-09-30 21:02 | XMS_ITS | Encounter Summary ---
Author Organization [facility] Address [facility] [place] [address] Care Team Providers Care Government Affairs Director Name Role Phone Janice Christine MD Primary Care Provider [phone] Reason for Visit * Reason Comments Lymphoma R-Chop CY 1 Day 1 Encounter Details Date Type Department Care Team (Late st Contact Info) Description 03/06/2015 9:00 AM EDT Infusion Hematology Oncology at [address] [phone] CLINIC, DR ADKINS HEM/ONC William Joshi MD [facility] [place] [address] Lymphoma Discharge Disposition: Home Social History Tobacco Use Types Packs/Day Years Used Date Smoking Tobacco: Never Sex and Gender Information Value Date Recorded Sex Assigned at Not on file Gender Identity Not on file Sexual Orientation Not on file documented as of this encounter Last Filed Vital Signs Vital Sign Reading Time Taken Comments Blood Pressure 148/84 03/06/2015 7:00 AM EDT Pulse 77 03/06/2015 7:00 AM EDT Temperature 36 ??C (96.8 ??F) 03/06/2015 7:00 AM EDT Respiratory Rate - - Oxygen Saturation 99% 03/06/2015 7:00 AM EDT Inhaled Oxygen Concentration - - Weight 98.4 kg (217 lb) 03/06/2015 7:00 AM EDT Height 182.9 cm (6' 0.01) 03/06/2015 7:00 AM ED T Body Mass Index 29.42 03/06/2015 7:00 AM EDT documented in this encounter Progress Notes * Rosalia Cueto - 03/06/2015 11:51 AM EDT INFUSION THERAPY ADMINISTRATION NOTES DIAGNOSIS: Lymphoma CYCLE #: 1 Day 1 REASON FOR VISIT: R-Chop SUBJECTIVE Agapito offers no complaints. OBJECTIVE LAB DATA: 02/26/15 WBC 8.0 HGB 14.7 PLT 222 ANC 5.32 IV ACCESS: Left PIV BLOOD RETURN: yes + ANY S/S OF INFECTION/EXTRAVASATIONS: none IV FLUSHED WITH: Normal Saline IV DISCONTINUED: yes Pre administration: Chemotherapy orders independently verified for drug name, route, and dosage per patient's height, weight and BSA by HEIDI Sadler and onsite pharmacist REACTIONS (DESCRIPTION, TIME, INTERVENTION AND EFFECTIVENESS) none ASSESSMENT Agapito was awake, alert and he tolerated treatment well. Chemotherapy done with patient, patient hadno questions or concerns upon discharge. PLAN Return to clinic per routine, Monday03/09/15 documented in this encounter Plan of Treatment [...] 650 mg, Oral, ONCE, 1 dose, On Mon03/06/15 at 1015, Administer prior to riTUXimab, Routine Given 03/06/2015 9:59 AM EDT 650 mg cyclophosphamide (CYTOXAN) 1,680 mg in dextrose 5% 334 mL chemo infusion 1,680 mg (750 mg/m2/dose ? 2.24 m2 Treatment Plan BSA from Recorded weight), Intravenous, ONCE, 1 dose, On Mon03/06/15 at 1115, Administer over 30 Minutes New Bag 03/06/2015 3:30 PM EDT 1,680 mg 668 mL/hr dexamethasone (DECADRON) injection 10 mg 10 mg, Intravenous, ONCE, 1 dose, On Mon03/06/15 at 1015, In addition to prednisone 100 mg for cycle 1 only., Routine Given 03/06/2015 10:04 AM EDT 10 mg diphenhydrAMINE (BENADRYL) injection 50 mg 50 mg, Intravenous, ONCE, 1 dose, On Mon03/06/15 at 1015, Administer prior to riTUXimab, Routine Given 03/06/2015 10:00 AM EDT 50 mg DOXOrubicin (ADRIAMYCIN) chemo injection 112 mg 112 mg (50 mg/m2/dose ? 2.24 m2 Treatment Plan BSA from Recorded weight), Intravenous, ONCE, 1 dose, On Mon03/06/15 at 1115, Administer each syringe over a minimum of 3 minutes. Each Syringe contains 56 mg in 28 mL. Given 03/06/2015 3:11 PM EDT 112 mg ondansetron (ZOFRAN) tablet 16 mg 16 mg, Oral, ONCE, 1 dose, On Mon03/06/15 at 1015, Administer prior to chemotherapy, Routine Given 03/06/2015 9:58 AM EDT 16 mg predniSONE (DELTASONE) tablet 100 mg 100 mg, Oral, ONCE, 1 dose, On Mon03/06/15 at 1015, Give first dose prior to riTUXimab, Routine Given 03/06/2015 9:59 AM EDT 100 mg riTUXimab (RITUXAN) 800 mg in sodium chloride 0.9% 400 mL infusion 800 mg, Intravenous, ONCE, 1 dose, On Mon03/06/15 at 1115, Administer Per Protocol, Round medication dose to the nearest 100 mg: Dose has been rounded to the nearest 100 mg, Patient is a candidate for rapid infusion riTUXimab? No New Bag 03/06/2015 11:19 AM EDT 800 mg sodium chloride 0.9% infusion 100 mL/hr, Intravenous, ONCE, 1 dose, On Mon03/06/15 at 1015 New Bag 03/06/2015 10:15 AM EDT 100 mL/hr 100 mL/hr vinCRIStine (ONCOVIN) chemo injection 2 mg 2 mg, Intravenous, ONCE, 1 dose, On Mon03/06/15 at 1115, Administer over 2 Minutes, Maximum dose 2 mg Given 03/06/2015 3:27 PM EDT 2 mg 60 m L/hr documented in this encounter Care Teams Government Affairs Director Relationship Specialty Start Date End Date Janice Christine MD [address] [place] [address] PCP - General 02/27/15 09/19/17 documented as of this encounter
--- OUTSIDE RECORDS SUMMARY | 2024-09-30 21:02 | XMS_ITS | Encounter Summary ---
[place] [address] Care Team Providers Care Atm Manager Name Role Phone None Primary Care Provider Unavailabl e Encounter Details Date Type Department Care Team (Late st Contact Info) Description 02/26/2015 1:42 PM EDT - 02/26/2015 11:59 PM EDT Hospital Encounter [place] [address] Lymphoma Social History Tobacco Use Types Packs/Day [...] Procedure Name Priority Date/Time Associated Diagnosis Comments NM PET CT SKULL BASE TO MID-THIGH ([facility]) Routine 02/26/2015 3:34 PM EDT POCT GLUCOSE Routine 02/26/2015 1:53 PM EDT documented in this encounter Results * PET/CT STANDARD (Skull base to Mid-thigh) (02/26/2015 3:34 PM EDT) Anatomical Region Laterality Modality Other 02/26/2015 3:34 PM EDT Impressions 02/26/2015 4:35 PM EDT IMPRESSION: Left tonsillar lymphoma with associated kristina involvement in the left neck. No active lymphoma identified in the chest, abdomen, or pelvis. Thank you for referring this patient to [facility]. This report was reviewed by Liana Paul at 02/26/2015 4:30 PM Film and interpretation reviewed by the attending Narrative 02/26/2015 4:35 PM EDT EXAMINATION: PET/CT STANDARD (top of the head to Mid-thigh) CLINICAL HISTORY: pt with tonsilar lymphoma - staging - include head TECHNIQUE: Following IV injection of 23-rmcvgg-8-deoxyglucose (FDG) a standard uptake of approximately 60 minutes, a noncontrast CT scan followed by a PET scan were acquired from the top of the head to mid thighs. The noncontrast CT was used for anatomic localization and photon attenuation correction of the PET scan. Blood glucose level: 87 (mg/dL) FDG dose: 14.3 mCi COMPARISON: None FINDINGS: HEAD/NECK: There is a prominent, hypermetabolic left tonsillar mass. Three hypermetabolic left level II lymph nodes are also present. These are closely opposed, forming a conglomerate kristina mass which is situated at the carotid sheath. Measurement of these lesions is difficult due to similar attenuation of the surrounding, uninvolved soft tissue on CT as well as the lack of IV contrast. ? CHEST: Normal activity in all soft tissue regions. No pulmonary nodules or masses. No pleural effusions, pericardial effusion, or pneumothorax. ABDOMEN/PELVIS: Normal activity in all soft tissue regions. Bilateral scrotal hydroceles are present. SKELETON/EXTREMITIES: Normal activity in all regions of the axial and visualized appendicular skeleton. ? Procedure Note Liana Bach MD - 02/26/2015 EXAMINATION: PET/CT STANDARD (top of the head to Mid-thigh) CLINICAL HISTORY: pt with tonsilar lymphoma - staging - include head TECHNIQUE: Following IV injection of 11-aqatid-5-deoxyglucose (FDG) astandard uptake of approximately 60 minutes, a noncontrast CT scan followed by aPET scan were acquired from the top of the head to mid thighs. The noncontrast CTwas used for anatomic localization and photon attenuation correction of thePET scan. Blood glucose level: 87 (mg/dL) FDG dose: 14.3 mCi COMPARISON: None FINDINGS: HEAD/NECK: There is a prominent, hypermetabolic left tonsillar mass. Threehypermetabolic left level II lymph nodes are also present. These are closely opposed,forming a conglomerate kristina mass which is situated at the carotid sheath.Measurement of these lesions is difficult due to similar attenuation of thesurrounding, uninvolved soft tissue on CT as well as the lack of IV contrast. CHEST: Normal activity in all soft tissue regions. No pulmonary nodules ormasses. No pleural effusions, pericardial effusion, or pneumothorax. ABDOMEN/PELVIS: Normal activity in all soft tissue regions. Bilateral scrotal hydrocelesare present. SKELETON/EXTREMITIES: Normal activity in all regions of the axial and visualized appendicular skeleton. IMPRESSION IMPRESSION: Left tonsillar lymphoma with associated kristina involvement in the leftneck. No active lymphoma identified in the chest, abdomen, or pelvis. Thank you for referring this patient to [facility]. This report was reviewed by Liana Paul at 02/26/2015 4:30PM Film and interpretation reviewed by the attending Jacquie Plascencia MD IMG PET ORDERABL ES * POCT Glucose (02/26/2015 1:53 PM EDT) Glucose, POC 87 65 - 199 mg/dL HUANG LANG Comment: Supplemental ranges: <140 mg/dL before meals <180 mg/dL all other times of the day Blood specimen (specimen) 02/26/2015 1:53 PM EDT 02/26/2015 1:[address] Parvin Gold MD POINT OF CARE TEST O RDERABLES HUANG LANG documented in this encounter Visit Diagnoses Diagnosis Lymphoma Other malignant lymphomas, unspecified site, extranodal and solid organ sites documented in this encounter Care Teams Atm Manager Relationship Specialty Start Date End Date None None PCP - General 02/26/15 02/26/15 documented as of this encounter
--- OUTSIDE RECORDS SUMMARY | 2024-09-30 21:02 | XMS_ITS | Encounter Summary ---
[place] [address] Care Team Providers Care Partition Making Machine Operator Name Role Phone Janice Christine MD Primary Care Provider Encounter Details Date Type Department Care Team (Late st Contact Info) Description 03/26/2015 Orders Only [place] [address] Jacquie Plascencia MD [facility] [address] HEMATOLOGY [place] [address] Social History Tobacco Use Types Packs/Day Years Used Date Smoking Tobacco: Never Sex and Gender Information Value Date Recorded Sex Assigned at Not on file Gender Identity Not on file Sexual Orientation Not on file documented as of this encounter Plan of Treatment Not on file documented as of this encounter Visit Diagnoses Not on filedocumented in this encounter Care Teams Partition Making Machine Operator Relationship Specialty Start Date End Date Janice Christine MD [address] [place] [address] PCP - General 02/27/15 09/19/17 documented as of this encounter
--- OUTSIDE RECORDS SUMMARY | 2024-09-30 21:02 | XMS_ITS | Encounter Summary ---
Author Organization [facility] [place] [address] Care Team Providers Care Worm Packer Name Role Phone None Primary Care Provider Unavailabl e Encounter Details Date Type Department Care Team (Late st Contact Info) Description 02/26/2015 Orders Only [place] [address] Jacquie Plascencia MD [facility] [address] [place] [address] Lymphoma Social History Tobacco Use Types Packs/Day [...] sites documented in this encounter Care Teams Worm Packer Relationship Specialty Start Date End Date None None PCP - General 02/26/15 02/26/15 documented as of this encounter
--- OUTSIDE RECORDS SUMMARY | 2024-09-30 21:02 | XMS_ITS | Encounter Summary ---
[place] [address] Care Team Providers Care Research Geologist Name Role Phone Janice Christine MD Primary Care Provider [phone] Reason for Visit * Reason Comments Radiation Consult Encounter Details Date Type Department Care Team (Late st Contact Info) Description 05/05/2015 2:00 PM EDT Office Visit Radiation Oncology at [address] [phone] Jean Sheldon MD [address] [place] [address] [place] [address] Lymphoma Discharge Disposition: Home Social [...] Sign Reading Time Taken Comments Blood Pressure 137/73 05/05/2015 1:00 PM EDT Pulse 77 05/05/2015 1:00 PM EDT Temperature 36.9 ??C (98.5 ??F) 05/05/2015 1:00 PM ED T Respiratory Rate - - Oxygen Saturation 100% 05/05/2015 1:00 PM EDT Inhaled Oxygen Concentration - - Weight 101.6 kg (224 lb) 05/05/2015 1:00 PM EDT Height - - Body Mass Index 30.37 04/27/2015 2:38 PM EDT documented in this encounter Patient Instructions * Patient Instructions* Jean Sheldon MD - 04/23/2015 11:17 AM EDT Dear Mr. Ramirez, This note is to recap our discussion regarding use of radiation treatments for your lymphoma. As your radiation oncologist, I work closely with your other healthcare providers and most importantly, with you to make sure that the treatments we discuss and offer keep your personal preferences and goals in mind. To recap the details of our consultation today, Dr. Plascenica asked for me to see you to discuss how radiation therapy can be used to treat your lymphoma. We discussed the following next steps as part of your cancer evaluation and/or treatment: ?? Radiation treatments: I agree with Dr. Plascencia that radiation can be used to increase the odds that you are cured of this lymphoma, and that given your excellent response on the PET scan dated 04/27/15, your cure rates after 3 rounds of R-CHOP chemotherapy and a 4 week course of radiation is better than 90%. Mapping scan to plan your radiation treatments: Your radiation therapy will involve using high energy radiation which kills cancer but also normal healthy tissues. In order to make sure the radiation goes to the cancerous tissues and to also avoid radiating the normal tissues, we design radiationbeams beams into special shapes which come from various different directions. Because no two peopleand no two cancers are completely identical, the radiation plan we create for you will be unique toyou and your body. In order to figure out how many beams to use, how much radiation to give, which angles they should come from, and how they should be shaped, we have asked you to undergo a mapping scan here in our department known as a CT simulation, or CT sim, for short. This is essentially a CAT-scan with IV contrast dye, similar to scans which you may have received before, but slightly different in a few ways: First, it allows us to place you in the exact same position which you should expect to be placed during each of your radiation treatment sessions. Second, it lets us better understand where the radiation targets and the normal tissues that we want to avoid exist, in relation toeach other and the radiation beams. Following this scan, we then perform additional calculations and measurements to create the absolute best plan possible for you. Depending on the complexity of theplan, these processes can take from just few hours to several days, and for that we ask for your pat ience. If you have any questions about the planning process or your custom radiation plan, I would be more than happy to review the plan with you during your first week of treatment. I anticipate you will receive 20 treatments total, daily Monday-Monday for 4 weeks. Your start dateand time will be provided once the simulation scan is completed. During your radiation treatments, you can expect to see me once per week so that I can examine you to make sure you are tolerating radiation treatments and so that we can monitor your response to treatment. If you need to see me any other day, one of my colleagues or I would be happy to see you - just ask one of the radiation therapists or radiation nurses for assistance. Please do not hesitate to call me at [phone] with any other questions or concerns you have. Although our normal business hours are M-F 8AM-5PM, I am on- site here in [facility] Wednesdays through Fridays. On Mondays and Tuesdays, your nurse Radha Hart will be here and can answer any questionsyou might have, or help you get in touch with me. A Radiation Oncology doctor is also career technical education teacher after our normal hours and on weekends for urgent questions or concerns related to radiation treatments that can not wait until normal business hours. To reach the on-call doctor after-hours, just call and have the ballast cleaning operator page the Radiation Oncologist career technical education teacher. And, as always, if you experience any life-threatening emergencies which any include the following,you need to seek emergency care immediately by calling [phone]: 1. Sudden and unexpected breathing difficulty without any exertion 2. Sudden onset of chest pain 3. Sudden onset of severe pain or uncontrolled pain 4. Sudden onset of severe weakness and/or unable to walk 5. Sudden new onset of a seizure 6. Fall resulting in injury 7. Uncontrollable bleeding Jean Correa MD Cartridge Assemblerstone splitter Radiation Oncology [facility] documented in this encounter Progress Notes * Radha Hart RN - 05/05/2015 2:08 PM EDT RADIATION ONCOLOGY NURSING INITIAL NURSING ASSESSMENT IDENTIFICATION: Agapito Ramirez Jr. is a 44 y.o. year-old male with lymphoma PRESENTING SYMPTOMS/CHIEF COMPLAINT: difficulty swallowing. patient saw mass in back of thorat REVIEW OF SYSTEMS:Review of Systems Constitutional: Negative for fever, chills, activity change, fatigue and unexpected weight change. HENT: Positive for hearing loss (wears bilateral aides). Negative for sore throat, trouble swallowing (only had trouble swollowing when first diagnosed and before chemo shrunk tumor down) and voice change. Respiratory: Negative for cough, choking and shortness of breath. Cardiovascular: Negative for chest pain. Gastrointestinal: Negative for nausea, vomiting, diarrhea, blood in stool and abdominal distention. Genitourinary: Negative for difficulty urinating, penile pain and testicular pain. Musculoskeletal: Negative for arthralgias. Neurological: Negative for tremors, seizures, light-headedness, numbness and headaches. Hematological: Negative for adenopathy. Does not bruise/bleed easily. Psychiatric/Behavioral: The patient is not nervous/anxious. Prior Radiotherapy: No [x] Yes [] Site: Date: Physician/Location: Prior Chemotherapy: No [] Yes [x] Drug(s): [facility] Physician/Location: Date of last treatment: Prior Hormone Therapy: No [x] Yes [] Drug(s): Physician/Location: [facility] RISK ASSESSMENT SCORE: 0 RADIOLOGY SAFETY QUESTIONS REVIEWED: no LEARNING ASSESSMENT REVIEWED: on 02/26/15 ADVANCED DIRECTIVE: not discussed today PAIN ASSESSMENT: [0] out of 10 *eD-H Adult PCS Flow Sheet if 4 or above SOCIAL ASSESSMENT: See EDH social assessment information entered. Support Systems: lives with , family Barriers to treatment: none Referrals/Interventions: none RADIATION SPECIFIC TEACHING: [facility] Radiation Therapy and You Site specific teaching : Other: PLAN: Per Dr Sheldon's note * Jean Sheldon MD - 05/05/2015 1:51 PM EDT Radiation Oncology New Patient Consultation 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 He initially noticed dysphagia in January 2015. He was seen by Dr. Au for left tonsil biopsy, 02/23/15, that demonstrated germinal center diffuse large B cell lymphoma with Ki-67 greater than 90%. Staging PET/CT on 02/26/15 demonstrated FDG avidity in the left tonsil as well as a conglomeration ofthree lymph nodes in left level three of the neck. He established care with Dr. Plascencia that same day who katerina labs noting a normal LDH and an IPI of zero. Given the low risk status, bone marrow biopsy was deferred. He started R-CHOP receiving first cycle 03/06/15, second cycle 03/26/15, and final cycle 04/15/15. Restaging PET CT, 04/27/15, demonstrated a complete response, if not at least a very good partial response. (Dr. Plascencia discussed the scan with Dr. Denis who felt that the scan demonstrated a CR.) He saw that Dr. Plascencia that same day who recommended consolidative radiotherapy. He is here today to discuss radiotherapy as part of the definitive management for his stage II A diffuse large B cell lymphoma. Review of Systems: On further questioning, he notes bilateral hearing loss, which is chronic and ongoing. A comprehensive 14 point review of systems was conducted with this patient and is otherwise negative except as documented above. Past Medical History Diagnosis Date ??? Lymphoma The patient was specifically asked and denies a history of prior radiotherapy to this region, systemic sclerodema, or active systemic lupus. No past surgical history on file. Medication Sig ??? prochlorperazine (COMPAZINE) 5 mg Tablet Take 1-2 tablets by mouth every 6 hours as needed for Nausea. ??? predniSONE (DELTASONE) 20 mg Tablet Take 5 tablets by mouth daily. Take 5 tablets(100mg) daily on March 05, then 5 tablets daily x 4 days after each cycle of chemotherapy. ??? omeprazole (PRILOSEC) 20 mg Capsule, Delayed Release(E.C.) Take 1 capsule by mouth daily. ??? LORazepam (ATIVAN) 0.5 mg Tablet Take 1-2 tablets by mouth every 4 hours as needed for Anxiety (Can be used for nausea/vomiting or insomnia). ??? ondansetron (ZOFRAN) 8 mg Tablet Take 1 tablet by mouth every 8 hours as needed for Nausea. 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 Estimated travel time by the patient to [facility] is 10 minutes, one-way. KPS: 100 Smoking: denies Alcohol: denies Illicits: denies Family History: Reviewed with the patient and/or in the medical system and for the above diagnosis and is otherwisenon-contributory. Physical Exam: Filed Vitals: 05/05/15 1300 BP: 137/73 Pulse: 77 Temp: 36.9 ??C (98.5 ??F) General: alert, well appearing, and in no distress Head: Atraumatic, normocephalic Neck: Normal to inspection, No adenopathy and No neck mass. No masses in the oral cavity or oropharynx. Respiratory: clear to auscultation, no wheezes, rales or rhonchi, symmetric air entry Cardiovascular: regular rate and rhythm and no murmurs Abdomen: abdomen is soft without significant tenderness, masses, organomegaly or guarding. Neurologic: alert, oriented x 3, no defects noted in general exam. Extremities: peripheral pulses normal, no pedal edema, no clubbing or cyanosis Lymphatic: No palpable lymphadenopathy in the supraclavicular, infraclavicular, anterior/posterior cervical, or axillary regions. Pathology Review: Pathology was reviewed in the medical record, as per HPI and is summarized below: Site: [facility] tonsil biopsy 02/23/15 Histology / Grade: germinal center type DLBCL, Ki67 >90% Margin / Spencer status: n/a Other prognostic factors: n/a Imaging Review: I personally reviewed the images of the PET CTs dated 02/26/15 and 04/27/15 and note the resolution of the FDG avid disease in the left tonsil and left neck. Assessment: Agapito Ramirez is a 44-year-old man with stage II A diffuse large B cell lymphoma, germinal center type (favorable) with a very good LA if not CR to first line R-CHOP therapy. Plan: We discussed the overall excellent prognosis of his disease as well utility of consolidative radiotherapy today in clinic, and that it would be considered standard of care in this situation. He understands that the goal of therapy is to render him without evidence of disease and cure him of his lymphoma. We discussed logistics, toxicity, and complications of radiotherapy, that he will need to return to our clinic tomorrow for a planning CT simulation scan, at which point we will be able to create a radiation plan for him. I anticipate radiotherapy would begin next week for a total course of 36 Gy delivered in 20 fractions. He signed informed consent stating he wished to proceed with therapy as described above. We will see him back in clinic tomorrow for the planning scan. All of this patient's questions were answered to his fullest satisfaction, and we have provided himwith our contact information should any further questions or concerns arise. documented in this encounter Plan of Treatment Not on file documented as of this encounter Visit Diagnoses Diagnosis Lymphoma Other malignant lymphomas, unspecified site, extranodal and solid organ sites documented in this encounter Care Teams Research Geologist Relationship Specialty Start Date End Date Janice Christine MD [address] [place] [address] PCP - General 02/27/15 09/19/17 documented as of this encounter
--- OUTSIDE RECORDS SUMMARY | 2024-09-30 21:02 | XMS_ITS | Encounter Summary ---
Author Organization [facility] [place] [address] Care Team Providers Care Claims Counsel Name Role Phone Janice Christine MD Primary Care Provider Encounter Details Date Type Department Care Team (Late st Contact Info) Description 02/27/2015 5:18 PM EDT - 02/27/2015 11:59 PM EDT Hospital Encounter [place] [address] Jacquie Flores MD [facility] [address] [place] [address] Discharge Disposition: Home Social History Tobacco Use [...] Priority Date/Time Associated Diagnosis Comments SURGICAL PATHOLOGY REPORT Routine 02/27/2015 9:42 AM EDT documented in this encounter Results * Surgical Pathology Report (02/27/2015 9:42 AM EDT) Final Diagnosis ? [facility] ? Provider: ?? JACQUIE FLORES Pt. Name: ?? PERSONS , AGAPITO ?M ? Acc #: ?[id number] ?Pt. ? Col Date: ?? 02/27/2015 ?/Sex: ?1970,(44 years),Male ? Rec Date: ?? 03/02/2015 ?LOC: ?[facility] ? SURGICAL PATHOLOGY ? ---Pathologic Diagnosis--- ? CONSULTATION CASE ? Outside slides ??and block labeled [id number], collection date 02/23/2015. ? Tonsil, left , biopsy : Involved by diffuse large B-cell lymphoma-GC type. ? CORRECTED REPORT (see Comment) ? 03/02/15 ? GLL ? 03/05/15 Verified by: ? Fam Robison MD ? Hematopathologist ? (Electronic Signature) ? The attending pathologist whose signature appears on this report has ? reviewed all diagnostic slides and has edited the gross and/or ? microscopic portion of the report in rendering the final pathologic ? diagnosis. ? ---Comment--- ? Proliferative index is high at >90% . Myc studies indicated and are being ? pursued at the [facility]. ? Correction ? Note: ??The diagnosis was initially placed in the comment section. Now moved ? to the appropriate diagnosis section. ?? Also Myc studies have now been ? sent to [facility]. There are no other changes to the text of this report. ? _ ? ---Microscopic Description--- ? HE, and immunostains (CD10+, CD20+, BCl2+, BCl6+) slides reviewed, ? microscopic description not recorded. ? ---Gross Description--- ? [facility] ([facility]) pathology slide(s) are ? reviewed. ??Refer to Diagnosis and Specimen Submitted for specific case ? information. ? For the full text of the [facility] report(s) please refer to Non-DH ? Documentation Pathology in the electronic health record (eDH). ? ---Clinical Information--- ? Specimen Submitted: ? [facility] ? Provider: ?? JACQUIE FLORES Pt. Name: ?? PERSONS AGAPITO DAHL ?M ? Acc #: ?[id number] ?Pt. ? Col Date: ?? 02/27/2015 ?/Sex: ?1970,(44 years),Male ? Rec Date: ?? 03/02/2015 ?LOC: ?[facility] ? CONSULTATION CASE ? SURGICAL PATHOLOGY ? A - 10 slides and 1 block labeled [id number], collection date 02/23/2015. ? [id number] ? Report to: ? [facility] ? Surgical Pathology Department ? [facility], [address], [address]nd Floor ? [address] ? [place], [place] ??[address] ? 03/05/2015 3:36 PM EDT [facility] Consult Case 02/27/2015 9:42 AM EDT 02/27/2015 9:42 AM EDT Jacquie Flores MD PATHOLOGY/CYTOLO GY ORDERABLES Performing Organization Address City/State/RUST Co dc Phone Number [facility] [place] [address] documented in this encounter Visit Diagnoses Not on filedocumented in this encounter Care Teams Claims Counsel Relationship Specialty Start Date End Date Janice Christine MD [address] [place] [address] PCP - General 02/27/15 09/19/17 documented as of this encounter
--- OUTSIDE RECORDS SUMMARY | 2024-09-30 21:02 | XMS_ITS | Encounter Summary ---
Author Organization Formerly [facility] [place] [address] Care Team Providers Care Strategic Sourcing Manager Name Role Phone Janice Christine MD Primary Care Provider [phone] Encounter Details Date Type Department Care Team (Late st Contact Info) Description 06/11/2015 3:15 PM EDT Ancillary Appointment Hematology/Oncology at [address] [phone] [facility] [place] [address] Social History Tobacco Use Types Packs/Day Years Used Date Smoking Tobacco: Never Alcohol Use Standard Drinks/Week Comments No 0 (1 standard drink = 0.6 oz pur e alcohol) Sex and Gender Information Value Date Recorded Sex Assigned at Not on file Gender Identity Not on file Sexual Orientation Not on file documented as of this encounter Progress Notes * Erica Nelson RD - 06/11/2015 12:53 PM EDT [facility] Dietitian Follow Up Assessment Seen By: Palmira Nelson MS, RD, SALES REPRESENTATIVE [employer], LD Referred by: Dr. Sheldon Reason for visit: weight loss Patient and diagnosis: Agapito Ramirez Jr. is a 44 y.o. male currently undergoing adjuvant radiotherapy to the left neck for Stage IIA DLBCL, germinal center type. Assessment: HPI: Patient Active Problem List Diagnosis Code ??? Lymphoma 202.80 Meds: reivewed Labs: NNL Ht/Wt: 182.9 cm 2.2% decr in one week: Severe Oncology Vitals 06/11/2015 Weight 96.707 kg Previous wt: 98.79 kg on 06/04/15 Wt Hx: UBW: 217 when first dx'd. Gained some during chemo and now losing it. % UBW: IBW: 76 kg +/- 10% % IBW: BMI: ___ Edema ___ Ascites ___Muscle wasting Calorie needs: 2200 kcals Protein needs: 91 - 114 Fluid needs: 2.2 L Food Intake: dysgeusia and sore throat. Eats when hungry, but not sitting down to full meals. 3 spoonfuls of mac and cheese, pint of chocolate milk Yesterday: cup of noodles Previous week:L Yesterday PM: small vanilla shake ([employer] 530 kcals, 11 g pro) 2 bites of sausage , 2 cups of alexandr and cheese (90 kcals, 4 g pro) Today: doughnut at 6 am (140 kcals), bit of a candy bar (25 kcals) Fluids: Powerade now, ~ 12oz. Supplements/Frequency: Pint o' zabrina milk QD ___ Ensure/Plus ___ Boost/Plus ___ CIB ___ Other: Teas, vitamins, or other nutritional supplements: none Food allergies or avoidances: nkfa Appetite: decr, Nausea: denies Vomiting: denies Chewing: Dentition: Swallowing: mouth sores, mucositis, Baking soda/salt rinses BID Taste Changes: dysguesia Bowels: Food availability/purchasing, meal planning and preparation: He does this. 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 Level of Motivation/Readiness to Change: Nutrition Diagnosis: Weight down 2.2% in one week. Reviewed the concept of food as medicine and the importance of eatingsmall, frequent, calorically dense, protein-rich meals and snacks throughout the day. Anorexia, dysgeusia, and mucositis impacting intake. Reports gained weight during chemotherapy. Scheduled to complete RT on 06/12. He was open to taking Boost/Ensure Plus samples. Recommended TID to help stabilize weight, reviewedTID plus 16 oz of chocolate milk provide ~ 50% of estimated calories. He is optimistic that mouth will heal and dysgeusia will turn around shortly after RT is completed, as this started to happen of when RT was held. Recommended baking soda and salt rinses to be done more than twice/d. 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 Nutrition Intervention: ? Increase caloric needs: discussed ? Modify diet consistency: soft, bland foods ? Increase frequency of meals and snacks: Q 2-3 hrs ? Need for supplements: one/d, minimum Nutrition Goals: weight stabilization and LBM preservation Educational Handouts provided: -- Protein needs and sources -- Taste and Smell changes -- Fluid Intake Other Recommendations: ? Monitoring and Evaluation: Will follow up with Mr. Ramirez in 1-2 week (s) to re-evaluate, may need to be via TC. documented in this encounter Plan of Treatment Not on file documented as of this encounter Visit Diagnoses Not on filedocumented in this encounter Care Teams Strategic Sourcing Manager Relationship Specialty Start Date End Date Janice Christine MD [address] [place] [address] PCP - General 02/27/15 09/19/17 documented as of this encounter
--- OUTSIDE RECORDS SUMMARY | 2024-09-30 21:02 | XMS_ITS | Encounter Summary ---
Author Organization [facility] Address [facility] [place] [address] Care Team Providers Care Supervisor Vine Fruit Farming Name Role Phone None Primary Care Provider Unavailabl e Encounter Details Date Type Department Care Team (Late st Contact Info) Description 02/26/2015 1:03 PM EDT - 02/26/2015 11:59 PM EDT Hospital Encounter Non-Invasive [place] [address] CARDIO, ECHO SIXTY MIN APPT None Jacquie Plascencia MD [facility] [address] [place] [address] Lymphoma Discharge Disposition: Home Social History Tobacco [...] Procedure Name Priority Date/Time Associated Diagnosis Comments ECHOCARDIOGRAM TRANSTHORACIC Routine 02/26/2015 1:59 PM EDT Lymphoma documented in this encounter Results * Echocardiogram Transthoracic(Leb) (02/26/2015 1:59 PM EDT) EF 71 HEARTLAB SYSTEM Anatomical Region Laterality Modality Other 02/26/2015 Narrative 02/26/2015 2:21 PM EDT Procedure: ? Transthoracic Echocardiogram Patient: ? PERSONS AGAPITO ?(Age): 1970(44) Med Rec#: ?[id number] ? Sex: ?M ? Site Loc: ?[facility] ? Ht / Wt: ??182.9(cm)/121.1 Pt. Loc: ? Echo Lab ? BSA: ?2.48 Study Date: ?02/26/2015 ? Pt. Type: Outpatient Tape: ? Referring: Jacquie Plascencia Referring: DAVID Body Corporate Manager: Yaneth Arizmendi Diagnosis:CPT Code(s): ??Echo Full (44194), ??Spectral Doppler (28197), Color Doppler (23249), Indication(s): ??Chemotherapy-baseline Rhythm: HR ?BP ?121/67 ?? SUMMARY: 1. The left ventricular chamber size is normal. ??Mild concentric left ventricular hypertrophy is observed. ??There is normal global left ventricular systolic function. ??The quantitative left ventricular ejection fraction by biplane Lantigua's method is 71%. ??Global longitudinal systolic strain = -19%. ??There are no left ventricular segmental wall motion abnormalities. ??Doppler assessment is consistent with normal left sided filling pressure. 2. The right ventricle is normal in size. ??Right ventricular global systolic function is normal. ??Pulmonary artery hypertension could not be assessed due to inadequate tricuspid regurgitation jet. 3. There is no hemodynamically significant valve disease. 4. See remainder of report for additional findings. FINDINGS: Left Ventricle ?The left ventricular chamber size is normal. ?Mild concentric left ventricular hypertrophy is observed. ?There is no evidence of LVOT obstruction. ?No ventricular septal defect is visualized. ?There is normal global left ventricular systolic function. ?The quantitative left ventricular ejection fraction by biplane Lantigua's method is 71%.global strain = -19.3% ?There are no left ventricular segmental wall motion abnormalities. ?Doppler assessment is consistent with normal left sided filling pressure. ?A false chord is observed in the left ventricle. Left Atrium ?The left atrium is mildly dilated.(39 ml/m2) ?There is a possible patent foramen ovale demonstrated by color Doppler. Right Ventricle ?The right ventricle is normal in size. ?Right ventricular global systolic function is normal. ?Pulmonary artery hypertension could not be assessed due to inadequate tricuspid regurgitation jet. Right Atrium ?The right atrium is mildly dilated. Aortic Valve ?The aortic valve is trileaflet. The leaflets are thin with normal excursion. There is no aortic stenosis or regurgitation present. Mitral Valve ?The mitral valve appears normal in structure and function. ?There is no evidence of mitral valve leaflet prolapse. ?There is trace mitral regurgitation present. Tricuspid Valve ?The tricuspid valve appears normal in structure and function. ?There is trace tricuspid regurgitation present. Pulmonic Valve ?The pulmonic valve appears normal in structure and function. Pericardium ?The pericardium appears normal and there is no evidence of a pericardial effusion. Aorta ?The aortic root is normal in size. ?The ascending aorta is normal in size. ?There is no evidence of coarctation of the aorta. Pulmonary Artery ?The main pulmonary artery appears normal. Venous ?The inferior vena cava appears normal in size. ?There is a greater than 50% respiratory change in the inferior vena cava dimension. Misc ?There is no hemodynamically significant valve disease. ?See remainder of report for additional findings. ?Two-dimensional echo, spectral Doppler and color Doppler performed. Wall Motion: Segment Name ?Rest ? Base-Anteroseptal ?? Normal ? Base-Anterior ? Normal ? Base-Anterolateral ??Normal ? Base-Posterolateral Normal ? Base-Inferior ? Normal ? Base-Inferoseptal ?? Normal ? Mid-Anteroseptal ?Normal ? Mid-Anterior ?Normal ? Mid-Anterolateral ?? Normal ? Mid-Posterolateral ??Normal ? Mid-Inferior ?Normal ? Mid-Inferoseptal ?Normal ? Redfield-Septal ? Normal ? Redfield-Anterior ? Normal ? Redfield-Lateral ?Normal ? Redfield-Inferior ? Normal ? Redfield-Tip ?Normal ? Chambers ?Value ?Units (Range) ? EF ??Bi-p Simp ? 71 ? % (55 to 80) ? IVSd 2D ? 1.3 ?cm ? LVIDd 2D ?4.3 ?cm ? PWd 2D ?1.2 ?cm ? LVIDs 2D ?2.8 ?cm ? LVFS 2D ? 35 ? % ? LA area ? 25 ? cm2 (<21) ? RA area ? 21 ? cm2 (<18) ? Ao root ? 2.9 ?cm (2.1 to 3.6) ? Asc Ao ?2.9 ?cm (2 to 3.5) ? Mitral Valve ?Value ?Units (Range) ? E peak ?0.64 ? m/sec ? E/A ratio ? 1.3 ?ratio ? MVDT ?308 ?msec ? E1 ?0.08 ? m/sec ? E/E1 ?8 ?ratio ? Tricuspid/Pulmonic Valves ?Value ?Units (Range) ? RAP ? 3 ?mmHg ? This report has been electronically signed by: Miguel Valdez ? 02/26/2015 14:21:16 Images reviewed and interpretation verified [facility] Cardiac Ultrasound Laboratory Procedure Note Miguel Valdez MD - 02/26/2015 Procedure: Transthoracic Echocardiogram Patient: NELY DAMON(Age): 1970(44) Med Rec#: [id number] Sex: M Site Loc: [facility] Ht / Wt: 182.9(cm)/121.1 Pt. Loc: Echo Lab BSA: 2.48 Study Date: 02/26/2015 Pt. Type: Outpatient Tape: Referring: Jacquie Plascencia Referring: DAVID Body Corporate Manager: Yaneth Arizmendi Diagnosis:CPT Code(s): Echo Full (38054), Spectral Doppler (97947), Color Doppler (12983), Indication(s): Chemotherapy-baseline Rhythm: HR BP 121/67 SUMMARY: 1. The left ventricular chamber size is [...] See remainder of report for additional findings. FINDINGS: Left Ventricle The left ventricular chamber size is normal. Mild concentric left ventricular hypertrophy is observed. There is no evidence of LVOT obstruction. No ventricular septal defect is visualized. There is normal global left ventricular systolic function. The quantitative left ventricular ejection fraction by biplane Lantigua's method is 71%.global strain = -19.3% There are no left ventricular segmental wall motion abnormalities. Doppler assessment is consistent with normal left sided filling pressure. A false chord is observed in the left ventricle. Left Atrium The left atrium is mildly dilated.(39 ml/m2) There is a possible patent foramen ovale demonstrated by color Doppler. Right Ventricle The right ventricle is normal in size. Right ventricular global systolic function is normal. Pulmonary artery hypertension could not be assessed due to inadequate tricuspid regurgitation jet. Right Atrium The right atrium is mildly dilated. Aortic Valve The aortic valve is trileaflet. The leaflets are thin with normal excursion. There is no aortic stenosis or regurgitation present. Mitral Valve The mitral valve appears normal in structure and function. There is no evidence of mitral valve leaflet prolapse. There is trace mitral regurgitation present. Tricuspid Valve The tricuspid valve appears normal in structure and function. There is trace tricuspid regurgitation present. Pulmonic Valve The pulmonic valve appears normal in structure and function. Pericardium The pericardium appears normal and there is no evidence of a pericardial effusion. Aorta The aortic root is normal in size. The ascending aorta is normal in size. There is no evidence of coarctation of the aorta. Pulmonary Artery The main pulmonary artery appears normal. Venous The inferior vena cava appears normal in size. There is a greater than 50% respiratory change in the inferior vena cava dimension. Misc There is no hemodynamically significant valve disease. See remainder of report for additional findings. Two-dimensional echo, spectral Doppler and color Doppler performed. Wall Motion: Segment Name Rest Base-Anteroseptal Normal Base-Anterior Normal Base-Anterolateral Normal Base-Posterolateral Normal Base-Inferior Normal Base-Inferoseptal Normal Mid-Anteroseptal Normal Mid-Anterior Normal Mid-Anterolateral Normal Mid-Posterolateral Normal Mid-Inferior Normal Mid-Inferoseptal Normal Redfield-Septal Normal Redfield-Anterior Normal Redfield-Lateral Normal Redfield-Inferior Normal Redfield-Tip Normal Chambers Value Units (Range) EF Bi-p Simp 71 % (55 to 80) IVSd 2D 1.3 cm LVIDd 2D 4.3 cm PWd 2D 1.2 cm LVIDs 2D 2.8 cm LVFS 2D 35 % LA area 25 cm2 (<21) RA area 21 cm2 (<18) Ao root 2.9 cm (2.1 to 3.6) Asc Ao 2.9 cm (2 to 3.5) Mitral Valve Value Units (Range) E peak 0.64 m/sec E/A ratio 1.3 ratio MVDT 308 msec E1 0.08 m/sec E/E1 8 ratio Tricuspid/Pulmonic Valves Value Units (Range) RAP 3 mmHg This report has been electronically signed by: Miguel Valdez 02/26/2015 14:21:16 Images reviewed and interpretation verified [facility] Cardiac Ultrasound Laboratory Jacquie Plascencia MD ECHO ORDERABLES documented in this encounter Visit Diagnoses Diagnosis Lymphoma Other malignant lymphomas, unspecified site, extranodal and solid organ sites documented in this encounter Care Teams Supervisor Vine Fruit Farming Relationship Specialty Start Date End Date None None PCP - General 02/26/15 02/26/15 documented as of this encounter
--- OUTSIDE RECORDS SUMMARY | 2024-09-30 21:02 | XMS_ITS | Encounter Summary ---
[place] [address] Care Team Providers Care Senior Java Programmer Analyst Name Role Phone Janice Christine MD Primary Care Provider [phone] Encounter Details Date Type Department Care Team (Late st Contact Info) Description 06/11/2015 3:30 PM EDT Office Visit Radiation Oncology at [address] [phone] Jean Sheldon MD [address] [place] [address] [place] [address] Lymphoma Discharge Disposition: Home Social [...] Sign Reading Time Taken Comments Blood Pressure 129/66 06/11/2015 3:00 PM EDT Pulse 88 06/11/2015 3:00 PM EDT Temperature 37 ??C (98.6 ??F) 06/11/2015 3:00 PM EDT Respiratory Rate 12 06/11/2015 3:00 PM EDT Oxygen Saturation 97% 06/11/2015 3:00 PM EDT Inhaled Oxygen Concentration - - Weight 96.7 kg (213 lb 3.2 oz) 06/11/2015 3:00 P M EDT Height - - Body Mass Index 28.91 04/27/2015 2:38 PM EDT documented in this encounter Patient Instructions * Patient Instructions* Jean Sheldon MD - 06/11/2015 3:26 PM EDT Dear Mr. Ramirez, Congratulations on nearly completing your radiation therapy! We typically ask that our patients come back to see either me or one of our nurse practitioners in 4-6 weeks after finishing treatment to make sure there are no further side effects from treatment. At that time we will also finalize a follow-up schedule, possibly in conjunction or trading off with your other physicians to monitor your response to treatment. We also discussed the following: ?? Thrush: This is due to fungal overgrowth in your mouth and it can cause worsening of pain with eating/swallowing. I have sent a prescription for nystatin mouthwash to your pharmacy. Please continue this for 2 weeks. If you notice the whitish film in your mouth getting worse or swallowing becomesmore painful please let us know. In the meantime, if you have any [...] Uncontrollable bleeding A Radiation Oncology doctor is territory sales consultant after our normal hours and on weekends. To call for urgent medical issues from radiation treatments that can not wait until normal business hours, please call and have the cooling tower operator page the Radiation Oncologist territory sales consultant. Jean Correa. MD Pito documented in this encounter Progress Notes * Jean Sheldon MD - 06/11/2015 3:26 PM EDT [facility] On Treatment Visit Patient ID: Agapito Ramirez Jr. is a 44 y.o. male currently undergoing adjuvant radiotherapy to theleft neck for Stage IIA DLBCL, germinal center type. Concurrent Therapy: none Plan Details: Daily Dose: 1.8 Gy Current Dose: 34.2 Gy in 19 fractions Planned Dose: 36 Gy in 20 fractions Subjective / Interval History: General - Ongoing lack of taste. Otherwise feels unchanged. HEENT - Ongoing discomfort with swallowing. Skin - No skin changes. KPS: 90 Pain Assessment: Pain score today is 4/10. First thing in the morning when dry it is 10/10 then resolves to 3/10. Not taking any pain medications though Tylenol was recommended at last OTV. Nutrition Assessment: The patients weight today is 213, and at the start of therapy it was 224 lbs.Currently, the patient reports a soft diet. Seeing RD today to discuss nutritional supplements (previously had refused). Objective: BP 129/66 mmHg Pulse 88 Temp(Src) 37 ??C (98.6 ??F) Resp 12 Wt 96.707 kg (213 lb 3.2 oz) SpO2 97% General - appears well, no distress HEENT - erythema but no mucositis or sloughing. +Thrush. Skin - slight erythema no desquamation Interval Investigations: None Portal Imaging Review: I have personally reviewed this patient's interval portal imaging to confirm accurate positioning and alignment which matches the patient's original approved treatment planning images. Assessment: Tolerating radiotherapy as expected. Plan: Continue radiotherapy as prescribed. Nystatin rx'ed for thrush. Finishes tomorrow, RV 4 weeks or sooner if symptoms worsen. documented in this encounter Plan of Treatment Not on file documented as of this encounter Visit Diagnoses Diagnosis Lymphoma Other malignant lymphomas, unspecified site, extranodal and solid organ sites documented in this encounter Care Teams Senior Java Programmer Analyst Relationship Specialty Start Date End Date Janice Christine MD [address] [place] [address] PCP - General 02/27/15 09/19/17 documented as of this encounter
--- OUTSIDE RECORDS SUMMARY | 2024-09-30 21:02 | XMS_ITS | Encounter Summary ---
Author Organization [facility] Address [facility] [place] [address] Care Team Providers Care Fryer Line Helper Name Role Phone Janice Christine MD Primary Care Provider [phone] Encounter Details Date Type Department Care Team (Late st Contact Info) Description 06/25/2015 Telephone Hematology/Oncology at [address] [phone] [facility] [place] [address] Social History Tobacco Use Types Packs/Day Years Used Date Smoking Tobacco: Never Alcohol Use Standard Drinks/Week Comments No 0 (1 standard drink = 0.6 oz pur e alcohol) Sex and Gender Information Value Date Recorded Sex Assigned at Not on file Gender Identity Not on file Sexual Orientation Not on file documented as of this encounter Progress Notes * Erica Nelson, MAGAN - 06/25/2015 3:24 PM EDT Tc to Agapito for follow up assessment regarding nutrition. Completed Rt on 06/12. Spoke to him, he reports: ???I am still alive.?? Wt per home scale: 195 lbs (naked) 3-5 % wt loss in 1.5 weeks, Severe Last recorded wt: 209 lbs on 06/16/15 - dressed and in clinic Just barely starting to picker eating. Forcing himself to eat something when hungry, which may be once or twice/d. Today: ate egg out of western omlette and ?? f 32 oz powerade. Yesterday: tried to eat Juni salad, but dressing hurt mouth Was able to eat hamburger without bun w/ ketchup, which he reports didn???t burn it too bad. A/P: Explained he needs more calories. Reviewed weight loss since he was in clinic, although he defendedhe was clothed. Recommended CIB supplement daily. He doesn't like the taste of Ensure or Boost. Will mail him out Asample and coupon of CIB. Reviewed soft, moist bland foods for him to eat and encouraged the addition of gravy or butter to help moisten items. Drink milk w/ meals. He also reported he has not had to take tylenol in 2-3 days. Mailed out: CIB sample and coupon Soft, moist, high protein menu ideas Will continue to follow. documented in this encounter Plan of Treatment Not on file documented as of this encounter Visit Diagnoses Diagnosis Dietary counseling and surveillance Dietary surveillance and counseling documented in this encounter Care Teams Fryer Line Helper Relationship Specialty Start Date End Date Janice Christine MD [address] [place] [address] PCP - General 02/27/15 09/19/17 documented as of this encounter
--- OUTSIDE RECORDS SUMMARY | 2024-09-30 21:02 | XMS_ITS | Encounter Summary ---
[place] [address] Care Team Providers Care Extrusion Press Operator Name Role Phone Janice Christine MD Primary Care Provider Encounter Details Date Type Department Care Team (Late st Contact Info) Description 05/14/2015 2:45 PM EDT Office Visit Radiation Oncology at [address] [phone] Jean Sheldon MD [address] [place] [address] [place] [address] Lymphoma Discharge Disposition: Home Social [...] Sign Reading Time Taken Comments Blood Pressure 118/68 05/14/2015 3:00 PM EDT Pulse 78 05/14/2015 3:00 PM EDT Temperature 36.7 ??C (98 ??F) 05/14/2015 3:00 PM EDT Respiratory Rate 12 05/14/2015 3:00 PM EDT Oxygen Saturation 99% 05/14/2015 3:00 PM EDT Inhaled Oxygen Concentration - - Weight 101.7 kg (224 lb 3.2 oz) 05/14/2015 3:00 PM EDT Height - - Body Mass Index 30.4 04/27/2015 2:38 PM EDT documented in this encounter Patient Instructions * Patient Instructions* Jean Sheldon MD - 05/14/2015 3:14 PM EDT Dear Mr. Ramirez, I believe [...] Uncontrollable bleeding A Radiation Oncology doctor is quality control representative after our normal hours and on weekends. To call for urgent medical issues from radiation treatments that can not wait until normal business hours, please call and have the shirt operator page the Radiation Oncologist quality control representative. Jean Correa MD documented in this encounter Progress Notes * Jean Sheldon MD - 05/14/2015 3:12 PM EDT [facility] On Treatment Visit Patient ID: Agapito Ramirez Jr. is a 44 y.o. male currently undergoing adjuvant radiotherapy to theleft neck for Stage IIA DLBCL, germinal center type. Concurrent Therapy: none Plan Details: Daily Dose: 1.8 Gy Current Dose: 1.8 Gy in 1 fraction Planned Dose: 36 Gy in 20 fractions Subjective / Interval History: No changes since last seen; patient started today. He had some slight skin discomfort yesterday before starting RT. Slight back pain during treatment today. KPS: 100 Pain Assessment: Pain score today is 0/10. Nutrition Assessment: The patients weight today at the start of therapy is 224 lbs Currently, the patient reports a typical diet at home which is normal. Objective: BP 118/68 mmHg Pulse 78 Temp(Src) 36.7 ??C (98 ??F) Resp 12 Wt 101.696 kg (224 lb 3.2 oz) SpO2 99% General - appears well, no distresss Interval Investigations: None Portal Imaging Review: I have personally reviewed this patient's interval portal imaging to confirm accurate positioning and alignment which matches the patient's original approved treatment planning images. Assessment: Tolerating radiotherapy as expected. Plan: Continue radiotherapy as prescribed. Rx ibuprofen prn for back discomfort. documented in this encounter Plan of Treatment Not on file documented as of this encounter Visit Diagnoses Diagnosis Lymphoma Other malignant lymphomas, unspecified site, extranodal and solid organ sites documented in this encounter Care Teams Extrusion Press Operator Relationship Specialty Start Date End Date Janice Christine MD [address] [place] [address] PCP - General 02/27/15 09/19/17 documented as of this encounter
--- OUTSIDE RECORDS SUMMARY | 2024-09-30 21:02 | XMS_ITS | Encounter Summary ---
Author Organization [facility] [place] [address] Care Team Providers Care Customer Operations Intern Name Role Phone Janice Christine MD Primary Care Provider [phone] Encounter Details Date Type Department Care Team (Late st Contact Info) Description 04/27/2015 12:15 PM EDT - 04/27/2015 12:32 PM EDT Hospital Encounter [place]ematology [place] [address] Social History Tobacco Use Types Packs/Day Years Used Date Smoking Tobacco: Never Sex and Gender Information Value Date Recorded Sex Assigned at Not on file Gender Identity Not on file Sexual Orientation Not on file documented as of this encounter Medications at Time of Discharge Medication Sig Dispensed Refills Start Date End Date prochlorperazine (COMPAZINE) 5 mg TabletIndications:Lymph sonia Take 1-2 tablets by mouth every 6 hours as needed for Nausea. 10 tablet 3 04/08/2015 05/28/2015 predniSONE (DELTASONE) 20 mg TabletIndications:Lymph sonia Take 5 tablets by mouth daily. Take 5 tablets(100mg) daily on March 05, then 5 tablets daily x 4 days after each cycle of chemotherapy. 25 tablet 3 03/25/2015 05/28/2015 omeprazole (PRILOSEC) 20 mg Capsule, Delayed Release(E.C.)Indication s:Lymphoma Take 1 capsule by mouth daily. 30 capsule 6 03/09/2015 05/28/2015 LORazepam (ATIVAN) 0.5 mg Tablet Take 1-2 tablets by mouth every 4 hours as needed for Anxiety (Can be used for nausea/vomiting or insomnia). 30 tablet 3 03/04/2015 07/02/2015 ondansetron (ZOFRAN) 8 mg Tablet Take 1 tablet by mouth every 8 hours as needed for Nausea. 20 tablet 3 03/04/2015 05/28/2015 documented as of this encounter Plan of Treatment Not on file documented as of this encounter Visit Diagnoses Not on filedocumented in this encounter Care Teams Customer Operations Intern Relationship Specialty Start Date End Date Janice Christine MD [address] [place] [address] PCP - General 02/27/15 09/19/17 documented as of this encounter
--- OUTSIDE RECORDS SUMMARY | 2024-09-30 21:02 | XMS_ITS | Encounter Summary ---
Author Organization [facility] Address [place] [address] Care Team Providers Care Sewing Demonstrator Name Role Phone Janice Christine MD Primary Care Provider [phone] Encounter Details Date Type Department Care Team (Late st Contact Info) Description 10/12/2015 11:40 AM [facility] Hospital [place] [address] Jacquie Plascencia MD [facility] [place] [address] Lymphoma Discharge Disposition: Home Social History Tobacco [...] Sig Dispensed Refills Start Date End Date acetaminophen (TYLENOL) 500 mg Tablet Take 1,000 [...] PET CT SKULL BASE TO MID-THIGH ([facility]) STAT 10/12/2015 2:41 PM EST Lymphoma POCT GLUCOSE Routine 10/12/2015 12:48 PM EST documented in this encounter Results * PET/CT STANDARD (Skull base to Mid-thigh) (10/12/2015 2:41 PM EST) Anatomical Region Laterality Modality Nuclear Medicine Impressions 10/12/2015 4:23 PM EST IMPRESSION: No active lymphoma. Thank you for referring this patient to [facility]. Narrative 10/12/2015 4:23 PM EST EXAMINATION: PET/CT STANDARD (SKULL BASE TO MID THIGH) CLINICAL HISTORY: restage lymphoma after chemo and XRT TECHNIQUE: Procedure: Following IV injection of 55-pmcxrr-7-deoxyglucose (FDG) a standard uptake of approximately 60 minutes, a noncontrast CT scan followed by a PET scan were acquired from the top of the head to mid thighs. The noncontrast CT was used for anatomic localization and photon attenuation correction of the PET scan Blood glucose level: 79 (mg/dL) FDG dose: 14.1 mCi COMPARISON: PET/CT 04/27/2015 FINDINGS: HEAD/NECK: Normal activity in all soft tissue regions of the neck and visualized lower head. No significant adenopathy seen on CT CHEST: Normal activity in all soft tissue regions. No significant pulmonary nodules or adenopathy seen on CT. ABDOMEN/PELVIS: Normal activity in all soft tissue regions. ? SKELETON/EXTREMITIES: Normal marrow activity in all regions of the axial and visualized appendicular skeleton. Diffusely increased tracer activity seen in the biceps muscles of the right upper arm and extending into the pectoralis muscles, with no abnormality seen on CT. This is consistent with muscular strain. ? Procedure Note Burt Denis MD - 10/12/2015 EXAMINATION: PET/CT STANDARD (SKULL BASE TO MID THIGH) CLINICAL HISTORY: restage lymphoma after chemo and XRT TECHNIQUE: Procedure: Following IV injection of 40-ysakun-8-deoxyglucose(FDG) a standard uptake of approximately 60 minutes, a noncontrast CT scanfollowed by a PET scan were acquired from the top of the head to mid thighs. Thenoncontrast CT was used for anatomic localization and photon attenuation correction ofthe PET scan Blood glucose level: 79 (mg/dL) FDG dose: 14.1 mCi COMPARISON: PET/CT 04/27/2015 FINDINGS: HEAD/NECK: Normal activity in all soft tissue regions of the neck and visualizedlower head. No significant adenopathy seen on CT CHEST: Normal activity in all soft tissue regions. No significant pulmonarynodules or adenopathy seen on CT. ABDOMEN/PELVIS: Normal activity in all soft tissue regions. SKELETON/EXTREMITIES: Normal marrow activity in all regions of the axial and visualizedappendicular skeleton. Diffusely increased tracer activity seen in the biceps muscles of theright upper arm and extending into the pectoralis muscles, with no abnormalityseen on CT. This is consistent with muscular strain. IMPRESSION IMPRESSION: No active lymphoma. Thank you for referring this patient to [facility]. Jacquie Plascencia MD IMG PET ORDERABL ES * POCT Glucose (10/12/2015 12:48 PM EST) Glucose, POC 79 65 - 199 mg/dL HUANG LANG Comment: Supplemental ranges: <140 mg/dL before meals <180 mg/dL all other times of the day Blood specimen (specimen) 10/12/2015 12:48 PM EST 10/12/2015 12:48 PM EST Jacquie Plascencia MD POINT OF CARE TE ST ORDERABLES HUANG LANG documented in this encounter Visit Diagnoses Diagnosis Lymphoma Other malignant lymphomas, unspecified site, extranodal and solid organ sites documented in this encounter Administered Medications Inactive Administered Medications - up to 3 most recent administrations Medication Order MAR Action Action Date Dose Rate Site fludeoxyglucose (F-18) FDG injection 14.1 mCi 14.1 mCi, Intravenous, ONCE PRN, 1 dose, Starting on Mon10/12/15 at 1259, Until Mon10/12/15 at 1259, Per Protocol, Routine Given 10/12/2015 12:59 PM EST 14.1 mCi Right Arm documented in this encounter Care Teams Sewing Demonstrator Relationship Specialty Start Date End Date Janice Christine MD [address] [place] [address] PCP - General 02/27/15 09/19/17 documented as of this encounter
--- OUTSIDE RECORDS SUMMARY | 2024-09-30 21:02 | XMS_ITS | Encounter Summary ---
Author Organization [facility] [place] [address] Care Team Providers Care Boat Hand Name Role Phone Janice Christine MD Primary Care Provider [phone] Encounter Details Date Type Department Care Team (Late st Contact Info) Description 03/13/2015 External [place] [phone] Provider, Scanning Social History Tobacco Use Types [...] Associated Diagnosis Comments SURGICAL PATHOLOGY SCAN Routine 03/13/2015 documented in this encounter Results * Scan Doc: Surgical Pathology (03/13/2015) Fam Robison MD MEDIA MGR SCAN EXT O RDR/RSLT documented in this encounter Visit Diagnoses Not on filedocumented in this encounter Care Teams Boat Hand Relationship Specialty Start Date End Date Janice Christine MD [address] [place] [address] PCP - General 02/27/15 09/19/17 documented as of this encounter
--- OUTSIDE RECORDS SUMMARY | 2024-09-30 21:02 | XMS_ITS | Encounter Summary ---
[place] [address] Care Team Providers Care Litigator Name Role Phone Janice Christine MD Primary Care Provider [phone] Reason for Visit * Reason Comments Lymphoma neulasta CY 3 day 2 Encounter Details Date Type Department Care Team (Late st Contact Info) Description 04/16/2015 1:30 PM EDT Infusion Hematology Oncology at [address] [phone] CLINIC, DR [facility] HEM/ONC Quentin Ross MD Lymphoma Discharge Disposition: Home Social History Tobacco Use Types Packs/Day Years Used Date Smoking Tobacco: Never Sex and Gender Information Value Date Recorded Sex Assigned at Not on file Gender Identity Not on file Sexual Orientation Not on file documented as of this encounter Last Filed Vital Signs Vital Sign Reading Time Taken Comments Blood Pressure 124/63 04/16/2015 1:30 PM EDT Pulse 65 04/16/2015 1:30 PM EDT Temperature 36.2 ??C (97.2 ??F) 04/16/2015 1:30 PM ED T Respiratory Rate 16 04/16/2015 1:30 PM EDT Oxygen Saturation 100% 04/16/2015 1:30 PM EDT Inhaled Oxygen Concentration - - Weight 100.6 kg (221 lb 12.8 oz) 04/16/2015 1:30 PM EDT Height - - Body Mass Index 30.07 04/15/2015 9:10 AM EDT documented in this encounter Progress Notes * Rosalia Cueto - 04/16/2015 1:40 PM EDT Infusion Note Diagnosis: Treatment: Neulasta Injection Neulasta 6 mg injected in right arm. Agapito is feeling very fatigued, run down, low energy, and sleepy. He is a little more fatigued thanlast cycle. He denies pain, N/V/D, he says his normally gets some nausea in the next few days. Instructed him to call for any questions or concerns. Patient aware to call clinic with any questions or concerns. Plan: Return to clinic as scheduled. documented in this encounter Plan of Treatment Not on file documented as of this encounter Visit Diagnoses Diagnosis Lymphoma Other malignant lymphomas, unspecified site, extranodal and solid organ sites documented in this encounter Administered Medications Inactive Administered Medications - up to 3 most recent administrations Medication Order MAR Action Action Date Dose Rate Site pegfilgrastim (NEULASTA) injection 6 mg 6 mg, Subcutaneous, ONCE, 1 dose, On Umm 04/16/15 at 1400, Routine Given 04/16/2015 1:36 PM EDT 6 mg Right Arm documented in this encounter Care Teams Litigator Relationship Specialty Start Date End Date Janice Christine MD [address] [place] [address] PCP - General 02/27/15 09/19/17 documented as of this encounter
--- OUTSIDE RECORDS SUMMARY | 2024-09-30 21:02 | XMS_ITS | Encounter Summary ---
[place] [address] Care Team Providers Care Synchro Assembler Name Role Phone Janice Christine MD Primary Care Provider [phone] Reason for Visit * Reason Comments On Treatment Visit Encounter Details Date Type Department Care Team (Late st Contact Info) Description 06/04/2015 3:30 PM EDT Office Visit Radiation Oncology at [address] [phone] Jean Sheldon MD [address] [place] [address] [place] [address] Lymphoma Discharge Disposition: Home Social [...] Sign Reading Time Taken Comments Blood Pressure 118/78 06/04/2015 3:00 PM EDT Pulse 73 06/04/2015 3:00 PM EDT Temperature 36.8 ??C (98.2 ??F) 06/04/2015 3:00 PM ED T Respiratory Rate 16 06/04/2015 3:00 PM EDT Oxygen Saturation 100% 06/04/2015 3:00 PM EDT Inhaled Oxygen Concentration - - Weight 98.8 kg (217 lb 12.8 oz) 06/04/2015 3:00 PM EDT Height - - Body Mass Index 29.53 04/27/2015 2:38 PM EDT documented in this encounter Patient Instructions * Patient Instructions* Jean Sheldon MD - 06/04/2015 3:55 PM EDT Dear Mr. Ramirez, I believe that overall you are doing well with your radiation treatments for lymphoma and at this point I do not believe any major changes need to be made to the overall plan for radiation therapy. However we did discuss the following: ?? Swallowing pain: Pain medication such as liquid tylenol can be very helpful and are typically the first step in trying to make you more comfortable so that you can eat. ?? Mouth pain: Please continue salt/soda rinses as directed. Please also take a moment to review [...] Uncontrollable bleeding A Radiation Oncology doctor is air transportation provider after our normal hours and on weekends. To call for urgent medical issues from radiation treatments that can not wait until normal business hours, please call and have the rolled oats mill operator page the Radiation Oncologist air transportation provider. Jean Correa. MD Pito documented in this encounter Progress Notes * Jean Sheldon MD - 06/04/2015 3:49 PM EDT [facility] On Treatment Visit Patient ID: Agapito Ramirez Jr. is a 44 y.o. male currently undergoing adjuvant radiotherapy to theleft neck for Stage IIA DLBCL, germinal center type. Concurrent Therapy: none Plan Details: Daily Dose: 1.8 Gy Current Dose: 25.2 Gy in 14 fractions Planned Dose: 36 Gy in 20 fractions Subjective / Interval History: General - Main complaint is lack of taste. HEENT - Slight discomfort with swallowing started 2 days ago. Skin - No skin changes. KPS: 100 Pain Assessment: Pain score today is 2/10. First thing in the morning when dry it is 10/10 then resolves to 3/10. Not taking any pain medications though Tylenol was recommended at last OTV. Nutrition Assessment: The patients weight today is 217, and at the start of therapy it was 224 lbs.Currently, the patient reports a typical diet at home which is normal. Taking smaller bites but eating normal diet. Seeing RD tomorrow. Objective: BP 118/78 mmHg Pulse 73 Temp(Src) 36.8 ??C (98.2 ??F) Resp 16 Wt 98.793 kg (217 lb 12.8 oz) SpO2 100% General - appears well, no distress HEENT - erythema but no mucositis or sloughing. No thrush. Skin - slight erythema no desquamation Interval [...] sites documented in this encounter Care Teams Synchro Assembler Relationship Specialty Start Date End Date Janice Christine MD [address] [place] [address] PCP - General 02/27/15 09/19/17 documented as of this encounter
--- OUTSIDE RECORDS SUMMARY | 2024-09-30 21:02 | XMS_ITS | Encounter Summary ---
Author Organization [facility] Address [facility] [place] [address] Care Team Providers Care Shop Estimator Name Role Phone Jade Christine MD Primary Care Provider [phone] Reason for Visit * Reason Comments Follow-up Encounter Details Date Type Department Care Team (Late st Contact Info) Description 04/27/2015 3:00 PM EDT Follow-Up Hematology [place] [address] [facility] [address] [place] [address] Lymphoma Discharge Disposition: Home Social History Tobacco Use Types Packs/Day Years Used Date Smoking Tobacco: Never Sex and Gender Information Value Date Recorded Sex Assigned at Not on file Gender Identity Not on file Sexual Orientation Not on file documented as of this encounter Last Filed Vital Signs Vital Sign Reading Time Taken Comments Blood Pressure 133/69 04/27/2015 2:38 PM EDT Pulse 75 04/27/2015 2:38 PM EDT Temperature 36.7 ??C (98.1 ??F) 04/27/2015 2:38 PM ED T Respiratory Rate 18 04/27/2015 2:38 PM EDT Oxygen Saturation 98% 04/27/2015 2:38 PM EDT Inhaled Oxygen Concentration - - Weight 100.7 kg (222 lb) 04/27/2015 2:38 PM EDT Height 182.9 cm (6' 0.01) 04/27/2015 2:38 PM ED T Body Mass Index 30.1 04/27/2015 2:38 PM EDT documented in this encounter Progress Notes * Jacquie Plascencia MD - 04/27/2015 3:31 PM EDT Hematology Clinic [facility] [place] [id number] FOLLOW-UP PATIENT EVALUATION PROBLEM LIST: Patient Active Problem List Diagnosis ??? 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 Normal LDH. IPI = 0. Myc negative. Extra copies of bcl-2. EF = 72%. BMBx deferred. Plans for RCHOP X 3, repeat PET and then XRT C#1 RCHOP 03/06/15 C#2 RCHOP 03/26/15 C#3 RCHOP 04/16/15 PET scan INTERIM HISTORY OF PRESENT ILLNESS: It was my pleasure to see Agapito Tucker Jr. back in clinic today. Blount Giuliana Tucker Jr. is a 44 y.o. year old male being seen for follow-up evaluation of DLBCL He is about day 11 C#3 RCHOP and he comes in for interim scan. Had a lot of nausea with this last cycle. No emesis. He still felt sick for 5-6 days after. No emesis but felt horrible. Lasted one week. Could not work the Th/Fri after the treatment. He does not think he could do another cycle of chemo if it was recommended. It has been toohard on him. ROS Energy level: low for a week after chemo; the last chemo was much harder then C#1 and C#2. Pain: None Appetite:good now Fevers/chills/sweats:No Bruising/bleeding/melena:No Recent infections:No HEENT: negative Nausea/vomiting/diarrhea/constipation: see above SOB/FISHMAN/chest pain:No Change in adenopathy or other masses:No Unexpected weight loss or gain: gained 5# since starting. Skin rashes or petechiae:No Musculoskeletal complaints:No Extremities: Negative upper and lower bilaterally Neurologic symptoms:None Mood: Normal Sleep: no Difficulty sleeping MEDS: No outpatient prescriptions have been marked as taking for the 8/3/15 encounter (Follow-Up) with Jacquie Plascencia MD. Allergies: No Known Allergies INTERIM SOCIAL HISTORY Changes in job, home situation, tobacco or alcohol use: see HPI PHYSICAL EXAM BP 133/69 mmHg Pulse 75 Temp(Src) 36.7 ??C (98.1 ??F) (Oral) Resp 18 Ht 182.9 cm (6' 0.01) Wt 100.699 kg (222 lb) BMI 30.10 kg/m2 SpO2 98% Body surface area is 2.26 meters squared. GENERAL: Agapito Tucker Jr. appears well and is in no [...] tenderness. LINE: nontender, no erythema LABORATORY STUDIES Recent Results (from the past 72 hour(s)) Comprehensive metabolic panel (non-fasting) Result Value Ref Range Glucose Lvl 86 65 - 199 mg/dL BUN 15 10 - 20 mg/dL Creatinine 0.84 0.80 - 1.50 mg/dL Sodium 140 135 - 145 mmol/L Potassium 4.3 3.5 - 5.0 mmol/L Chloride 104 98 - 107 mmol/L CO2 24 22 - 31 mmol/L Anion Gap 12 5 - 15 mmol/L Calcium 9.2 8.5 - 10.5 mg/dL Total Protein 6.4 6.1 - 8.0 gm/dL Albumin 4.4 3.2 - 5.2 gm/dL AST 11 0 - 39 unit/L ALT 18 0 - 55 unit/L Alk Phos 91 40 - 120 unit/L Total Bilirubin 0.2 0.2 - 1.3 mg/dL Bili, Direct 0.1 0.0 - 0.3 mg/dL Estimated GFR >60 >=60 Lactate Dehydrogenase Result Value Ref Range LDH 227 (H) 110 - 220 unit/L Hemogram Result Value Ref Range WBC 12.2 (H) 4.0 - 10.0 x10(3)/mcL RBC 4.05 (L) 4.63 - 6.08 x10(6)/mcL Hemoglobin 12.5 (L) 13.7 - 17.5 gm/dL Hematocrit 36.8 (L) 40.0 - 51.0 % MCV 90.9 79.0 - 92.0 fL MCH 30.9 25.6 - 32.2 pg MCHC 34.0 32.0 - 36.5 gm/dL Platelets 174 145 - 370 x10(3)/mcL RDWSD 50.1 (H) 35.0 - 46.0 fL RDWCV 15.1 (H) 10.9 - 14.4 % MPV 10.9 9.0 - 12.0 fL Differential, Manual Result Value Ref Range Neutrophil % 47 % Band % 8 % Lymphocyte % 20 % Monocyte % 9 % Eosinophil % 2 % Basophil % 1 % Metamyelo % 3 % Myelocyte % 7 % Promyelocyte % 3 % Neutrophil Abs 5.7 1.5 - 6.3 x10(3)/mcL Band Abs 1.0 (H) 0.2 - 0.6 x10(3)/mcL Neutr Abs (ANC) 6.69 (H) 1.50 - 6.30 x10(3)/mcL Lymphocyte Abs 2.4 1.0 - 3.6 x10(3)/mcL Monocyte Abs 1.1 (H) 0.2 - 1.0 x10(3)/mcL Eosinophil Abs 0.2 0.0 - 0.5 x10(3)/mcL Basophil Abs 0.1 0.0 - 0.2 x10(3)/mcL Metamyelo Abs 0.4 (H) 0.0 - 0.0 x10(3)/mcL Myelocyte Abs 0.8 (H) 0.0 - 0.0 x10(3)/mcL Promyelo Abs 0.4 (H) 0.0 - 0.0 x10(3)/mcL Tot Diff Cell Ct 100 Plat Estimate Normal RBC Morphology Abnormal Ovalocytes 1-5 /HPF Tear Drop Cells 1-5 /HPF Toxic Granulation Present Dohle Bodies Present POCT Glucose Result Value Ref Range POC Glucose 81 65 - 199 mg/dL RADIOLOGY STUDIES REVIEWED: PET personally reviewed. The official reading is not back yet but to my read all I see is some G-CSF skeletal changes and no evidence of residual disease. EXAMINATION: PET/CT STANDARD PLUS LEGS CLINICAL HISTORY: restage lymphoma of neck and tonsil TECHNIQUE: Procedure: Following IV injection of 11-jnvbuo-8-deoxyglucose (FDG) a standard uptake of approximately 60 [...] Mild diffuse increased marrow activity, likely reactive. ASSESSMENT/PLAN: DLBCL - he is now s/p C#3 HOP. He still felt sick for 5-6 days after. No emesis but felt horrible. Lasted one week. Could not work the Th/Fri after the treatment. N/V - slightly improved with aloxi and emend but was still a big problem. See above HPI Chest pain - has had it for years with work up in the past. No CP with this last cycle. GERD - prilosec helped , resolved. I discussed all of the above with the patient and all of his questions were answered. Support and counseling given as appropriate. Addendum: After Mr. tucker left, I reviewed the PET scan with Dr Denis. He thinks the uptake in the tonsilis most likely NOT lymphoma. Mr Tucker has a CR if not a very good SC and proceeding with XRT would be appropriate at this ie. I explained to him that the original trial using combined chemotherapy and radiation therapy did not use PET scan's, and did not require a CR prior to proceeding with radiation therapy. Therefore I feel very comfortable referring him on for radiation therapy with curative intent. He is scheduled to see Dr. Sheldon next week. I anticipate that he will need approximately 4 weeks of radiation therapy. I will plan to see him back in 2 months after completion of the radiation therapy at [facility] with a PET scan. total time: time in counselling: Copy JADE CHRISTINE MD (General) documented in this encounter Plan of Treatment Scheduled Orders Name Type Priority Associated Diagnoses Orde r Schedule Comprehensive metabolic panel (non-fasting) Lab STAT Lymphoma Expected: 07/28/2015 (Approximate), Expires: 04/27/2016 Lactate Dehydrogenase Lab STAT Lymphoma Expected: 07/28/2015 (Approximate), Expires: 04/27/2016 documented as of this encounter Procedures Procedure Name Priority Date/Time Associated Diagnosis Comments POCT GLUCOSE Routine 04/27/2015 12:39 PM EDT DIFFERENTIAL, MANUAL STAT 04/27/2015 12:29 PM EDT HEMOGRAM STAT 04/27/2015 12:29 PM EDT Lymphoma CBC (WITH DIFF) STAT 04/27/2015 12:29 PM EDT Lymphoma LACTATE DEHYDROGENASE STAT 04/27/2015 12:29 PM EDT Lymphoma COMPREHENSIVE METABOLIC PANEL STAT 04/27/2015 12:29 PM EDT Lymphoma documented in this encounter Results * Lactate Dehydrogenase (10/12/2015 3:06 PM EST) Lactate Dehydrogenase 147 110 - 220 unit/L HUANG LANG Blood specimen (specimen) 10/12/2015 3:06 PM EST 10/12/2015 3:14 PM EST Narrative Resulting Agency Comment Spec In Lab Jacquie Plascencia MD CHEMISTRY ORDERA BLES [facility] * Comprehensive metabolic panel (non-fasting) (10/12/2015 3:06 PM EST) [facility] Glucose 88 65 - 199 mg/dL CERNER MILLENNIUM Comment:Diabetes: >=200 mg/d L plus symptoms Blood Urea Nitrogen 13 10 - 20 mg/dL CERNER MILLENNIUM Creatinine 0.95 0.80 - 1.50 mg/dL CERNER MILLENNIUM Comment: Please note that the pediatric reference intervals supplied above were not validated at [facility]. Results from pediatric patients should be interpreted in conjunction to the patient's age, height and muscle mass. Sodium 144 135 - 145 mmol/L CERNER MILLENNIUM Potassium 4.2 3.5 - 5.0 mmol/L CERNER MILLENNIUM Comment: Please note: ??Patients with WBC >100,000 may have falsely elevated Potassium levels. ??For accurate Potassium quantification in these patients send serum separator tube (gold top) for subsequent determinations. ??Contact the Clinical Chemistry Laboratory if there are any questions. Chloride 106 98 - 107 mmol/L CERNER MILLENNIUM Carbon Dioxide 26 22 - 31 mmol/L CERNER MILLENNIUM Anion Gap 12 5 - 15 mmol/L CERNER MILLENNIUM Calcium 9.4 8.5 - 10.5 mg/dL CERNER MILLENNIUM Protein, Total 6.8 6.1 - 8.0 gm/dL CERNER MILLENNIUM Albumin 4.4 3.2 - 5.2 gm/dL CERNER MILLENNIUM Aspartate Aminotransferase 15 0 - 39 unit/L CERNER MILLENNIUM Alanine Aminotransferase 15 0 - 55 unit/L CERNER MILLENNIUM Alkaline Phosphatase 57 40 - 120 unit/L CERNER MILLENNIUM Bilirubin, Total 0.5 0.2 - 1.3 mg/dL CERNER MILLENNIUM Bilirubin, [...] the following links into your internet browser. [email or web address] Blood specimen (specimen) 10/12/2015 3:06 PM EST 10/12/2015 3:14 PM EST Narrative Resulting Agency Comment Spec In Lab Jacquie Plascencia MD CHEMISTRY ORDERA SARAH [facility] * PET/CT STANDARD (Skull base to Mid-thigh) (10/12/2015 2:41 PM EST) Anatomical Region Laterality Modality Nuclear Medicine Impressions 10/12/2015 4:23 PM EST IMPRESSION: No active lymphoma. Thank you for referring this patient to [facility] PET Center. Narrative 10/12/2015 4:23 PM EST EXAMINATION: PET/CT STANDARD (SKULL BASE TO MID THIGH) CLINICAL HISTORY: restage lymphoma after chemo and XRT TECHNIQUE: Procedure: Following IV injection of 27-oednnu-5-deoxyglucose (FDG) a standard uptake of approximately 60 [...] XRT TECHNIQUE: Procedure: Following IV injection of 11-eymuqa-4-deoxyglucose(FDG) a standard uptake of approximately 60 minutes, [...] Thank you for referring this patient to [facility] PET Center. Jacquie Plascencia MD IMG PET ORDERABL ES * POCT Glucose (04/27/2015 12:39 PM EDT) Glucose, POC 81 65 - 199 mg/dL HUANG NAGELIUM Comment: Supplemental ranges: <140 mg/dL before meals <180 mg/dL all other times of the day Blood specimen (specimen) 04/27/2015 12:39 PM EDT 04/27/2015 12:39 PM EDT Jacquie Plascencia MD POINT OF CARE TE ST ORDERABLES HUANG NAGELIUM * (ABNORMAL) Differential, Manual (04/27/2015 12:29 PM EDT) Neutrophil % Manual 47 % CERNER MILLENNIUM Band % 8 % CERNER MILLENNIUM Lymphocyte Manual 20 % CE RNER MILLENNIUM Monocyte Manual 9 % CERN ER MILLENNIUM Eosinophil Manual 2 % CE RNER MILLENNIUM Basophil Manual 1 % CERN ER MILLENNIUM Metamyelocyte Manual 3 % CERNER MILLENNIUM Myelocyte Manual 7 % CER NER MILLENNIUM Promyelocyte Manual 3 % CERNER MILLENNIUM Neutrophil Absolute (ANC) - Manual 5.7 1.5 - 6.3 x10(3)/mc L CERNER MILLENNIUM Band Abs 1.0(H) 0.2 - 0.6 x10(3)/mc L CERNER MILLENNIUM Neutrophil Absolute (ANC) - Automated 6.69(H) 1.50 - 6.30 x10(3)/mc L CERNER MILLENNIUM Lymph Absolute Manual 2.4 1.0 - 3.6 x10(3)/mc L CERNER MILLENNIUM Monocyte Absolute Manual 1.1(H) 0.2 - 1.0 x10(3)/mc L CERNER MILLENNIUM Eos Absolute Manual 0.2 0.0 - 0.5 x10(3)/mc L CERNER MILLENNIUM Baso Absolute Manual 0.1 0.0 - 0.2 x10(3)/mc L CERNER MILLENNIUM Oceana Absolute Manual 0.4(H) 0.0 - 0.0 x10(3)/mc L CERNER MILLENNIUM Myelo Absolute Manual 0.8(H) 0.0 - 0.0 x10(3)/mc L CERNER MILLENNIUM Promyelo Absolute Manual 0.4(H) 0.0 - 0.0 x10(3)/mc L CERNER MILLENNIUM Total Cells Ct 100 CERNE R MILLENNIUM Plat estimate Normal CERNER MILLENNIUM RBC Morphology Abnormal CERNE R MILLENNIUM Ovalocytes 1-5 /HPF CERNER MILLENNIUM Tear Cell 1-5 /HPF CERNER MILLENNIUM Toxic Granulation Present CE RNER MILLENNIUM Dohle Bodies Present CERNER MILLENNIUM Blood specimen (specimen) 04/27/2015 12:29 PM EDT 04/27/2015 12:49 PM EDT Narrative Resulting Agency Comment Spec In Lab Jacquie Plascencia MD HEMATOLOGY ORDER CONCHITA CERNER MILLENNIUM * (ABNORMAL) Hemogram (04/27/2015 12:29 PM EDT) White Blood Cell 12.2(H) 4.0 - 10.0 x10(3)/mc L CERNER MILLENNIUM Red Blood Cell 4.05(L) 4.63 - 6.08 x10(6)/mc L CERNER MILLENNIUM Hemoglobin 12.5(L) 13.7 - 17.5 gm/dL CERNER MILLENNIUM Hematocrit 36.8(L) 40.0 - 51.0 % CERNER MILLENNIUM Mean Cell Volume 90.9 79.0 - 92.0 fL CERNER MILLENNIUM Mean Cell Hemoglobin 30.9 25.6 - 32.2 pg CERNER MILLENNIUM Mean Cell Hemoglobin Concentration 34.0 32.0 - 36.5 gm/dL CERNER MILLENNIUM Platelet 174 145 - 370 x10(3)/mc L CERNER MILLENNIUM RDW Standard Deviation 50.1(H) 35.0 - 46.0 fL CERNER MILLENNIUM RDW coefficient of variation 15.1(H) 10.9 - 14.4 % CERNER MILLENNIUM Mean Platelet Volume 10.9 9.0 - 12.0 fL CERNER MILLENNIUM Blood specimen (specimen) 04/27/2015 12:29 PM EDT 04/27/2015 12:49 PM EDT Narrative Resulting Agency Comment Spec In Lab Jacquie Plascencia MD HEMATOLOGY ORDER CONCHITA CERJASPAL PALMERENNIUM * (ABNORMAL) Lactate Dehydrogenase (04/27/2015 12:29 PM EDT) Lactate Dehydrogenase 227(H) 110 - 220 unit/L CERNER MILLENNIUM Blood specimen (specimen) 04/27/2015 12:29 PM EDT 04/27/2015 12:49 PM EDT Narrative Resulting Agency Comment Spec In Lab Jacquie Plascencia MD CHEMISTRY ORDERA BLES CERNER SPENCERENNIUM * Comprehensive metabolic panel (non-fasting) (04/27/2015 12:29 PM EDT) [facility] Glucose 86 65 - 199 mg/dL CERNER MILLENNIUM Comment:Diabetes: >=200 mg/d L plus symptoms Blood Urea Nitrogen 15 10 - 20 mg/dL CERNER MILLENNIUM Creatinine 0.84 0.80 - 1.50 mg/dL CERNER MILLENNIUM Comment: Please note that the pediatric reference intervals supplied above were not validated at [facility]. Results from pediatric patients should be interpreted [...] the following links into your internet browser. [email or web address] Blood specimen (specimen) 04/27/2015 12:29 PM EDT 04/27/2015 12:49 PM EDT Narrative Resulting Agency Comment Spec In Lab Jacquie Plascencia MD CHEMISTRY ORDERA BLES Performing Organization Address City/State/ZIP Co nv Phone Number [facility] documented in this encounter Visit Diagnoses Diagnosis Lymphoma Other malignant lymphomas, unspecified site, extranodal and solid organ sites Lymphoma Other malignant lymphomas, unspecified site, extranodal and solid organ sites documented in this encounter Care Teams Shop Estimator Relationship Specialty Start Date End Date Jade Christine MD [address] [place] [address] PCP - General 02/27/15 09/19/17 documented as of this encounter
--- OUTSIDE RECORDS SUMMARY | 2024-09-30 21:02 | XMS_ITS | Encounter Summary ---
[place] [address] Care Team Providers Care Identity Access Management Architect Name Role Phone Janice Christine MD Primary Care Provider [phone] Encounter Details Date Type Department Care Team (Late st Contact Info) Description 03/18/2015 10:00 AM EDT Follow-Up Hematology/Oncology at [address] [phone] Marilee Plummer APRN DLBCL (diffuse large B cell lymphoma); Lymphoma Discharge Disposition: Home Social History Tobacco Use Types Packs/Day Years Used Date Smoking Tobacco: Never Sex and Gender Information Value Date Recorded Sex Assigned at Not on file Gender Identity Not on file Sexual Orientation Not on file documented as of this encounter Last Filed Vital Signs Vital Sign Reading Time Taken Comments Blood Pressure 114/67 03/18/2015 10:12 AM EDT Pulse 79 03/18/2015 10:12 AM EDT Temperature 36.6 ??C (97.9 ??F) 03/18/2015 10:12 AM E DT Respiratory Rate 16 03/18/2015 10:12 AM EDT Oxygen Saturation 100% 03/18/2015 10:12 AM EDT Inhaled Oxygen Concentration - - Weight 99.3 kg (219 lb) 03/18/2015 10:12 AM EDT Height 182.9 cm (6' 0.01) 03/18/2015 10:12 AM E DT Body Mass Index 29.7 03/18/2015 10:12 AM EDT documented in this encounter Patient Instructions * Patient Instructions* Marilee Plummer APRN - 03/18/2015 10:58 AM EDT He will need to get blood work today cbc cmp ldh He will return in one week with labs -same- and to see me. He will receive cycle 2 of RCHOP on March 26 documented in this encounter Progress Notes * Marilee Plummer APRN - 03/23/2015 8:12 AM EDT Hematology [place] [address] FOLLOW UP EVALUATION PROBLEM LIST: 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 Normal LDH. IPI = 0. EF = 72%. BMBx deferred. Plans for RCHOP X 3, repeat PET and then XRT. Cycle #1 02/26/15 HISTORY OF PRESENT ILLNESS: It was my pleasure to see Agapito Tucker Jr. today. Agapito Giordano James Funes is a 44 y.o. year old malebeing seen for Follow up of newly diagnosed lymphoma. He has been feeling well. On Thursday 02/22 he ate something sweet and had trouble swallowing. Saw large tonsil. Saw Dr Au who biopsied it and initial report on path from [facility] was aggressive lymphoma. He was then seen and evaluated by Dr Plascencia. Prior to Monday - no odynophagia or dysphagia. Quit soda (5 per day) a year ago - has lost 50# in one year. Also changed his diet and started eating salads. No NS or fevers. No lumps or bumps. One SC lesion on ant L breast that has been stable for years. PMHX: GERD with EGD and esophagitis noted about 3-4 years ago. Treated with PPI and then he changed his diet and no more sx. INTERIM HISTORY: He received his first cycle of RCHOP on 02/26/15. He then received neulasta. He tolerated the first treatment without any side effects. He continues to work. He denies any nausea, fevers chills or fatigue. He also no longer has any difficulty swallowing. ROS Energy level:stable Pain: None Appetite:good Fevers/chills/sweats:No Bruising/bleeding/melena:No Recent infections:No Headaches:neg Vision:neg Hearing:neg Sinus: neg Seasonal Allergies: yes Mouth sores:neg Dentition: Good Swallowing: See above GERD : occasional acid reflux; does not take meds Nausea/vomiting: neg diarrhea/constipation:No SOB/FISHMAN/pulmonary sx: no chest pain:No sx: negative Change in adenopathy or other masses:see above Unexpected weight loss or gain: see above Skin rashes or petechiae:No Musculoskeletal complaints:No Extremities: Negative upper and lower bilaterally Neurologic symptoms:No Mental Status changes: neg Mood: Appropriate anxiety about the appt and diagnosis Sleep: Difficulty sleeping MEDS: Outpatient Prescriptions Marked as Taking for the 03/18/15 encounter (Follow-Up) with Marilee Plummer APRN Medication Sig Dispense Refill ??? omeprazole (PRILOSEC) 20 mg Capsule, Delayed Release(E.C.) Take 1 capsule by mouth daily. 30 capsule 6 Allergies: No Known Allergies FAMILY HISTORY: Mother: alive 66 HTN Father: Alive 68 HTN, hy[percholesterolemia, back problem Sibs: 1 bro and 2 sisters; One sister w/ thyroid cancer Children: A&W Other: negative SOCIAL HISTORY Personal: ; could not be here b/c of knee surgery yesterday at [place]. 2 girls - ages 16 and 19. One at [facility]. 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 PHYSICAL EXAM BP 114/67 Pulse 79 Temp(Src) 36.6 ??C (97.9 ??F) (Oral) Resp 16 Ht 182.9 cm (6' 0.01) Wt99.338 kg (219 lb) BMI 29.70 kg/m2 SpO2 100% Body surface area is 2.25 meters squared. GENERAL: Agapito Tucker Jr. appears well and is in no acute distress. ENT: SMALLER L tonsil . EYES: MELVIN NECK: Supple without adenopathy. AXILLARY: no adenopathy OTHER LYMPH: no adenopathy CARDIAC: Regular rate and rhythm without S3,S4 or murmurs. LUNGS: Clear to auscultation./percussion ABDOMEN: Soft and non-tender without hepatosplenomegaly or masses. EXTREMITIES: No cyanosis, clubbing, edema or calf tenderness. SKIN: No bruises or petechiae. NEUROLOGICAL: Alert and oriented to person, place and time. MUSCULOSKELETAL: No spinal or chest wall tenderness. LABORATORY STUDIES DONE TODAY WBC 19.74 ANC 3.36 H/H 12.9/38.4 Plts 128 CMP within normal limits LDH 310 RADIOLOGY STUDIES REVIEWED: EXAMINATION: PET/CT STANDARD (top of the head to Mid-thigh) CLINICAL HISTORY: pt with tonsilar lymphoma - staging - include head TECHNIQUE: Following IV injection of 43-qfomnp-9-deoxyglucose (FDG) a standard uptake of approximately 60 [...] identified in the chest, abdomen, or pelvis. ASSESSMENT/PLAN: Was my pleasure to meet this very pleasant 44-year-old male referred in consultation from Dr. Khoa Au of ENT in [facility]. His symptoms date back only one week when he had some dysphasia last weekend. He was immediately seen by ENT with an enlarged left tonsil. Direct laryngoscopy was performed with biopsies. Biopsies were sent to [facility], preliminary report was for aggressive lymphoma. Further don't herniation is not yet available. We called today to get path reports that they're not yet ready. I suspect this will be a diffuse large B-cell lymphoma although it could representT-cell lymphoma as well. He is otherwise torres essentially asymptomatic. He has no stridor on examination. He's not having any trouble swallowing food, with cough, or maintaining his airway. However the mass is growing quite rapidly and treatment within the next week will be prudent. Today explained the basics of lymphoma and the need for further subtyping. I was able to arrange anurgent PET scan and echocardiogram. If further staging studies are not necessary (if this appears to be stage I on PET scan then I would probably NOT get a bone marrow biopsy); that I will be able tostart him on prednisone which will temporarize his symptoms, until we are able to review the pathology, and arrange for chemotherapy teaching and infusion. I explained that in many of these cases, if the lymphomas localized, then the treatment of choice is a combination of chemotherapy and radiation therapy. All of this can be given in [facility]. He will get the echocardiogram and PET scan today. I'll see him back later this afternoon to plan next steps. Addendum: Mr Tucker returned to clinic after completing his echocardiogram and PET scan. The results are listed above. I reviewed the PET scan images and results with him. I explained his excellent prognosis.He has an IPI score of 0 which yields an excellent prognosis with 90% or greater chance of cure. I would recommend redo cycles of R CHOP chemotherapy combined with radiotherapy. I explained that he will need 3 to cycles of R CHOP chemotherapy given once every 3 weeks. PET scan will be repeated after cycle 3. If the PET scan is negative then we will proceed with radiation therapy. In order to help with his dysphasia, I gave him a prescription for prednisone 100 mg daily for 5 days. He will start this tomorrow. I reviewed side effects of prednisone which include increased energy, increased appetite, difficulty sleeping, irritability, change in mood. He will take the tablets in the morning with some food. Mr. tucker will need to return to clinic for PTI visit with nurse practitioner, Kristine Santos. Hopefully this can be done next week. Will then receive his first cycle of R CHOP chemotherapy at [facility] following that visit. I encouraged him to bring his to the next appointment, but this will depend on her recovery from her recent knee surgery. At his PTI visit, he will need to be given prescriptions for his prednisone and anti-emetics. I will not plan to use prophylactic antibiotics unless he has significant neutropenia or neutropenic fever. TODAY: He received his first cycle of RCHOP on 03/06/15. He tolerated the treatment with minimal toxicity. He will have bloodwork today and he will return on March 25 for cycle #2. He is comfortable with this plan. I discussed all of the above with the patient and all of his questions were answered. Support and counseling given as appropriate. This note was written or modified using [employer] voice recognition software. The final note was screened for mistakes. Please excuse any remaining errors. total time:90 min 12-1pm and 4-4:30pm time in counselling: Copy JANICE CHRISTINE MD documented in this encounter Plan of Treatment Scheduled Orders Name Type Priority Associated Diagnoses Orde r Schedule CBC (with Diff) Lab Routine DLBCL (diffuse large B cell lymphoma) Expected: 03/18/2015 (Approximate), Expires: 03/17/2016 Comprehensive metabolic panel (non-fasting) Lab Routine DLBCL (diffuse large B cell lymphoma) Expected: 03/18/2015 (Approximate), Expires: 03/17/2016 Lactate Dehydrogenase Lab Routine DLBCL (diffuse large B cell lymphoma) Expected: 03/18/2015 (Approximate), Expires: 03/18/2016 documented as of this encounter Visit Diagnoses Diagnosis DLBCL (diffuse large B cell lymphoma) Other malignant lymphomas, unspecified site, extranodal and solid organ sites Lymphoma Other malignant lymphomas, unspecified site, extranodal and solid organ sites documented in this encounter Care Teams Identity Access Management Architect Relationship Specialty Start Date End Date Janice Christine MD [address] [place] [address] PCP - General 02/27/15 09/19/17 documented as of this encounter
--- OUTSIDE RECORDS SUMMARY | 2024-09-30 21:02 | XMS_ITS | Encounter Summary ---
[place] [address] Care Team Providers Care Faucets Assembler Name Role Phone Janice Christine MD Primary Care Provider Encounter Details Date Type Department Care Team (Late st Contact Info) Description 10/28/2015 8:45 AM EST Office Visit Hematology/Oncology at [address] [phone] Marilee Plummer APRN Viral infection; DLBCL (diffuse large B cell lymphoma) Social [...] Sign Reading Time Taken Comments Blood Pressure 149/76 10/28/2015 9:07 AM EST Pulse 83 10/28/2015 9:07 AM EST Temperature 36.9 ??C (98.4 ??F) 10/28/2015 9:07 AM ES T Respiratory Rate 18 10/28/2015 9:07 AM EST Oxygen Saturation 99% 10/28/2015 9:07 AM EST Inhaled Oxygen Concentration - - Weight 98.2 kg (216 lb 8 oz) 10/28/2015 9:07 AM EST Height - - Body Mass Index 29.36 10/12/2015 3:10 PM EST documented in this encounter Patient Instructions * Patient Instructions* Marilee Plummer APRN - 10/28/2015 9:49 AM EST He will start on valtrex 1000mg bid for 10 days. He will return to clinic in 2 weeks for followup. documented in this encounter Progress Notes * Marilee Plummer APRN - 10/28/2015 9:55 AM [place] [address] FOLLOW-UP PATIENT EVALUATION PROBLEM LIST: Patient Active [...] Got down to 195#. Now up to 216#. Dry mouth is A big problem. Wakesup with severe dry mouth and cracking skin. He continues to have an ulcer in his mouth. It has beenthere for 3 weeks now and will not heal. It is painful and makes it difficult to eat on that side. He is otherwise asymptomatic. 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 ROS Energy level: low , but back [...] have been marked as taking for the 10/28/15 encounter (Office Visit) Marilee Fulton, CONCRETE PRODUCTS MACHINE OPERATOR. Allergies: No Known Allergies INTERIM SOCIAL HISTORY Changes in job, home situation, tobacco or alcohol use: see HPI PHYSICAL EXAM BP 149/76 mmHg Pulse 83 Temp(Src) 36.9 ??C (98.4 ??F) (Oral) Resp 18 Wt 98.204 kg (216 lb 8oz) SpO2 99% There is no height on file to calculate BSA. GENERAL: Agapito Ramirez Jr. appears well and is in no acute distress. ENT: Oral pharynx clear. No evidence of lymphoma. Dry mouth aphthous ulcer on the right side lower jaw-inner side EYES: MELVIN NECK: Supple without adenopathy. No [...] sack consistent with known hydrocele. LABORATORY STUDIES No results found for this or any previous visit (from the past 72 hour(s)). RADIOLOGY STUDIES REVIEWED: PET personally reviewed. The official reading is not back yet but to my read all I see is some G-CSF skeletal changes and no evidence of residual disease. EXAMINATION: PET/CT STANDARD PLUS LEGS CLINICAL HISTORY: restage lymphoma of neck and tonsil TECHNIQUE: Procedure: Following IV injection of 26-qlmjwc-2-deoxyglucose (FDG) a standard uptake of approximately 60 [...] His PET scan today is negative. He still has xerostoma. It has improved but he still has an aphthous ulcer on the right lower side of his jaw on the inside. It is painful and makes it difficult to eat. It has been there for 3 weeks now. I discussed this with Dr Plascencia and we will start him on Valtrex 1000mg bid fo r this. I have also given him recommendations for treating his mouth. We discussed dry mouth at length and possible options to make this better. He does not want any viscous lidocaine for the pain. He will do warm water and baking soda rinses as often as he can. I have recommended some lozenges that help with mouth wetting. He did not find the biotene helpful. He will return in 2 weeks for followup. N/V - resolved off treatment. Chest pain - has had it for years with work up in the past. GERD - prilosec helped , resolved. Testicular hydrocele - US In the past negative. Copy JANICE CHRISTINE MD documented in this encounter Plan of Treatment Not on file documented as of this encounter Visit Diagnoses Diagnosis Viral infection Unspecified viral infection, in conditions classified elsewhere and of unspecified site DLBCL (diffuse large B cell lymphoma) Other malignant lymphomas, unspecified site, extranodal and solid organ sites documented in this encounter Care Teams Faucets Assembler Relationship Specialty Start Date End Date Janice Christine MD [address] [place] [address] PCP - General 02/27/15 09/19/17 documented as of this encounter
--- OUTSIDE RECORDS SUMMARY | 2024-09-30 21:02 | XMS_ITS | Encounter Summary ---
[place] [address] Care Team Providers Care Barrel Tester And Drainer Name Role Phone Janice Christine MD Primary Care Provider [phone] Encounter Details Date Type Department Care Team (Late st Contact Info) Description 03/25/2015 10:00 AM EDT Follow-Up Hematology/Oncology at [address] [phone] Marilee Plummer APRN Lymphoma Discharge Disposition: Home Social History Tobacco Use Types Packs/Day Years Used Date Smoking Tobacco: Never Sex and Gender Information Value Date Recorded Sex Assigned at Not on file Gender Identity Not on file Sexual Orientation Not on file documented as of this encounter Last Filed Vital Signs Vital Sign Reading Time Taken Comments Blood Pressure 123/76 03/25/2015 9:00 AM EDT Pulse 75 03/25/2015 9:00 AM EDT Temperature 36.7 ??C (98.1 ??F) 03/25/2015 9:00 AM ED T Respiratory Rate 18 03/25/2015 9:00 AM EDT Oxygen Saturation 99% 03/25/2015 9:00 AM EDT Inhaled Oxygen Concentration - - Weight 99.1 kg (218 lb 8 oz) 03/25/2015 9:00 AM EDT Height 182.9 cm (6' 0.01) 03/25/2015 9:00 AM ED T Body Mass Index 29.63 03/25/2015 9:00 AM EDT documented in this encounter Patient Instructions * Patient Instructions* Marilee Plummer APRN - 03/25/2015 1:53 PM EDT He will receive cycle #2 tomorrow and neulasta on Monday He will return in 2 weeks with labs for followup- cbc cmp ldh documented in this encounter Progress Notes * Marilee Plummer APRN - 03/25/2015 1:19 PM EDT Hematology Clinic [facility] [place] [address] FOLLOW UP EVALUATION PROBLEM LIST: 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 Normal LDH. IPI = 0. EF = 72%. BMBx deferred. Plans for RCHOP X 3, repeat PET and then XRT. Cycle #1 02/26/15 HISTORY OF PRESENT ILLNESS: It was my pleasure to see Agapito Tucker Jr. today. Agapito Tucker Jr. is a 44 y.o. year old malebeing seen for Follow up of newly diagnosed lymphoma. He has been feeling well. On Thursday 02/22 he ate something sweet and had trouble swallowing. Saw large tonsil. Saw Dr Au who biopsied it and initial report on path from [facility] was aggressive lymphoma. He was then seen [...] also no longer has any difficulty swallowing. He returns today for followup for the start ofcycle #2 RCHOP. He is concerned today because he forgot to discuss with Dr Plascencia the fact that he has a hydrocele on the right scrotum. He states that before he started treatment it was the size of a golfball. It is now the size of a quarter. He has had this for years. It was initially smaller and then it enlarged to the size of a golfball and stayed that size.After he received chemotherapy itis now the size of a quarter. When he first had this lump, he was evaluated by his PCP and an ultrasound was done. It was felt to be a cyst. It is not painful or tender to the touch. He was concerned that this might be more than a benign process based on the recent change in the size of the hydr ocele. ROS Energy level:stable Pain: None Appetite:good Fevers/chills/sweats:No [...] Outpatient Prescriptions Marked as Taking for the 03/25/15 encounter (Follow-Up) with Marilee Plummer APRN Medication Sig Dispense Refill ??? omeprazole (PRILOSEC) 20 mg Capsule, Delayed Release(E.C.) Take 1 capsule by mouth daily. 30 capsule 6 ??? LORazepam (ATIVAN) 0.5 mg Tablet Take 1-2 tablets by mouth every 4 hours as needed for Anxiety (Can be used for nausea/vomiting or insomnia). 30 tablet 3 ??? ondansetron (ZOFRAN) 8 mg Tablet Take 1 tablet by mouth every 8 hours as needed for Nausea. 20 tablet 3 ??? [DISCONTINUED] predniSONE (DELTASONE) 20 mg Tablet Take 5 tablets by mouth daily. Take 5 tablets(100mg) daily on March 05, then 5 tablets daily x 4 days after each cycle of chemotherapy. 25 tablet 3 Allergies: No Known Allergies FAMILY HISTORY: Mother: alive 66 HTN Father: Alive 68 HTN, hy[percholesterolemia, back problem Sibs: 1 bro and 2 sisters; One sister w/ thyroid cancer Children: A&W Other: negative SOCIAL HISTORY Personal: ; could not be here b/c of knee surgery yesterday at [place]. 2 girls - ages 16 and 19. One at [facility]. 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 PHYSICAL EXAM BP 123/76 Pulse 75 Temp(Src) 36.7 ??C (98.1 ??F) (Oral) Resp 18 Ht 182.9 cm (6' 0.01) Wt99.111 kg (218 lb 8 oz) BMI 29.63 kg/m2 SpO2 99% Body surface area is 2.24 meters squared. GENERAL: Agapito M Persons Jr. appears well and is in no [...] wall tenderness. LABORATORY STUDIES DONE TODAY WBC 7.76 ANC 5.43 H/H 13.5/39.2 Plts 245 CMP within normal limits LDH 216 RADIOLOGY STUDIES REVIEWED: EXAMINATION: PET/CT STANDARD (top of the head to Mid-thigh) CLINICAL HISTORY: pt with tonsilar lymphoma - staging - include head TECHNIQUE: Following IV injection of 68-phtapd-7-deoxyglucose (FDG) a standard uptake of approximately 60 [...] from Dr. Khoa Au of ENT in [facility]. His symptoms date back only one week [...] All of this can be given in [facility]. He will get the echocardiogram and PET [...] first cycle of R CHOP chemotherapy at [facility] following that visit. I encouraged him to [...] He tolerated the treatment with minimal toxicity. His bloodwork is within normal limits. Clinically he is doing well. He will receive cycle #2 tomorrow and his neulasta on Monday. He is comfortable with this plan. Uvaldo- I discussed this issue with Dr. Plascencia. She reviewed the results of the PET scan and Marguerite discussed with her that this has been there for years and has been evaluated by his PCP with an ultrasound. At this point, no further evaluation is needed. We will continue to monitor this issueclinically and if indicated, perform additional testing. I discussed all of the above with the patient and all of his questions were answered. Support and counseling given as appropriate. Copy JANICE CHRISTINE MD documented in this encounter Plan of Treatment Scheduled Orders Name Type Priority Associated Diagnoses Orde r Schedule CBC (with Diff) Lab Routine Lymphoma Expected: 04/08/2015 (Approximate), Expires: 03/25/2016 Comprehensive metabolic panel (non-fasting) Lab Routine Lymphoma Expected: 04/08/2015 (Approximate), Expires: 03/25/2016 Lactate Dehydrogenase Lab Routine Lymphoma Expected: 04/08/2015 (Approximate), Expires: 03/25/2016 CBC (with Diff) Lab Routine Lymphoma Expected: 04/15/2015 (Approximate), Expires: 03/25/2016 Comprehensive metabolic panel (non-fasting) Lab Routine Lymphoma Expected: 04/15/2015, Expires: 03/25/2016 Lactate Dehydrogenase Lab Routine Lymphoma Expected: 04/15/2015 (Approximate), Expires: 03/25/2016 documented as of this encounter Procedures Procedure Name Priority Date/Time Associated Diagnosis Comments CHEMOTHERAPY SCAN 03/25/2015 12:00 AM EDT documented in this encounter Results * SCAN DOC: CHEMOTHERAPY (03/25/2015 12:00 AM EDT) Scanning Provider MEDIA MGR SCAN EXT O RDR/RSLT documented in this encounter Visit Diagnoses Diagnosis Lymphoma Other malignant lymphomas, unspecified site, extranodal and solid organ sites documented in this encounter Care Teams Barrel Tester And Drainer Relationship Specialty Start Date End Date Janice Christine MD [address] [place] [address] PCP - General 02/27/15 09/19/17 documented as of this encounter
--- OUTSIDE RECORDS SUMMARY | 2024-09-30 21:02 | XMS_ITS | Encounter Summary ---
[place] [address] Care Team Providers Care Welder And Fitter Name Role Phone Janice Christine MD Primary Care Provider Reason for Visit * Reason Comments Other Encounter Details Date Type Department Care Team (Late st Contact Info) Description 06/18/2015 Telephone Radiation Oncology at [address] [phone] Radha Rod RN Social History Tobacco Use Types Packs/Day Years Used Date Smoking Tobacco: Never Alcohol Use Standard Drinks/Week Comments No 0 (1 standard drink = 0.6 oz pur e alcohol) Sex and Gender Information Value Date Recorded Sex Assigned at Not on file Gender Identity Not on file Sexual Orientation Not on file documented as of this encounter Miscellaneous Notes * Telephone Encounter - Radha Hart RN - 06/18/2015 11:53 AM EDT Radiation Oncology Nurse Telephone Note [facility] [place], [place] ----- Message from Jean Sheldon MD sent at 06/16/2015 12:12 PM EDT ----- Radha - please call patient to see how he is doing. I am hoping one of the cloth finishing range operator chief can see him next week to followup on thrush/radiation mucositis. 06/18/15 11:50 AM Phone call to patient . He states that he is feeling much better today compared to earlier this week. The only change that he has implemented is taking Tylenol 1000 mg ( in tablet form) TID. He grades pain a 2 or 3/10 and is eating softer foods like eggs. He did not get the Morphine and BMX filled since the tylenol seems to be managing his pain well. Intervention: Dr Sheldon will be informed of his progress. I will ask secretaries to schedule appt next week with one of our nurse practitioners. He agreed with this plan and expressed appreciation for this call. documented in this encounter Plan of Treatment Not on file documented as of this encounter Visit Diagnoses Not on filedocumented in this encounter Care Teams Welder And Fitter Relationship Specialty Start Date End Date Janice Christine MD [address] [place] [address] PCP - General 02/27/15 09/19/17 documented as of this encounter
--- OUTSIDE RECORDS SUMMARY | 2024-09-30 21:02 | XMS_ITS | Encounter Summary ---
[place] [address] Care Team Providers Care Salmon Troll Fisher Name Role Phone Janice Christine MD Primary Care Provider [phone] Encounter Details Date Type Department Care Team (Late st Contact Info) Description 06/17/2015 Notes Only Radiation Oncology at [address] [phone] Jean Sheldon MD [address] [place] [address] [place] [address] Social History Tobacco Use Types Packs/Day Years Used Date Smoking Tobacco: Never Alcohol Use Standard Drinks/Week Comments No 0 (1 standard drink = 0.6 oz pur e alcohol) Sex and Gender Information Value Date Recorded Sex Assigned at Not on file Gender Identity Not on file Sexual Orientation Not on file documented as of this encounter Progress Notes * Jean Sheldon MD - 06/17/2015 1:56 PM EDT RADIATION COMPLETION OF THERAPY NOTE PROVIDER: Jean Sheldon MD IDENTIFICATION: Agapito Ramirez Jr. is a 44 y.o. male diagnosed with Stage IIA germinal center DLBCL who completed adjuvant definitive radiotherapy to his left neck at the [facility] in [facility] on 06/12/15. Details of his radiation treatment course are as below. RT information: Dose and targets: 36 Gy in 1.8Gy fractions to the involved site of the left upper neck, through thebottom of level III Field orientation: VMAT See below for beam energy. RT Details (from [facility] electronic patient chart): AGAPITO RAMIREZ : 1970 Radiation Oncologist : Dr.Nirav Sheldon Course: C1 H_N 200.71 Plan Start Tx Last Tx Elapsed Days Fractions Dose (cGy) HN VMAT 05/14/2015 06/12/2015 @ 180.0 cGy 3600 / 3600 Energy Mode: 6X Treatment Type: Rapid Arc Reference Point: HN RX Total Dose Correction: 0 Total C1 H_N dose: 3600.0 cGy Total Dose: 3600.0 cGy SPECIAL TECHNICAL CONSIDERATIONS: The patient was simulated on a CT simulator. Customized andrews were designed to encompass the target volume and identify organs at risk and with the intent of minimizing normal tissue toxicity. TREATMENT TOLERANCE: With regard to side effects noted during radiotherapy, the patient tolerated treatment with expected toxicities for this treatment area and dose, including decreased taste and mucositis which was managed with salt/soda rinses, BMX and narcotic pain medication. TREATMENT RESPONSE: The patient's response to treatment was undetermined, as he was largely asymptomatic at the time ofpresentation. FOLLOWUP: Follow-up visit with Radiation Oncology will be arranged in 1 week for clinical symptom check; he has received instructions to call this office or seek the help of the local emergency room if any further problems should arise prior to followup. documented in this encounter Plan of Treatment Not on file documented as of this encounter Visit Diagnoses Not on filedocumented in this encounter Care Teams Salmon Troll Fisher Relationship Specialty Start Date End Date Janice Christine MD [address] [place] [address] PCP - General 02/27/15 09/19/17 documented as of this encounter
--- OUTSIDE RECORDS SUMMARY | 2024-09-30 21:02 | XMS_ITS | Encounter Summary ---
Author Organization [facility] Address [facility] [place] [address] Care Team Providers Care Biomass Production Manager Name Role Phone Janice Christine MD Primary Care Provider [phone] Reason for Visit * Reason Onset Date Comments Dietary Surveillance/counseling 07/09/2015 Encounter Details Date Type Department Care Team (Late st Contact Info) Description 07/09/2015 Telephone Hematology [place] [address] [facility] [place] [address] Dietary Surveillance/counseling Social History Tobacco Use Types Packs/Day Years Used Date Smoking Tobacco: Never Alcohol Use Standard Drinks/Week Comments No 0 (1 standard drink = 0.6 oz pur e alcohol) Sex and Gender Information Value Date Recorded Sex Assigned at Not on file Gender Identity Not on file Sexual Orientation Not on file documented as of this encounter Miscellaneous Notes * Telephone Encounter - Erica Nelson RD - 07/09/2015 9:41 AM EDT TC ike Altman for nutrition follow up. Oncology Vitals 07/02/2015 Weight 92.806 kg Reports wt holding at 204 lbs at home. Feels he is past all the bad stuff. Eating everything and taste is returning. Don???t know if I am eating as much as I used to, I don???t snack as much as used to. Reports does have an appetite. Intake: Makes a breakfast sandwich, which is an improvement. Typically ate once/d. PM: Crab legs with butter, butter was off. Spaghetti. Nothing taste like it should. Not doing baking soda salt rinse. Fluids: Feels he is lacking, but doing better. Iced Coffee - 1 cup/d (32 oz/d). Returns in Jul to see Marilee Plummer. Will follow up in one month via TC. documented in this encounter Plan of Treatment Not on file documented as of this encounter Visit Diagnoses Not on filedocumented in this encounter Care Teams Biomass Production Manager Relationship Specialty Start Date End Date Janice Christine MD [address] [place] [address] PCP - General 02/27/15 09/19/17 documented as of this encounter
--- OUTSIDE RECORDS SUMMARY | 2024-09-30 21:02 | XMS_ITS | Encounter Summary ---
[place] [address] Care Team Providers Care Director Of Retail Analytics Name Role Phone Janice Christine MD Primary Care Provider [phone] Encounter Details Date Type Department Care Team (Late st Contact Info) Description 03/25/2015 Orders Only [place] [address] Marilee Plummer, [employer] Lymphoma Social History Tobacco Use Types Packs/Day [...] sites documented in this encounter Care Teams Director Of Retail Analytics Relationship Specialty Start Date End Date Janice Christine MD [address] [place] [address] PCP - General 02/27/15 09/19/17 documented as of this encounter
--- OUTSIDE RECORDS SUMMARY | 2024-09-30 21:02 | XMS_ITS | Encounter Summary ---
[place] [address] Care Team Providers Care Coverage Analyst Name Role Phone Janice Christine MD Primary Care Provider [phone] Encounter Details Date Type Department Care Team (Late st Contact Info) Description 04/27/2015 12:33 PM EDT - 04/27/2015 11:59 PM EDT Hospital Encounter [place] [address] CLINIC, DR NAYLOR Lymphoma Social History Tobacco Use Types Packs/Day [...] Date/Time Associated Diagnosis Comments NM PET CT STANDARD PLUS EXTREMITIES AND HEAD Routine 04/27/2015 2:09 PM EDT Lymphoma documented in this encounter Results * PET/CT Standard Plus [...] reactive. Thank you for referring this patient [facility]. This report was reviewed by Burt Denis at 04/27/2015 5:02 PM Film and interpretation reviewed by the attending Narrative 04/27/2015 5:08 PM EDT EXAMINATION: PET/CT STANDARD PLUS LEGS CLINICAL HISTORY: restage lymphoma of neck and tonsil TECHNIQUE: Procedure: Following IV injection of 96-mpcszg-0-deoxyglucose (FDG) a standard uptake of approximately 60 [...] tonsil TECHNIQUE: Procedure: Following IV injection of 20-csvhaj-1-deoxyglucose(FDG) a standard uptake of approximately 60 minutes, [...] reactive. Thank you for referring this patient [facility]. This report was reviewed by Burt Denis at 04/27/2015 5:02 PM Film and interpretation reviewed by the attending Jacquie Plascencia MD IMG PET ORDERABL ES documented in this encounter Visit Diagnoses Diagnosis Lymphoma Other malignant lymphomas, unspecified site, extranodal and solid organ sites documented in this encounter Care Teams Coverage Analyst Relationship Specialty Start Date End Date Janice Christine MD [address] [place] [address] PCP - General 02/27/15 09/19/17 documented as of this encounter
--- OUTSIDE RECORDS SUMMARY | 2024-09-30 21:02 | XMS_ITS | Encounter Summary ---
Author Organization [facility] Address [facility] [place] [address] Care Team Providers Care Hand Ii Blocker Name Role Phone Janice Christine MD Primary Care Provider [phone] Reason for Visit * Reason Comments Injections neulasta Encounter Details Date Type Department Care Team (Late st Contact Info) Description 03/09/2015 9:30 AM EDT Infusion Hematology Oncology at [address] [phone] CLINIC, DR ADKINS HEM/ONC Jacquie Plascencia MD [facility] [place] [address] Lymphoma Discharge Disposition: Home Social History Tobacco Use Types Packs/Day Years Used Date Smoking Tobacco: Never Sex and Gender Information Value Date Recorded Sex Assigned at Not on file Gender Identity Not on file Sexual Orientation Not on file documented as of this encounter Last Filed Vital Signs Vital Sign Reading Time Taken Comments Blood Pressure 111/70 03/09/2015 9:55 AM EDT Pulse 73 03/09/2015 9:55 AM EDT Temperature 36.8 ??C (98.2 ??F) 03/09/2015 9:55 AM ED T Respiratory Rate 18 03/09/2015 9:55 AM EDT Oxygen Saturation - - Inhaled Oxygen Concentration - - Weight 96.7 kg (213 lb 3.2 oz) 03/09/2015 9:55 A M EDT Height 182.9 cm (6' 0.01) 03/09/2015 9:55 AM ED T Body Mass Index 28.91 03/09/2015 9:55 AM EDT documented in this encounter Progress Notes * Genaro Hunt RN - 03/09/2015 9:44 AM EDT Infusion Note Diagnosis:Lymphoma Treatment: Neulasta Injection (s/p RCHOP) Assessment: Pt c/o heartburn on Monday night and Monday, denies nausea or vomiting. Pt able to do his work and ADLs. Vitals today have been stable: T36.8; BP111/70; HR73; O2sat 99% RA Neulasta 6mg injected in left arm. Discussed with Dr. Plascencia, patient's complaint of heartburn, Prilosec 20mg daily called in to [facility] [employer] in [facility], patient is aware of how to take medication. Patient asked appropriate questions and reminded to call with any questions or concerns. Plan: Return [...] 6 mg, Subcutaneous, ONCE, 1 dose, On 03/09/15 at 1030, Routine Given 03/09/2015 10:25 AM EDT 6 mg Left Arm documented in this encounter Care Teams Hand Ii Blocker Relationship Specialty Start Date End Date Janice Christine MD [address] [place] [address] PCP - General 02/27/15 09/19/17 documented as of this encounter
--- OUTSIDE RECORDS SUMMARY | 2024-09-30 21:02 | XMS_ITS | Encounter Summary ---
[place] [address] Care Team Providers Care Earth Science Technician Name Role Phone Janice Christine MD Primary Care Provider [phone] Reason for Visit * Reason Comments Chemotherapy R-CHOP, Cycle 2, Day 1 Encounter Details Date Type Department Care Team (Late st Contact Info) Description 03/26/2015 9:30 AM EDT Infusion Hematology Oncology at [address] [phone] CLINIC, DR ADKINS HEM/ONC Quentin Ross MD Lymphoma Discharge Disposition: Home Social History Tobacco Use Types Packs/Day Years Used Date Smoking Tobacco: Never Sex and Gender Information Value Date Recorded Sex Assigned at Not on file Gender Identity Not on file Sexual Orientation Not on file documented as of this encounter Last Filed Vital Signs Vital Sign Reading Time Taken Comments Blood Pressure 128/67 03/26/2015 9:33 AM EDT Pulse 82 03/26/2015 9:33 AM EDT Temperature 36.8 ??C (98.2 ??F) 03/26/2015 9:33 AM ED T Respiratory Rate 20 03/26/2015 9:33 AM EDT Oxygen Saturation 98% 03/26/2015 9:33 AM EDT Inhaled Oxygen Concentration - - Weight 99.2 kg (218 lb 12.8 oz) 03/26/2015 9:33 AM EDT Height 182.9 cm (6' 0.01) 03/26/2015 9:33 AM ED T copied Body Mass Index 29.67 03/26/2015 9:33 AM EDT documented in this encounter Progress Notes * Tran Antunez RN - 03/26/2015 1:05 PM EDT INFUSION THERAPY ADMINISTRATION NOTES DIAGNOSIS: Lymphoma CYCLE #:2, Day 1 REASON FOR VISIT: R-CHOP SUBJECTIVE Mr. Ramirez offers no complaints. OBJECTIVE LAB DATA: WNL for treatment today. IV ACCESS: Right forearm 22g Angiocath, with good blood return. Pre administration: Chemotherapy orders independently verified for drug name, route, and dosage per patient's height, weight and BSA by Tran Antunez RN and Michelle Glass [facility]. REACTIONS (DESCRIPTION, TIME, INTERVENTION AND EFFECTIVENESS) none ASSESSMENT Mr. Ramirez was alert, dozing throughout his infusions. He tolerated treatment well. PLAN Return to clinic per routine. [...] 650 mg, Oral, ONCE, 1 dose, On Umm 03/26/15 at 1100, Administer prior to riTUXimab, Routine Given 03/26/2015 10:58 AM EDT 650 mg cyclophosphamide (CYTOXAN) 1,680 mg in dextrose 5% 334 mL chemo infusion 1,680 mg (750 mg/m2/dose ? 2.24 m2 Treatment Plan BSA from Recorded weight), Intravenous, ONCE, 1 dose, On Umm 03/26/15 at 1200, Administer over 30 Minutes New Bag 03/26/2015 3:20 PM EDT 1,680 mg 668 mL/hr dexamethasone (DECADRON) injection 10 mg 10 mg, Intravenous, ONCE, 1 dose, On Umm 03/26/15 at 1145, Prior to rituximab., Routine Given 03/26/2015 11:39 AM EDT 10 mg diphenhydrAMINE (BENADRYL) injection 50 mg 50 mg, Intravenous, ONCE, 1 dose, On Umm 03/26/15 at 1100, Administer prior to riTUXimab, Routine Given 03/26/2015 10:58 AM EDT 50 mg DOXOrubicin (ADRIAMYCIN) chemo injection 112 mg 112 mg (50 mg/m2/dose ? 2.24 m2 Treatment Plan BSA from Recorded weight), Intravenous, ONCE, 1 dose, On Umm 03/26/15 at 1200, Administer each syringe over a minimum of 3 minutes. Each Syringe contains 56 mg in 28 mL. Given 03/26/2015 3:02 PM EDT 112 mg ondansetron (ZOFRAN) tablet 16 mg 16 mg, Oral, ONCE, 1 dose, On Umm 03/26/15 at 1100, Administer prior to chemotherapy, Routine Given 03/26/2015 10:58 AM EDT 16 mg riTUXimab (RITUXAN) 800 mg in sodium chloride 0.9% 400 mL infusion 800 mg, Intravenous, ONCE, 1 dose, On Umm 03/26/15 at 1200, Administer Per Protocol, Round medication dose to the nearest 100 mg: Dose has been rounded to the nearest 100 mg, Patient is a candidate for rapid infusion riTUXimab? No New Bag 03/26/2015 12:16 PM EDT 800 mg sodium chloride 0.9% infusion 100 mL/hr, Intravenous, ONCE, 1 dose, On Umm 03/26/15 at 1100 New Bag 03/26/2015 10:30 AM EDT 100 mL/hr 100 mL/hr vinCRIStine (ONCOVIN) chemo injection 2 mg 2 mg, Intravenous, ONCE, 1 dose, On Umm 03/26/15 at 1200, Administer over 2 Minutes, Maximum dose 2 mg Given 03/26/2015 3:17 PM EDT 2 mg 60 m L/hr documented in this encounter Care Teams Earth Science Technician Relationship Specialty Start Date End Date Janice Christine MD [address] [place] [address] PCP - General 02/27/15 09/19/17 documented as of this encounter
--- OUTSIDE RECORDS SUMMARY | 2024-09-30 21:02 | XMS_ITS | Encounter Summary ---
[place] [address] Care Team Providers Care Industrial Relations Worker Name Role Phone Janice Christine MD Primary Care Provider [phone] Encounter Details Date Type Department Care Team (Late st Contact Info) Description 01/13/2016 3:15 PM EDT Office Visit Hematology/Oncology at [address] [phone] Marilee Plummer, ART THERAPIST DLBCL (diffuse large B cell lymphoma) Social [...] Sign Reading Time Taken Comments Blood Pressure 120/73 01/13/2016 3:11 PM EDT Pulse 71 01/13/2016 3:11 PM EDT Temperature 36.5 ??C (97.7 ??F) 01/13/2016 3:11 PM ED T Respiratory Rate 18 01/13/2016 3:11 PM EDT Oxygen Saturation 100% 01/13/2016 3:11 PM EDT Inhaled Oxygen Concentration - - Weight 100.9 kg (222 lb 8 oz) 01/13/2016 3:11 PM EDT Height 182.9 cm (6' 0.01) 01/13/2016 3:11 PM ED T Body Mass Index 30.17 01/13/2016 3:11 PM EDT documented in this encounter Patient Instructions * Patient Instructions* Marilee Plummer APRN - 01/19/2016 9:05 AM EDT He will return in 3 months with labs and ct scan prior. documented in this encounter Progress Notes * Marilee Plummer APRN - 01/19/2016 9:03 AM EDT [facility] [place] [address] FOLLOW-UP PATIENT EVALUATION PROBLEM LIST: Patient Active [...] It was my pleasure to see Agapito Giuliana James Funes back in clinic today. Agapito Ramirez JrJailyn is a 45 y.o. year old male being seen for follow-up evaluation of DLBCL He had severe pharyngitis from the radition. Could not eat for 3 weeks. Got down to 195#. Now up to 222#. Dry mouth is A big problem. Wakesup with severe dry mouth. He is using mouth rinses- warm water and baking soda, drinks water frequently, tried sugarless gum and other products. He is doing good oral care and will see a dentist soon. 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 He is otherwise asymptomatic. 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 ROS Energy level: low , but back [...] have been marked as taking for the 01/13/16 encounter (Office Visit) with Marilee Plummer APRN. Allergies: No Known Allergies INTERIM SOCIAL HISTORY Changes in job, home situation, tobacco or alcohol use: see HPI PHYSICAL EXAM BP 120/73 mmHg Pulse 71 Temp(Src) 36.5 ??C (97.7 ??F) (Oral) Resp 18 Ht 182.9 cm (6' 0.01) Wt 100.925 kg (222 lb 8 oz) BMI 30.17 kg/m2 SpO2 100% Body surface area is 2.26 meters squared. [...] consistent with known hydrocele. LABORATORY STUDIES WBC 5.62 H/H 14.6/42.5 Plts 211 CMP within normal limits LDH 134 RADIOLOGY STUDIES REVIEWED: None done ASSESSMENT/PLAN: DLBCL - he is now s/p C#3 RCHOP with negative PET scan and then consolidative XRT. His PET scan today is negative. I have also given him recommendations for [...] did not find the biotene helpful. He continues to struggle with this. He does have a dental appointment on January 25. N/V - resolved off treatment. Chest pain - has had it for years with work up in the past. GERD - prilosec helped , resolved. Testicular hydrocele - resolved. He is doing overall well. His weight is stable. He still has some fatigue. 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 He will see dr yoon at this time. Copy JANICE CHRISTINE MD documented in this encounter Plan of Treatment Not on file documented as of this encounter Procedures Procedure Name Priority Date/Time Associated Diagnosis Comments CT SCAN (SCAN) 04/14/2016 12:00 AM EDT documented in this encounter Results * SCAN DOC: CT SCAN (04/14/2016 12:00 AM EDT) Anatomical Region Laterality Modality Other Scanning Provider MEDIA MGR SCAN EXT O RDR/RSLT documented in this encounter Visit Diagnoses Diagnosis DLBCL (diffuse large B cell lymphoma) Other malignant lymphomas, unspecified site, extranodal and solid organ sites documented in this encounter Care Teams Industrial Relations Worker Relationship Specialty Start Date End Date Janice Christine MD [address] [place] [address] PCP - General 02/27/15 09/19/17 documented as of this encounter
--- OUTSIDE RECORDS SUMMARY | 2024-09-30 21:02 | XMS_ITS | Encounter Summary ---
Author Organization [facility] [place] [address] Care Team Providers Care Hair Weaver Name Role Phone Janice Christine MD Primary Care Provider [phone] Encounter Details Date Type Department Care Team (Latest Contact Info) Description 10/12/2015 2:00 PM EST - 10/12/2015 11:59 PM [facility] Hospital Encounter Hematology [place] [address] Lymphoma; DLBCL (diffuse large B cell lymphoma) Discharge Disposition: Home Social History Tobacco Use [...] as of this encounter Plan of Treatment Scheduled Orders Name Type Priority Associated Diagnoses Orde r Schedule Comprehensive metabolic panel (non-fasting) Lab STAT Lymphoma 1 Occurrences starting 10/12/2015 until 10/12/2015 Lactate Dehydrogenase Lab STAT Lymphoma 1 Occurrences starting 10/12/2015 until 10/12/2015 CBC (with Diff) Lab Routine Lymphoma 1 Occurrences starting 10/12/2015 until 10/12/2015 Comprehensive metabolic panel (non-fasting) Lab Routine Lymphoma 1 Occurrences starting 10/12/2015 until 10/12/2015 Lactate Dehydrogenase Lab Routine Lymphoma 1 Occurrences starting 10/12/2015 until 10/12/2015 CBC (with Diff) Lab Routine Lymphoma 1 Occurrences starting 10/12/2015 until 10/12/2015 Comprehensive metabolic panel (non-fasting) Lab Routine Lymphoma 1 Occurrences starting 10/12/2015 until 10/12/2015 Lactate Dehydrogenase Lab Routine Lymphoma 1 Occurrences starting 10/12/2015 until 10/12/2015 CBC (with Diff) Lab Routine DLBCL (diffuse large B cell lymphoma) 1 Occurrences starting 10/12/2015 until 10/12/2015 Comprehensive metabolic panel (non-fasting) Lab Routine DLBCL (diffuse large B cell lymphoma) 1 Occurrences starting 10/12/2015 until 10/12/2015 Lactate Dehydrogenase Lab Routine DLBCL (diffuse large B cell lymphoma) 1 Occurrences starting 10/12/2015 until 10/12/2015 documented as of this encounter Procedures Procedure Name Priority Date/Time Associated Diagnosis Comments HEMOGRAM STAT 10/12/2015 3:06 PM EST Lymphoma DIFFERENTIAL, AUTOMATED STAT 10/12/2015 3:06 PM EST Lymphoma CBC (WITH DIFF) STAT 10/12/2015 3:06 PM EST Lymphoma LACTATE DEHYDROGENASE STAT 10/12/2015 3:06 PM EST Lymphoma COMPREHENSIVE METABOLIC PANEL STAT 10/12/2015 3:06 PM EST Lymphoma documented in this encounter Results * Differential, Automated (10/12/2015 3:06 PM EST) Neutrophil % 67.2 % CERNER MILLENNIUM Neutrophil Absolute 4.74 1.50 - 6.30 x10(3)/mcL CERNER MILLENNIUM Lymph % 18.9 % CERNER MILLENNIUM Lymphocytes Abs 1.3 1.0 - 3.6 x10(3)/mcL CERNER MILLENNIUM Monocyte % 7.2 % CERNER MILLENNIUM Monocyte Abs 0.5 0.2 - 1.0 x10(3)/mcL CERNER MILLENNIUM Eos % 6.0 % CERNER MILLENNIUM Eosinophils Abs 0.4 0.0 - 0.5 x10(3)/mcL CERNER MILLENNIUM Basophil % 0.6 % CERNER MILLENNIUM Baso Absolute 0.0 0.0 - 0.2 x10(3)/mcL CERNER MILLENNIUM Immature Gran % 0.10 % CERN ER MILLENNIUM Comment: Immature granulocytes(IG's)percentage and absolute count will include metamyelocytes, myelocytes, and promyelocytes. Blood smears from CBCs yielding IG's will be scanned manually for concordance. If this scan disagrees with the automated IG or if promyelocytes are noted, a manual differential will be performed. Immature Gran Absolute 0.01 0.00 - 0.05 x10(3)/mcL CERNER MILLENNIUM Blood specimen (specimen) 10/12/2015 3:06 PM EST 10/12/2015 3:14 PM EST Narrative Resulting Agency Comment Spec In Lab Jacquie Plascencia MD HEMATOLOGY ORDER CONCHITA CERNER MILLENNIUM * Hemogram (10/12/2015 3:06 PM EST) White Blood Cell 7.0 4.0 - 10.0 x10(3)/mcL CERNER MILLENNIUM Red Blood Cell 4.80 4.63 - 6.08 x10(6)/mcL CERNER MILLENNIUM Hemoglobin 14.5 13.7 - 17.5 gm/dL CERNER MILLENNIUM Hematocrit 41.9 40.0 - 51.0 % CERNER MILLENNIUM Mean Cell Volume 87.3 79.0 - 92.0 fL CERNER MILLENNIUM Mean Cell Hemoglobin 30.2 25.6 - 32.2 pg CERNER MILLENNIUM Mean Cell Hemoglobin Concentration 34.6 32.0 - 36.5 gm/dL CERNER MILLENNIUM Platelet 230 145 - 370 x10(3)/mcL CERNER MILLENNIUM RDW Standard Deviation 41.6 35.0 - 46.0 fL CERNER MILLENNIUM RDW coefficient of variation 13.1 10.9 - 14.4 % CERNER MILLENNIUM Mean Platelet Volume 10.1 9.0 - 12.0 fL CERNER MILLENNIUM Blood specimen (specimen) 10/12/2015 3:06 PM EST 10/12/2015 3:14 PM EST Narrative Resulting Agency Comment Spec In Lab Jacquie Plascencia MD HEMATOLOGY ORDER CONCHITA Performing Organization Address [facility] Co de Phone Number CERNER MILLENNIUM * Lactate Dehydrogenase (10/12/2015 3:06 PM EST) Lactate Dehydrogenase 147 110 - 220 unit/L CERNER MILLENNIUM Blood specimen (specimen) 10/12/2015 3:06 PM EST 10/12/2015 3:14 PM EST Narrative Resulting Agency Comment Spec In Lab Jacquie Plascencia MD CHEMISTRY ORDERA BLES Performing Organization Address [facility] de Phone Number CERNER MILLENNIUM * Comprehensive metabolic panel (non-fasting) (10/12/2015 3:06 PM EST) Glucose 88 65 - 199 mg/dL CERNER MILLENNIUM Comment:Diabetes: >=200 mg/d L plus symptoms Blood Urea Nitrogen 13 10 - 20 mg/dL CERNER MILLENNIUM Creatinine 0.95 0.80 - 1.50 mg/dL CERNER MILLENNIUM Comment: Please note that the pediatric reference intervals supplied above were not validated at [facility]. Results from pediatric patients should be interpreted [...] the following links into your internet browser. [email or web address] Blood specimen (specimen) 10/12/2015 3:06 PM EST 10/12/2015 3:14 PM EST Narrative Resulting Agency Comment Spec In Lab Jacquie Plascencia MD CHEMISTRY ORDERA [facility] documented in this encounter Visit Diagnoses Diagnosis Lymphoma Other malignant lymphomas, unspecified site, extranodal and solid organ sites DLBCL (diffuse large B cell lymphoma) Other malignant lymphomas, unspecified site, extranodal and solid organ sites documented in this encounter Care Teams Hair Weaver Relationship Specialty Start Date End Date Janice Christine MD [address] [place] [address] PCP - General 02/27/15 09/19/17 documented as of this encounter
--- OUTSIDE RECORDS SUMMARY | 2024-09-30 21:02 | XMS_ITS | Encounter Summary ---
Author Organization [facility] Address [facility] [place] [address] Care Team Providers Care National Account Executive Name Role Phone Janice Christine MD Primary Care Provider Encounter Details Date Type Department Care Team (Late st Contact Info) Description 10/12/2015 11:41 AM EST - 10/12/2015 1:59 PM [facility] Hospital En[place] [address] Jacquie Plascencia MD [facility] [address] [place] [address] Discharge Disposition: Home Social History Tobacco Use [...] (LCSR) STAT 10/12/2015 2:41 PM EST Lymphoma documented in this encounter Results * PET/CT STANDARD (Skull base to Mid-thigh) (10/12/2015 2:41 PM EST) Anatomical Region Laterality Modality Nuclear Medicine Impressions 10/12/2015 4:23 PM EST IMPRESSION: No active lymphoma. Thank you for referring this patient to [facility]. 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 Jacquie Plascencia MD IMG PET ORDERABL ES documented in this encounter Visit Diagnoses Not on filedocumented in this encounter Care Teams National Account Executive Relationship Specialty Start Date End Date Janice Christine MD [address] [place] [address] PCP - General 02/27/15 09/19/17 documented as of this encounter
--- OUTSIDE RECORDS SUMMARY | 2024-09-30 21:03 | XMS_ITS | Referral Summary ---
Author Organization [facility] Address [address] [place] [address] Care Team Providers Care Gerentological Physiotherapist Name Role Phone Rafal Art PA-C Primary Care Provider [phone] Social History Tobacco Use Types Packs/Day Years Used Date Smoking Tobacco: Never Assessed Interpersonal Safety Answer Date Record ed Physically Hurt Never 04/26/2020 Verbally Threaten Not on file 04/26/2020 Sex and Gender Information Value Date Recorded Sex Assigned at Not on file Legal Sex Male 18:54 EST Gender Identity Not on file Sexual Orientation Not on file Plan of Treatment Not on file Insurance [facility] Care Teams Gerentological Physiotherapist Relationship Specialty Start Date End Date Rafal Art PA-[place] [address] [place] [id number] PCP - General 11/15/19
--- OUTSIDE RECORDS SUMMARY | 2024-09-30 21:03 | XMS_ITS | Clinical Summary ---
Author Organization [facility] Address [address] [place] [address] Care Team Providers Care Porcelain Turner Name Role Phone Rafal Art PA-C Primary Care Provider [phone] Social History Tobacco Use Types Packs/Day Years Used Date Smoking Tobacco: Never Assessed Interpersonal Safety Answer Date Record ed Physically Hurt Never 04/26/2020 Verbally Threaten Not on file 04/26/2020 Sex and Gender Information Value Date Recorded Sex Assigned at Not on file Legal Sex Male 18:54 EST Gender Identity Not on file Sexual Orientation Not on file Plan of Treatment Health Maintenance Due Date Last Done Comments Hepatitis C Screen 1970 Hepatitis B Vaccine (1 of 3 - 19+ 3-dose series) 07/23 COVID-19 Vaccine (2023- season) 2024 Insurance [facility] Care Teams Porcelain Turner Relationship Specialty Start Date End Date Rafal Art PA-C [address] [place] [address] PCP - General 11/15/19
--- OUTSIDE RECORDS SUMMARY | 2024-09-30 21:03 | XMS_ITS | Encounter Summary ---
Author Organization [facility] Address [address] [place] [address] Care Team Providers Care Field Sales Representative Name Role Phone Rafal Art PA-C Primary Care Provider [phone] Encounter Details Date Type Department Care Team (Late st Contact Info) Description 12/02/2021 Lab Requisition [facility] Pathology & Laboratory Medicine - [address] [address] Outr Resulting Lab, Provider Social History Tobacco Use Types Packs/Day Years [...] Procedure Name Priority Date/Time Associated Diagnosis Comments HSV (HERPES SIMPLEX VIRUS) MOLECULAR DETECTION, PCR Routine 12/02/2021 10:20 EST documented in this encounter Results * (ABNORMAL) HERPES SIMPLEX VIRUS MOLECULAR DETECTION, PCR (12/02/2021 10:20 EST) Herpes Simplex Virus Molecular Detection 1, PCR Positive(A) Negative 12/03/2021 11:18 EST [facility] Herpes Simplex Virus Molecular Detection 2, PCR Negative Negative 12/03/2021 11:18 EST [facility] Swab ENTIRE FACE / Unknown 12/02/2021 10:20 EST 12/02/2021 21:20 EST us Provider Outr Resulting Lab MICROBIOLOGY - GENER AL ORDERABLES Final Result [facility] [address] [place] [address] documented in this encounter Visit Diagnoses Not on filedocumented in this encounter Care Teams Field Sales Representative Relationship Specialty Start Date End Date Rafal Art PA-C [address] [place] [address] PCP - General 11/15/19 documented as of this encounter
--- OUTSIDE RECORDS SUMMARY | 2024-09-30 21:03 | XMS_ITS | Encounter Summary ---
Author Organization [facility] Address [address] [place] [address] Care Team Providers Care Dyeing Machine Feeder Name Role Phone Unknown, Provider Primary Care Provider Unava ilable Encounter Details Date Type Department Care Team (Late st Contact Info) Description 02/23/2015 Results Only [facility] [phone] Shabbir Au MD [address] [place] [address] Social History Tobacco Use Types Packs/Day Years Used Date Smoking Tobacco: Never Assessed Sex and Gender Information Value Date Recorded Sex Assigned at Not on file Legal Sex Male 18:54 EST Gender Identity Not on file Sexual Orientation Not on file documented as of this encounter Plan of Treatment Not on file documented as of this encounter Procedures Procedure Name Priority Date/Time Associated Diagnosis Comments SURGICAL PATHOLOGY Routine 02/23/2015 10 :15 EDT documented in this encounter Results * SURGICAL PATHOLOGY (02/23/2015 10:15 EDT) Pathology Report: SURGICAL PATHOLOGY REPORT Reports generated via electronic interface contain original data; however they are lacking the format of the original report. Caution should be taken when reading/interpreting unformatted reports. Name: ? AGAPITO RAMIREZ ? Accession #: ? [id number] ? : ? 1970 (Age: 44) ??M ? Collect Date: ? 02/23/2015 ? Location: ? [facility] ? Receive Date: ? 02/24/2015 ? Provider: SHABBIR AU MD Copy to: ? Final Pathologic Diagnosis: TONSIL, LEFT, EXCISIONAL BIOPSY: - ??Diffuse large B cell lymphoma, high grade. See comment. Comment: The incisional biopsy specimen shows a predominance of large CD20+ B-cells that have vesicular chromatin with occasional nucleoli. These large lymphocytes are positive for CD10, BCL-6, and BCL-2, supporting the diagnosis of diffuse large B-cell lymphoma. However, there is marked apoptotic debris and frequent mitoses. A MIB-1 was performed and shows a high proliferation index with >90% positivity in the large B-cells. This is a high grade diffuse large B-cell lymphoma and needs to be further evaluated for a MYC and possibly other gene rearrangements. ??Touch preps were not performed and therefore FISH for MYC rearrangement cannot be performed here. Since the patient has been referred to [facility] and a slide review is requested I have forwarded a block with the slides so that the necessary FISH studies can be performed there. A preliminary result of high grade lymphoma was called to Dr. Au's office on 02/25/2015 at 9:[address] Rand Mancini. Immunohistochemical stains were performed on this case to further characterize the lesion. ANTIBODY(CLONE)(BLOCK) :RESULT CD3(T-cell) (Rabbit Monoclonal, SP7, [employer]) (1): Highlights a few small background T-cells CD20 (B-cell) (L26, [place]) (1): Positive in lymphoma cells CD10 (56C6, [employer]) (1): Positive in lymphoma cells BCL-6 (G/191E/A8, [place]) (1): Positive in lymphoma cells BCL-2 Oncoprotein (124, [place]) (1): Positive in lymphoma cells MIB-1 (DAKO) (MIB-1, [place]) (1): >90% positivity in lymphoma cells NOTE: ??One or more of the reagents used in immunohistochemical testing in this case may not have been cleared or approved by the U.S. Food and Drug Administration (FDA). ??The FDA has determined that such clearance or approval is not necessary. ??These tests are used for clinical purposes. ??They should not be regarded as investigational or for research. ??These reagents' performance characteristics have been determined by [facility]. ??The positive and negative controls worked appropriately. This laboratory is certified under the Clinical Laboratory Improvement Amendments of 1988 (CLIA-88) as qualified to perform high complexity clinical laboratory testing. Dr. Mancini 02/26/2015 11:57 AM ?? Document reviewed and electronically signed by: DREW HERNANDEZ MD Report ??Date: 02/26/2015 12:21 By the signature above, the attending physician certifies that he/she has personally conducted a gross and/or microscopic examination of the described specimens and rendered or confirmed the above diagnosis. Specimen(s) Received: Biopsy incisional L tonsil Clinical History: L tonsil massive hypertrophy; non-smoker; clinical diagnosis code: 474.10 Gross Description: Received in formalin labelled with proper patient identification (initials P, D) and left tonsil are two light junior tissues (0.7 x 0.5 x 0.3 cm and 1.4 x 0.5 x 0.2 cm). ??The smaller tissue is bisected and submitted in block 1 and the larger tissue is submitted intact in block 2. ? Rocio Byrne 02/24/2015 11:39 AM End of Report [facility] 02/23/2015 10:1 5 EDT 02/24/2015 10:15 EDT us Shabbirwood Au MD PATHOLOGY ORDERABLES Final Resul t [facility] [address] [place] [address] documented in this encounter Visit Diagnoses Not on filedocumented in this encounter Care Teams Dyeing Machine Feeder Relationship Specialty Start Date End Date Unknown, Provider, PCP - General 09/29/11 11/14/19 documented as of this encounter
--- OUTSIDE RECORDS SUMMARY | 2024-09-30 21:03 | XMS_ITS | Encounter Summary ---
Author Organization [facility] Address [address] [place] [address] Care Team Providers Care Analytical Clerk Name Role Phone Unknown, Provider Primary Care Provider Unava ilable Encounter Details Date Type Department Care Team (Latest Contact Info) Description 02/23/2015 15:32 EDT - 02/23/2015 23:59 EDT Hospital Encounter [address] [address] Unknown, Provider, Discharge Disposition: Home or Self Care Social History Tobacco Use Types Packs/Day Years Used Date Smoking Tobacco: Never Assessed Sex and Gender Information Value Date Recorded Sex Assigned at Not on file Legal Sex Male 18:54 EST Gender Identity Not on file Sexual Orientation Not on file documented as of this encounter Discharge Disposition Disposition Code Departure Means Destination Home or Self [facility] documented in this encounter Plan of Treatment Not on file documented as of this encounter Visit Diagnoses Not on filedocumented in this encounter Care Teams Analytical Clerk Relationship Specialty Start Date End Date Unknown, Provider, PCP - General 09/29/11 11/14/19 documented as of this encounter
--- OUTSIDE RECORDS SUMMARY | 2024-09-30 21:03 | XMS_ITS | Encounter Summary ---
Author Organization [facility] Address [facility] [place] [address] Care Team Providers Care Rn Women Services Name Role Phone Janice Christine MD Primary Care Provider [phone] Reason for Visit * Reason Comments Advice Only Encounter Details Date Type Department Care Team (Late st Contact Info) Description 02/26/2015 12:00 PM EDT Office Visit [place] [address] Jacquie Plascencia MD [facility] [address] [place] [address] Lymphoma Discharge Disposition: Home Social History Tobacco Use Types Packs/Day Years Used Date Smoking Tobacco: Never Sex and Gender Information Value Date Recorded Sex Assigned at Not on file Gender Identity Not on file Sexual Orientation Not on file documented as of this encounter Last Filed Vital Signs Vital Sign Reading Time Taken Comments Blood Pressure 121/67 02/26/2015 11:56 AM EDT Pulse 63 02/26/2015 11:56 AM EDT Temperature 36.6 ??C (97.9 ??F) 02/26/2015 11:56 AM E DT Respiratory Rate 18 02/26/2015 11:56 AM EDT Oxygen Saturation 100% 02/26/2015 11:56 AM EDT Inhaled Oxygen Concentration - - Weight 121.1 kg (267 lb) 02/26/2015 11:56 AM EDT Height 182.9 cm (6' 0.01) 02/26/2015 11:56 AM E DT Body Mass Index 36.2 02/26/2015 11:56 AM EDT documented in this encounter Progress Notes * Jacquie Plascencia MD - 02/26/2015 12:04 PM EDT Hematology Clinic [facility] [place] [address] NEW PATIENT EVALUATION PROBLEM LIST: Patient Active Problem List Diagnosis ??? 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 Normal LDH. IPI = 0. EF = 72%. BMBx deferred. Plans for RCHOP X 3, repeat PET and then XRT. HISTORY OF PRESENT ILLNESS: It was my pleasure to meet Agapito Tucker JrJailyn today. Agapito Tucker Jr. is a 44 y.o. year old male being seen for evaluation of newly diagnosed. he is referred in consultaion from Dr Khoa Au. He hasbeen feeling well. On Thursday 02/22 he ate something sweet and had trouble swallowing. Saw large tonsil. Saw Dr Au who biopsied it and initial report on path from [facility] was aggressive lymphoma. Report and path slides are pending. Prior to Monday - no odynophagia or [...] changed his diet and no more sx. ROS Energy level:stable Pain: None Appetite:good - just some decline b/c of anxiety Fevers/chills/sweats:No Bruising/bleeding/melena:No Recent infections:No Headaches:neg Vision:neg Hearing:neg [...] Outpatient Prescriptions Marked as Taking for the 02/26/15 encounter (Office Visit) with Jacquie Plascencia MD Medication Sig Dispense Refill ??? amoxicillin-clavulanate (AUGMENTIN) 875-125 mg Tablet Take 1 tablet by mouth 2 times daily. Allergies: No Known Allergies FAMILY HISTORY: Mother: alive 66 HTN Father: Alive 68 HTN, hy[percholesterolemia, back problem Sibs: 1 bro and 2 sisters; One sister w/ thyroid cancer Children: A&W Other: negative SOCIAL HISTORY Personal: ; could not be here b/c of knee surgery yesterday at [place]. 2 girls - ages 16 and 19. One at [facility]. 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 PHYSICAL EXAM BP 121/67 Pulse 63 Temp(Src) 36.6 ??C (97.9 ??F) (Temporal) Resp 18 Ht 182.9 cm (6' 0.01) Wt 121.11 kg (267 lb) BMI 36.20 kg/m2 SpO2 100% Body surface area is 2.48 meters squared. GENERAL: Agapito Tucker Jr. appears well and is in no acute distress. ENT: Large L tonsil displacing uvula and partially impairing R side of the oropharynx. EYES: MELVIN NECK: Supple without adenopathy. AXILLARY: [...] spinal or chest wall tenderness. LABORATORY STUDIES Recent Results (from the past 72 hour(s)) COMPREHENSIVE METABOLIC PANEL (NON-FASTING) Result Value Ref Range Glucose Lvl 92 65 - 199 mg/dL BUN 15 10 - 20 mg/dL Creatinine 0.90 0.80 - 1.50 mg/dL Sodium 143 135 - 145 mmol/L Potassium 4.2 3.5 - 5.0 mmol/L Chloride 104 98 - 107 mmol/L CO2 25 22 - 31 mmol/L Anion Gap 14 5 - 15 mmol/L Calcium 9.3 8.5 - 10.5 mg/dL Total Protein 7.0 6.1 - 8.0 gm/dL Albumin 4.3 3.2 - 5.2 gm/dL AST 19 0 - 39 unit/L ALT 24 0 - 55 unit/L Alk Phos 62 40 - 120 unit/L Total Bilirubin 0.4 0.2 - 1.3 mg/dL Bili, Direct 0.1 0.0 - 0.3 mg/dL Estimated GFR >60 >=60 LACTATE DEHYDROGENASE Result Value Ref Range LDH 146 110 - 220 unit/L PROTEIN ELECTROPHORESIS, SERUM Result Value Ref Range Total Prot Elec 6.8 6.1 - 8.0 gm/dL IMMUNOGLOBULINS, QUANTITATIVE Result Value Ref Range IgG 802 700 - 1600 mg/dL IgA 156 70 - 400 mg/dL IgM 120 40 - 230 mg/dL HEPATITIS B CORE ANTIBODY, TOTAL Result Value Ref Range Hep B Core Ab Negative Negative HEPATITIS B SURFACE ANTIBODY Result Value Ref Range HepB Surface Ab Negative HEPATITIS B SURFACE ANTIGEN Result Value Ref Range HepB Surface Ag Negative Negative HEPATITIS C ANTIBODY Result Value Ref Range Hepatitis C Ab Negative Negative HIV SCREEN, 4TH GENERATION Result Value Ref Range HIV-1/2 Ab and Ag Negative Negative HEMOGRAM Result Value Ref Range WBC 8.0 4.0 - 10.0 x10(3)/mcL RBC 4.84 4.63 - 6.08 x10(6)/mcL Hemoglobin 14.7 13.7 - 17.5 gm/dL Hematocrit 42.8 40.0 - 51.0 % MCV 88.4 79.0 - 92.0 fL MCH 30.4 25.6 - 32.2 pg MCHC 34.3 32.0 - 36.5 gm/dL Platelets 222 145 - 370 x10(3)/mcL RDWSD 39.5 35.0 - 46.0 fL RDWCV 12.3 10.9 - 14.4 % MPV 10.9 9.0 - 12.0 fL DIFFERENTIAL, AUTOMATED Result Value Ref Range Neutrophils % 66.4 Neutr Abs (ANC) 5.32 1.50 - 6.30 x10(3)/mcL Lymphocytes % 25.0 Lymphocytes Abs 2.0 1.0 - 3.6 x10(3)/mcL Monocytes % 5.2 Monocyte Abs 0.4 0.2 - 1.0 x10(3)/mcL Eosinophils % 2.9 Eosinophils Abs 0.2 0.0 - 0.5 x10(3)/mcL Basophils % 0.4 Basophils Abs 0.0 0.0 - 0.2 x10(3)/mcL Immature Gran % 0.10 Bina Gran Abs 0.01 0.00 - 0.05 x10(3)/mcL POCT GLUCOSE Result Value Ref Range POC Glucose 87 65 - 199 mg/dL ECHOCARDIOGRAM TRANSTHORACIC(LEB) Result Value Ref Range EF 71 RADIOLOGY STUDIES REVIEWED: EXAMINATION: PET/CT STANDARD (top of the head to Mid-thigh) CLINICAL HISTORY: pt with tonsilar lymphoma - staging - include head TECHNIQUE: Following IV injection of 20-rqtdrj-8-deoxyglucose (FDG) a standard uptake of approximately 60 [...] he has significant neutropenia or neutropenic fever. He will need a midcycle check with Marilee Plummer at [facility] the week following his first dose of R CHOP chemotherapy. I discussed all of the above with the patient and all of his questions were answered. Support and counseling given as appropriate. This note was written or modified using [employer] voice recognition software. The final note was screened for mistakes. Please excuse any remaining errors. total time:90 min 12-1pm and 4-4:30pm time in counselling: Copy NONE documented in this encounter Plan of Treatment Not on file documented as of this encounter Procedures Procedure Name Priority Date/Time Associated Diagnosis Comments IMMUNOGLOBULINS, QUANTITATIVE STAT 02/26/2015 11:42 AM EDT Lymphoma HEMOGRAM STAT 02/26/2015 11:42 AM EDT Lymphoma DIFFERENTIAL, AUTOMATED STAT 02/26/2015 11:42 AM EDT Lymphoma HEPATITIS C ANTIBODY STAT 02/26/2015 11:42 AM EDT Lymphoma HEPATITIS B CORE ANTIBODY, TOTAL STAT 02/26/2015 11:42 AM EDT Lymphoma HIV SCREEN, 4TH GENERATION ([facility]/CGP/APD/NLH) STAT 02/26/2015 11:42 AM EDT Lymphoma HEPATITIS B SURFACE ANTIBODY STAT 02/26/2015 11:42 AM EDT Lymphoma HEPATITIS B SURFACE ANTIGEN STAT 02/26/2015 11:42 AM EDT Lymphoma CBC (WITH DIFF) STAT 02/26/2015 11:42 AM EDT Lymphoma PROTEIN ELECTROPHORESIS, SERUM STAT 02/26/2015 11:42 AM EDT Lymphoma LACTATE DEHYDROGENASE STAT 02/26/2015 11:42 AM EDT Lymphoma COMPREHENSIVE METABOLIC PANEL STAT 02/26/2015 11:42 AM EDT Lymphoma documented in this encounter Results * Echocardiogram Transthoracic(Leb) (02/26/2015 1:59 PM EDT) EF 71 HEARTLAB SYSTEM Anatomical Region Laterality Modality Other 02/26/2015 Narrative 02/26/2015 2:21 PM EDT Procedure: ? Transthoracic Echocardiogram Patient: ? PERSONS AGAPITO ?(Age): 1970(44) Med Rec#: ?[id number] ? Sex: ?M ? Site Loc: ?[facility] ? Ht / Wt: ??182.9(cm)/121.1 Pt. Loc: ? Echo Lab ? BSA: ?2.48 Study Date: ?02/26/2015 ? Pt. Type: Outpatient Tape: ? Referring: Jacquie Plascencia Referring: DAVID Fishmanographer: Yaneth Arizmendi Diagnosis:CPT Code(s): ??Echo Full (92388), ??Spectral Doppler (49982), Color Doppler (67910), Indication(s): ??Chemotherapy-baseline Rhythm: HR ?BP ?121/67 ?? [...] ? Mid-Inferior ?Normal ? Mid-Inferoseptal ?Normal ? [place]-Septal ? Normal ? [place]-Anterior ? Normal ? [place]-Lateral ?Normal ? [place]-Inferior ? Normal ? [place]-Tip ?Normal ? Chambers ?Value ?Units (Range) ? [...] report has been electronically signed by: Miguel Valdez. ? 02/26/2015 14:21:16 Images reviewed and interpretation verified [facility] Cardiac Ultrasound Laboratory Procedure Note Miguel Valdez MD - 02/26/2015 Procedure: Transthoracic Echocardiogram Patient: NELY DAMON(Age): 1970(44) Med Rec#: [id number] Sex: M Site Loc: [facility] Ht / Wt: 182.9(cm)/121.1 Pt. Loc: Echo Lab BSA: 2.48 Study Date: 02/26/2015 Pt. Type: Outpatient Tape: Referring: Jacquie Plascencia Referring: DAVID Web Development Director: Yaneth Arizmendi Diagnosis:CPT Code(s): Echo Full (19226), Spectral Doppler (03681), Color Doppler (97839), Indication(s): Chemotherapy-baseline Rhythm: HR BP 121/67 SUMMARY: [...] Normal Mid-Posterolateral Normal Mid-Inferior Normal Mid-Inferoseptal Normal [place]-Septal Normal [place]-Anterior Normal [place]-Lateral Normal [place]-Inferior Normal [place]-Tip Normal Chambers Value Units (Range) EF Bi-p [...] 02/26/2015 14:21:16 Images reviewed and interpretation verified [facility]iac Ul[facility]ound [facility] Jacquie Plascencia MD ECHO ORDERABLES * Differential, Automated (02/26/2015 11:42 AM EDT) Neutrophil % 66.4 % CERNER MILLENNIUM Neutrophil Absolute 5.32 1.50 - 6.30 x10(3)/mcL CERNER MILLENNIUM Lymph % 25.0 % CERNER MILLENNIUM Lymphocytes Abs 2.0 1.0 - 3.6 x10(3)/mcL CERNER MILLENNIUM Monocyte % 5.2 % CERNER MILLENNIUM Monocyte Abs 0.4 0.2 - 1.0 x10(3)/mcL CERNER MILLENNIUM Eos % 2.9 % CERNER MILLENNIUM Eosinophils Abs 0.2 0.0 - 0.5 x10(3)/mcL CERNER MILLENNIUM Basophil % 0.4 % CERNER MILLENNIUM Baso Absolute 0.0 0.0 [...] 0.05 x10(3)/mcL CERNER MILLENNIUM Blood specimen (specimen) 02/26/2015 11:42 AM EDT 02/26/2015 11:42 AM EDT Narrative Resulting Agency Comment Spec In Lab Jacquie Plascencia MD HEMATOLOGY ORDER CONCHITA CERNER SPENCERENNIUM * Hemogram (02/26/2015 11:42 AM EDT) White Blood Cell 8.0 4.0 - 10.0 x10(3)/mcL CERNER MILLENNIUM Red Blood Cell 4.84 4.63 - 6.08 x10(6)/mcL CERNER MILLENNIUM Hemoglobin 14.7 13.7 - 17.5 gm/dL CERNER MILLENNIUM Hematocrit 42.8 40.0 - 51.0 % CERNER MILLENNIUM Mean Cell Volume 88.4 79.0 - 92.0 fL CERNER MILLENNIUM Mean Cell Hemoglobin 30.4 25.6 - 32.2 pg CERNER MILLENNIUM Mean Cell Hemoglobin Concentration 34.3 32.0 - 36.5 gm/dL CERNER MILLENNIUM Platelet 222 145 - 370 x10(3)/mcL CERNER MILLENNIUM RDW Standard Deviation 39.5 35.0 - 46.0 fL CERNER MILLENNIUM RDW coefficient of variation 12.3 10.9 - 14.4 % CERNER MILLENNIUM Mean Platelet Volume 10.9 9.0 - 12.0 fL CERNER MILLENNIUM Blood specimen (specimen) 02/26/2015 11:42 AM EDT 02/26/2015 11:42 AM EDT Narrative Resulting Agency Comment Spec In Lab Jacquie Plascencia MD HEMATOLOGY ORDER CONCHITA HUANG NAGELIUM * HIV Screen, 4th Generation (02/26/2015 11:42 AM EDT) HIV Ab/Ag Screen Negative Negative CERNER MILLENNIUM Comment: This 4th Generation HIV test screens [...] MD CHEMISTRY ORDERA BLES Performing Organization Address [facility] de Phone Number [facility] * Hepatitis C Antibody (02/26/2015 11:42 AM EDT) [facility] Hepatitis C Antibody Negative Negative [facility] Blood specimen (specimen) 02/26/2015 11:42 AM EDT 02/26/2015 11:42 AM EDT Narrative Resulting Agency Comment Spec In Lab Jacquie Plascencia MD CHEMISTRY ORDERA BLES Performing Organization Address [facility] Co de Phone Number [facility] * Hepatitis B Surface Antigen (02/26/2015 11:42 AM EDT) [facility] Hepatitis B Surface Antigen Negative Negative [facility] Blood specimen (specimen) 02/26/2015 11:42 AM EDT 02/26/2015 11:42 AM EDT Narrative Resulting Agency Comment Spec In Lab Jacquie Plascencia MD CHEMISTRY ORDERA BLES Performing Organization Address [facility] Co de Phone Number [facility] * Hepatitis B Surface Antibody (02/26/2015 11:42 AM EDT) [facility] Hepatitis B Surface Antibody Negative [facility] Comment: Expected Results: Vaccinated: Positive Unvaccinated: Negative Please note: A positive result for this assay is consistent with a concentration of anti-HBs antibodies >10mIU/ml, which indicates that anti-HBs antibodies have been detected at levels consistent with protective immunity against HBV infection. Blood specimen (specimen) 02/26/2015 11:42 AM EDT 02/26/2015 11:42 AM EDT Narrative Resulting Agency Comment Spec In Lab Jacquie Plascencia MD CHEMISTRY ORDERA BLES Performing Organization Address [facility] Co de Phone Number [facility] * Hepatitis B Core Antibody, Total (02/26/2015 11:42 AM EDT) Hepatitis B Core Antibody Negative Negative CERNER SPENCERENNIUM Blood specimen (specimen) 02/26/2015 11:42 AM EDT 02/26/2015 11:42 AM EDT Narrative Resulting Agency Comment Spec In Lab Jacquie Plascencia MD CHEMISTRY ORDERA BLES Performing Organization Address [facility] de Phone Number CERNER MILLENNIUM * Immunoglobulins, Quantitative (02/26/2015 11:42 AM EDT) Immunoglobulin G 802 700 - 1,600 mg/dL CERNER MILLENNIUM IgA 156 70 - 400 mg/dL CERNER MILLENNIUM IgM 120 40 - 230 mg/dL CERNER MILLENNIUM Blood specimen (specimen) 02/26/2015 11:42 AM EDT 02/26/2015 11:42 AM EDT Narrative Resulting Agency Comment Spec In Lab Jacquie Plascencia MD CHEMISTRY ORDERA BLES Performing Organization Address [facility] Co de Phone Number CERNER SPENCERENNIUM * Protein Electrophoresis, serum (02/26/2015 11:42 AM EDT) Total Prot Electrophoresis 6.8 6.1 - 8.0 gm/dL CERNER MILLENNIUM Albumin Electrophoresis 4.75 3.60 - 6.00 gm/dL CERNER MILLENNIUM Alpha 1 Globulin 0.14 0.10 - 0.30 gm/dL CERNER MILLENNIUM Alpha 2 Globulin 0.59 0.40 - 0.90 gm/dL CERNER MILLENNIUM Beta Globulin 0.63 0.50 - 1.00 gm/dL CERNER MILLENNIUM Gamma Globulin 0.69 0.50 - 1.30 gm/dL CERNER MILLENNIUM M1 Band None Detected None Detected gm/dL CERNER MILLENNIUM Scan See Note CERNER MILLENNIUM Comment:Please see scanned r eport in Chart Review under the [facility] Laboratory Heading. Blood specimen (specimen) 02/26/2015 11:42 AM EDT 02/26/2015 11:42 AM EDT Narrative Resulting Agency Comment Spec In Lab Jacquie Plascencia MD CHEMISTRY ORDERA BLES Performing Organization Address [facility] Co de Phone Number CERNER MILLENNIUM * Lactate Dehydrogenase (02/26/2015 11:42 AM EDT) Lactate Dehydrogenase 146 110 - 220 unit/L CERNER MILLENNIUM Blood specimen (specimen) 02/26/2015 11:42 AM EDT 02/26/2015 11:42 AM EDT Narrative Resulting Agency Comment Spec In Lab Jacquie Plascencia MD CHEMISTRY ORDERA BLES Performing Organization Address [facility] Co de Phone Number CERNER MILLENNIUM * Comprehensive metabolic panel (non-fasting) (02/26/2015 11:42 AM EDT) Glucose 92 65 - 199 mg/dL CERNER MILLENNIUM Comment:Diabetes: >=200 mg/d L plus symptoms Blood Urea Nitrogen 15 10 - 20 mg/dL CERNER MILLENNIUM Creatinine 0.90 0.80 - 1.50 mg/dL CERNER MILLENNIUM Comment: Please note that the pediatric reference intervals supplied above were not validated at [facility]. Results from pediatric patients should be interpreted in conjunction to the patient's age, height and muscle mass. Sodium 143 135 - 145 mmol/L CERNER MILLENNIUM Potassium 4.2 3.5 - 5.0 mmol/L CERNER MILLENNIUM Comment: Please note: ??Patients with WBC >100,000 may have falsely elevated Potassium levels. ??For accurate Potassium quantification in these patients send serum separator tube (gold top) for subsequent determinations. ??Contact the Clinical Chemistry Laboratory if there are any questions. Chloride 104 98 - 107 mmol/L CERNER MILLENNIUM Carbon Dioxide 25 22 - 31 mmol/L CERNER MILLENNIUM Anion Gap 14 5 - 15 mmol/L CERNER MILLENNIUM Calcium 9.3 8.5 - 10.5 mg/dL CERNER MILLENNIUM Protein, Total 7.0 6.1 - 8.0 gm/dL CERNER MILLENNIUM Albumin 4.3 3.2 - 5.2 gm/dL CERNER MILLENNIUM Aspartate Aminotransferase 19 0 - 39 unit/L CERNER MILLENNIUM Alanine Aminotransferase 24 0 - 55 unit/L CERNER MILLENNIUM Alkaline Phosphatase 62 40 - 120 unit/L CERNER MILLENNIUM Bilirubin, Total 0.4 0.2 - 1.3 mg/dL CERNER MILLENNIUM Bilirubin, [...] the following links into your internet browser. [email or web address] Blood specimen (specimen) 02/26/2015 11:42 AM EDT 02/26/2015 11:42 AM EDT Narrative Resulting Agency Comment Spec In Lab Jacquie Plascencia MD CHEMISTRY ORDERA BLES CERNER MILLENNIUM documented in this encounter Visit Diagnoses Diagnosis Lymphoma Other malignant lymphomas, unspecified site, extranodal and solid organ sites Lymphoma Other malignant lymphomas, unspecified site, extranodal and solid organ sites documented in this encounter Care Teams Rn Women Services Relationship Specialty Start Date End Date Janice Christine MD [address] [place] [address] PCP - General 02/27/15 09/19/17 documented as of this encounter
--- OUTSIDE RECORDS SUMMARY | 2024-09-30 21:03 | XMS_ITS | Encounter Summary ---
Author Organization [facility] Address [address] [place] [address] Care Team Providers Care Health Club Attendant Name Role Phone Rafal Art PA-C Primary Care Provider [phone] Encounter Details Date Type Department Care Team (Late st Contact Info) Description 06/29/2020 Lab Requisition [facility] Pathology & Laboratory Medicine - [facility] [address] [place] [address] Outr Resulting Lab, Provider Social History Tobacco [...] Procedure Name Priority Date/Time Associated Diagnosis Comments PSA TOTAL, DIAGNOSTIC Routine 06/29/2020 8:15 EDT documented in this encounter Results * PSA TOTAL, DIAGNOSTIC (06/29/2020 8:15 EDT) PSA 0.2 0.0 - 3.5 ng/mL 06/29/2020 17:58 EDT [facility] Blood VENOUS BLOOD / Unknown 06/29/2020 8:15 EDT 06/29/2020 16:38 EDT Narrative [facility] - 06/29/2020 17:58 EDT NOTE: Serum PSA concentration should not be interpreted as absolute evidence for the presence or absence of malignant disease. Assayed on Siemens ADVIA Centaur XPT using chemiluminescent technology.??Values obtained by using different assay methods cannot be used interchangeably. us Provider Outr Resulting Lab CHEMISTRY & BLOOD GA S ORDERABLES Final Result [facility] [address] [place] [address] documented in this encounter Visit Diagnoses Not on filedocumented in this encounter Care Teams Health Club Attendant Relationship Specialty Start Date End Date Rafal Art PA-C [address] [place] [address] PCP - General 11/15/19 documented as of this encounter
--- OUTSIDE RECORDS SUMMARY | 2024-09-30 21:03 | XMS_ITS | Encounter Summary ---
Author Organization [facility] Address [address] [place] [address] Care Team Providers Care Rn Baby Name Role Phone Rafal Art PA-C Primary Care Provider [phone] Encounter Details Date Type Department Care Team (Late st Contact Info) Description 11/15/2019 Lab Requisition [facility] Pathology & Laboratory Medicine - [facility] [address] [place] [address] Concepcion Hernandez MD [address] [place], [place] [id number] Encounter for screening for malignant neoplasm of colon Social History Tobacco Use Types Packs/Day Years [...] Priority Date/Time Associated Diagnosis Comments SURGICAL PATHOLOGY Today 11/15/2019 10 :48 EST Encounter for screening for malignant neoplasm of colon documented in this encounter Results * SURGICAL PATHOLOGY (11/15/2019 10:48 EST) Final Diagnosis A. COLON, RANDOM, BIOPSY: - Fragment of tubular adenoma. - Fragments of colonic mucosa with no significant diagnostic abnormality. 11/18/2019 10:08 EST [facility] at 1008 Clinical History Initial colon cancer screening. Change in bowel habits 11/18/2019 10:08 [facility] Attestation By the signature below, the attending physician certifies that they have 1) personally conducted a gross and/or microscopic examination of the described specimen(s), and/or personally interpreted the results of laboratory testing of the described specimen(s), and 2) personally rendered or confirmed the above diagnosis. 11/18/2019 10:08 [facility] at 1008 Gross Description A. Received in formalin labelled with proper patient identification (initials P, D) and random colon Bx's are 9 junior irregular tissues ranging from 0.2 x 0.1 x 0.1 cm to 0.4 x 0.3 x 0.1 cm. Entirely submitted in A 1-A3. Heather Walker 11/15/2019 16:34 11/18/2019 10:08 [facility] Scanned Images 11/18/2019 10:08 [facility] Tissue ENTIRE COLON / Unknown 11/15/2019 10:48 EST 11/15/2019 16:02 EST us Concepcion Hernandez MD PATHOLOGY ORDERABLES Final Resul t [facility] [address] [place] [address] documented in this encounter Visit Diagnoses Diagnosis Encounter for screening for malignant neoplasm of colon Special screening for malignant neoplasms, colon documented in this encounter Care Teams Rn Baby Relationship Specialty Start Date End Date Raf[place] [place] [address] PCP - General 11/15/19 documented as of this encounter
--- OUTSIDE RECORDS SUMMARY | 2024-09-30 21:03 | XMS_ITS | Encounter Summary ---
Author Organization [facility] Address [address] [place] [address] Care Team Providers Care Snaker Name Role Phone Unknown, Provider Primary Care Provider Unava ilable Encounter Details Date Type Department Care Team (Late st Contact Info) Description 09/29/2011 Results Only [facility] ([facility]) [address], [place] [address] Bong Mcintyre MD [address] [place] [id number] Social History Tobacco Use Types Packs/Day Years [...] Date/Time Associated Diagnosis Comments SURGICAL PATHOLOGY Routine 09/29/2011 0:00 EST documented in this encounter Results * SURGICAL PATHOLOGY (09/29/2011 0:00 EST) Pathology Report: SURGICAL PATHOLOGY REPORT Reports generated via electronic interface contain original data; however they are lacking the format of the original report. Caution should be taken when reading/interpreti ng unformatted reports. Name: ? AGAPITO RAMIREZ ? Accession #: ? [id number] ? : ? 1970 (Age: 41) ??M ? Collect Date: ? 09/29/2011 ? Location: ? [facility] ? Receive Date: ? 09/29/2011 ? Provider: BONG MCINTYRE MD Copy to: ? Final Pathologic Diagnosis: ? Esophagus, 40 cm, biopsies: 1. ?Squamous and glandular mucosa with chronic active inflammation with focal erosion and reactive epithelial changes. 2. ? PAS-amylase stain negative for fungal organisms. 3. ? No evidence of intestinal metaplasia or dysplasia. Document reviewed and electronically signed by: KACIE SAMANO MD Report ??Date: 10/03/2011 16:52 By the signature above, the attending physician certifies that he/she has personally conducted a gross and/or microscopic examination of the described specimens and rendered or confirmed the above diagnosis. Specimen(s) Received: ? Bx esophagus 40 cm Clinical History: ? Dysphagia Gross Description: ? Received in formalin labelled Persons, [place] and biopsy esophagus 40 cm are nine pink-junior, irregular soft tissues ranging from 0.2 x 0.1 x 0.1 cm to 0.7 x 0.3 x 0.2 cm, submitted in toto as (A1) through (A3). (Kitty Reyes)/[facility] End of Report KUNAL ARREDONDO 09/29/2011 09/29/2011 8:1 2 EST us Bong Mcintyre MD PATHOLOGY ORDERABLES Final Result KUNAL ARREDONDO [address] [place] [address] documented in this encounter Visit Diagnoses Not on filedocumented in this encounter Care Teams Snaker Relationship Specialty Start Date End Date Unknown, Provider, PCP - General 1/5/12 2/20/20 documented as of this encounter
--- NOTE | 2024-09-30 21:10 | HPE_ITS ---
Date of service: 09/30/24 Time of Service: 21:13 Assessment and Plan Assessment and plan (1) RSV (acute bronchiolitis due to respiratory syncytial virus): Start date: 09/30/24 Status: Acute Assessment and plan: This is a 54-year-old gentleman with RSV infection for the last weeks worsening with asthma exacerbation. He has now requiring oxygen supplementation with some plugging after nebulizer treatments. Continue O2 supplementation and aggressive respiratory treatments with supportive care. He is not appear to have a significant bacterial component to his viral infection. He has a history of lymphoma but this is not active. He is on minimal meds as an outpatient. He is a full code. (2) Asthma exacerbation: Start date: 09/30/24 Status: Acute Assessment and plan: Patient is usually on rescue inhaler only and rarely uses this. With RSV infection recently he has increased wheezing with minimal response to inhalers at home. He has responded to nebulizers in the hospital with some tachycardia and will be switched to Xopenex nebulizers as needed every 2 hours. Will continue on IV Solu-Medrol and IV doxycycline for bronchitis. There is no pneumonia on chest x-ray. (3) Lymphoma: Assessment and plan: History of B-cell lymphoma past which has been in remission since 2015. (4) GERD (gastroesophageal reflux disease): Status: Chronic Assessment and plan: Patient will continue omeprazole orally. History of Present Illness History of Present Illness Chief Complaint: Dyspnea with wheeze and cough for 3 weeks failed OP treatment. Narrative: This is a 54-year-old male patient has a history of asthma on rescue inhalers only and no oxygen supplementation at home who presented to the ED after a 3- week history of worsening or persistent dyspnea with cough which is dry and wheezing not responding to rescue inhalers at home having taken 12 doses the day of admission. In the ED he did receive several continuous nebulizers with hypoxemia after his nebulizer treatments with increased coughing and wheezing shortly after they were stopped. He has been on course of prednisone therapy for 5 days at 40 mg a day and just started Augmentin with Zithromax the day of admission. He denies any fever. In the ED he was tested for COVID and flu which was negative but RSV was positive. Since he was requiring oxygen and having worsening respiratory symptoms though his lab was unrevealing and he had no measured fever, he was admitted for monitoring with more aggressive respiratory treatment and treatment of asthma exacerbation with Solu-Medrol as well as IV doxycycline. At the time I saw the patient he was more comfortable and on O2 supplementation. He usually is not on oxygen at home. He does have a dry cough. He is on minimal medications chronically except for rescue inhaler and omeprazole. He is a full code. Review of Systems Narrative: 13 point review of systems otherwise unrevealing or stable. PFSH All Active Problems GERD (gastroesophageal reflux disease) (Chronic) Asthma exacerbation (Acute) RSV (acute bronchiolitis due to respiratory syncytial virus) (Acute) Impacted cerumen, right ear (Acute) Mixed hearing loss of right ear (Acute) Mixed hearing loss, bilateral (Acute) Erectile dysfunction (Acute) 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 Social History Smoking/Tobacco Use Status: Never Smoking risk assessment performed?: Yes Alcohol Intake: never Drug use: Never Substance use type: does not use Do you feel safe at home: Yes Do you feel safe in your relationship?: Yes Meds Allergies and Home Medications Allergies Allergy/AdvReac Type Severity Reaction Status Date / Time No Known Allergies Allergy Unverified 09/30/24 19:31 Home Medications ?Medication ?Instructions ?Recorded ?Confirmed ?Type amoxicillin 875 mg-potassium 1 tab PO BID 09/30/24 09/30/24 History clavulanate 125 mg tablet azithromycin 250 mg tablet 250 mg PO DAILY 09/30/24 09/30/24 History omeprazole 20 mg capsule,delayed 20 mg PO DAILY 09/30/24 09/30/24 History release Exam Narrative Exam Narrative: General: Patient is moderately obese, sitting on the edge of the bed in no acute distress and alert and oriented x 3. HEENT: Normocephalic, eyes with pupils equal and reactive to light symmetrically, extraocular movement intact and sclera anicteric. Oropharynx with moist mucosa and fair dentition. Neck: Supple without JVD. Back: Stooped posture without CVA tenderness. Lungs: Bronchovesicular breath sounds diffusely with scant expiratory wheeze with increased expiratory phase with forced coughing. No focalizing rales or rhonchi. Heart: Tachycardic rate with normal rhythm. No murmurs or gallops appreciated. Abdomen: Obese contour, soft and nontender to palpation with no palpable hepatosplenomegaly. Bowel sounds positive all quadrants. Genitalia/rectal: Exam deferred. Extremities are without clubbing, cyanosis or pitting edema. Peripheral pulses intact. Skin: Warm, moist and normal color. No rashes. Neuro: Cranial nerves II through XII gross intact, no focalizing motor deficits. No tremor. Psych: Normal affect and mood. No abnormal thought processes. Remote and recent memory intact. Results Imaging Imaging Studies: Exam: XR Chest Exam date and time: 09/30/2024 8:35 PM Age: 54 years old Clinical indication: Other: Wheeze, cough TECHNIQUE: Imaging protocol: Radiologic exam of the chest. Views: 2 views. COMPARISON: CT CHEST/ABD W 01/25/2022 3:19 PM FINDINGS: Lungs: Lungs are clear with no infiltrate or nodule. Pleural spaces: Unremarkable. No pleural effusion. No pneumothorax. Heart/Mediastinum: Cardiomediastinal silhouette is normal. Bones/joints: Unremarkable. IMPRESSION: No active cardiopulmonary disease. Labs 09/30/24 19:40 09/30/24 19:40 Labs: Laboratory Results - last 24 hr 09/30/24 09/30/24 09/30/24 19:32 19:40 19:55 WBC 8.61 RBC 5.06 Hgb 15.5 Hct 44.8 MCV 89 MCH 30.6 MCHC 34.6 RDW 12.2 Plt Count 221 MPV 10.1 Immature Gran % 0.5 Neutrophils % 57.6 Lymphocytes % 24.7 Monocytes % 9.9 Eosinophils % 6.3 Basophils % 1.0 Nucleated RBC % 0.0 Absolute Neutrophils 4.96 Absolute Lymphocytes 2.13 Absolute Monocytes 0.85 H Absolute Eosinophils 0.54 Absolute Basophils 0.09 VBG pH VBG pCO2 VBG pO2 VBG HCO3 VBG Total CO2 VBG O2 Saturation VBG Base Excess Sodium 140 Potassium 3.5 Chloride 106 Carbon Dioxide 26.2 Anion Gap 7.8 BUN 16 Creatinine 1.2 Est GFR (CKD-EPI 2020) 71.42 Glucose 109 H Calcium 9.1 Magnesium 2.0 Total Bilirubin 0.31 AST 14 L ALT 39 Alkaline Phosphatase 94 Troponin I 8 NT-Pro-B Natriuret Pep 35 Total Protein 6.8 Albumin 3.8 COVID-19 Source NASOPHARYNX SARS-CoV-2 (PCR) Negative Influenza Type A (PCR) Negative Influenza Type B (PCR) Negative RSV (PCR) Positive A* Add-On Test Request TNP 09/30/24 20:09 WBC RBC Hgb Hct MCV MCH MCHC RDW Plt Count MPV Immature Gran % Neutrophils % Lymphocytes % Monocytes % Eosinophils % Basophils % Nucleated RBC % Absolute Neutrophils Absolute Lymphocytes Absolute Monocytes Absolute Eosinophils Absolute Basophils VBG pH 7.42 H VBG pCO2 36 L VBG pO2 69 VBG HCO3 23 VBG Total CO2 20 L VBG O2 Saturation 93 VBG Base Excess -1 Sodium Potassium Chloride Carbon Dioxide Anion Gap BUN Creatinine Est GFR (CKD-EPI 2020) Glucose Calcium Magnesium Total Bilirubin AST ALT Alkaline Phosphatase Troponin I NT-Pro-B Natriuret Pep Total Protein Albumin COVID-19 Source SARS-CoV-2 (PCR) Influenza Type A (PCR) Influenza Type B (PCR) RSV (PCR) Add-On Test Request Last Vital Signs Temp 36.7 C 09/30/24 19:28 Pulse 92 H 09/30/24 20:24 Resp 14 09/30/24 20:20 BP 150/77 H 09/30/24 20:16 Pulse Ox 95 09/30/24 20:24 Time Spent Time spent with Patient: 55-74 minutes Time was spent: preparing to see the patient(eg.review tests), obtaining and/or reviewing separately otained hiistory, ordering medications,tests, procedures, indepentently interpreting results and counseling the patient
[2024-09-30 21:17] LABS: Troponin I 4 ng/L (<or=76)
--- NOTE | 2024-09-30 21:20 | DI.VRAD_ITS ---
PROCEDURE INFORMATION: Exam: XR Chest Exam date and time: 09/30/2024 8:35 PM Age: 54 years old Clinical indication: Other: Wheeze, cough TECHNIQUE: Imaging protocol: Radiologic exam of the chest. Views: 2 views. COMPARISON: CT CHEST/ABD W 01/25/2022 3:19 PM FINDINGS: Lungs: Lungs are clear with no infiltrate or nodule. Pleural spaces: Unremarkable. No pleural effusion. No pneumothorax. Heart/Mediastinum: Cardiomediastinal silhouette is normal. Bones/joints: Unremarkable. IMPRESSION: No active cardiopulmonary disease. Dictated and Authenticated by: Junior Art MD. Ordering:SARY Rey MD
--- NOTE | 2024-09-30 21:32 | NUR.NOTE ---
Nursing Note: after first nebulizer pt dropped down from 95-96% on RA to 89-90%. Applied 3L of oxygen to maintain at 94%. Pt was still nausea after this. Provider went to talk to patient to receive 2nd nebulizer treatment to improve respiratory. received ativan and neb treatment. maintained at 95% for a short period then dropped back to 89% RA. Oxygen applied at 1.5L until 3rd Neb treatment was given currently.
[2024-10-01] VITALS (7 sets, daily range): BP systolic 124–139; BP diastolic 71–83; PULSE 77–92; RESP 15–22; TEMP 36.5–37.1; O2SAT 93–96
[2024-10-01 01:14] LABS: Bilirubin Negative (Negative); Blood Negative (Negative); Clarity Clear (Clear); Glucose Negative (Negative); Ketones Negative (Negative); Leukocyte Esterase Negative (Negative); Nitrite Negative (Negative); Specific Gravity >= 1.030 (1.005-1.025); Urobilinogen 0.2 mg/dL (Up to 0.2); pH 5.5 (5-8)
[2024-10-01] MEDS: DOXYCYCLINE 100 MG in Normal Saline 100 ML IVPB (01:34)
[2024-10-01] MEDS: methylPREDNISolone SUCC 125 MG VIAL 80 MG IVP (05:05)
[2024-10-01] MEDS: Normal Saline Flush 10 ML SYR IVP ×2 (05:06→09:44)
[2024-10-01 06:23] LABS: HCT 41.6 % (40.0-50.0); HGB 14.4 g/dL (13.5-17.5); MCH 30.3 pg (27.0-33.0); MCHC 34.6 % (32.0-36.0); MCV 87 fL (80-95); MPV 10.3 fL (8.0-11.0); Platelet Count 212 10^3/uL (130-400); RBC 4.76 10^6/uL (4.36-5.78); RDW-SD 38.7 fL; WBC 5.69 10^3/uL (4.4-10.8)
[2024-10-01 06:38] LABS: ALT 31 U/L (16-63); AST 11 U/L (15-37); Albumin 3.4 g/dL (3.4-5.0); Alkaline Phosphatase 87 U/L (46-116); BUN 17 mg/dL (7-18); Bilirubin, Total 0.39 mg/dL (0.2-1.0); CREATININE 1.1 mg/dL (0.70-1.30); Calcium 8.6 mg/dL (8.5-10.1); Chloride 107 mmol/L (98-107); Estimated GFR 79.28 (mL/min/1.73m2); Glucose 161 mg/dL (74-106); Magnesium 2.2 mg/dL (1.8-2.4); Potassium 4.5 mmol/L (3.5-5.1); Sodium 140 mmol/L (136-145); Total Protein 6.3 g/dL (6.4-8.2)
--- NOTE | 2024-10-01 09:02 | W.PC.ACHO ---
Registration Status: Primary Language: Preferred Language: ED Information & Data Chief Complaint RespSymp 09/30/24 19:32 Chief Complaint RespSymp 09/30/24 19:28 Triage Note been coughing for 3 weeks, 09/30/24 19:28 worsened this afternoon. pt feels like he cant breath now/sob/cant catch breath. Hx of asthma. has been to the dr and covid/flu negative. no fevers. had blood work done today. Medical / Surgical History (Last Reviewed 10/01/24 @ 00:25 by Robb Pinon) Foot joint pain Knee pain, right Plantar fasciitis of left foot Corns and callus Bunionette Dyspepsia Skin lesion Chest wall pain Diarrhea Pneumonia Rectal bleeding Sinusitis Abnormal chest xray Lymphoma Cough Testicular disorder (Last Reviewed 10/01/24 @ 00:25 by Robb Pinon) Surgical procedure planned Most Recent Vital Signs Temperature 36.6 C 10/01/24 07:38 Temperature Source Temporal Artery Scan 10/01/24 07:38 Pulse 86 10/01/24 07:38 Pulse Rhythm Regular 10/01/24 00:32 Pulse 96 H 09/30/24 21:21 Respiratory Rate 15 10/01/24 07:38 Respiratory Effort Short of Breath, Incrsd Work of Breathing 10/01/24 00:32 Respiratory Depth Normal 10/01/24 00:32 Respiratory Pattern Tachypnea 10/01/24 00:32 Blood Pressure 132/72 10/01/24 07:38 Blood Pressure Mean 77 09/30/24 20:45 Pulse Oximetry 96 10/01/24 07:38 Oxygen Delivery Method Nasal Cannula 10/01/24 07:38 Oxygen Flow Rate 2 10/01/24 07:38 Pain Level 0 10/01/24 07:38 Comment applied oxygen then gave 3rd neb treatment. up to 96% in 1.5 L 09/30/24 21:20 Allergies No Known Allergies Allergy (Unverified 09/30/24 19:31) Active Medications Generic Name Dose Route Start Last Admin Trade Name Freq PRN Reason Stop Dose Admin Sodium Chloride 0 ml 10/01/24 00:18 10/01/24 05:06 Normal Saline Flush 10 Ml Syr IVP 10 ml PRN PRN Administration IV IV Catheter Type [Left Saline Lock Antecubital] IV Catheter Gauge [Left 18 Antecubital] Diet Orders Category Date Time Status Regular/Normal [DIET] Nutrition 10/01/24 Breakfast Active Diagnostics 10/01/24 10/01/24 09/30/24 Range/Units 06:04 00:08 22:48 WBC 5.69 (4.4-10.8) 10^3/uL RBC 4.76 (4.36-5.78) 10^6/uL Hgb 14.4 (13.5-17.5) g/dL Hct 41.6 (40.0-50.0) % MCV 87 (80-95) fL MCH 30.3 (27.0-33.0) pg MCHC 34.6 (32.0-36.0) % RDW 12.0 (11.8-14.1) % Plt Count 212 (130-400) 10^3/uL MPV 10.3 (8.0-11.0) fL Immature Gran % % Neutrophils % % Lymphocytes % % Monocytes % % Eosinophils % % Basophils % % Nucleated RBC % (0.0-0.3) % Absolute Neutrophils (1.2-6.7) 10^3/uL Absolute Lymphocytes (1.2-3.4) 10^3/uL Absolute Monocytes (0.1-0.8) 10^3/uL Absolute Eosinophils (0.0-0.7) 10^3/uL Absolute Basophils (0.0-0.2) 10^3/uL VBG pH (7.31-7.41) VBG pCO2 (41-51) mmHg VBG pO2 mmHg VBG HCO3 (23-28) mmol/L VBG Total CO2 (24-29) mmol/L VBG O2 Saturation % VBG Base Excess (-2-3) mmol/L Sodium 140 (136-145) mmol/L Potassium 4.5 D (3.5-5.1) mmol/L Chloride 107 (98-107) mmol/L Carbon Dioxide 24.0 (21.0-32.0) mmol/L Anion Gap 9.0 (3-11) mmol/L BUN 17 (7-18) mg/dL Creatinine 1.1 (0.70-1.30) mg/dL Est GFR (CKD-EPI 2020) 79.28 (mL/min/1.73m2) Glucose 161 H (74-106) mg/dL Calcium 8.6 (8.5-10.1) mg/dL Magnesium 2.2 (1.8-2.4) mg/dL Total Bilirubin 0.39 (0.2-1.0) mg/dL AST 11 L (15-37) U/L ALT 31 (16-63) U/L Alkaline Phosphatase 87 (46-116) U/L Troponin I Cancelled (<or=76) ng/L NT-Pro-B Natriuret Pep (<300) pg/mL Total Protein 6.3 L (6.4-8.2) g/dL Albumin 3.4 (3.4-5.0) g/dL Urine Color Yellow (Yellow) Urine Clarity Clear (Clear) Urine pH 5.5 (5-8) Ur Specific [place] >= 1.030 H (1.005-1.025) Urine Protein Negative (Neg-Trace) mg/dL Urine Ketones Negative (Negative) mg/dL Urine Blood Negative (Negative) Urine Nitrite Negative (Negative) Urine Bilirubin Negative (Negative) Urine Urobilinogen 0.2 (Up to 0.2) mg/dL Ur Leukocyte Esterase Negative (Negative) Urine Glucose Negative (Negative) mg/dL COVID-19 Source SARS-CoV-2 (PCR) (Negative) Influenza Type A (PCR) (Negative) Influenza Type B (PCR) (Negative) RSV (PCR) (Negative) Add-On Test Request 09/30/24 09/30/24 09/30/24 Range/Units 20:55 20:09 19:55 WBC (4.4-10.8) 10^3/uL RBC (4.36-5.78) 10^6/uL Hgb (13.5-17.5) g/dL Hct (40.0-50.0) % MCV (80-95) fL MCH (27.0-33.0) pg MCHC (32.0-36.0) % RDW (11.8-14.1) % Plt Count (130-400) 10^3/uL MPV (8.0-11.0) fL Immature Gran % % Neutrophils % % Lymphocytes % % Monocytes % % Eosinophils % % Basophils % % Nucleated RBC % (0.0-0.3) % Absolute Neutrophils (1.2-6.7) 10^3/uL Absolute Lymphocytes (1.2-3.4) 10^3/uL Absolute Monocytes (0.1-0.8) 10^3/uL Absolute Eosinophils (0.0-0.7) 10^3/uL Absolute Basophils (0.0-0.2) 10^3/uL VBG pH 7.42 H (7.31-7.41) VBG pCO2 36 L (41-51) mmHg VBG pO2 69 mmHg VBG HCO3 23 (23-28) mmol/L VBG Total CO2 20 L (24-29) mmol/L VBG O2 Saturation 93 % VBG Base Excess -1 (-2-3) mmol/L Sodium (136-145) mmol/L Potassium (3.5-5.1) mmol/L Chloride (98-107) mmol/L Carbon Dioxide (21.0-32.0) mmol/L Anion Gap (3-11) mmol/L BUN (7-18) mg/dL Creatinine (0.70-1.30) mg/dL Est GFR (CKD-EPI 2020) (mL/min/1.73m2) Glucose (74-106) mg/dL Calcium (8.5-10.1) mg/dL Magnesium (1.8-2.4) mg/dL Total Bilirubin (0.2-1.0) mg/dL AST (15-37) U/L ALT (16-63) U/L Alkaline Phosphatase (46-116) U/L Troponin I 4 (<or=76) ng/L NT-Pro-B Natriuret Pep (<300) pg/mL Total Protein (6.4-8.2) g/dL Albumin (3.4-5.0) g/dL Urine Color (Yellow) Urine Clarity (Clear) Urine pH (5-8) Ur Specific [place] (1.005-1.025) Urine Protein (Neg-Trace) mg/dL Urine Ketones (Negative) mg/dL Urine Blood (Negative) Urine Nitrite (Negative) Urine Bilirubin (Negative) Urine Urobilinogen (Up to 0.2) mg/dL Ur Leukocyte Esterase (Negative) Urine Glucose (Negative) mg/dL COVID-19 Source SARS-CoV-2 (PCR) (Negative) Influenza Type A (PCR) (Negative) Influenza Type B (PCR) (Negative) RSV (PCR) (Negative) Add-On Test Request [facility] 09/30/24 09/30/24 Range/Units 19:40 19:32 WBC 8.61 (4.4-10.8) 10^3/uL RBC 5.06 (4.36-5.78) 10^6/uL Hgb 15.5 (13.5-17.5) g/dL Hct 44.8 (40.0-50.0) % MCV 89 (80-95) fL MCH 30.6 (27.0-33.0) pg MCHC 34.6 (32.0-36.0) % RDW 12.2 (11.8-14.1) % Plt Count 221 (130-400) 10^3/uL MPV 10.1 (8.0-11.0) fL Immature Gran % 0.5 % Neutrophils % 57.6 % Lymphocytes % 24.7 % Monocytes % 9.9 % Eosinophils % 6.3 % Basophils % 1.0 % Nucleated RBC % 0.0 (0.0-0.3) % Absolute Neutrophils 4.96 (1.2-6.7) 10^3/uL Absolute Lymphocytes 2.13 (1.2-3.4) 10^3/uL Absolute Monocytes 0.85 H (0.1-0.8) 10^3/uL Absolute Eosinophils 0.54 (0.0-0.7) 10^3/uL Absolute Basophils 0.09 (0.0-0.2) 10^3/uL VBG pH (7.31-7.41) VBG pCO2 (41-51) mmHg VBG pO2 mmHg VBG HCO3 (23-28) mmol/L VBG Total CO2 (24-29) mmol/L VBG O2 Saturation % VBG Base Excess (-2-3) mmol/L Sodium 140 (136-145) mmol/L Potassium 3.5 (3.5-5.1) mmol/L Chloride 106 (98-107) mmol/L Carbon Dioxide 26.2 (21.0-32.0) mmol/L Anion Gap 7.8 (3-11) mmol/L BUN 16 (7-18) mg/dL Creatinine 1.2 (0.70-1.30) mg/dL Est GFR (CKD-EPI 2020) 71.42 (mL/min/1.73m2) Glucose 109 H (74-106) mg/dL Calcium 9.1 (8.5-10.1) mg/dL Magnesium 2.0 (1.8-2.4) mg/dL Total Bilirubin 0.31 (0.2-1.0) mg/dL AST 14 L (15-37) U/L ALT 39 (16-63) U/L Alkaline Phosphatase 94 (46-116) U/L Troponin I 8 (<or=76) ng/L NT-Pro-B Natriuret Pep 35 (<300) pg/mL Total Protein 6.8 (6.4-8.2) g/dL Albumin 3.8 (3.4-5.0) g/dL Urine Color (Yellow) Urine Clarity (Clear) Urine pH (5-8) Ur Specific [place] (1.005-1.025) Urine Protein (Neg-Trace) mg/dL Urine Ketones (Negative) mg/dL Urine Blood (Negative) Urine Nitrite (Negative) Urine Bilirubin (Negative) Urine Urobilinogen (Up to 0.2) mg/dL Ur Leukocyte Esterase (Negative) Urine Glucose (Negative) mg/dL COVID-19 Source NASOPHARYNX SARS-CoV-2 (PCR) Negative (Negative) Influenza Type A (PCR) Negative (Negative) Influenza Type B (PCR) Negative (Negative) RSV (PCR) Positive A* (Negative) Add-On Test Request Intake and Output - 24 Hour Total 09/30/24 19:25 thru 10/01/24 07:42 Intake Total 1640 Balance 1640 Weight 114.5 kg Intake: IV 1160 Oral 480 Other: Urine Appearance Clear Falls Risk Assessment History of Falls No History 10/01/24 00:32 Contributing Factors No Factors 10/01/24 00:32 Ambulatory Aids Independent 10/01/24 00:32 Tubes/Lines W/no contributing factors 10/01/24 00:32 Gait Evaluation No gait disturbance 10/01/24 00:32 Cognition No cognitive impairment 10/01/24 00:32 Fall Total Score 10 10/01/24 00:32 Level of Risk Standard/Low Risk 10/01/24 00:32 Problems (Last Reviewed 10/01/24 @ 00:25 by Robb Pinon) GERD (gastroesophageal reflux disease) (Chronic) Asthma exacerbation (Acute) RSV (acute bronchiolitis due to respiratory syncytial virus) (Acute) Notes 09/30/24 21:32 Nursing Notes by Elizabeth Cruz Nursing Note: after first nebulizer pt dropped down from 95-96% on RA to 89-90%. Applied 3L of oxygen to maintain at 94%. Pt was still nausea after this. Provider went to talk to patient to receive 2nd nebulizer treatment to improve respiratory. received ativan and neb treatment. maintained at 95% for a short period then dropped back to 89% RA. Oxygen applied at 1.5L until 3rd Neb treatment was given currently. Initialized on 09/30/24 21:32 - END OF NOTE v v v v v v v v v Sending and/or Receiving Nurses: Please use comment section below to note any information pertinent to the patient hand-off not included above. Information / Comments: Pt transported from ED via stretcher. Reports less shortness of breath at this time. O2 @ 4L NC on arrival to the floor later able to reduce O2 to 2L NC. Pt placed on droplet precautions. Report received from: HEIDI Zapata
[2024-10-01] MEDS: Omeprazole 20 MG CAPCR PO (09:43)
[2024-10-01] MEDS: predniSONE 20 MG TAB 40 MG PO (09:44)
[2024-10-01] MEDS: Enoxaparin 40 MG/0.4 ML SYR SC (09:44)
[2024-10-01] MEDS: Doxycycline Hyclate 100 MG CAP PO (09:44)
--- NOTE | 2024-10-01 10:01 | PGE_ITS ---
Date of Service Date of service: 10/01/24 Time of Service: 10:01 Assessment and Plan Assessment and plan (1) RSV (acute bronchiolitis due to respiratory syncytial virus): Start date: 09/30/24 Status: Acute Assessment and plan: This is a 54-year-old gentleman with RSV infection for the last weeks worsening with asthma exacerbation. He has now requiring oxygen supplementation with some plugging after nebulizer treatments. Continue O2 supplementation and aggressive respiratory treatments with supportive care. He is not appear to have a significant bacterial component to his viral infection. He has a history of lymphoma but this is not active. He is on minimal meds as an outpatient. He is a full code. (2) Asthma exacerbation: Start date: 09/30/24 Status: Acute Assessment and plan: Patient is usually on rescue inhaler only and rarely uses this. With RSV infection recently he has increased wheezing with minimal response to inhalers at home. He has responded to nebulizers in the hospital with some tachycardia and will be switched to Xopenex nebulizers as needed every 2 hours. Will continue on IV Solu-Medrol and IV doxycycline for bronchitis. There is no pneumonia on chest x-ray. (3) Lymphoma: Assessment and plan: History of B-cell lymphoma past which has been in remission since 2015. (4) GERD (gastroesophageal reflux disease): Status: Chronic Assessment and plan: Patient will continue omeprazole orally. Objective Last Vital Signs Temp 36.6 C 10/01/24 07:38 Pulse 86 10/01/24 07:38 Resp 15 10/01/24 07:38 BP 132/72 10/01/24 07:38 Pulse Ox 96 10/01/24 07:38 Laboratory Results - last 24 hr 09/30/24 09/30/24 09/30/24 19:32 19:40 19:55 WBC 8.61 RBC 5.06 Hgb 15.5 Hct 44.8 MCV 89 MCH 30.6 MCHC 34.6 RDW 12.2 Plt Count 221 MPV 10.1 Immature Gran % 0.5 Neutrophils % 57.6 Lymphocytes % 24.7 Monocytes % 9.9 Eosinophils % 6.3 Basophils % 1.0 Nucleated RBC % 0.0 Absolute Neutrophils 4.96 Absolute Lymphocytes 2.13 Absolute Monocytes 0.85 H Absolute Eosinophils 0.54 Absolute Basophils 0.09 VBG pH VBG pCO2 VBG pO2 VBG HCO3 VBG Total CO2 VBG O2 Saturation VBG Base Excess Sodium 140 Potassium 3.5 Chloride 106 Carbon Dioxide 26.2 Anion Gap 7.8 BUN 16 Creatinine 1.2 Est GFR (CKD-EPI 2020) 71.42 Glucose 109 H Calcium 9.1 Magnesium 2.0 Total Bilirubin 0.31 AST 14 L ALT 39 Alkaline Phosphatase 94 Troponin I 8 NT-Pro-B Natriuret Pep 35 Total Protein 6.8 Albumin 3.8 Urine Color Urine Clarity Urine pH Ur Specific [place] Urine Protein Urine Ketones Urine Blood Urine Nitrite Urine Bilirubin Urine Urobilinogen Ur Leukocyte Esterase Urine Glucose COVID-19 Source NASOPHARYNX SARS-CoV-2 (PCR) Negative Influenza Type A (PCR) Negative Influenza Type B (PCR) Negative RSV (PCR) Positive A* Add-On Test Request TNP 09/30/24 09/30/24 09/30/24 20:09 20:55 22:48 WBC RBC Hgb Hct MCV MCH MCHC RDW Plt Count MPV Immature Gran % Neutrophils % Lymphocytes % Monocytes % Eosinophils % Basophils % Nucleated RBC % Absolute Neutrophils Absolute Lymphocytes Absolute Monocytes Absolute Eosinophils Absolute Basophils VBG pH 7.42 H VBG pCO2 36 L VBG pO2 69 VBG HCO3 23 VBG Total CO2 20 L VBG O2 Saturation 93 VBG Base Excess -1 Sodium Potassium Chloride Carbon Dioxide Anion Gap BUN Creatinine Est GFR (CKD-EPI 2020) Glucose Calcium Magnesium Total Bilirubin AST ALT Alkaline Phosphatase Troponin I 4 Cancelled NT-Pro-B Natriuret Pep Total Protein Albumin Urine Color Urine Clarity Urine pH Ur Specific [place] Urine Protein Urine Ketones Urine Blood Urine Nitrite Urine Bilirubin Urine Urobilinogen Ur Leukocyte Esterase Urine Glucose COVID-19 Source SARS-CoV-2 (PCR) Influenza Type A (PCR) Influenza Type B (PCR) RSV (PCR) Add-On Test Request 10/01/24 10/01/24 00:08 06:04 WBC 5.69 RBC 4.76 Hgb 14.4 Hct 41.6 MCV 87 MCH 30.3 MCHC 34.6 RDW 12.0 Plt Count 212 MPV 10.3 Immature Gran % Neutrophils % Lymphocytes % Monocytes % Eosinophils % Basophils % Nucleated RBC % Absolute Neutrophils Absolute Lymphocytes Absolute Monocytes Absolute Eosinophils Absolute Basophils VBG pH VBG pCO2 VBG pO2 VBG HCO3 VBG Total CO2 VBG O2 Saturation VBG Base Excess Sodium 140 Potassium 4.5 D Chloride 107 Carbon Dioxide 24.0 Anion Gap 9.0 BUN 17 Creatinine 1.1 Est GFR (CKD-EPI 2020) 79.28 Glucose 161 H Calcium 8.6 Magnesium 2.2 Total Bilirubin 0.39 AST 11 L ALT 31 Alkaline Phosphatase 87 Troponin I NT-Pro-B Natriuret Pep Total Protein 6.3 L Albumin 3.4 Urine Color Yellow Urine Clarity Clear Urine pH 5.5 Ur Specific [place] >= 1.030 H Urine Protein Negative Urine Ketones Negative Urine Blood Negative Urine Nitrite Negative Urine Bilirubin Negative Urine Urobilinogen 0.2 Ur Leukocyte Esterase Negative Urine Glucose Negative COVID-19 Source SARS-CoV-2 (PCR) Influenza Type A (PCR) Influenza Type B (PCR) RSV (PCR) Add-On Test Request
--- NOTE | 2024-10-01 11:58 | W.PM.DS.N ---
Date of service: 10/01/24 Time of Service: 11:58 DS: Diagnosis Discharge Diagnosis (1) RSV (acute bronchiolitis due to respiratory syncytial virus): Status: Acute (2) Asthma exacerbation: Status: Acute (3) Lymphoma: (4) GERD (gastroesophageal reflux disease): Status: Chronic Discharge Plan Disposition Patient Disposition: Home Condition: Improving Discharge Details Reason For Visit: RSV bronchiolitis, Exacerbation of asthma Admit Date/Time: 09/30/24 21:40 Admit Provider: Robb Pinon Attending Provider: Robb Pinon Primary Care Provider: Colleen Alonzo Hospital Course Hospital Course: This 54-year-old female patient with a past medical history of asthma on home rescue inhalers presented to the ED s/p worsening or persistent dyspnea with dry-cough and wheezing not responding over 3 weeks. The patient reported using up rescue inhalers w/o success. The patient reported being on prednisone 40 mg orally for 5 days prior to presentation and starting Augmentin with Zithromax the day of admission . In the ED he did receive several continuous nebulizers with hypoxemia after his nebulizer treatments with increased coughing and wheezing shortly after they were stopped.He denied any fever. Workup in the the ED was significant for a positive RSV testing. Blood work was unremarkable. Due to his new oxygen requirementand worsening respiratory symptoms the patient was admitted for evaluation and management of asthma exacerbation in the setting of positive repiratory syncytal viral infection. The patient initially received IV steroids/ Solu-Medrol and IV doxycycline with later transition to oral prednisone and doxycycline. The patient continued to receive PRN levalbuterol updrafts. The patient symptoms improved and no further oxygen supplementation was necessary this morning. The patient will be discharge home on oral doxycycline and prednisone, a PRN albuterol-budesonide HFA, and an albuterol HFA. The patient will need to follow-up with his PCP within 7 days of discharge. Home Meds and New Rx's Prescriptions: New doxycycline hyclate 100 mg Capsule 100 mg PO BID Qty: 9 0RF albuterol-budesonide 90-80 mcg/actuation HFA aerosol inhaler 2 inh inhalation Q4H PRN PRNQty: 5.9 0RF Rx Instructions: as a single dose; may repeat up to 6 doses per day (12 inhalations) levalbuterol tartrate 45 mcg/actuation HFA aerosol inhaler 1 puff inhalation Q4H PRN PRNQty: 15 0RF prednisone 20 mg tablet See Rx Instructions .ROUTE .COMPLEX Qty: 18 0RF Rx Instructions: Take prednisone 60 mg orally for 3 days Then 40 mg X 3 days then 20 mg X 3 days then stop Discontinued azithromycin 250 mg tablet 250 mg PO DAILY amoxicillin-pot clavulanate 875-125 mg tablet 1 tab PO BID No Action omeprazole 20 mg capsule,delayed release(DR/EC) 20 mg PO DAILY Discharge Instructions Stand Alone Forms: Nursing Discharge Form Referrals: Colleen Alonzo [Primary Care Provider] - 10/07/24 11:00 am Activity:: Activity as Tolerated Equipment/Supplies:: No Equipment Needed Diet:: As Tolerated Discharge Orders Discharge Orders: Discharge Order (Routine); Ordered 10/01/24 Ordered By: Christina Lakhani DS: Summary Time Spent with Patient providing and/or coordinating discharge services: Greater than 30 minutes Status at Discharge Functional status at discharge: independent ambulation Overall status at discharge: patient is progressing back to baseline Mental Status: mental status grossly normal Speech and Movement: speech and movement normal Mood: congruent mood Affect: normal affect Quality:SDOH Health Related Social Needs: No Data to Display Exam Narrative Exam Narrative: Constitutional The patient is in bed comfortable without acute distress HENMT: Facial structures with normal appearance Neuro:alert and oriented X4 w/o focal neurological deficits Chest:Chest is symmetrical and normal appearance Resp: Normal respiratory pattern, speaks in full sentences, unlabored breathing, clear lung bilaterally w decreased bases Cardio: regular rhythm, S1, S2, no murmur, capillary refill<3 sec., bilateral radial and dorsalis pedis pulses are positive, palpable GI: Abdomen is not distended, soft and non tender, bowel sounds are present : Negative Costovertebral angle tenderness Back/spine/Pelvis: No back tenderness, normal alignment Integumentary: No skin lesions or rash on exposed skin Extremities: strength 5/5 to bilateral lower and upper extremities Psych: RASS 0, congruent mood and normal affect. Psych Mental Status: mental status grossly normal Speech and Movement: speech and movement normal Mood: congruent mood Affect: normal affect DS: Data Vitals/I&O Vitals and I&O: Vital Signs Temperature 36.6 C 10/01/24 07:38 Temperature Source Temporal Artery Scan 10/01/24 07:38 Pulse 86 10/01/24 07:38 Pulse Rhythm Regular 10/01/24 00:32 Pulse 96 H 09/30/24 21:21 Respiratory Rate 15 10/01/24 07:38 Respiratory Effort Short of Breath, Incrsd Work of Breathing 10/01/24 00:32 Respiratory Depth Normal 10/01/24 00:32 Respiratory Pattern Tachypnea 10/01/24 00:32 Blood Pressure 132/72 10/01/24 07:38 Blood Pressure Mean 77 09/30/24 20:45 Pulse Oximetry 96 10/01/24 07:38 Oxygen Delivery Method Nasal Cannula 10/01/24 07:38 Oxygen Flow Rate 2 10/01/24 07:38 Pain Level 0 10/01/24 07:38 Comment applied oxygen then gave 3rd neb treatment. up to 96% in 1.5 L 09/30/24 21:20 Intake & Output 09/30/24 09/30/24 10/01/24 11:59 23:59 11:59 Intake Total 1060 / 1060 580 / 580 Balance 1060 / 1060 580 / 580 Weight 115.666 kg 114.5 kg Intake: IV 1060 / 1060 100 / 100 Oral 480 / 480 Other: Urine Appearance Clear Comment voiding independently Data Completed and Pending Labs on day of discharge: Labs from last 24 hours 10/01/24 10/01/24 09/30/24 06:04 00:08 22:48 WBC 5.69 RBC 4.76 Hgb 14.4 Hct 41.6 MCV 87 MCH 30.3 MCHC 34.6 RDW 12.0 Plt Count 212 MPV 10.3 Immature Gran % Neutrophils % Lymphocytes % Monocytes % Eosinophils % Basophils % Nucleated RBC % Absolute Neutrophils Absolute Lymphocytes Absolute Monocytes Absolute Eosinophils Absolute Basophils VBG pH VBG pCO2 VBG pO2 VBG HCO3 VBG Total CO2 VBG O2 Saturation VBG Base Excess Sodium 140 Potassium 4.5 D Chloride 107 Carbon Dioxide 24.0 Anion Gap 9.0 BUN 17 Creatinine 1.1 Est GFR (CKD-EPI 2020) 79.28 Glucose 161 H Calcium 8.6 Magnesium 2.2 Total Bilirubin 0.39 AST 11 L ALT 31 Alkaline Phosphatase 87 Troponin I Cancelled NT-Pro-B Natriuret Pep Total Protein 6.3 L Albumin 3.4 Urine Color Yellow Urine Clarity Clear Urine pH 5.5 Ur Specific [place] >= 1.030 H Urine Protein Negative Urine Ketones Negative Urine Blood Negative Urine Nitrite Negative Urine Bilirubin Negative Urine Urobilinogen 0.2 Ur Leukocyte Esterase Negative Urine Glucose Negative COVID-19 Source SARS-CoV-2 (PCR) Influenza Type A (PCR) Influenza Type B (PCR) RSV (PCR) Add-On Test Request 09/30/24 09/30/24 09/30/24 20:55 20:09 19:55 WBC RBC Hgb Hct MCV MCH MCHC RDW Plt Count MPV Immature Gran % Neutrophils % Lymphocytes % Monocytes % Eosinophils % Basophils % Nucleated RBC % Absolute Neutrophils Absolute Lymphocytes Absolute Monocytes Absolute Eosinophils Absolute Basophils VBG pH 7.42 H VBG pCO2 36 L VBG pO2 69 VBG HCO3 23 VBG Total CO2 20 L VBG O2 Saturation 93 VBG Base Excess -1 Sodium Potassium Chloride Carbon Dioxide Anion Gap BUN Creatinine Est GFR (CKD-EPI 2020) Glucose Calcium Magnesium Total Bilirubin AST ALT Alkaline Phosphatase Troponin I 4 NT-Pro-B Natriuret Pep Total Protein Albumin Urine Color Urine Clarity Urine pH Ur Specific [place] Urine Protein Urine Ketones Urine Blood Urine Nitrite Urine Bilirubin Urine Urobilinogen Ur Leukocyte Esterase Urine Glucose COVID-19 Source SARS-CoV-2 (PCR) Influenza Type A (PCR) Influenza Type B (PCR) RSV (PCR) Add-On Test Request [place] 09/30/24 09/30/24 19:40 19:32 WBC 8.61 RBC 5.06 Hgb 15.5 Hct 44.8 MCV 89 MCH 30.6 MCHC 34.6 RDW 12.2 Plt Count 221 MPV 10.1 Immature Gran % 0.5 Neutrophils % 57.6 Lymphocytes % 24.7 Monocytes % 9.9 Eosinophils % 6.3 Basophils % 1.0 Nucleated RBC % 0.0 Absolute Neutrophils 4.96 Absolute Lymphocytes 2.13 Absolute Monocytes 0.85 H Absolute Eosinophils 0.54 Absolute Basophils 0.09 VBG pH VBG pCO2 VBG pO2 VBG HCO3 VBG Total CO2 VBG O2 Saturation VBG Base Excess Sodium 140 Potassium 3.5 Chloride 106 Carbon Dioxide 26.2 Anion Gap 7.8 BUN 16 Creatinine 1.2 Est GFR (CKD-EPI 2020) 71.42 Glucose 109 H Calcium 9.1 Magnesium 2.0 Total Bilirubin 0.31 AST 14 L ALT 39 Alkaline Phosphatase 94 Troponin I 8 NT-Pro-B Natriuret Pep 35 Total Protein 6.8 Albumin 3.8 Urine Color Urine Clarity Urine pH Ur Specific [place] Urine Protein Urine Ketones Urine Blood Urine Nitrite Urine Bilirubin Urine Urobilinogen Ur Leukocyte Esterase Urine Glucose COVID-19 Source NASOPHARYNX SARS-CoV-2 (PCR) Negative Influenza Type A (PCR) Negative Influenza Type B (PCR) Negative RSV (PCR) Positive A* Add-On Test Request PFSH All Active Problems GERD (gastroesophageal reflux disease) (Chronic) Asthma exacerbation (Acute) RSV (acute bronchiolitis due to respiratory syncytial virus) (Acute) Impacted cerumen, right ear (Acute) Mixed hearing loss of right ear (Acute) Mixed hearing loss, bilateral (Acute) Erectile dysfunction (Acute) 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 Social History Smoking/Tobacco Use Status: Never Smoking risk assessment performed?: Yes Alcohol Intake: never Drug use: Never Substance use type: does not use Housing: house Do you feel safe at home: Yes Do you feel safe in your relationship?: Yes Time Spent with Patient Time Spent with Patient: 70-84 minutes4 Time was spent: preparing to see the patient(eg.review tests), obtaining and/or reviewing separately otained hiistory, ordering medications,tests, procedures, referring, communicating with other health health careers instructor, indepentently interpreting results, counseling the patient and care coordination
[2024-10-01] MEDS: predniSONE 20 MG TAB PO (13:58)
--- NOTE | 2024-10-01 17:19 | PDOC.CMIN ---
Date of service: 10/01/24 Time of Service: 08:30 Care Management Initial Assmt Initial Assessment Reason for Hospitalization: RSV bronchiolitis Functional Status/Living Situation Patient Presentation: Agapito was admitted through the ED yesterday with SOB, wheezing and coughing. He has had viral symptoms for about 3 weeks, say his PCP on 09/23 and 09/30. He was on prednisone and benzonate, which helped initially, but he was using his inhaler 12x a day and came to the ED as he felt the inhalers were not working. Agapito's grandchildren and their mom all had RSV, and Agapito was found to have RSV as well. Agapito was lying in his bad, visiting with his , Cecy, when CM met with them early this morning. Both were very pleasant. Agapito stated that he was feeling better than he had in weeks, and was hoping to go home. 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) Instrumental Activities of Daily Living (ADLs): Independent Medications Medication Management: No Issues/Barriers identified Advance Directives Advance Directives: Do you have an Advance Directive: N 01/13/23 12:39 AD On File at [facility]: N 01/13/23 12:39 Date Asked 09/30/24 09/30/24 10:53 AD Date Reviewed COLST On File at [facility] COLST Date Scanned Insurance Coverage/Financial Issues Insurance: [place] Care Team Visit Care Team Role Provider Type Colleen Alonzo Primary Care Provider NURSE PRACTITIONER Krissy Xiong Emergency Provider NURSE PRACTITIONER Robb Pinon Admit Provider NON-[facility] STAFF PHYSICIAN Attending Provider Discharge Potential Discharge Needs: PCP F/U Appt (has appointment on 10/07/24) Anticipated Barriers to Discharge: None Identified Patient/Family Education Needs: Review discharge instructions, discuss Ask Me Three Transportation: Private vehicle (with Cecy) Plan: Agapito was discharged home late this morning with new prescriptions for albuterol inhaler, doxycycline, levalbuterol inhaler and prednisone taper. The inhalers are for PRN use. He will have no home health services. He will f/u with his PCP on 10/07/24, and continue per his plan of care. He was driven home by his , who was present for discharge teaching by the RN. Social Determinants of Health Screening Social Determinants of Health last assessed: 10/01/24 Will the Patient Participate in the Screening?: Yes Do you worry about having a steady place to live?: no Problems where you live: no known problems In the past 12 months, have you had to go without electric, gas, oil or water in your home?: no Have you or anyone in your house had to go without enough food to eat?: no Has lack of transportation kept you from medical appointments or from doing things needed for daily living?: no Has anyone in your life made you feel unsafe or unsupported?: no How hard is it for you to pay for the very basics like food, housing, medical care, and heating? Would you say it is:: Not hard at all Do you want help finding or keeping work or a job?: I do not need or want help If for any reason you need help with day-to-day activities such as bathing, preparing meals, shopping, managing finances, etc., do you get the help you need?: I don?t need any help How often do you feel lonely or isolated from those around you?: Never Do you speak a language other than [place] at home?: No Does the patient want assistance with any of the above?: No PFSH All Active Problems GERD (gastroesophageal reflux disease) (Chronic) Asthma exacerbation (Acute) RSV (acute bronchiolitis due to respiratory syncytial virus) (Acute) Impacted cerumen, right ear (Acute) Mixed hearing loss of right ear (Acute) Mixed hearing loss, bilateral (Acute) Erectile dysfunction (Acute) 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 Social History Smoking/Tobacco Use Status: Never Smoking risk assessment performed?: Yes Alcohol Intake: never Drug use: Never Substance use type: does not use Housing: house Do you feel safe at home: Yes Do you feel safe in your relationship?: Yes Readmission Within the Past 30 Days Yes or No: No
== END 2024-10-01 14:06 | disposition home or self-care (01) ==
LOC: ER 21:50 → MS 10-01 00:10
PROVIDERS: Admitting Provider Family Medicine; Emergency Provider Nurse Practitioner Family; PCP Nurse Practitioner Family; Visit Provider Family Medicine
DX: J21.0 Acute bronchiolitis due to respiratory syncytial virus (principal); J45.51 Severe persistent asthma with (acute) exacerbation; R06.02 Shortness of breath; R05.9 Cough, unspecified; C85.11 Unspecified B-cell lymphoma, lymph nodes of head, face, and neck; K21.9 Gastro-esophageal reflux disease without esophagitis; H90.3 Sensorineural hearing loss, bilateral; Z79.899 Other long term (current) drug therapy; E78.5 Hyperlipidemia, unspecified
CPT/HCPCS: 00123; 36415; 80053; 82805; 85027; 87637; 93005; 94640; 96361; 96365; 96367; 96372; 96375; 96376; 99285; J1650; 71046; 81003; 83735; 83880; 84484; 85025; 93010; 99223; 99239; G0378; J2060; J2405; J2919; J3475; J7512; J7620

== ENCOUNTER 2025-01-26 14:21 | Emergency (ER) | payer BC, SELFPAY ==
[2025-01-26] VITALS (22 sets, daily range): BP systolic 122–146; BP diastolic 69–88; PULSE 81–107; RESP 10–29; TEMP 37.2–38.4; O2SAT 90–99
--- NOTE | 2025-01-26 14:15 | RT.EKG_ITS ---
APPROVED REPORT Exam: Resting ECG Reason for Exam: sob Patient Location: E HR:105 bpm ECG Measurements Heart Rate 105 AXIS W[place] 140 P 11 QRSd 106 QRS 123 QT 341 T 34 QTc 452 Conclusion Sinus tachycardia...rate> 99 Probable right ventricular hypertrophy...prominent R or R' w/ RAD or FREDDY
--- NOTE | 2025-01-26 14:40 | W.ED.GENAD ---
Discharge Plan Disposition Patient Disposition: Home Condition: Stable Discharge Details Clinical Impression: CAP (community acquired pneumonia), Asthma exacerbation Primary Care Provider: Colleen Alonzo ED Provider: Moiz Castrejon Home Meds and New Rx's Prescriptions: New prednisone 20 mg tablet 60 mg PO DAILY 4 Days Qty: 12 0RF amoxicillin-pot clavulanate 875-125 mg tablet 1 tab PO BID Qty: 14 0RF azithromycin 250 mg tablet 250 mg PO DAILY 4 Days Qty: 4 0RF Rx Instructions: start on day 2 of therapy Continued Airsupra 90-80 mcg/actuation HFA aerosol inhaler 2 inh inhalation ONCE Rx Instructions: as a single dose; may repeat up to 6 doses per day (12 inhalations) omeprazole 20 mg capsule,delayed release(DR/EC) 20 mg PO DAILY albuterol-budesonide 90-80 mcg/actuation HFA aerosol inhaler 2 inh inhalation Q4H PRN PRNQty: 5.9 0RF Rx Instructions: as a single dose; may repeat up to 6 doses per day (12 inhalations) levalbuterol tartrate 45 mcg/actuation HFA aerosol inhaler 1 puff inhalation Q4H PRN PRNQty: 15 0RF Discontinued hydrocortisone 2.5 % cream with perineal applicator 1 applic TX BID-QID PRN fluoride (sodium) 1.1 % paste 1 applic dental DAILY prednisone 20 mg tablet See Rx Instructions .ROUTE .COMPLEX Qty: 18 0RF Rx Instructions: Take prednisone 60 mg orally for 3 days Then 40 mg X 3 days then 20 mg X 3 days then stop Discharge Instructions Additional Instructions: You are being treated for pneumonia and an asthma exacerbation. Take your prescribed medications starting tomorrow as you were given them IV here. You can take 1000 mg of acetaminophen and 600 mg of ibuprofen every 6 hours as needed. Follow-up with your primary care provider this week if you are not improving. Return to the emergency department if you feel significantly more ill or short of breath. HPI General Date/Time Provider Initiated Documentation: 01/26/25 14:30. Limitations to Documentation: no limitations. Information obtained by: patient. History of Present Illness 54 year old M presents to the emergency department with the chief complaint of cough, dyspnea, described as moderate, and is localized to the chest. Patient reports no radiation. Patient started experiencing this week(s) (2) and it has been constant. No relieving factors improve symptom(s), No exacerbating factors reported . Patient notes fever/chills and shortness of breath; denies chest pain and nausea/vomiting. Related Data Home Medications ?Medication ?Instructions ?Recorded ?Confirmed omeprazole 20 mg capsule,delayed 20 mg PO DAILY 09/30/24 01/26/25 release albuterol 90 mcg-budesonide 80 2 inh inhalation Q4H PRN PRN #5.9 10/01/24 01/26/25 mcg/actuation HFA aerosol inhaler grams levalbuterol tartrate 45 1 puff inhalation Q4H PRN PRN #15 10/01/24 01/26/25 mcg/actuation aerosol inhaler grams albuterol 90 mcg-budesonide 80 2 inh inhalation ONCE 01/08/25 01/26/25 mcg/actuation HFA aerosol inhaler (Airsupra) amoxicillin 875 mg-potassium 1 tab PO BID #14 tabs 01/26/25 clavulanate 125 mg tablet azithromycin 250 mg tablet 250 mg PO DAILY 4 days #4 tabs 01/26/25 prednisone 20 mg tablet 60 mg (3 x 20 mg) PO DAILY 4 days 01/26/25 #12 tabs Previous Rx's ?Medication ?Instructions ?Recorded albuterol 90 mcg-budesonide 80 2 inh inhalation Q4H PRN PRN #5.9 10/01/24 mcg/actuation HFA aerosol inhaler grams levalbuterol tartrate 45 1 puff inhalation Q4H PRN PRN #15 10/01/24 mcg/actuation aerosol inhaler grams amoxicillin 875 mg-potassium 1 tab PO BID #14 tabs 01/26/25 clavulanate 125 mg tablet azithromycin 250 mg tablet 250 mg PO DAILY 4 days #4 tabs 01/26/25 prednisone 20 mg tablet 60 mg (3 x 20 mg) PO DAILY 4 days 01/26/25 #12 tabs Allergies Allergy/AdvReac Type Severity Reaction Status Date / Time No Known Allergies Allergy Unverified 01/26/25 14:29 General Stated Complaint: RespSymp SHAYNA: 3 Review of Systems All systems reviewed & are unremarkable except as noted in HPI and below Constitutional Constitutional: Reports chills, Reports fever(s) and Denies weakness Cardiovascular Cardiovascular: Denies chest pain and Reports dyspnea Respiratory Respiratory: Reports cough and Reports dyspnea Gastrointestinal Gastrointestinal: Denies abdominal pain, Denies nausea and Denies vomiting Genitourinary Genitourinary: Denies dysuria Integumentary/Breasts Skin/Breast: Denies rash Neurologic Neurologic: Denies weakness Exam Const General: no acute distress Orientation: alert [facility] Head: normal to inspection Ears: external ears normal General nose exam: external nose normal Mouth: moist mucous membranes Eyes General: appearance normal, both eyes and all related structures Neck Neck: normal visual inspection Resp Effort & Inspection: normal respiratory effort and able to speak in complete sentences Auscultation: rhonchi and wheezes Cardio Rate: regular rate Skin General skin exam: no rashes or lesions noted Neuro General: patient alert and patient oriented x3 Extrem General: normal to inspection Psych Mental Status: mental status grossly normal Course Vital Signs Vital signs: Vital Signs Temperature 38.4 C H 01/26/25 14:24 Pulse 107 H 01/26/25 14:24 Respiratory Rate 01/26/25 14:24 Blood Pressure 139/88 01/26/25 14:24 Pulse Oximetry 90 L 01/26/25 14:24 Temperature 38.4 C H 01/26/25 14:28 Temperature Source Oral 01/26/25 14:28 Pulse 107 H 01/26/25 14:28 Respiratory Rate 01/26/25 14:28 Blood Pressure 139/88 01/26/25 14:28 Blood Pressure Position Sitting 01/26/25 14:28 Pulse Oximetry 90 L 01/26/25 14:28 Oxygen Delivery Method Room Air 01/26/25 14:28 Oxygen Flow Rate 0 01/26/25 14:24 Lab/Test Results Lab/Test Results: 01/26/25 14:32 Blood Blood Culture - Pending 01/26/25 14:32 Blood Blood Culture - Pending Medical Decision Making 54-year-old male with a history of asthma who was admitted in September for an asthma exacerbation in the setting of RSV comes in with 2 weeks of intermittent cough and worsening shortness of breath today has had chills and fevers. He denies any rashes, vomiting, chest pain, recent travel. He is speaking in full sentences on exam and is noted to be ranging from 90 to 94% on room air. He does have a fever here of 38.4. He has wheezing at the apices bilaterally and also rhonchi at the bases bilaterally. No JVD or leg swelling or calf tenderness. Given his fever cough and lung exam findings I suspect her respiratory infection and concern for pneumonia. Will check a CBC, CMP, lactate and procalcitonin and also obtain a chest x-ray. Will treat his symptoms with DuoNeb and methylprednisolone and also ibuprofen and Tylenol. He essentially no chest pain and given his fever and cough I doubt entities such as ACS do not feel troponin is indicated. I will also treat him with antibiotics presumptively for pneumonia with ceftriaxone and azithromycin Labs show mild leukocytosis, Fluvid negative. X-ray shows question of atelectasis versus right lower lobe pneumonia. He feels significantly better and is 95% room air, heart rate is 90. Discussed results with him, his lung sounds are now clear. Given reassuring workup I feel he stable for outpatient management. He will follow-up with his PCP and return precautions given. Differential Diagnosis Differential Diagnosis: RSV, pneumonia, asthma exacerbation Medical Records Medical records reviewed: Yes I reviewed the patient's medical records. Lab Data Lab results reviewed: Yes I reviewed the patient's lab results. ECG Data Attestation: I personally reviewed and interpreted this ECG (s) as follows: Prior ECG tracings: available for review Interpretation: Sinus tachycardia, rate of 105, [place] 140, no STEMI Quality:SDOH Health Related Social Needs: No Data to Display [facility] All Active Problems (Updated 01/26/25 @ 17:28 by Moiz Castrejon MD) Asthma exacerbation (Acute) CAP (community acquired pneumonia) (Acute) Herpesvirus infection (Acute) GERD (gastroesophageal reflux disease) (Chronic) Asthma exacerbation (Acute) RSV (acute bronchiolitis due to respiratory syncytial virus) (Acute) Impacted cerumen, right ear (Acute) Mixed hearing loss of right ear (Acute) Mixed hearing loss, bilateral (Acute) Erectile dysfunction (Acute) Sensorineural hearing loss of both ears (Acute) Abnormal auditory perception (Acute) Impacted cerumen of both ears (Acute) Normal colonoscopy (Acute) Spermatocele (Acute) Conductive hearing loss (Acute) Medical History (Updated 01/26/25 @ 17:28 by Moiz Castrejon MD) Tubular adenoma of colon (~11/15/19) Conductive hearing loss, bilateral (01/07/16) B-cell lymphoma (01/07/16) Foot joint pain Knee pain, right Plantar fasciitis of left foot Corns and callus Bunionette Dyspepsia Skin lesion Chest wall pain Diarrhea Pneumonia Rectal bleeding Sinusitis Abnormal chest xray Lymphoma Cough Testicular disorder Surgical History (Updated 01/08/25 @ 13:48 by Kinza Atwood RN) History of colonoscopy (~11/15/19) Surgical procedure planned testicular procedure. Social History Smoking/Tobacco Use Status: Never Smoking risk assessment performed?: Yes Alcohol Intake: never Drug use: Never Substance use type: does not use Housing: house Do you feel safe at home: Yes Do you feel safe in your relationship?: Yes
--- NOTE | 2025-01-26 14:45 | DI.RAD_ITS ---
Exam(s) XR PORTABLE CHEST AP EXAM: XR PORTABLE CHEST AP CLINICAL HISTORY: fever, cough, ?pneumonia TECHNIQUE: 2D digital imaging was performed. COMPARISON: CR,XR XR CHEST 2V PA LATERAL from 09/30/2024 FINDINGS: Overlying monitoring leads. LUNGS: The lungs are suboptimally inflated. There is increased linear density projecting in the left lower lung field and increased densities at the right lung base. Findings could represent atelectas is and/or pneumonia. No pleural abnormality seen. HEART: Normal size. AORTA: Normal diameter. BONES: Unremarkable for age. Soft tissues: Unremarkable. IMPRESSION: Limited exam due to suboptimal pulmonary inflation. right lower lobe atelectasis and question of rios perimposed pneumonia. DATA REPOSITORY: RADIATION DOSE DELIVERED:
[2025-01-26 14:59] LABS: Abs Immature Grans 0.04 10^3/uL (0.0-0.06); Absolute Basophil Count 0.05 10^3/uL (0.0-0.2); Absolute Lymphocyte Count 1.83 10^3/uL (1.2-3.4); Absolute Monocyte Count 0.75 10^3/uL (0.1-0.8); Basophils % 0.4 %; Eosinophils % 0.7 %; HCT 40.8 % (40.0-50.0); HGB 14.4 g/dL (13.5-17.5); Immature Grans % 0.3 %; Lymphocytes % 13.7 %; MCH 29.9 pg (27.0-33.0); MCHC 35.3 % (32.0-36.0); MCV 85 fL (80-95); MPV 10.3 fL (8.0-11.0); Monocytes % 5.6 %; Neutrophils % 79.3 %; Platelet Count 224 10^3/uL (130-400); RBC 4.81 10^6/uL (4.36-5.78); RDW 11.8 % (11.8-14.1); RDW-SD 36.3 fL; WBC 13.34 10^3/uL (4.4-10.8)
[2025-01-26 15:09] LABS: Absolute Eosinophil Count 0.09 10^3/uL (0.0-0.7); Absolute Neutrophil Count 10.58 10^3/uL (1.2-6.7)
[2025-01-26] MEDS: AZITHROMYCIN 500 MG in Normal Saline 250 ML 250 MG IVPB (15:11)
[2025-01-26] MEDS: Albuterol/Ipratropium 3 ML UPD VIAL UPD ×2 (15:11)
[2025-01-26] MEDS: Acetaminophen 500 MG TAB 1000 MG PO (15:12)
[2025-01-26] MEDS: methylPREDNISolone SUCC 125 MG VIAL IVP (15:12)
[2025-01-26] MEDS: Ibuprofen 600 MG TAB PO (15:12)
[2025-01-26] MEDS: Normal Saline Flush 10 ML SYR IVP (15:13)
[2025-01-26] MEDS: Normal Saline 1,000 ML 1000 ML IV ×2 (15:13→15:24)
[2025-01-26] MEDS: cefTRIAXone 2 GM/50 ML BAG IVPB (15:13)
[2025-01-26 15:36] LABS: Procalcitonin < 0.10 ng/mL
[2025-01-26 15:47] LABS: ALT 34 U/L (16-63); AST 14 U/L (15-37); Albumin 3.6 g/dL (3.4-5.0); Alkaline Phosphatase 94 U/L (46-116); Anion Gap 8.5 mmol/L (3-11); BUN 12 mg/dL (7-18); Bilirubin, Total 0.7 mg/dL (0.2-1.0); CO2 24.5 mmol/L (21.0-32.0); CREATININE 0.9 mg/dL (0.70-1.30); Calcium 8.7 mg/dL (8.5-10.1); Chloride 106 mmol/L (98-107); Estimated GFR 100.86 (mL/min/1.73m2); Glucose 118 mg/dL (74-106); Potassium 3.5 mmol/L (3.5-5.1); Sodium 139 mmol/L (136-145); Total Protein 6.9 g/dL (6.4-8.2)
[2025-01-26 17:04] LABS: COVID-19 PCR Negative (Negative); Influenza A PCR Negative (Negative); Influenza B PCR Negative (Negative); RSV PCR Negative (Negative)
[2025-01-26 17:13] LABS: Bilirubin Negative (Negative); Blood Negative (Negative); Clarity Clear (Clear); Glucose Negative (Negative); Ketones Negative (Negative); Leukocyte Esterase Negative (Negative); Nitrite Negative (Negative); Specific Gravity 1.015 (1.005-1.025); Urobilinogen 0.2 mg/dL (Up to 0.2)
--- NOTE | 2025-01-26 17:15 | DI.VRAD_ITS ---
PROCEDURE INFORMATION: Exam: XR Chest Exam date and time: 01/26/2025 3:51 PM Age: 54 years old Clinical indication: Cough and shortness of breath TECHNIQUE: Imaging protocol: Radiologic exam of the chest. Views: 1 view. COMPARISON: CR XR CHEST 2V PA LATERAL 09/30/2024 8:35 PM FINDINGS: Lungs: There is new mild central peribronchial thickening. There is new platelike airspace opacity at the lateral lower right lung consistent with subsegmental atelectasis. There is also new mild airspace opacity at the medial right lung base which could represent atelectasis but cannot exclude mild focal pneumonia in this region. There is no pulmonary vascular congestion. Pleural spaces: There are no pleural effusions present. There is no evidence of pneumothorax. Heart/Mediastinum: The cardiomediastinal silhouette is within normal limits. Bones/joints: Unremarkable. IMPRESSION: 1. New mild central peribronchial thickening suggesting bronchitis. 2. New mild airspace opacity within the lower right lung, as described above, some of which represents atelectasis but cannot exclude mild/early focal pneumonia. Recommend clinical correlation. Dictated and Authenticated by: Clifford Donis MD. Orderin Cash Rockwell MD
[2025-01-26 17:17] LABS: Source Nasopharynx
== END 2025-01-26 17:42 | disposition home or self-care (01) ==
LOC: ER 17:45
PROVIDERS: Emergency Provider Emergency Medicine; PCP Nurse Practitioner Family
DX: J18.9 Pneumonia, unspecified organism (principal); J45.901 Unspecified asthma with (acute) exacerbation
CPT/HCPCS: 80053; 84145; 87040; 87637; 93005; 94640; 96361; 96365; 96368; 96375; 99285; 71045; 81003; 83605; 83735; 85025; 93010; J0456; J0696; J2919; J7620

== ENCOUNTER 2025-04-26 20:55 | Emergency (ER) | payer BC, SELFPAY ==
[2025-04-26 20:59] VITALS: BP 158/88; PULSE 74; RESP 18; TEMP 36.4
--- NOTE | 2025-04-26 21:22 | ED.GENADUL_ITS ---
Discharge Plan Disposition Patient Disposition: Home Discharge Details Clinical Impression: Fracture of toe Primary Care Provider: Colleen Alonzo ED Provider: Krissy Payne Home Meds and New Rx's Prescriptions: No Action Airsupra 90-80 mcg/actuation HFA aerosol inhaler 2 inh inhalation ONCE Rx Instructions: as a single dose; may repeat up to 6 doses per day (12 inhalations) omeprazole 20 mg capsule,delayed release(DR/EC) 20 mg PO DAILY albuterol-budesonide 90-80 mcg/actuation HFA aerosol inhaler 2 inh inhalation Q4H PRN PRNQty: 5.9 0RF Rx Instructions: as a single dose; may repeat up to 6 doses per day (12 inhalations) levalbuterol tartrate 45 mcg/actuation HFA aerosol inhaler 1 puff inhalation Q4H PRN PRNQty: 15 0RF Discharge Instructions Instructions: Toe Injury (DC) Additional Instructions: Call your primary care provider on Monday to schedule follow-up appointment for reevaluation. A referral to podiatry may be indicated Probable fracture of your second toe. Please rabia tape to the third toe. Elevate your foot above heart level, ice for 15 to 20 minutes at a time, and use Tylenol 650 mg and ibuprofen 400 mg every 8 hours as needed. Wear well supportive shoes, especially those with a stiff sole and covered toe. Rest your foot as needed, avoiding walking or standing for long distances if it gives you trouble Referrals: Colleen Alonzo [Primary Care Provider, Medicine] HPI General Date/Time Provider Initiated Documentation: 04/26/25 21:09 . HPI Narrative: Agapito is a 54-year-old male presents the emergency department today for evaluation of toe pain. Approximately 3 hours ago, a piece of wood with a metal end landed on his left foot. Pain localized to the middle and back of the three middle toes. No discomfort on the top of the foot, in the big or little toe, or to the ankle. No history of previous injuries to these toes. No Tylenol or ibuprofen taken today. Not on blood thinners. Does not consume alcohol regularly. Related Data Home Medications ?Medication ?Instructions ?Recorded ?Confirmed omeprazole 20 mg capsule,delayed 20 mg PO DAILY 04/26/25 release albuterol 90 mcg-budesonide 80 2 inh inhalation Q4H MD N PRN #5.9 10/01/24 04/26/25 mcg/actuation HFA aerosol inhaler grams levalbuterol tartrate 45 1 puff inhalation Q4H PRN MD N #15 10/01/24 04/26/25 mcg/actuation aerosol inhaler grams albuterol 90 mcg-budesonide 80 2 inh inhalation ONCE 0 01/08/25 04/26/25 mcg/actuation HFA aerosol inhaler (Airsupra) Previous Rx's ?Medication ?Instructions ?Recorded albuterol 90 mcg-budesonide 80 2 inh inhalation Q4H MD N PRN #5.9 10/01/24 mcg/actuation HFA aerosol inhaler grams levalbuterol tartrate 45 1 puff inhalation Q4H PRN MD N #15 10/01/24 mcg/actuation aerosol inhaler grams Allergies Allergy/AdvReac Type Severity Reaction Status Date / Time No Known Allergies Allergy Unverified 04/26/25 21:08 General Stated Complaint: Orthopedic SHAYNA: 4 Exam Narrative Exam Narrative: General Appearance: Normal. Vital signs: Within normal limits. Back, Musculoskeletal: Bruising on the second, third, fourth toes of the left foot. Decreased range of motion due to discomfort. Brisk cap refill, no cyanosis or color change. No overlying skin tears or abrasions. Painless range of motion to ankle Skin: Warm and dry, no rash. Psychiatric: Normal. Course Vital Signs Vital signs: Vital Signs Temperature 36.4 C 04/26/25 20:59 Pulse 74 04/26/25 20:59 Respiratory Rate 18 04/26/25 20:59 Blood Pressure 158/88 H 04/26/25 20:59 Temperature 36.4 C 04/26/25 20:59 Pulse 74 04/26/25 20:59 Respiratory Rate 18 04/26/25 20:59 Blood Pressure 158/88 H 04/26/25 20:59 Blood Pressure Position Sitting 04/26/25 20:59 Oxygen Delivery Method Room Air 04/26/25 20:59 Oxygen Flow Rate 0 04/26/25 20:59 Pain Level 8 04/26/25 21:06 Medical Decision Making Initial Assessment: 54-year-old male with left foot injury from heavy object impact. Pain in three middle toes, no pain in big or little toe, visible bruising, no prior injuries, normal ankle mobility, not on blood thinners, does not consume alcohol regularly. Differential Diagnosis: - Fracture of middle toes: Due to impact, bruising, localized pain. Plan: Obtain x-ray. - Soft tissue injury: Possible due to pain and bruising. Plan: Apply ice, administer Tylenol. - No red flags concerning for neurovascular compromise or open fracture ED Course: - Applied ice. - Administered Tylenol. - X-ray obtained, significant for possible second toe tuft fracture per radiologist Clinical Impression: - Left foot injury - Possible tuft fracture of second toe Disposition: - Reviewed discharge instructions with patient, including symptomatic management and follow-up with PCP for further management/evaluation. Podiatry referral may be indicated Patient Education: Apply ice, take Tylenol for pain, avoid aggravating injury. Follow-up if symptoms persist or worsen. Patient consented to the use of [facility] Imaging Data Radiologic Study: Radiologist's impression: PROCEDURE INFORMATION: Exam: XR Left Foot Exam date and time: 04/26/2025 9:48 PM Age: 54 years old Clinical indication: Other: 2nd-4th toe pain after blunt trauma TECHNIQUE: Imaging protocol: Radiologic exam of the left foot. Views: 3 or more views. COMPARISON: CR XR foot LT complete 06/18/2018 1:50 PM FINDINGS: Bones/joints: There is subtle irregular lucency involving the tuft of the 2nd distal phalanx concerning for nondisplaced fracture. No other findings suspicious for fracture. Overall osseous alignment is normal. Moderate plantar spurring of the calcaneus incidentally noted. Soft tissues: Normal. IMPRESSION: Suspected nondisplaced fracture of the tuft of the 2nd distal phalanx [facility] All Active Problems (Updated 04/26/25 @ 23:04 by Krissy Xiong) Fracture of toe (Acute) Herpesvirus infection (Acute) GERD (gastroesophageal reflux disease) (Chronic) Asthma exacerbation (Acute) RSV (acute bronchiolitis due to respiratory syncytial virus) (Acute) Impacted cerumen, right ear (Acute) Mixed hearing loss of right ear (Acute) Mixed hearing loss, bilateral (Acute) Erectile dysfunction (Acute) Sensorineural hearing loss of both ears (Acute) Abnormal auditory perception (Acute) Impacted cerumen of both ears (Acute) Normal colonoscopy (Acute) Spermatocele (Acute) Conductive hearing loss (Acute) Medical History (Updated 04/26/25 @ 23:04 by Krissy Xiong) Tubular adenoma of colon (~11/15/19) Conductive hearing loss, bilateral (01/07/16) B-cell lymphoma (01/07/16) Foot joint pain Knee pain, right Plantar fasciitis of left foot Corns and callus Bunionette Dyspepsia Skin lesion Chest wall pain Diarrhea Pneumonia Rectal bleeding Sinusitis Abnormal chest xray Lymphoma Cough Testicular disorder Surgical History (Updated 01/08/25 @ 13:48 by Kinza Atwood RN) History of colonoscopy (~11/15/19) Surgical procedure planned testicular procedure. Social History Smoking/Tobacco Use Status: Never Smoking risk assessment performed?: Yes Alcohol Intake: never Drug use: Never Substance use type: does not use Housing: house Do you feel safe at home: Yes Do you feel safe in your relationship?: Yes
[2025-04-26] MEDS: Acetaminophen 500 MG TAB 1000 MG PO (21:24)
--- NOTE | 2025-04-26 21:56 | DI.RAD_ITS ---
Exam(s) XR FOOT LT COMPLETE EXAM: XR FOOT LT COMPLETE CLINICAL HISTORY: 2nd-4th toe pain after blunt trauma. TECHNIQUE: 2D digital imaging was performed. COMPARISON: No exams were available for comparison FINDINGS: 3 views No evidence of obvious fracture nor diastasis of the Lisfranc joint. There is very subtle cortical irregularity of the tuft of the distal phalanx of the 2nd toe which may be a subtle nondisplaced fracture. There is no radiopaque foreign body at this level. No gas in the soft tissues. The great toe metatarsophalangeal joint appears unremarkable. No pes planus. There is a moderate size inferior calcaneal spur. There is no calcification in the plantar fascia. IMPRESSION: Possible very subtle fracture of the tuft of the distal phalanx of the 2nd toe. Correlation with site of tenderness is recommended. There is no radiopaque foreign body at this level. DATA REPOSITORY: RADIATION DOSE DELIVERED:
--- NOTE | 2025-04-26 22:28 | DI.VRAD_ITS ---
PROCEDURE INFORMATION: Exam: XR Left Foot Exam date and time: 04/26/2025 9:48 PM Age: 54 years old Clinical indication: Other: 2nd-4th toe pain after blunt trauma TECHNIQUE: Imaging protocol: Radiologic exam of the left foot. Views: 3 or more views. COMPARISON: CR XR foot LT complete 06/18/2018 1:50 PM FINDINGS: Bones/joints: There is subtle irregular lucency involving the tuft of the 2nd distal phalanx concerning for nondisplaced fracture. No other findings suspicious for fracture. Overall osseous alignment is normal. Moderate plantar spurring of the calcaneus incidentally noted. Soft tissues: Normal. IMPRESSION: Suspected nondisplaced fracture of the tuft of the 2nd distal phalanx Dictated and Authenticated by: Popeye Glasgow MD. Orderin Harriett Rey MD
== END 2025-04-26 23:10 | disposition home or self-care (01) ==
PROVIDERS: Emergency Provider Nurse Practitioner Family; PCP Nurse Practitioner Family
DX: S92.535A Nondisplaced fracture of distal phalanx of left lesser toe(s), initial encounter for closed fracture (principal); W22.8XXA Striking against or struck by other objects, initial encounter; Y93.89 Activity, other specified; Y92.018 Other place in single-family (private) house as the place of occurrence of the external cause
CPT/HCPCS: 99283; 73630

== ENCOUNTER 2025-06-13 06:02 | Day surgery (SDC) | payer BC, SELFPAY ==
--- NOTE | 2025-06-12 16:04 | W.PM.DSUDISC ---
Date of service: 06/13/25 Discharge Plan Disposition Patient Disposition: Home Condition: Good Discharge Details Reason For Visit: Screening colonoscopy Attending Provider: Stanislaw Cardona Primary Care Provider: Colleen Alonzo Home Meds and New Rx's Prescriptions: Continued omeprazole 20 mg capsule,delayed release(DR/EC) 20 mg PO DAILY albuterol-budesonide 90-80 mcg/actuation HFA aerosol inhaler 2 inh inhalation Q4H PRN PRNQty: 5.9 0RF Rx Instructions: as a single dose; may repeat up to 6 doses per day (12 inhalations) Discontinued bisacodyl [Dulcolax (bisacodyl)] 5 mg tablet,delayed release (DR/EC) 5 mg PO ONCE Qty: 4 0RF Rx Instructions: Take per colonoscopy instructions provided by ordering providers office polyethylene glycol 3350 17 gram/dose powder 17 g PO ONCE Qty: 238 0RF Rx Instructions: Take per colonoscopy instructions provided by ordering providers office Discharge Instructions Instructions: Colon polyps Additional Instructions: Agapito, it was great to meet you today, we make a quick and uneventful recovery from your procedure. Things went very smoothly. Your prep was excellent. I did find, and remove, 4 polyps today. I will send these all off to the pathologist for them to review. The results will take about a week or 2 to get back, once I have that information, my office will be in touch with recommendations for future colonoscopies. If you need anything or have any questions in the meantime, please do not hesitate to ask at any point. 1. If tolerated, consume a soft, low fiber diet for 1-2 days. [address] not drive, drink alcohol, operate machinery, make critical decisions, or do activities that require coordination or balance for 24 hours. 3. Because air was put into your colon during the procedure, expelling air from your rectum (passing gas or farting) is normal. 4. You may not have a bowel movement for 1-3 days because of the colonoscopy prep. This is normal. 5. Go directly to the emergency room if you notice any of the following: Develop chills (warm to touch), or if you have a thermometer and your temperature is above 101 Difficulty breathing or difficultly swallowing Persistent vomiting Severe abdominal pain, other than gas cramps Severe chest pain Black, tarry stools Any bleeding ? exceeding one tablespoon 6. Call your physician if the site where your intravenous was started becomes red, swollen, painful, and warm to touch. 7. Your physician has reviewed your pre-procedure medications. Please continue to take those medications as previously ordered. You will be given specific information/education regarding any changes to your medications before leaving. Stand Alone Forms: Anesthesia Discharge Inst., Colonoscopy Post Instructions, Esau Flores (DSU) Activity:: Activity as Tolerated Diet:: As Tolerated Discharge Orders Discharge Orders: Discharge Order (Routine); Ordered 06/12/25 Ordered By: Stanislaw Cardona DS: Diagnosis Discharge Diagnosis (1) Encounter for screening colonoscopy: Status: Acute Asessment and Plan: Follow-up on polypectomy results
--- NOTE | 2025-06-12 16:05 | W.COLOREPORT ---
Date of service: 06/13/25 Time of Service: 08:08 Colonoscopy Report Date of procedure: 06/13/25 Pre-op diagnosis general: screening colonsocopy Post-op diagnosis procedure note: other (Colon polyps) Procedure: colonoscopy with polypectomy Surgeon: Stanislaw Cardona Anesthesia Type: General:No Airway Estimated blood loss (mL): 5 Pathology: other (0.5 cm flat polyp at 110 cm, 0.25 cm flat polyp at 100 cm, 0.5 cm pedunculated polyp at 100 cm x 2) Complications: None Disposition: same day Indications: Agapito is a 54-year-old male with a history of adenomatous polyps who needs his next screening colonoscopy Prep: Miralax/Dulcolax Procedure Start Time: 07:35 Procedure End Time: 07:57 Retraction Time: 18 Findings: 0.5 cm flat polyp at 110 cm, 0.25 cm flat polyp at 100 cm, 0.5 cm pedunculated polyp at 100 cm x 2 Procedure Description: After the induction of anesthesia, and with the patient in left lateral decubitus position, I began by performing an external anorectal exam.? Perineum and skin were normal, as was the anal verge.? There was no evidence of external hemorrhoids.? Next, I performed a digital rectal exam.? I did not appreciate any abnormal findings.? Next, I advanced a colonoscope into the rectal vault.? I performed retroflexion.? There are internal hemorrhoids.? Using insufflation, I then advanced the colonoscope beyond the rectal folds and into the sigmoid colon before advancing towards the cecum.?? The scope was noted to be in the cecum by identification of the ileocecal valve and appendiceal orifice.? I then began withdrawing the colonoscope using repeated irrigation as necessary for full evaluation of the colonic mucosa. ?Around 110 cm past the anal verge, just at the hepatic flexure was a 0.5 cm flat polyp. This was removed with cold snare polypectomy. Excision was complete. There was minimal bleeding. Around 100 cm past the anal verge was a small area of polyps all a few centimeters away from 1 another. 2 of these were about 0.5 cm and pedunculated. The last was 0.25 cm and flat. The pedunculated polyps were excised with cold snare polypectomy, and cold forcep polypectomy was used to remove the smaller flat polyp. Once the scope was withdrawn to the level of the rectum, great care was taken to examine portions of the rectal folds.? Finally, the scope was withdrawn and the patient was brought to the same-day surgery recovery unit as the anesthetic wore off. ?The findings and instructions were shared with the patient prior to discharge. Morrill Bowel Prep Morrill Bowel Prep Right Colon: 3 Left Colon: 3 Transverse Colon: 3 Total Score: 9
[2025-06-13 06:14] VITALS: BP 139/95; PULSE 75; RESP 18; TEMP 36.4; O2SAT 98
[2025-06-13] MEDS: Lactated Ringers 1,000 ML 80 ML IV (06:57)
--- NOTE | 2025-06-13 07:05 | W.ANESPRE ---
General Info Date of Service Date Performed: 06/13/25 Height: 6 ft Weight: 118.7 kg Body Mass Index (BMI): 35.4 Surgical Procedure: Operation Date: 06/13/25 07:35 Proposed Procedure Side Surgeon p Mary Cardona MD Meds Allergies and Home Medications Allergies Allergy/AdvReac Type Severity Reaction Status Date / Time No Known Allergies Allergy Unverified 06/13/25 06:26 Home Medication ?Medication ?Instructions ?Recorded omeprazole 20 mg capsule,delayed 20 mg PO DAILY 09/30/24 release albuterol 90 mcg-budesonide 80 2 inh inhalation Q4H PRN PRN #5.9 10/01/24 mcg/actuation HFA aerosol inhaler grams Current Visit Medications: Current Medications Generic Name Dose Route Start Last Admin Trade Name Freq PRN Reason Stop Dose Admin Ringer's Solution 1,000 mls @ 80 mls/hr 06/13/25 06:00 06/13/25 06:57 IV 06/13/25 23:59 80 mls/hr INFUSION MAGALIS Administration IV Miscellaneous Supplies 1 each 06/13/25 06:00 Iv Access IV 06/13/25 23:59 DIRECTED MAGALIS Sodium Chloride 0 ml 06/13/25 06:00 Normal Saline Flush 10 Ml Syr IV 06/13/25 23:59 PRN PRN Sodium Chloride 0 ml 06/13/25 06:00 Normal Saline 10 Ml Vial IJ 06/13/25 23:59 DIRECTED PRN Sterile Water 0 ml 06/13/25 06:00 Water,Injection,Sterile 10 Ml Vial IJ 06/13/25 23:59 DIRECTED PRN PFSH Active Problems Active Problems: Problem Status Onset Code Encounter for screening colonoscopy Acute Z12.11 Herpesvirus infection Acute B00.9 GERD (gastroesophageal reflux disease) Chronic K21.9 Asthma exacerbation Acute J45.901 RSV (acute bronchiolitis due to respiratory syncytial virus) Acute J21.0 Impacted cerumen, right ear Acute H61.21 Mixed hearing loss of right ear Acute H90.71 Mixed hearing loss, bilateral Acute H90.6 Erectile dysfunction Acute N52.9 Sensorineural hearing loss of both ears Acute H90.3 Abnormal auditory perception Acute H93.299 Impacted cerumen of both ears Acute H61.23 Normal colonoscopy Acute Spermatocele Acute N43.40 Conductive hearing loss Acute H90.2 Medical History Medical History Tubular adenoma of colon (~11/15/19) Conductive hearing loss, bilateral (01/07/16) B-cell lymphoma (01/07/16) Foot joint pain Knee pain, right Plantar fasciitis of left foot Corns and callus Bunionette Dyspepsia Skin lesion Chest wall pain Diarrhea Pneumonia Rectal bleeding Sinusitis Abnormal chest xray Lymphoma Cough Testicular disorder Surgical History Surgical History History of colonoscopy (~11/15/19) Surgical procedure planned testicular procedure. Tobacco Smoking/Tobacco Use Status: Never Alcohol Alcohol Intake: never Substance Use Substance use: Never Substance use type: does not use Vital Signs and Lab Results Vital Signs Most Recent Vital Signs in EMR: Most Recent Vital Signs Temp Pulse Resp BP Pulse Ox 36.4 C L 75 18 139/95 H 98 06/13/25 06:14 06/13/25 06:14 06/13/25 06:14 06/13/25 06:14 06/13/25 06:14 Imaging and Studies Imaging and Studies Study information below may be from another EMR and interpreted by another provider. Please see original notes in EMR for more complete details. EKG Summary: 01/26/25: Exam: Resting ECG Reason for Exam: sob Patient Location: E HR:105 bpm ECG Measurements Heart Rate 105 AXIS DE 140 P 11 QRSd 106 QRS 123 QT 341 T34 QTc 452 Conclusion Sinus tachycardia...rate> 99 Probable right ventricular hypertrophy...prominent R or R' w/ RAD or FREDDY I have reviewed and I agree with the emergency room physician's ECG interpretation. Echocardiogram Summary: 07/09/20: Conclusion Left Ventricle : The left ventricle is normal size. The left ventricular systolic function is normal. The left ventricular ejection fraction is within the normal range. There is normal left ventricular wall thickness. There is normal LV segmental wall motion. The left ventricular diastolic function is normal. LVEF is 58%. Right Ventricle : The right ventricle is normal size. The right ventricular systolic function is normal. The RVSP is 28.9 mmHg. Atria : The left atrium size is normal. The right atrium size is normal. Aortic Valve : The aortic valve is normal in structure. Aortic valve is trileaflet. There is no aortic valvular stenosis. Trivial aortic regurgitation. Mitral Valve : The mitral valve is normal in structure. Trace to mild mitral regurgitation. No evidence of mitral valve stenosis. Great Vessels : The aortic root is normal in size. The ascending aorta is normal in size. Aortic arch is not well visualized. IVC is normal in size and collapses >50% with inspiration. Please see remainder of study for further details. Anesthesia Assessment and Plan Anesthesia History Personal History: No History of Anesthesia Complications Family History: Family History Unknown Exercise Tolerance Exercise Tolerance: Metabolic Equivalents>4 Cardiac & Pulmonary Exam Cardiac Exam: Normal S1/S2 Heart Sounds Pulmonary Exam: Clear Bilateral Breath Sounds Implantable Cardiac Device Does patient have a Pacemaker or an ICD?: No Airway Exam Known Difficult Airway: No Mallampati Class: 2 Mouth Opening: Normal (> 3cm) Thyromental Distance: Greater than 3 cm Neck Range of Motion: Full ROM Neck Circumference: Normal Teeth Condition: Normal Dentition ASA Classification ASA Score: ASA 2 Emergency Case?: No NPO Status NPO Status: NPO Clears >2 hours, Solids >8 hours Anesthesia Plan Resuscitation Status: Full Code Anesthesia Technique: General Anesthesia Airway Planned: Natural Airway Monitors Used: Standard Monitors
[2025-06-13 07:18] VITALS: BMI 35.4
--- NOTE | 2025-06-13 07:42 | BOWEL_PTH ---
PATIENT: Agapito Ramirez JR LOC: [facility] U#:[id number] AGE/SX: 54/M ROOM: RE06/13/[address]: Stanislaw Cardoan MD : 1970 BED: DIS: 06/13/2025 SPEC #: [id number] RECD: 06/13/25 12:38 STATUS: [facility] #: [id number] LENARD: 06/13/25 07:[address]: Stanislaw Cardona DEPT: Surgical Specimen RECD BY: Tran Quesada ENTERED: 06/13/25 12:39 SP TYPE: Bowel OTHR DR: Colleen Alonzo Tissues: 1 - BIOPSY BOWEL 2 - BIOPSY BOWEL Procedures: GROSS AND MICRO LEVEL 4 Comments: [id number]
[2025-06-13 08:07] VITALS: BP 106/55; PULSE 73; RESP 16; TEMP 36.1; O2SAT 94
[2025-06-13 08:29] VITALS: BP 124/89; PULSE 67; RESP 16; TEMP 36.3; O2SAT 97
--- NOTE | 2025-06-13 09:23 | W.ANESPOSTOP ---
Postoperative Evaluation Date, Time and Location Date Performed: 06/13/25 Time Performed: 08:15 Patient Location: Day Surgery Unit Vital Signs Most Recent Imported Vital Signs: Most Recent Vital Signs Temp Pulse Resp BP Pulse Ox 36.3 C L 67 16 124/89 97 06/13/25 08:29 06/13/25 08:29 06/13/25 08:29 06/13/25 08:29 06/13/25 08:29 Pain Score Most Recent Pain Score: Most Recent Pain Score Pain Level 0 06/13/25 08:29 Assessment Mental Status: Awake (Alert & Oriented to Patient Baseline) Airway and Respiratory Function: Patent airway with normal (patient baseline) respiratory exam Cardiovascular Function: Hemodynamically Stable Hydration Status: Adequately Hydrated Nausea & Vomiting: No Nausea or Vomiting Pain: Pt. Denies Any Pain Peripheral Nerve Block: Patient did not receive a nerve block
== END 2025-06-13 09:00 | disposition home or self-care (01) ==
LOC: SUR 06:02
PROVIDERS: PCP Nurse Practitioner Family; Visit Provider Surgery
PROC: 0DJD8ZZ Inspection of Lower Intestinal Tract, Via Natural or Artificial Opening Endoscopic (ICD-10-PCS; CPT 45378; principal; 2025-06-13 07:30)
DX: Z12.11 Encounter for screening for malignant neoplasm of colon (principal); D12.3 Benign neoplasm of transverse colon; D37.4 Neoplasm of uncertain behavior of colon
CPT/HCPCS: 45385; 45380; 88305; J2003; J2704